=== PATIENT | female | born 1945 | race Caucasian/White ===

== ENCOUNTER 2016-12-21 22:28 | Inpatient (IN) | payer MEDICARE, OTHER ==
[2016-12-21 22:36] VITALS: BMI 32.9
[2016-12-21 23:03] LABS: VENOUS BLOOD GAS BASE EXCESS 8.4 mmol/L (0.0-2.0); VENOUS BLOOD PH 7.23 (7.32-7.43)
[2016-12-21 23:13] LABS: ARTERIAL BLOOD GAS HCO3 37.4 mmol/L (21-28)
[2016-12-21 23:15] LABS: BASO # 0.03 K/mm3 (0.0-2.0); BASO % 0.2 % (0.0-3.0); EOS # 0.3 (0.0-0.7); EOS % 2.4 % (1.5-5.0); GRAN # 9.82 (1.4-6.5); GRAN % 81.2 % (50.0-68.0); LYMPH # 1.2 (1.2-3.4); LYMPH % 10.1 % (22.0-35.0); MEAN CELL VOLUME 90.7 fl (80.0-105.0); MEAN CORPUSCULAR HEMOGLOBIN 27.7 pg (25.0-35.0); MEAN CORPUSCULAR HGB CONC 30.5 g/dl (31.0-37.0); MEAN PLATELET VOLUME 10.4 fl (7.0-11.0); MONO # 0.7 (0.1-0.6); MONO % 6.1 % (1.0-6.0); RED CELL DISTRIBUTION WIDTH 14.1 % (11.5-14.5); WHITE BLOOD COUNT 12.1 10^3/ul (4.5-11.0)
[2016-12-21] MEDS ORDERED: Albuterol-Ipratrop 3 mg / 0.5 (3 ml) UD IH STA (23:18)
[2016-12-21] MEDS ORDERED: Piperacillin/Tazobact 3.375 gm 100 ML IVPB STA (23:19)
[2016-12-21] MEDS ORDERED: Albuterol-Ipratrop 3 mg / 0.5 (3 ml) UD ONE (23:24)
[2016-12-21 23:28] LABS: ALB/GLOB RATIO 1.1 (1.1-1.8); ALKALINE PHOSPHATASE 97 U/L (38-133); ALT/SGPT 27 U/L (7-56); AST/SGOT 39 U/L (15-39); BILIRUBIN,TOTAL 0.4 mg/dL (0.2-1.3); BLOOD UREA NITROGEN 29 mg/dL (7-21); CARBON DIOXIDE 38 mmol/L (21-33); CHLORIDE 98 mmol/L (98-107); GFR AFRICAN-AMERICAN > 60; GLUCOSE,RANDOM 117 mg/dL (70-110); POTASSIUM 5.1 mmol/L (3.6-5.0); SODIUM 142 mmol/L (132-148); TOTAL PROTEIN 7.7 g/dL (5.8-8.3)
--- NOTE | 2016-12-21 23:29 | ED PDOC ---
Arrival/HPI - General Time Seen by Provider: 12/21/16 22:31 Historian: Patient - History of Present Illness Narrative History of Present Illness (Text): 12/21/16 22:33 A 71 year old female, whose past medical history includes COPD (on 2.5L oxygen at home), pulmonary fibrosis, bronchiectasis, hypertension and breast cancer, presents to the emergency department complaining of shortness of breath and fever for 1 day. Patient denies of any chest pain and vomiting. Limited HPI and ROS due to poor historian and language barrier. PMD: Dr. Del Rosario Time/Duration: 24 hours Symptom Onset: Sudden Symptom Course: Unchanged Past Medical History - Provider Review Nursing Documentation Reviewed: Yes - Infectious Disease Hx of Infectious Diseases: None - Tetanus Immunization Tetanus Immunization: Unknown - Cardiac Hx Cardiac Disorders: Yes (dvt 10 yrs ago) Hx Hypertension: Yes Hx Peripheral Edema: Yes (+2 pitting ble) - Pulmonary Hx Respiratory Disorders: (pulmonary htn, on home o2) Hx Asthma: Yes Hx Bronchitis: Yes Hx Chronic Obstructive Pulmonary Disease (COPD): Yes Hx Emphysema: Yes Hx Pneumonia: Yes - Neurological Hx Neurological Disorder: No - HEENT Hx HEENT Disorder: Yes Hx Cataracts: Yes (b/l sx) - Renal Hx Renal Disorder: No - Hematological/Oncological Hx Blood Disorders: Yes Hx Cancer: Yes (BREAST CA 2009, r mastectomy) Hx Chemotherapy: Yes (chemo and radiation) - Musculoskeletal/Rheumatological Hx Falls: No - Gastrointestinal Hx Gastroesophageal Reflux: Yes - Genitourinary/Gynecological Hx Genitourinary Disorders: No - Psychiatric Hx Substance Use: No - Past Surgical History Past Surgical History: Unable to Obtain - Surgical History Hx Appendectomy: Yes Hx Cardiac Catheterization: Yes Hx Cholecystectomy: Yes Hx Coronary Stent: Yes (3 STENTS) Hx Mastectomy: Yes (Right) Other/Comment: umbilical hernia repair - Anesthesia Hx Anesthesia: Yes Hx Anesthesia Reactions: No Hx Malignant Hyperthermia: No - Suicidal Assessment Feels Threatened In Home Enviroment: No Family/Social History - Physician Review Nursing Documentation Reviewed: Yes Family/Social History: No Known Family HX Smoking Status: Never Smoked Hx Alcohol Use: No Hx Substance Use: No Hx Substance Use Treatment: No Allergies/Home Meds Allergies/Adverse Reactions: Allergies No Known Allergies Allergy (Verified 12/21/16 22:36) Home Medications: Home Meds Medication Instructions Recorded Confirmed Albuterol Sulfate [Proair Hfa] 2 puff IH [facility] 06/22/16 12/21/16 Anastrozole [Arimidex] 1 mg PO DAILY 06/22/16 12/21/16 Atorvastatin Calcium 20 mg PO DIALW 06/22/16 12/21/16 Cetirizine HCl [Zyrtec] 10 mg PO DAILY PRN 06/22/16 12/21/16 Docusate Sodium [Stool Softener] 50 mg PO DAILY PRN 06/22/16 12/21/16 Lisinopril [Zestril] 10 mg PO DAILY 06/22/16 12/21/16 Metoprolol Tartrate [Lopressor] 50 mg PO BID 06/22/16 12/21/16 Montelukast Sodium [Singulair] 10 mg PO DAILY 06/22/16 12/21/16 Tiotropium [Spiriva] 18 mcg IH DAILY 06/22/16 12/21/16 hydroCHLOROthiazide [Hydrodiuril] 25 mg PO DAILY 06/22/16 12/21/16 Celecoxib [Celebrex] 200 mg PO DAILY 12/21/16 12/21/16 Cyanocobalamin [Vitamin B12 1000 1 tab PO DAILY 12/21/16 12/21/16 mcg Tab] Vitamin B Complex [B Complex] 1 tab PO DAILY 12/21/16 12/21/16 Review of Systems - Physician Review All systems were reviewed & negative as marked: Yes - Review of Systems Systems not reviewed;Unavailable: Language Barrier Constitutional: Fevers Respiratory: SOB Cardiovascular: absent: Chest Pain Gastrointestinal: absent: Vomiting Physical Exam Vital Signs Reviewed: Yes Vital Signs Temp Pulse Resp BP Pulse Ox 12/22/16 02:47 86 96 12/22/16 00:10 100.2 F H 101 H 22 135/65 96 12/21/16 23:31 102.5 F H 12/21/16 22:40 24 100 12/21/16 22:28 102.5 F H 100 H 20 143/72 99 Temperature: Afebrile Blood Pressure: Normal Pulse: Regular Respiratory Rate: Normal Appearance: Positive for: Well-Appearing Pain Distress: None Mental Status: Positive for: Alert and Oriented X 3 - Systems Exam Head: Present: Atraumatic, Normocephalic Pupils: Present: PERRL Extroacular Muscles: Present: EOMI Conjunctiva: Present: Normal Mouth: Present: Moist Mucous Membranes Neck: Present: Normal Range of Motion Respiratory/Chest: Present: Decreased Breath Sounds (bilaterally poor air) Cardiovascular: Present: Regular Rate and Rhythm, Normal S1, S2. No: Murmurs Abdomen: Present: Normal Bowel Sounds. No: Tenderness, Distention, Peritoneal Signs Back: Present: Normal Inspection Upper Extremity: Present: Normal Inspection. No: Cyanosis, Edema Lower Extremity: Present: Normal Inspection. No: Edema Neurological: Present: GCS=15, CN II-XII Intact, Speech Normal Skin: Present: Warm, Dry, Normal Color. No: Rashes Psychiatric: Present: Alert, Oriented x 3, Normal Insight, Normal Concentration Medical Decision Making ED Course and Treatment: 12/21/16 22:41 Impression: 71 year old female with shortness of breath and fever. Physical exam shows bilaterally decreased breath sounds. Plan: -- EKG -- Blood Gas -- Chest X-ray -- Labs -- Blood Culture -- Urinalysis -- Reassess and disposition Prior Visits: Notes and results from previous visits were reviewed. Patient was last seen in the emergency department on 06/22/2016 for non productive cough associated with left sided chest pain and shortness of breath. Patient was admitted. Progress Notes: 12/21/16 22:41 EKG: Ordered, reviewed, and independently interpreted the EKG. Rate : 100 BPM Rhythm : NSR Interpretation : Possible left atrial enlargement. Borderline ECG. Comparison : EKG from 06/22/2016 showed sinus tachycardia at 114 BPM with no new ST-segment/T-wave changes, normal intervals, normal axis. 12/22/16 00:14 Chest X-ray shows pulmonary fibrosis. case d/e dr veronica FISHER ACCEPTS TO ICU 12/25/16 16:21 - Critical Care Critical Care Minutes: 30 minutes (mangement of respiratory distress) - Lab Interpretations Microbiology Results: Microbiology Results 12/21/16 23:00 Blood-Venous Blood Culture - Preliminary NO GROWTH AFTER 3 DAYS 12/21/16 22:40 Blood-Venous Blood Culture - Preliminary NO GROWTH AFTER 3 DAYS 12/21/16 23:45 Urine,Clean Catch Urine Culture - Final Escherichia Coli Lab Results: 12/21/16 22:40 12/21/16 22:40 Lab Results 12/21/16 23:15: Urine Color Yellow, Urine Appearance Cloudy, Urine pH 6.0, Ur Specific [place] 1.025, Urine Protein 100 H, Urine Glucose (UA) Negative, Urine Ketones Negative, Urine Blood Small H, Urine Nitrate Positive H, Urine Bilirubin Negative, Urine Urobilinogen 0.2, Ur Leukocyte Esterase Small H, Urine RBC 2 - 5, Urine WBC 20 - 25, Ur Epithelial Cells 0 - 2, Urine Bacteria Many 12/21/16 23:10: pCO2 76 H*, pO2 203.0 H, HCO3 37.4 H, ABG pH 7.30 L, ABG Total CO2 39.7 H, ABG O2 Saturation 98.1 H, ABG Base Excess 8.0 H, ABG Potassium 4.6, Glucose 120 H, Lactate 1.1, FiO2 100.0, Sodium 140.0, Chloride 101.0, Arterial Blood Potassium 4.6 12/21/16 22:57: pO2 55, VBG pH 7.23 L, VBG pCO2 95.0 H*, VBG HCO3 39.8 H, VBG Total CO2 42.7 H, VBG O2 Sat (Calc) 89.7 H, VBG Base Excess 8.4 H, VBG Potassium 5.2, Glucose 117 H, Lactate 1.1, FiO2 21.0, Sodium 141.0, Chloride 100.0, Venous Blood Potassium 5.2 12/21/16 22:40: Sodium 142, Potassium 5.1 H, Chloride 98, Carbon Dioxide 38 H, Anion Gap 11, BUN 29 H, Creatinine 1.0, Est GFR ( Amer) > 60, Est GFR ( Non-Af Amer) 55, Random Glucose 117 H, Calcium 9.0, Total Bilirubin 0.4, AST 39 , ALT 27, Alkaline Phosphatase 97, Lactate Dehydrogenase 524, Total Creatine Kinase 22 L, Troponin I 0.03 D, NT-Pro-B Natriuret Pep 94.7, Total Protein 7.7 , Albumin 4.0, Globulin 3.7, Albumin/Globulin Ratio 1.1 12/21/16 22:40: WBC 12.1 H D, RBC 4.41, Hgb 12.2, Hct 40.0, MCV 90.7, MCH 27.7, MCHC 30.5 L, RDW 14.1, Plt Count 176, MPV 10.4, Gran % 81.2 H, Lymph % (Auto) 10.1 L, [place] % (Auto) 6.1 H, Eos % (Auto) 2.4, Baso % (Auto) 0.2, Gran # 9.82 H , Lymph # 1.2, Bradford # 0.7 H, Eos # 0.3, Baso # 0.03 I have reviewed the lab results: Yes - RAD Interpretation Radiology Orders: 12/21/16 22:42 CHEST PORTABLE [RAD] Stat - Medication Orders Current Medication Orders: Acetaminophen (Tylenol 325mg Tab) 650 mg PO Q6H PRN PRN Reason: Fever >100.4 F Last Admin: 12/23/16 00:03 Dose: 650 mg Re-Assess: MAR Pain/Vitals Document 12/23/16 01:03 MHA (Rec: 12/23/16 05:34 MHA [id number]) Pain Reassessment Is This A Pain ReAssessment? Yes Sleep Is patient sleeping during reassessment? Yes Albuterol/Ipratropium (Duoneb 3 Mg/0.5 Mg (3 Ml) Ud) 3 ml IH Q2H PRN PRN Reason: Shortness of Breath Albuterol/Ipratropium (Duoneb 3 Mg/0.5 Mg (3 Ml) Ud) 3 ml IH [id number] [facility] Last Admin: 12/25/16 11:21 Dose: 3 ml Anastrozole (Arimidex 1 Mg Tab) 1 mg PO DAILY [facility] Last Admin: 12/25/16 09:56 Dose: 1 mg Aspirin (Aspirin Chewable) 81 mg PO DAILY [facility] Last Admin: 12/25/16 09:29 Dose: Clopidogrel Bisulfate (Plavix) 75 mg PO DAILY [facility] Last Admin: 12/25/16 09:30 Dose: Doxycycline Hyclate (Doryx) 100 mg PO Q12 [facility] PRN Reason: Protocol Stop: 12/31/16 23:48 Last Admin: 12/25/16 09:52 Dose: 100 mg Famotidine (Pepcid) 40 mg PO HS [facility] Heparin Sodium (Porcine) (Heparin) 5,000 units SC Q12 [facility] PRN Reason: Protocol Last Admin: 12/25/16 10:06 Dose: Hydrochlorothiazide (Microzide) 12.5 mg PO DAILY [facility] Last Admin: 12/25/16 09:52 Dose: 12.5 mg Meropenem 1g/NS 100mL IVPB (Meropenem 1g/Ns 100ml Ivpb) 1 gm in 100 mls @ 100 mls/hr IVPB Q12 [facility] PRN Reason: Protocol Last Admin: 12/25/16 09:51 Dose: 100 mls/hr Sodium Chloride (Sodium Chloride 0.9%) 1,000 mls @ 50 mls/hr IV .Q20H [facility] Stop: 12/26/16 05:00 Last Admin: 12/25/16 09:31 Dose: 50 mls/hr Famotidine 20 mg/ Dextrose 102 mls @ 20.4 mls/hr IVPB Q5H [facility] PRN Reason: 4 MG/HR Last Admin: 12/25/16 12:07 Dose: 20.4 mls/hr Lisinopril (Zestril) 20 mg PO DAILY [facility] Last Admin: 12/25/16 09:53 Dose: 20 mg Methylprednisolone (Solu-Medrol) 20 mg IVP Q12 [facility] Last Admin: 12/25/16 09:53 Dose: 20 mg Metoprolol Tartrate (Lopressor) 50 mg PO BID [facility] Last Admin: 12/25/16 09:30 Dose: Morphine Sulfate (Morphine) 1 mg IVP Q3 PRN PRN Reason: Pain, severe (8-10) Last Admin: 12/23/16 09:54 Dose: 1 mg Re-Assess: [facility] Pain Assessment Document 12/23/16 10:54 CLA (Rec: 12/23/16 14:47 CLA [id number]) Pain Reassessment Is this a pain reassessment? Yes Sleep Is patient sleeping during reassessment? Yes Presence of Pain Presence of Pain No Ondansetron HCl (Zofran Inj) 4 mg IVP Q6H PRN PRN Reason: Nausea/Vomiting Discontinued Medications Acetaminophen (Tylenol 325mg Tab) 650 mg PO STAT STA Stop: 12/21/16 23:21 Last Admin: 12/21/16 23:31 Dose: 650 mg Re-Assess: [facility] Pain/Vitals Document 12/22/16 00:31 RD (Rec: 12/22/16 02:07 RD [id number]) Pain Reassessment Is This A Pain ReAssessment? No Albuterol/Ipratropium (Duoneb 3 Mg/0.5 Mg (3 Ml) Ud) 3 ml IH STAT STA Stop: 12/21/16 23:19 Last Admin: 12/21/16 23:29 Dose: 3 ml Albuterol/Ipratropium (Duoneb 3 Mg/0.5 Mg (3 Ml) Ud) Confirm Administered Dose 3 ml .ROUTE .STK-MED ONE Stop: 12/21/16 23:25 Last Admin: 12/21/16 23:35 Dose: Eptifibatide (Integrilin Bolus) Confirm Administered Dose 40 mg IVP .STK-MED ONE Stop: 12/25/16 08:11 Last Admin: 12/25/16 08:12 Dose: 13.6 mg Comments: 6.8mls given at 812am by lesly marie rn, confirmed with dr. murillo 6.8mls given at 822am with by lesly marie rn, confirmed by dr. murillo. Fentanyl (Fentanyl) Confirm Administered Dose 100 mcg .ROUTE .STK-MED ONE Stop: 12/25/16 07:52 Last Admin: 12/25/16 07:56 Dose: 50 mcg Comments: 50mcgs given iv by dr murillo at 756am Flumazenil (Romazicon) Confirm Administered Dose 0.5 mg IVP .STK-MED ONE Stop: 12/25/16 08:42 Last Admin: 12/25/16 09:30 Dose: 0.2 mg Comments: 842am .1mg given by lesly marie rn 843am .1mg given by lesly marie rn Furosemide (Lasix) 40 mg IVP ONCE ONE Stop: 12/25/16 12:50 Last Admin: 12/25/16 13:05 Dose: 40 mg Heparin Sodium (Porcine) (Heparin) Confirm Administered Dose 10,000 units .ROUTE .STK-MED ONE Stop: 12/25/16 06:52 Last Admin: 12/25/16 08:13 Dose: 3,000 units Comments: 3000u given by lesly marie rn iv at 813am, confirmed with dr. murillo Vancomycin HCl (Vancomycin 1gm) 1 gm in 250 mls @ 167 mls/hr IVPB DAILY [facility] PRN Reason: Protocol Piperacillin Sod/Tazobactam Sod (Zosyn 3.375 In Ns 100ml) 100 mls @ 200 mls/hr IVPB STAT STA PRN Reason: Protocol Stop: 12/21/16 23:48 Last Admin: 12/21/16 23:34 Dose: 200 mls/hr Vancomycin HCl (Vancomycin 1gm) 1 gm in 250 mls @ 167 mls/hr IVPB STAT STA PRN Reason: Protocol Stop: 12/22/16 01:07 Last Admin: 12/22/16 00:12 Dose: 167 mls/hr Sodium Chloride (Sodium Chloride 0.9%) 1,000 mls @ 80 mls/hr IV .[id number] [facility] Last Admin: 12/24/16 05:18 Dose: 80 mls/hr Cefepime HCl (Maxipime 2gm) 2 gm in 100 mls @ 100 mls/hr IVPB Q8 [facility] PRN Reason: Protocol Stop: 12/27/16 06:01 Last Admin: 12/22/16 21:24 Dose: 100 mls/hr Linezolid (Zyvox 600mg/300ml D5w) 600 mg in 300 mls @ 200 mls/hr IVPB Q12 [facility] PRN Reason: Protocol Stop: 12/31/16 23:46 Last Admin: 12/24/16 14:27 Dose: 200 mls/hr Sodium Chloride (Sodium Chloride 0.45%) 1,000 mls @ 100 mls/hr IV .Q10H [facility] Last Admin: 12/24/16 23:40 Dose: 100 mls/hr Nitroglycerin/Dextrose (Nitroglycerin 50 Mg/250 Ml D5w) Confirm Administered Dose 50 mg in 250 mls @ ud IV .STK-MED ONE Stop: 12/25/16 06:53 Last Admin: 12/25/16 09:29 Dose: Comments: not used Heparin Sodium (Porcine) (Heparin 1000 Units/500 Ml Ns) Confirm Administered Dose 1,500 mls @ ud IV .STK-MED ONE Stop: 12/25/16 06:53 Iohexol (Omnipaque 350mg/Ml 50 Ml) Confirm Administered Dose 50 ml .ROUTE .STK- MED ONE Stop: 12/25/16 06:53 Iohexol (Omnipaque 350 100 Ml) Confirm Administered Dose 350 mg .ROUTE .STK-MED ONE Stop: 12/25/16 06:53 Iohexol (Omnipaque 350 150 Ml) Confirm Administered Dose 150 ml .ROUTE .STK-MED ONE Stop: 12/25/16 06:53 Lidocaine HCl (Lidocaine 2% 20ml Vial) Confirm Administered Dose 20 ml .ROUTE .STK-MED ONE Stop: 12/25/16 06:52 Last Admin: 12/25/16 07:57 Dose: 8 ml Comments: 8mls give subq by dr. murillo to right groin Methylprednisolone (Solu-Medrol) 40 mg IV Q8 [facility] Last Admin: 12/23/16 05:33 Dose: 40 mg Midazolam HCl (Versed Inj) Confirm Administered Dose 2 mg .ROUTE .STK-MED ONE Stop: 12/25/16 07:52 Last Admin: 12/25/16 07:56 Dose: 2 mg Comments: 1mg given by dr. murillo at 756am 1mg given by lesly marie rn at 835am Nitroglycerin (Nitro-Bid 2% Oint) 0.5 ea TOP Q6 [facility] Last Admin: 12/25/16 05:58 Dose: 0.5 ea Pantoprazole Sodium (Protonix Inj) 40 mg IVP DAILY [facility] Last Admin: 12/22/16 09:21 Dose: 40 mg Pantoprazole Sodium (Protonix Ec Tab) 40 mg PO 0600 [facility] Last Admin: 12/25/16 05:58 Dose: 40 mg Verapamil HCl (Verapamil Inj) Confirm Administered Dose 5 mg IVP .STK-MED ONE Stop: 12/25/16 06:52 Last Admin: 12/25/16 09:30 Dose: - Scribe Statement The provider has reviewed the documentation as recorded by the Jonathan Khan Provider Scribe Attestation: All medical record entries made by the Jonathan were at my direction and personally dictated by me. I have reviewed the chart and agree that the record accurately reflects my personal performance of the history, physical exam, medical decision making, and the department course for this patient. I have also personally directed, reviewed, and agree with the discharge instructions and disposition. Disposition/Present on Arrival - Present on Arrival Any Indicators Present on Arrival: No History of DVT/PE: No History of Uncontrolled Diabetes: No Urinary Catheter: No History Surgical Site Infection Following: None - Disposition Have Diagnosis and Disposition been Completed?: Yes Diagnosis: Pulmonary fibrosis, COPD exacerbation Disposition: HOSPITALIZED Disposition Time: 01:15 Condition: SERIOUS
[2016-12-21 23:32] LABS: URINE BILIRUBIN NEGATIVE (NEGATIVE); URINE BLOOD SMALL (NEGATIVE); URINE GLUCOSE (UA) NEGATIVE (NEGATIVE); URINE KETONE NEGATIVE (NEGATIVE); URINE LEUKOCYTE ESTERASE SMALL Leu/uL (NEGATIVE); URINE PROTEIN 100 mg/dL (<30 mg/dL); URINE UROBILINOGEN 0.2 E.U./dL (<1 E.U./dL)
[2016-12-21 23:36] LABS: URINE COLOR YELLOW (YELLOW)
[2016-12-21 23:37] LABS: URINE APPEARANCE CLOUDY (CLEAR)
[2016-12-21 23:38] LABS: TROPONIN I 0.03 ng/mL
[2016-12-21] MEDS ORDERED: Vancomycin 1gm in NS 250ml 1 GM/250 ML BAG IVPB STA (23:38)
[2016-12-21 23:46] LABS: URINE BACTERIA MANY (NEG); URINE EPITHELIAL CELLS 0 - 2 /hpf (0-5); URINE WBC 20 - 25 /hpf (0-6)
[2016-12-22] MEDS: Sodium Chloride 0.9% 1,000 ML IV SCH ×2 (00:13→14:12)
[2016-12-22] MEDS ORDERED: Albuterol-Ipratrop 3 mg / 0.5 (3 ml) UD IH PRN (01:29)
[2016-12-22] MEDS ORDERED: methylPREDNISolone 40 MG in Sodium Chloride 0.9% 100 ML IVPB SCH (01:30)
--- NOTE | 2016-12-22 01:39 | CP.PCM.CON ---
History of Present Illness - History of Present Illness History of Present Illness: The patient is a 71 year old woman with a history of pulmonary fibrosis (on 2.5L home O2), bronchiectasis, breast cancer (s/p mastectomy and chemo) and HTN , who p/w acutely worsening SOB, fevers and dry cough. She denies chest pain, leg swelling, recent travel or recent exposure to sick contacts. She also denies any previous history of intubation. In the ED, the patient was found to be in hypercapneic respiratory distress which improved with Bipap therapy. Review of Systems - Review of Systems All systems: reviewed and no additional remarkable complaints except - Constitutional Constitutional: As Per HPI - EENT Eyes: As Per HPI Nose/Mouth/Throat: As Per HPI - Cardiovascular Cardiovascular: As Per HPI - Respiratory Respiratory: As Per HPI - Gastrointestinal Gastrointestinal: As Per HPI - Genitourinary Genitourinary: As Per HPI - Neurological Neurological: As Per HPI Past Patient History - Infectious Disease Hx of Infectious Diseases: None - Tetanus Immunizations Tetanus Immunization: Unknown - Past Social History Smoking Status: Never Smoked - CARDIAC Hx Cardiac Disorders: Yes (dvt 10 yrs ago) Hx Hypertension: Yes Hx Peripheral Edema: Yes (+2 pitting ble) - PULMONARY Hx Respiratory Disorders: (pulmonary htn, on home o2) Hx Asthma: Yes Hx Bronchitis: Yes Hx Chronic Obstructive Pulmonary Disease (COPD): Yes Hx Emphysema: Yes Hx Pneumonia: Yes - NEUROLOGICAL Hx Neurological Disorder: No - HEENT Hx HEENT Problems: Yes Hx Cataracts: Yes (b/l sx) - RENAL Hx Chronic Kidney Disease: No - HEMATOLOGICAL/ONCOLOGICAL Hx Blood Disorders: Yes Hx Cancer: Yes (BREAST CA 2009, r mastectomy) Hx Chemotherapy: Yes (chemo and radiation) - INTEGUMENTARY Hx Dermatological Problems: No - MUSCULOSKELETAL/RHEUMATOLOGICAL Hx Falls: No - GASTROINTESTINAL Hx Gastroesophageal Reflux: Yes - GENITOURINARY/GYNECOLOGICAL Hx Genitourinary Disorders: No - PSYCHIATRIC Hx Substance Use: No - SURGICAL HISTORY Hx Appendectomy: Yes Hx Cardiac Catheterization: Yes Hx Cholecystectomy: Yes Hx Coronary Stent: Yes (3 STENTS) Hx Mastectomy: Yes (Right) Other/Comment: umbilical hernia repair - ANESTHESIA Hx Anesthesia: Yes Hx Anesthesia Reactions: No Hx Malignant Hyperthermia: No Meds Allergies/Adverse Reactions: Allergies Allergy/AdvReac Type Severity Reaction Status Date / Time No Known Allergies Allergy Verified 12/21/16 22:36 - Medications Medications: Current Medications Acetaminophen (Tylenol 325mg Tab) 650 mg PO Q6H PRN PRN Reason: Fever >100.4 F Albuterol/Ipratropium (Duoneb 3 Mg/0.5 Mg (3 Ml) Ud) 3 ml IH Q2H PRN PRN Reason: Shortness of Breath Albuterol/Ipratropium (Duoneb 3 Mg/0.5 Mg (3 Ml) Ud) 3 ml IH Q4H [facility] Aspirin (Aspirin Chewable) 81 mg PO DAILY [facility] Heparin Sodium (Porcine) (Heparin) 5,000 units SC Q12 [facility] PRN Reason: Protocol Hydrochlorothiazide (Microzide) 12.5 mg PO DAILY [facility] Sodium Chloride (Sodium Chloride 0.9%) 1,000 mls @ 80 mls/hr IV .[id number] [facility] Last Admin: 12/22/16 00:13 Dose: 80 mls/hr Cefepime HCl (Maxipime 2gm) 2 gm in 100 mls @ 100 mls/hr IVPB Q8 [facility] PRN Reason: Protocol Stop: 12/27/16 06:01 Methylprednisolone 40 mg/ (Sodium Chloride) 100 mls @ 200 mls/hr IVPB Q8H [facility] Lisinopril (Zestril) 20 mg PO DAILY [facility] Ondansetron HCl (Zofran Inj) 4 mg IVP Q6H PRN PRN Reason: Nausea/Vomiting Pantoprazole Sodium (Protonix Inj) 40 mg IVP DAILY [facility] Physical Exam - Constitutional Appears: No Acute Distress - Head Exam Head Exam: ATRAUMATIC - ENT Exam ENT Exam: Mucous Membranes Moist - Neck Exam Neck exam: Positive for: Normal Inspection - Respiratory Exam Additional comments: Scattered wheezes; Decreased breath sounds otherwise; No accessory muscle use - Cardiovascular Exam Cardiovascular Exam: Tachycardia, REGULAR RHYTHM, +S1, +S2 - GI/Abdominal Exam GI & Abdominal Exam: Normal Bowel Sounds, Soft. absent: Tenderness - Rectal Exam Rectal Exam: Deferred - Extremities Exam Additional comments: Bilateral lower extremity, non-pitting edema - Neurological Exam Neurological exam: Alert, CN II-XII Intact, Normal Gait, Oriented x3, Reflexes Normal Results - Vital Signs Recent Vital Signs: Last Vital Signs Temp 100.2 F H 12/22/16 00:10 Pulse 101 H 12/22/16 00:10 Resp 22 12/22/16 00:10 BP 135/65 12/22/16 00:10 Pulse Ox 96 12/22/16 00:10 - Labs Result Diagrams: 12/22/16 05:45 12/22/16 05:45 - Imaging and Cardiology Chest x-ray Status: Image reviewed by me Assessment & Plan - Assessment and Plan (Free Text) Assessment: A/P: The patient is a 71 year old woman with a history of pulmonary fibrosis ( on 2.5L home O2), bronchiectasis, breast cancer (s/p mastectomy and chemo) and HTN, who is being admitted to the ICU with acute hypercapneic respiratory distress with likely PNA. 1. Acute Hypercapneic Respiratory Distress: -likely due to PNA with underlying pulmonary fibrosis -empiric IV antibiotics -breathing treatments ATC and PRN -IV Solumderol -repeat ABG in AM -2D-echo to evaluate for pulmonary HTN 2. Community-Acquired PNA: -will treat with empiric IV Cefepime for pseudomonal coverage given pt's h/o bronchietasis -check moeller-cultures -lactic acid was normal 3. HTN: -continue home meds of HCTZ and Lisinopril -heart healthy diet DVT PPx: SCD's and SC Heparin GI PPx: Protonix 1.
[2016-12-22] MEDS: Albuterol-Ipratrop 3 mg / 0.5 (3 ml) UD IH SCH ×5 (01:45→20:03)
[2016-12-22] MEDS: MethylPREDNISolone 40 mg Vial IV SCH ×4 (02:00→21:23)
[2016-12-22 02:29] LABS: ABG MECHANICAL RATE 12; ARTERIAL BLOOD GAS PH 7.29 (7.35-7.45)
[2016-12-22] MEDS: Cefepime IV 2 gm in NS 2 GM/100 ML BAG IVPB SCH ×3 (05:39→21:24)
[2016-12-22 06:26] LABS: ALB/GLOB RATIO 1.1 (1.1-1.8); BILIRUBIN,TOTAL 0.4 mg/dL (0.2-1.3); CALCIUM 8.4 mg/dL (8.4-10.5); MAGNESIUM 2.1 mg/dL (1.7-2.2); PHOSPHOROUS 4.1 mg/dL (2.5-4.5); POTASSIUM 4.8 mmol/L (3.6-5.0); TOTAL PROTEIN 6.4 g/dL (5.8-8.3)
[2016-12-22 07:03] LABS: BASO # 0.01 K/mm3 (0.0-2.0); BASO % 0.1 % (0.0-3.0); EOS % 0.1 % (1.5-5.0); GRAN # 13.85 (1.4-6.5); GRAN % 93.2 % (50.0-68.0); HEMATOCRIT 35.2 % (36.0-48.0); LYMPH # 0.7 (1.2-3.4); LYMPH % 4.8 % (22.0-35.0); MEAN CELL VOLUME 91.4 fl (80.0-105.0); MEAN CORPUSCULAR HGB CONC 29.5 g/dl (31.0-37.0); MEAN PLATELET VOLUME 10.1 fl (7.0-11.0); MONO # 0.3 (0.1-0.6); MONO % 1.8 % (1.0-6.0); PLATELET COUNT 162 10^3/uL (120.0-450.0); RED CELL DISTRIBUTION WIDTH 14.3 % (11.5-14.5); WHITE BLOOD COUNT 14.9 10^3/ul (4.5-11.0)
[2016-12-22 09:48] LABS: ANISOCYTOSIS SLIGHT; BAND 8 % (0-2); HYPOCHROMIA SLIGHT; NEUTROPHIL 82 % (50.0-70.0); PLATELET ESTIMATE NORMAL (NORMAL)
[2016-12-22] MEDS ORDERED: Vancomycin 1gm in NS 250ml 1 GM/250 ML BAG IVPB SCH (10:00)
--- NOTE | 2016-12-22 10:52 | RAD ---
HISTORY: sob COMPARISON: Comparison chest 06/23/2016. Comparison also made with CT scan chest dated 02/15/2015 FINDINGS: LUNGS: Pulmonary fibrosis again seen. Previously noted cylindrical and cystic bronchiectasis the latter of which is seen predominantly in the lower lung justice less well seen compared the prior CT scan of the chest. Note the possibility that of superimposed underlying infiltrate cannot be completely excluded Right breast implant. PLEURA: No significant pleural effusion identified, no pneumothorax apparent. CARDIOVASCULAR: Heart size appears borderline/ mildly enlarged OSSEOUS STRUCTURES: Minor multilevel degenerative spondylosis of the thoracic spine VISUALIZED UPPER ABDOMEN: Normal. OTHER FINDINGS: None. IMPRESSION: Pulmonary fibrosis with cylindrical and cystic bronchiectasis, the latter of which is anomaly as seen in the lower lung justice however all these changes are seen to better advantage on prior CT scan superimposed underlying infiltrate not completely excluded
--- NOTE | 2016-12-22 11:03 | CP.CCUPN ---
CCU Subjective - Physician Review Events Since Last Encounter (Free Text): 12/22/16 10:53 71 y/o F who presented to the hospital due to SOB, Chest tightness and difficulty speaking. Has a long standing 15 year hx of " fibrosis". No complete work up has ever been done as per her account. She claims that she was told that her fibrosis has not resulted in symptoms until the last 6 years when she was prescribed oxygen due to her poor performance status . She does mention that when she comes to the hospital in the past years she always received Oxygen, abx and steroids. CCU Objective - Vital Signs / Intake & Output Vital Signs (Last 4 hours): Vital Signs Temp Pulse Resp BP Pulse Ox 12/22/16 10:00 88 12/22/16 09:22 84 128/68 12/22/16 08:30 84 21 95 12/22/16 08:21 82 21 128/58 L 96 12/22/16 08:20 82 30 H 96 12/22/16 08:14 81 84 H 12/22/16 08:10 78 79 H 12/22/16 08:00 97.6 F 69 15 100 12/22/16 07:50 68 22 100 12/22/16 07:40 65 19 99 12/22/16 07:30 65 21 98 12/22/16 07:20 66 20 99 12/22/16 07:10 68 20 100 12/22/16 07:00 68 19 100 Intake and Output (Last 8hrs): Intake & Output 12/21/16 12/22/16 12/22/16 22:59 06:59 14:59 Intake Total 400 Output Total 0 Balance 400 Weight 164 lb 164 lb Intake: IV 400 Left Forearm 400 Oral 0 Output: Urine 0 Urine, Voided 0 Stool 0 Other: Voiding Method Bedside Commode # Bowel Movements 0 - Physical Exam Head: Positive for: Atraumatic, Normocephalic Pupils: Positive for: PERRL Extroacular Muscles: Positive for: EOMI Conjunctiva: Positive for: Normal Mouth: Positive for: Moist Mucous Membranes Neck: Positive for: Normal Range of Motion Respiratory/Chest: Positive for: Decreased Breath Sounds (bilaterally poor air) , Rales (velcro rales ), Other Cardiovascular: Positive for: Regular Rate and Rhythm, Normal S1, S2. Negative for: Murmurs Abdomen: Positive for: Normal Bowel Sounds. Negative for: Tenderness, Distention, Peritoneal Signs Back: Positive for: Normal Inspection Upper Extremity: Positive for: Normal Inspection. Negative for: Cyanosis, Edema Lower Extremity: Positive for: Normal Inspection. Negative for: Edema Neurological: Positive for: GCS=15, CN II-XII Intact, Speech Normal Skin: Positive for: Warm, Dry, Normal Color. Negative for: Rashes Psychiatric: Positive for: Alert, Oriented x 3, Normal Insight, Normal Concentration - Medications Active Medications: Active Medications Generic Name Dose Route Start Last Admin Trade Name Freq PRN Reason Stop Dose Admin Acetaminophen 650 mg 12/22/16 01:17 Tylenol 325mg Tab PO Q6H PRN Fever >100.4 F Albuterol/Ipratropium 3 ml 12/22/16 01:29 Duoneb 3 Mg/0.5 Mg (3 Ml) Ud IH Q2H PRN Shortness of Breath Albuterol/Ipratropium 3 ml 12/22/16 01:30 12/22/16 08:18 Duoneb 3 Mg/0.5 Mg (3 Ml) Ud IH 3 ml [id number] GUY Administration Aspirin 81 mg 12/22/16 10:00 12/22/16 09:25 Aspirin Chewable PO 81 mg DAILY GUY Administration Heparin Sodium (Porcine) 5,000 units 12/22/16 10:00 12/22/16 09:21 Heparin SC 5,000 units Q12 GUY Administration Protocol Hydrochlorothiazide 12.5 mg 12/22/16 10:00 12/22/16 10:07 Microzide PO 12.5 mg DAILY GUY Administration Sodium Chloride 1,000 mls @ 80 mls/hr 12/22/16 00:15 12/22/16 00:13 Sodium Chloride 0.9% IV 80 mls/hr .[id number] GUY Administration Cefepime HCl 2 gm in 100 mls @ 100 mls/hr 12/22/16 06:00 12/22/16 05:39 Maxipime 2gm IVPB 12/27/16 06:01 100 mls/hr Q8 GUY Administration Protocol Lisinopril 20 mg 12/22/16 10:00 12/22/16 09:22 Zestril PO 20 mg DAILY GUY Administration Methylprednisolone 40 mg 12/22/16 01:45 12/22/16 05:39 Solu-Medrol IV 40 mg Q8 GUY Administration Morphine Sulfate 1 mg 12/22/16 10:06 Morphine IVP Q3 PRN Pain, severe (8-10) Ondansetron HCl 4 mg 12/22/16 01:17 Zofran Inj IVP Q6H PRN Nausea/Vomiting Pantoprazole Sodium 40 mg 12/22/16 10:00 12/22/16 09:21 Protonix Inj IVP 40 mg DAILY GUY Administration - Patient Studies Lab Studies: Lab Studies 12/22/16 12/22/16 12/22/16 Range/Units 05:45 05:45 02:15 WBC 14.9 H D (4.5-11.0) 10^3/ul RBC 3.85 (3.5-6.1) 10^6/uL Hgb 10.4 L (12.0-16.0) g/dL Hct 35.2 L (36.0-48.0) % MCV 91.4 (80.0-105.0) fl MCH 27.0 (25.0-35.0) pg MCHC 29.5 L (31.0-37.0) g/dl RDW 14.3 (11.5-14.5) % Plt Count 162 (120.0-450.0) 10^3/uL MPV 10.1 (7.0-11.0) fl Gran % 93.2 H (50.0-68.0) % Lymph % (Auto) 4.8 L (22.0-35.0) % [place] % (Auto) 1.8 (1.0-6.0) % Eos % (Auto) 0.1 L (1.5-5.0) % Baso % (Auto) 0.1 (0.0-3.0) % Gran # 13.85 H (1.4-6.5) Lymph # 0.7 L (1.2-3.4) [place] # 0.3 (0.1-0.6) Eos # 0.0 (0.0-0.7) Baso # 0.01 (0.0-2.0) K/mm3 Neutrophils % (Manual) 82 H (50.0-70.0) % Band Neutrophils % 8 H (0-2) % Lymphocytes % (Manual) 6 L (22.0-35.0) % Monocytes % (Manual) 4 (1.0-6.0) % Platelet Evaluation Normal (NORMAL) Hypochromasia Slight Anisocytosis (manual) Slight pCO2 77 H* (35-45) mm/Hg pO2 90.0 (80-100) mm/Hg HCO3 37.0 H (21-28) mmol/L ABG pH 7.29 L (7.35-7.45) ABG Total CO2 39.4 H (22-28) mmol.L ABG O2 Saturation 97.2 (95-98) % ABG Base Excess 7.5 H (-2.0-3.0) mmol/L ABG Potassium 4.1 (3.6-5.2) mmol/L Sodium 143 141.0 (132-148) mmol/L Chloride 102 106.0 (98-107) mmol/L Glucose 114 H (65-105) mg/dl Lactate 1.1 (0.7-2.1) mmol/L Mechanical Rate 12 FiO2 50.0 % Potassium 4.8 (3.6-5.0) mmol/L Carbon Dioxide 35 H (21-33) mmol/L Anion Gap 11 (10-20) BUN 31 H (7-21) mg/dL Creatinine 1.2 (0.5-1.4) mg/dL Est GFR ( Amer) 54 Est GFR (Non-Af Amer) 44 Random Glucose 154 H (70-110) mg/dL Calcium 8.4 (8.4-10.5) mg/dL Phosphorus 4.1 (2.5-4.5) mg/dL Magnesium 2.1 (1.7-2.2) mg/dL Total Bilirubin 0.4 (0.2-1.3) mg/dL AST 33 (15-39) U/L ALT 27 (7-56) U/L Alkaline Phosphatase 74 (38-133) U/L NT-Pro-B Natriuret Pep 658 H (0-450) pg/mL Total Protein 6.4 (5.8-8.3) g/dL Albumin 3.3 (3.0-4.8) g/dL Globulin 3.1 gm/dL Albumin/Globulin Ratio 1.1 (1.1-1.8) Arterial Blood Potassium 4.1 (3.6-5.2) mmol/L Laboratory Results - last 24 hr 12/22/16 12/22/16 12/22/16 02:15 05:45 05:45 WBC 14.9 H D RBC 3.85 Hgb 10.4 L Hct 35.2 L MCV 91.4 MCH 27.0 MCHC 29.5 L RDW 14.3 Plt Count 162 MPV 10.1 Gran % 93.2 H Lymph % (Auto) 4.8 L [place] % (Auto) 1.8 Eos % (Auto) 0.1 L Baso % (Auto) 0.1 Gran # 13.85 H Lymph # 0.7 L [place] # 0.3 Eos # 0.0 Baso # 0.01 Neutrophils % (Manual) 82 H Band Neutrophils % 8 H Lymphocytes % (Manual) 6 L Monocytes % (Manual) 4 Platelet Evaluation Normal Hypochromasia Slight Anisocytosis (manual) Slight pCO2 77 H* pO2 90.0 HCO3 37.0 H ABG pH 7.29 L ABG Total CO2 39.4 H ABG O2 Saturation 97.2 ABG Base Excess 7.5 H ABG Potassium 4.1 Sodium 141.0 143 Chloride 106.0 102 Glucose 114 H Lactate 1.1 Mechanical Rate 12 FiO2 50.0 Potassium 4.8 Carbon Dioxide 35 H Anion Gap 11 BUN 31 H Creatinine 1.2 Est GFR ( Amer) 54 Est GFR (Non-Af Amer) 44 Random Glucose 154 H Calcium 8.4 Phosphorus 4.1 Magnesium 2.1 Total Bilirubin 0.4 AST 33 ALT 27 Alkaline Phosphatase 74 NT-Pro-B Natriuret Pep 658 H Total Protein 6.4 Albumin 3.3 Globulin 3.1 Albumin/Globulin Ratio 1.1 Arterial Blood Potassium 4.1 EKG/Cardiology Studies: Cardiology / EKG Studies 12/22/16 09:05 EKG [ELECTROCARDIOGRAM] Stat Comment: Reason For Exam: chest pain PRE OP:: N Does Patient Have a Pacemaker?: No Review of Systems - Respiratory Respiratory: Dyspnea Critical Care Progress Note - Nutrition Nutrition: Nutrition Category Date Time Status Heart Healthy Diet [DIET] Diets 12/22/16 Breakfast Ordered Assessment/Plan - Assessment and Plan (Free Text) Assessment: 71 y/o F w/ Pulmonary Fibrosis admitted for dyspnea and SOB Ct chest was done today and in comparison with previous scan shows increased upper lobe fibrosis and bronchectasis. In her history she never had a formal work up for her Fibrosis . UP vs NSIP ( connective tissue disease and/ or Sarcoidosis seems likely. ) , Primary upper lobe fibrosis . The patient never had a biopsy or formal work up or blood work in the past. ECHO also to be done, likely has Pulmonary HTN and requires oxygen . Currently being workup and treated for a flare of her Fibrosis . cx drawn, abx started and Solumedrol added in the event that her fibrosis is responsive to steroids dvt p cc time 65 min
--- NOTE | 2016-12-22 11:44 | CT ---
PROCEDURE: CT Chest without contrast HISTORY: COPD. COMPARISON: Comparison made with CT scan of the chest 02/15/2015 TECHNIQUE: Contiguous axial images were obtained through the chest without intravenous contrast enhancement. Sagittal and coronal reconstructions were performed. Radiation dose (DLP): 586.27 mGy-cm. This CT exam was performed using one or more of the following dose reduction techniques: Automated exposure control, adjustment of the mA and/or kV according to patient size, and/or use of iterative reconstruction technique. FINDINGS: LUNGS: The current study re- demonstrates chronic appearing areas of atelectasis and scarring and fibrosis throughout the upper and lower lobes. . Changes have progressed slightly and are somewhat more confluent in appearance. Note that the possibility of superimposed scattered infiltrate changes cannot be completely excluded ; clinical correlation with the physical exam and laboratory values. Areas of cylindrical and cystic bronchiectasis again noted which also appear to have progressed. . . Small calcified granuloma right lung apex again noted. MEDIASTINUM: Heart size is mildly enlarged. No significant pericardial effusion. Multiple prominent mediastinal lymph nodes several which exhibit calcification consistent with prior exposure to granulomatous disease process. Few small right and calcified hilar lymph nodes are present however note that evaluation for hilar adenopathy is somewhat limited due to the lack of circulating intravenous contrast material. Central airways are midline and patent. Small hiatal hernia. PLEURA: No pleural fluid. No pneumothorax. BONES: Minor multilevel degenerative spondylosis of the thoracic spine. No evidence of acute compression fractures no retropulsed fragments. No suspicious lytic or blastic lesions are identified. UPPER ABDOMEN: The upper abdominal structures appear grossly unremarkable. OTHER FINDINGS: None. Right breast implant unchanged. IMPRESSION: Mario Re- demonstrated are chronic areas of atelectasis/scarring and fibrosis. Note that the possibility of superimposed scattered infiltrate changes cannot be completely excluded ; clinical correlation with the physical exam and laboratory values. Areas of cylindrical and cystic bronchiectasis again noted which also appear to have progressed. Small calcified granuloma right lung apex again noted. Right breast implant.
--- NOTE | 2016-12-22 15:21 | CARD ---
APPROVED REPORT EXAM: Two-dimensional and M-mode echocardiogram with Doppler and color Doppler. INDICATION EF AND PUL. PRESSURES 2D DIMENSIONS Left Atrium (2D)3.6 (1.6-4.0cm)IVSd1.2 (0.7-1.1cm) LVDd3.6 (3.9-5.9cm)PWd0.9 (0.7-1.1cm) LVDs2.4 (2.5-4.0cm)FS (%) 33.0 % LVEF (%)62.4 (>50%) M-Mode DIMENSIONS Aortic Root2.60 (2.2-3.7cm)Aortic Cusp Exc.1.50 (1.5-2.0cm) Aortic Valve AoV Peak Svacctie709.0cm/Jud Peak GR.20mmHg Mitral Valve MV E Zpusvond606.0cm/sMV A Xgyrwsmx590.0cm/sE/A ratio0.9 TDI E/Lateral E'0.0E/Medial E'0.0 Tricuspid Valve RAP [id number] Peak [id number] LEFT VENTRICLE The left ventricle is normal size. There is borderline concentric left ventricular hypertrophy. The left ventricular function is normal. The left ventricular ejection fraction is within the normal range. There is normal LV segmental wall motion. Transmitral Doppler flow pattern is Grade I-abnormal relaxation pattern. RIGHT VENTRICLE The right ventricle is normal size. There is normal right ventricular wall thickness. The right ventricular systolic function is normal. ATRIA The left atrium size is normal. The right atrium size is normal. AORTIC VALVE The aortic valve is mildly sclerotic. MITRAL VALVE Mitral annular calcification is moderate. There is no mitral valve regurgitation noted. There is no mitral valve stenosis. TRICUSPID VALVE There is moderate pulmonary hypertension. PULMONIC VALVE There is mild pulmonic valvular regurgitation. GREAT VESSELS The aortic root displays moderate sclerocalcific changes of the aortic root. The IVC is normal in size and collapses >50% with inspiration. <Conclusion> The left ventricle is normal size. There is borderline concentric left ventricular hypertrophy. The left ventricular function is normal. The left ventricular ejection fraction is within the normal range. There is normal LV segmental wall motion. Transmitral Doppler flow pattern is Grade I-abnormal relaxation pattern. There is moderate pulmonary hypertension.
[2016-12-22] MEDS: Morphine 2 mg/ml ISec IVP PRN ×2 (17:07→22:03)
[2016-12-23] LABS: ARTERIAL BLOOD GAS HCO3 34.3 mmol/L (21-28); ARTERIAL BLOOD GAS PH 7.23 (7.35-7.45)
[2016-12-23] MEDS: Linezolid 600 mg in D5W 300 ml 600 MG/300 ML BAG IVPB SCH ×3 (00:01→22:56)
[2016-12-23] MEDS: Meropenem 1g/NS 100mL IVPB 1 GM/100 ML PIGGYBACK IVPB SCH ×3 (00:01→22:34)
[2016-12-23 00:02] LABS: CARBOXYHEMOGLOBIN 1.7 % (0.5-1.5); HHB 1.7 % (0-5); METHEMOGLOBIN 0.6 % (0.0-3.0)
[2016-12-23] MEDS: Albuterol-Ipratrop 3 mg / 0.5 (3 ml) UD IH SCH ×8 (00:21→23:28)
[2016-12-23] MEDS: Sodium Chloride 0.9% 1,000 ML IV SCH ×2 (01:30→17:17)
--- NOTE | 2016-12-23 01:30 | CARD ---
APPROVED REPORT EKG Measurement Heart [id number] <Conclusion> Normal sinus rhythm Possible Left atrial enlargement Borderline ECG
--- NOTE | 2016-12-23 01:33 | CARD ---
APPROVED REPORT EKG Measurement Heart [id number] <Conclusion> Normal sinus rhythm Possible Left atrial enlargement Borderline ECG
[2016-12-23] MEDS: Pantoprazole 40 mg EC Tab PO SCH (05:33)
[2016-12-23] MEDS: MethylPREDNISolone 40 mg Vial IV SCH (05:33)
[2016-12-23 06:01] LABS: GRAN # 16.41 (1.4-6.5); GRAN % 91.5 % (50.0-68.0); HEMATOCRIT 35.6 % (36.0-48.0); LYMPH # 0.7 (1.2-3.4); MEAN CELL VOLUME 93.4 fl (80.0-105.0); MEAN CORPUSCULAR HEMOGLOBIN 27.3 pg (25.0-35.0); MEAN CORPUSCULAR HGB CONC 29.2 g/dl (31.0-37.0); MONO # 0.8 (0.1-0.6); MONO % 4.5 % (1.0-6.0); RED CELL DISTRIBUTION WIDTH 14.3 % (11.5-14.5); WHITE BLOOD COUNT 17.9 10^3/ul (4.5-11.0)
[2016-12-23 06:14] LABS: ALB/GLOB RATIO 1.1 (1.1-1.8); ALKALINE PHOSPHATASE 71 U/L (38-133); ALT/SGPT 30 U/L (7-56); AST/SGOT 56 U/L (15-39); BILIRUBIN,TOTAL 0.2 mg/dL (0.2-1.3); BLOOD UREA NITROGEN 21 mg/dL (7-21); CALCIUM 8.9 mg/dL (8.4-10.5); CARBON DIOXIDE 35 mmol/L (21-33); CHLORIDE 102 mmol/L (98-107); GFR AFRICAN-AMERICAN > 60; GLUCOSE,RANDOM 123 mg/dL (70-110); MAGNESIUM 2.3 mg/dL (1.7-2.2); PHOSPHOROUS 4.5 mg/dL (2.5-4.5); POTASSIUM 4.6 mmol/L (3.6-5.0); SODIUM 145 mmol/L (132-148); TOTAL PROTEIN 6.9 g/dL (5.8-8.3)
[2016-12-23] MEDS: Morphine 2 mg/ml ISec IVP PRN (09:54)
[2016-12-23] MEDS: MethylPREDNISolone 40 mg Vial IVP SCH ×2 (09:55→22:33)
[2016-12-23] MEDS: Nitroglycerin 2% Ointment Foilpak UD TOP SCH ×3 (11:36→23:01)
--- NOTE | 2016-12-23 12:00 | HP ---
CHIEF COMPLAINT: Coughing, fever, and shortness of breath. HISTORY OF PRESENT ILLNESS: Ms. Mora is a 71 years old female with past medical history of COPD on home oxygen, pulmonary fibrosis, bronchiectasis, hypertension, history of breast cancer, status post chemotherapy, and surgery came to the emergency room department complaining of shortness of breath and fever from 1 day. The patient denies of any chest pain or vomiting. The patient is a poor historian, but when I did the interview, the patient's daughter was seen on the bedside also and patient is indulgent, feeling a little bit better. PAST MEDICAL HISTORY: History of DVT 10 years ago; hypertension; peripheral vascular disease; pulmonary fibrosis; pulmonary hypertension, on home oxygen; history of asthma; bronchitis; pneumonia; history of bilateral cataract surgery; history of breast CA, status post mastectomy, status post chemotherapy and radiation therapy; gastroesophageal reflux disease; GERD; dyspepsia; appendectomy; cholecystectomy; coronary stents. FAMILY HISTORY: Father and mother noncontributory. HABITS: Never smoked. No drugs or no ethanol. ALLERGIES: THE PATIENT IS NOT ALLERGIC WITH ANY MEDICATIONS. HOME MEDICATIONS: ProAir, Arimidex, calcium, Zyrtec, stool softener, Zestril, Lopressor, Singulair, Spiriva, Celebrex, and vitamins. REVIEW OF SYSTEMS: The patient was examined on the bedside looking comfortable, daughter still on bedside, all the length of discussion done, all questions answers. No nausea, vomiting, diarrhea, hematuria, hematochezia. No swelling of the legs, no headache, no dizziness. No fever. PHYSICAL EXAMINATION: VITAL SIGNS: Temperature 98.1, pulse 81, blood pressure 95/45, and respiratory rate 18. HEENT: Head is normocephalic, atraumatic. Eyes: PERRLA. Extraocular muscles intact. Conjunctivae clear. Nose patent. Mucous membrane moist. NECK: Supple. No carotid bruits, JVD, or thyromegaly. CHEST: Bilaterally symmetrical. HEART: S1 and S2 positive. LUNGS: Clear to auscultation. ABDOMEN: Soft. Bowel sounds present. No organomegaly. EXTREMITIES: No edema. No cyanosis. NEUROLOGIC: The patient is awake and alert. Moving all 4 extremities. No focal deficits. MEDICATIONS: White blood cells 14.9, hemoglobin 10.4, hematocrit 35.2, and platelets 166. Sodium 143, potassium 4.8, BUN 31, creatinine 1.2, and glucose 154. Troponins 0.40 and BNP 658. ASSESSMENT AND PLAN: Ms. Merna Mora is a 71 years old lady with leukocytosis, improving; anemia; hyperglycemia; positive troponin; rule out myocardial infarction; sepsis; history of breast cancer, status post mastectomy, chemotherapy and radiation therapy; pulmonary fibrosis; a little bit dyspnea and shortness of breath. CT of chest done shows increased upper lobe fibrosis and bronchiectasis. The patient has connective tissue and/or seems likely, but the patient's digital strategy director is Dr. Jules, and we will call a consult of Dr. Jules as the patient never had a biopsy. Echo done shows pulmonary hypertension, requires oxygen. Now it looks like it is living off the fibrosis, reviewed Dr. Wayne's doctor's notes. Pulmonary and Infectious Disease consult called. Repeat labs. We will follow up. Stacey Del Rosario MD MTDKenneth
--- NOTE | 2016-12-23 12:25 | CP.PCM.PN ---
<CHARI PETERSON - Last Filed: 12/23/16 17:31> Subjective - Date & Time of Evaluation Date of Evaluation: 12/23/16 Time of Evaluation: 07:30 - Subjective Subjective: Chari Peterson DO PGY1 - ICU Progress Note Patient seen and examined at bedside. Nurse reports no acute events overnight. Patient is awake and alert, oriented x3. She was initially complaining of CP, but after a few minutes speaking to her and examining her, she said her CP resolved. Later in the day, her troponin came back elevated at 1.29, up from 0.4 yesterday, and she was again complaining of CP, though was sitting comfortably, smiling, not diaphoretic. Stat EKG was ordered, which again showed NSR with RA enlargement, unchanged from yesterday. She recieved 0.5mg nitro paste, and he pain resolved. She denies N/V/D/C, abdominal pain, F/C, SOB, BLACKWELL, neck pain, jaw pain, arm pain. Objective - Vital Signs/Intake and Output Vital Signs (last 24 hours): Temp Pulse Resp BP Pulse Ox 97.5 F L 100 H 28 H 126/70 96 12/23/16 08:10 12/23/16 11:20 12/23/16 11:20 12/23/16 09:59 12/23/16 11:20 Intake and Output: 12/23/16 12/23/16 06:59 18:59 Intake Total 1760 Output Total 1150 Balance 610 - Medications Medications: Current Medications Acetaminophen (Tylenol 325mg Tab) 650 mg PO Q6H PRN PRN Reason: Fever >100.4 F Last Admin: 12/23/16 00:03 Dose: 650 mg Albuterol/Ipratropium (Duoneb 3 Mg/0.5 Mg (3 Ml) Ud) 3 ml IH Q2H PRN PRN Reason: Shortness of Breath Albuterol/Ipratropium (Duoneb 3 Mg/0.5 Mg (3 Ml) Ud) 3 ml IH [id number] [facility] Last Admin: 12/23/16 11:54 Dose: 3 ml Anastrozole (Arimidex 1 Mg Tab) 1 mg PO DAILY [facility] Last Admin: 12/23/16 11:35 Dose: 1 mg Aspirin (Aspirin Chewable) 81 mg PO DAILY [facility] Last Admin: 12/23/16 09:59 Dose: 81 mg Clopidogrel Bisulfate (Plavix) 75 mg PO DAILY [facility] Last Admin: 12/23/16 09:58 Dose: 75 mg Doxycycline Hyclate (Doryx) 100 mg PO Q12 NAVDEEP PRN Reason: Protocol Stop: 12/31/16 23:48 Last Admin: 12/23/16 09:58 Dose: 100 mg Heparin Sodium (Porcine) (Heparin) 5,000 units SC Q12 NAVDEEP PRN Reason: Protocol Last Admin: 12/23/16 09:59 Dose: 5,000 units Hydrochlorothiazide (Microzide) 12.5 mg PO DAILY [facility] Last Admin: 12/23/16 09:54 Dose: 12.5 mg Sodium Chloride (Sodium Chloride 0.9%) 1,000 mls @ 80 mls/hr IV .[id number] [facility] Last Admin: 12/23/16 01:30 Dose: 80 mls/hr Meropenem 1g/NS 100mL IVPB (Meropenem 1g/Ns 100ml Ivpb) 1 gm in 100 mls @ 100 mls/hr IVPB Q12 NAVDEEP PRN Reason: Protocol Last Admin: 12/23/16 09:59 Dose: 100 mls/hr Linezolid (Zyvox 600mg/300ml D5w) 600 mg in 300 mls @ 200 mls/hr IVPB Q12 NAVDEEP PRN Reason: Protocol Stop: 12/31/16 23:46 Last Admin: 12/23/16 09:59 Dose: 200 mls/hr Lisinopril (Zestril) 20 mg PO DAILY [facility] Last Admin: 12/23/16 09:59 Dose: 20 mg Methylprednisolone (Solu-Medrol) 20 mg IVP Q12 [facility] Last Admin: 12/23/16 09:55 Dose: 20 mg Metoprolol Tartrate (Lopressor) 50 mg PO BID [facility] Last Admin: 12/23/16 09:59 Dose: 50 mg Morphine Sulfate (Morphine) 1 mg IVP Q3 PRN PRN Reason: Pain, severe (8-10) Last Admin: 12/23/16 09:54 Dose: 1 mg Nitroglycerin (Nitro-Bid 2% Oint) 0.5 ea TOP Q6 [facility] Last Admin: 12/23/16 11:36 Dose: 0.5 ea Ondansetron HCl (Zofran Inj) 4 mg IVP Q6H PRN PRN Reason: Nausea/Vomiting Pantoprazole Sodium (Protonix Ec Tab) 40 mg PO 0600 NAVDEEP Last Admin: 12/23/16 05:33 Dose: 40 mg - Labs Labs: 12/23/16 05:15 12/23/16 05:15 - Constitutional Appears: Non-toxic, No Acute Distress, Younger Than Stated Age - Eye Exam Eye Exam: EOMI, PERRL - ENT Exam ENT Exam: Mucous Membranes Moist - Neck Exam Neck Exam: absent: Lymphadenopathy, Thyromegaly - Respiratory Exam Respiratory Exam: Rales (Velcro rales), NORMAL BREATHING PATTERN - Cardiovascular Exam Cardiovascular Exam: RRR, +S1, +S2 Additional comments: No point tenderness - GI/Abdominal Exam GI & Abdominal Exam: Soft. absent: Firm, Guarding, Rigid, Tenderness - Extremities Exam Extremities Exam: absent: Calf Tenderness, Pedal Edema - Neurological Exam Neurological Exam: Alert, Awake, CN II-XII Intact, Oriented x3 Neuro motor strength exam: Left Upper Extremity: 5, Right Upper Extremity: 5, Left Lower Extremity: 5, Right Lower Extremity: 5 - Psychiatric Exam Psychiatric exam: Normal Affect, Normal Mood - Skin Skin Exam: Dry, Intact, Normal Color Assessment and Plan - Assessment and Plan (Free Text) Assessment: 71 yo F with PMH of pulmonary fibrosis on 2.5L home O2, bronchiectasis, breast CA s/p mastectomy and chemo, HTN, admitted to the ICU for fibrosis flare up with hypercapnic respiratory distress, CAP, and incidentally noted bacteriuria. Plan: Neuro: - AAOx3, mentating normally - Continue to monitor Cardio: - Originally came in with CP and SOB. First troponin was elevated. Repeat troponin today was further elevated, and patient was complaining of CP, but EKG was unchanged, and patient was sitting, conversing comfortably and smiling. CP resolved with one application of nitro paste. - Echo completed yesterday, significant for LVEF 65%, with mild pulmonic regurgitation and moderate pulmonary HTN - CP likely 2/2 PNA rather than UA or NSTEMI, considering EKG findings and clinical history, but will continue to trend troponins - On ASA, plavix, PRN nitro paste - H/o HTN, on lisinopril, HCTZ, metoprolol - Cardio ([facility]) on consult, all recs appreciated Pulm: - History of pulmonary fibrosis for past 15 years. Per the patient, she never had a full workup, though was offered biopsy in the past, and declined. Follows up with Dr. Jules - Autoimmune workup ordered, pending results - Presented with hypercapnic respiratory distress. Currently being treated for flare up of fibrosis with presumed CAP - On duoneb navdeep and PRN, abx (see below), solumedrol 20mg Q12 - Pulm ([facility]) on consult, all recs appreciated - Saturating well on 3L NC - Maintain sat >88%, paO2 >90 GI: - Tolerating PO - Protonix Ppx Renal: - CRISTIANA improved, creatinine 0.8 today. - Maintaining urine output - Monitor and replete lytes as needed - Maintin euvolemia Endo: - On solumedrol 20mg Q12 - On anostrozole 1mg PO QD for h/o breast CA - Maintain euglycemia ID: - Fibrosis flare with CAP. Also noted to have asymptomatic bacteriuria - Afebrile, with increasing leukocytosis, though patient is on IV steroids - Was on cefepime. Now on Doxy, Merrem, and Zyvox (d2) per ID. - ID (Robert) consulted, all recs appreciated Hem/onc: - H/H stable, no active bleeding - H/o breast CA, on Anastrazole from home - Continue to monitor Ppx: Heparin for DVT, Protonix for GI Patient seen, discussed, and reviewed with attending <Rosana SORIANO,[place] - Last Filed: 01/02/17 09:32> Objective - Vital Signs/Intake and Output Vital Signs (last 24 hours): Temp Pulse Resp BP Pulse Ox 98.2 F 72 20 144/70 97 12/27/16 12:00 12/27/16 12:00 12/27/16 12:00 12/27/16 12:00 12/27/16 04:00 - Labs Labs: 12/27/16 05:30 12/27/16 05:30 PT 10.5 Seconds (9.9-11.8) 12/24/16 13:45 INR 0.97 (0.93-1.08) 12/24/16 13:45 APTT 27.3 Seconds (23.7-30.8) 12/24/16 13:45 Attending/Attestation - Attestation I have personally seen and examined this patient.: Yes I have fully participated in the care of the patient.: Yes I have reviewed all pertinent clinical information, including history, physical exam and plan: Yes Notes (Text): 01/02/17 09:30 71 y/o F w/ Pulm fibrosis unclear of the cause. With upper lobe fibrosis does bring concern for other causes such as Sarcoidosis . Pt is currently beign treated for a "Flare" with Steroids, ABX and Oxygen to keep o2 sat > 88% With the poor prognosis and performance status in the setting of advancing fibrosis , the patient is not in the state to have a lung biopsy to determine the cause or reversal. Multipel labs were sent of to check for connective tissue disease / sarcoid etc. case discussed with family and patient. cc time 45 min
--- NOTE | 2016-12-23 19:03 | CON ---
PULMONARY PROGRESS NOTE DATE: 12/23/2016 We were asked to evaluate and help treat this 71-year-old female who was admitted with shortness of breath and respiratory insufficiency. She is also well known to our service with pulmonary fibrosis, chronic respiratory pulmonary disease, and respiratory insufficiency. HISTORY OF PRESENT ILLNESS: The patient was at home feeling progressively more short of breath. She also complained of a midsternal chest pain that increased with cough and movement, none of her pain was at rest; so, it appeared to be noncardiac. She was on her usual medications, oxygen and nebulizer treatment, however, her condition continued to worsen and she decided to come to emergency room. ALLERGIES: NO KNOWN ALLERGIES. SOCIAL HISTORY: She is a nonsmoker, nondrinker, never used illicit drugs. FAMILY HISTORY: Negative for inherited diseases. REVIEW OF SYSTEMS: RESPIRATORY: See history of present illness. CARDIOVASCULAR: She is complaining of chest pain with movement and with cough. GI: No history of nausea, vomiting, or diarrhea. : No dysuria or hematuria. The rest of the systems were reviewed and found to be negative. PHYSICAL EXAMINATION: VITAL SIGNS: Intake and output are even. She weighs 164 pounds, her temperature is 97.6, pulse is 84, respirations 22, blood pressure is 128/56, pulse oximetry is 96% on nasal canula. HEAD, EARS, NOSE, AND THROAT: Within normal limits. NECK: Supple with no jugular vein distentions. PULMONARY: There are diffuse crackles bilaterally, not different from what we know from previous admissions. CARDIOVASCULAR: S1 and S2. No S3, regular. GASTROINTESTINAL: Soft, nontender. No organomegaly. : Within normal limits EXTREMITIES: Trace pedal edema. SKIN: Clear with no skin rashes. NEUROLOGIC: No focal deficits. LABORATORY DATA: Reviewed CT scan of chest without contrast, this reveals fibrosis that predominantly involves both upper lobes, there is also bronchiectasis bilateral that appears slightly worse compared to her previous CT scan. Laboratory data was reviewed. Her pro-BNP is 658, slightly elevated. WBC's are elevated to 14.9, platelet count appears normal. There is a shift to the left in differential with 93% granulocytes. Arterial blood gases revealed decreased pH 7.29, increased pCO2 to 77 and pO2 of 90. ASSESSMENT AND PLAN: 1. Exacerbation of pulmonary fibrosis. 2. Rule out pneumonia. 3. Respiratory insufficiency. 4. Carbon dioxide retention. 5. Atypical chest pain. PLAN: The patient was started on triple antibiotic with doxycycline, linezolid, and meropenem. Nebulizer treatments were administered every 4 hours. Oxygen saturation is being monitored continuously. She is relatively comfortable currently on nasal cannula. I will hold off on the repeat blood gas because clinically she is already improving. The patient's overall condition is extremely guarded due to progression of her pulmonary fibrosis and blood gases that reveal [id number] respiratory acidosis as well as slight hypoxia and CO2 retention. We will monitor closely. Fitz Pina MD MTDD
--- NOTE | 2016-12-23 20:59 | CP.PCM.PN ---
Subjective - Date & Time of Evaluation Date of Evaluation: 12/23/16 Time of Evaluation: 20:54 - Subjective Subjective: Nurse calls and asks to read EKG for this patient with NSTEMI, whose troponin has been rising and being transferred to telemetry for observation. Patient has no complaints. Medical record was reviewed. This 71 year old woman was admitted with chest pain, NSTEMI. Has PMH of COPD, HTN, pulmonary fibrosis, on home oxygen, broncihectasis, brest cancer, S/P chemotherapy, S/P surgery of breast. Objective - Vital Signs/Intake and Output Vital Signs (last 24 hours): Temp Pulse Resp BP Pulse Ox 98.2 F 88 20 134/77 95 12/23/16 17:08 12/23/16 17:00 12/23/16 16:50 12/23/16 17:16 12/23/16 17:00 - Medications Medications: Current Medications Acetaminophen (Tylenol 325mg Tab) 650 mg PO Q6H PRN PRN Reason: Fever >100.4 F Last Admin: 12/23/16 00:03 Dose: 650 mg Albuterol/Ipratropium (Duoneb 3 Mg/0.5 Mg (3 Ml) Ud) 3 ml IH Q2H PRN PRN Reason: Shortness of Breath Albuterol/Ipratropium (Duoneb 3 Mg/0.5 Mg (3 Ml) Ud) 3 ml IH [id number] [facility] Last Admin: 12/23/16 20:15 Dose: 3 ml Anastrozole (Arimidex 1 Mg Tab) 1 mg PO DAILY [facility] Last Admin: 12/23/16 11:35 Dose: 1 mg Aspirin (Aspirin Chewable) 81 mg PO DAILY [facility] Last Admin: 12/23/16 09:59 Dose: 81 mg Clopidogrel Bisulfate (Plavix) 75 mg PO DAILY [facility] Last Admin: 12/23/16 09:58 Dose: 75 mg Doxycycline Hyclate (Doryx) 100 mg PO Q12 GUY PRN Reason: Protocol Stop: 12/31/16 23:48 Last Admin: 12/23/16 09:58 Dose: 100 mg Heparin Sodium (Porcine) (Heparin) 5,000 units SC Q12 GUY PRN Reason: Protocol Last Admin: 12/23/16 09:59 Dose: 5,000 units Hydrochlorothiazide (Microzide) 12.5 mg PO DAILY [facility] Last Admin: 12/23/16 09:54 Dose: 12.5 mg Sodium Chloride (Sodium Chloride 0.9%) 1,000 mls @ 80 mls/hr IV .[id number] [facility] Last Admin: 12/23/16 17:17 Dose: 80 mls/hr Meropenem 1g/NS 100mL IVPB (Meropenem 1g/Ns 100ml Ivpb) 1 gm in 100 mls @ 100 mls/hr IVPB Q12 GUY PRN Reason: Protocol Last Admin: 12/23/16 09:59 Dose: 100 mls/hr Linezolid (Zyvox 600mg/300ml D5w) 600 mg in 300 mls @ 200 mls/hr IVPB Q12 [facility] PRN Reason: Protocol Stop: 12/31/16 23:46 Last Admin: 12/23/16 09:59 Dose: 200 mls/hr Lisinopril (Zestril) 20 mg PO DAILY [facility] Last Admin: 12/23/16 09:59 Dose: 20 mg Methylprednisolone (Solu-Medrol) 20 mg IVP Q12 [facility] Last Admin: 12/23/16 09:55 Dose: 20 mg Metoprolol Tartrate (Lopressor) 50 mg PO BID [facility] Last Admin: 12/23/16 17:16 Dose: 50 mg Morphine Sulfate (Morphine) 1 mg IVP Q3 PRN PRN Reason: Pain, severe (8-10) Last Admin: 12/23/16 09:54 Dose: 1 mg Nitroglycerin (Nitro-Bid 2% Oint) 0.5 ea TOP Q6 [facility] Last Admin: 12/23/16 17:16 Dose: 0.5 ea Ondansetron HCl (Zofran Inj) 4 mg IVP Q6H PRN PRN Reason: Nausea/Vomiting Pantoprazole Sodium (Protonix Ec Tab) 40 mg PO 0600 [facility] Last Admin: 12/23/16 05:33 Dose: 40 mg - Labs Labs: 12/23/16 05:15 12/23/16 05:15 Laboratory Last Values WBC 17.9 10^3/ul (4.5-11.0) H D 12/23/16 05:15 RBC 3.81 10^6/uL (3.5-6.1) 12/23/16 05:15 Hgb 10.4 g/dL (12.0-16.0) L 12/23/16 05:15 Hct 35.6 % (36.0-48.0) L 12/23/16 05:15 MCV 93.4 fl (80.0-105.0) 12/23/16 05:15 MCH 27.3 pg (25.0-35.0) 12/23/16 05:15 MCHC 29.2 g/dl (31.0-37.0) L 12/23/16 05:15 RDW 14.3 % (11.5-14.5) 12/23/16 05:15 Plt Count 174 10^3/uL (120.0-450.0) 12/23/16 05:15 MPV 10.0 fl (7.0-11.0) 12/23/16 05:15 Gran % 91.5 % (50.0-68.0) H 12/23/16 05:15 Lymph % (Auto) 4.0 % (22.0-35.0) L 12/23/16 05:15 [place] % (Auto) 4.5 % (1.0-6.0) 12/23/16 05:15 Eos % (Auto) 0.0 % (1.5-5.0) L 12/23/16 05:15 Baso % (Auto) 0.0 % (0.0-3.0) 12/23/16 05:15 Gran # 16.41 (1.4-6.5) H 12/23/16 05:15 Lymph # 0.7 (1.2-3.4) L 12/23/16 05:15 [place] # 0.8 (0.1-0.6) H 12/23/16 05:15 Eos # 0.0 (0.0-0.7) 12/23/16 05:15 Baso # 0.00 K/mm3 (0.0-2.0) 12/23/16 05:15 Neutrophils % (Manual) 82 % (50.0-70.0) H 12/22/16 05:45 Band Neutrophils % 8 % (0-2) H 12/22/16 05:45 Lymphocytes % (Manual) 6 % (22.0-35.0) L 12/22/16 05:45 Monocytes % (Manual) 4 % (1.0-6.0) 12/22/16 05:45 Platelet Evaluation Normal (NORMAL) 12/22/16 05:45 Hypochromasia Slight 12/22/16 05:45 Anisocytosis (manual) Slight 12/22/16 05:45 pCO2 82 mm/Hg (35-45) H* 12/22/16 06:00 pO2 126.0 mm/Hg (80-100) H 12/22/16 06:00 HCO3 34.3 mmol/L (21-28) H 12/22/16 06:00 ABG pH 7.23 (7.35-7.45) L 12/22/16 06:00 ABG Total CO2 36.3 mmol.L (22-28) H 12/22/16 06:00 ABG O2 Saturation 98.3 % (95-98) H 12/22/16 06:00 ABG Base Excess 4.9 mmol/L (-2.0-3.0) H 12/22/16 06:00 ABG Hemoglobin 12.2 g/dL (11.7-17.4) 12/22/16 06:00 ABG Carboxyhemoglobin 1.7 % (0.5-1.5) H 12/22/16 06:00 POC ABG HHb (Measured) 1.7 % (0-5) 12/22/16 06:00 ABG Methemoglobin 0.6 % (0.0-3.0) 12/22/16 06:00 ABG Potassium 4.1 mmol/L (3.6-5.2) 12/22/16 02:15 VBG pH 7.23 (7.32-7.43) L 12/21/16 22:57 VBG pCO2 95.0 (40-60) H* 12/21/16 22:57 VBG HCO3 39.8 mmol/l (21-28) H 12/21/16 22:57 VBG Total CO2 42.7 mmol.L (22-28) H 12/21/16 22:57 VBG O2 Sat (Calc) 89.7 % (40-65) H 12/21/16 22:57 VBG Base Excess 8.4 mmol/L (0.0-2.0) H 12/21/16 22:57 VBG Potassium 5.2 mmol/L (3.6-5.2) 12/21/16 22:57 Hgb O2 Saturation 96.0 % (95.0-98.0) 12/22/16 06:00 Sodium 141.0 mmol/L (132-148) 12/22/16 02:15 Chloride 106.0 mmol/L (98-107) 12/22/16 02:15 Glucose 114 mg/dl (65-105) H 12/22/16 02:15 Lactate 1.1 mmol/L (0.7-2.1) 12/22/16 02:15 Mechanical Rate 12 12/22/16 02:15 FiO2 50.0 % 12/22/16 06:00 Crit Value Read Back 12/22/16 06:00 Sodium 145 mmol/L (132-148) 12/23/16 05:15 Potassium 4.6 mmol/L (3.6-5.0) 12/23/16 05:15 Chloride 102 mmol/L (98-107) 12/23/16 05:15 Carbon Dioxide 35 mmol/L (21-33) H 12/23/16 05:15 Anion Gap 13 (10-20) 12/23/16 05:15 BUN 21 mg/dL (7-21) 12/23/16 05:15 Creatinine 0.8 mg/dL (0.5-1.4) 12/23/16 05:15 Est GFR ( Amer) > 60 12/23/16 05:15 Est GFR (Non-Af Amer) > 60 12/23/16 05:15 Random Glucose 123 mg/dL (70-110) H 12/23/16 05:15 Calcium 8.9 mg/dL (8.4-10.5) 12/23/16 05:15 Phosphorus 4.5 mg/dL (2.5-4.5) 12/23/16 05:15 Magnesium 2.3 mg/dL (1.7-2.2) H 12/23/16 05:15 Total Bilirubin 0.2 mg/dL (0.2-1.3) 12/23/16 05:15 AST 56 U/L (15-39) H 12/23/16 05:15 ALT 30 U/L (7-56) 12/23/16 05:15 Alkaline Phosphatase 71 U/L (38-133) 12/23/16 05:15 Lactate Dehydrogenase 443 U/L (333-699) 12/23/16 11:03 Total Creatine Kinase 22 U/L (35-230) L 12/21/16 22:40 Troponin I 1.42 ng/mL H* 12/23/16 17:55 NT-Pro-B Natriuret Pep 658 pg/mL (0-450) H 12/22/16 05:45 Total Protein 6.9 g/dL (5.8-8.3) 12/23/16 05:15 Albumin 3.6 g/dL (3.0-4.8) 12/23/16 05:15 Globulin 3.3 gm/dL 12/23/16 05:15 Albumin/Globulin Ratio 1.1 (1.1-1.8) 12/23/16 05:15 Procalcitonin 1.33 NG/ML (0.19-0.49) H 12/23/16 11:05 Arterial Blood Potassium 4.1 mmol/L (3.6-5.2) 12/22/16 02:15 Venous Blood Potassium 5.2 mmol/L (3.6-5.2) 12/21/16 22:57 Urine Color Yellow (YELLOW) 12/21/16 23:15 Urine Appearance Cloudy (CLEAR) 12/21/16 23:15 Urine pH 6.0 (4.7-8.0) 12/21/16 23:15 Ur Specific [place] 1.025 (1.005-1.035) 12/21/16 23:15 Urine Protein 100 mg/dL (<30 mg/dL) H 12/21/16 23:15 Urine Glucose (UA) Negative mg/dL (NEGATIVE) 12/21/16 23:15 Urine Ketones Negative mg/dL (NEGATIVE) 12/21/16 23:15 Urine Blood Small (NEGATIVE) H 12/21/16 23:15 Urine Nitrate Positive (NEGATIVE) H 12/21/16 23:15 Urine Bilirubin Negative (NEGATIVE) 12/21/16 23:15 Urine Urobilinogen 0.2 E.U./dL (<1 E.U./dL) 12/21/16 23:15 Ur Leukocyte Esterase Small Humberto/uL (NEGATIVE) H 12/21/16 23:15 Urine RBC 2 - 5 /hpf (0-2) 12/21/16 23:15 Urine WBC 20 - 25 /hpf (0-6) 12/21/16 23:15 Ur Epithelial Cells 0 - 2 /hpf (0-5) 12/21/16 23:15 Urine Bacteria Many (NEG) 12/21/16 23:15 Complement C3 125.0 mg/dL (88.0-165.0) 12/22/16 11:20 Complement C4 46.5 mg/dL (14.0-44.0) H 12/22/16 11:20 Ur L.pneumophila Ag Negative (NEGATIVE) 12/23/16 10:55 - Head Exam Head Exam: ATRAUMATIC, NORMAL INSPECTION, NORMOCEPHALIC - Eye Exam Eye Exam: Normal appearance - ENT Exam ENT Exam: Normal External Ear Exam - Neck Exam Neck Exam: Normal Inspection - Respiratory Exam Respiratory Exam: NORMAL BREATHING PATTERN - Cardiovascular Exam Cardiovascular Exam: absent: JVD - GI/Abdominal Exam GI & Abdominal Exam: absent: Distended - Rectal Exam Rectal Exam: Deferred - Exam Additional comments: Deferred. - Extremities Exam Extremities Exam: Normal Inspection - Back Exam Back Exam: NORMAL INSPECTION - Neurological Exam Neurological Exam: Alert, Awake, Oriented x3 - Psychiatric Exam Psychiatric exam: Normal Affect, Normal Mood - Skin Skin Exam: Normal Color Assessment and Plan - Assessment and Plan (Free Text) Assessment: NSTEMI. COPD. HTN. Bronchiectasis. Breast cancer. Pulmonary fibrosis. Plan: EKG was read: NSR. No acute ST T changes. Continue present management.
--- NOTE | 2016-12-23 21:03 | CARD ---
APPROVED REPORT EKG Measurement Heart [id number] CO 122P69 [id number] <Conclusion> Normal sinus rhythm Possible Left atrial enlargement Borderline ECG
--- NOTE | 2016-12-24 03:39 | PN ---
DATE: The patient is a 71 years old female. SUBJECTIVE: The patient is seen and examined on the bedside on the third floor. When I saw the patient, she was looking comfortable, but before I have to go she has episode of chest pain. House physician was called, seen by Dr. Lakhani, has episode of chest pain. EKG was done. Cardiac enzymes were done, cardiac enzymes showed troponin is trending up. Re-consult called with Dr. Recinos, and the patient transferred to telemetry; otherwise, no headache, no dizziness, no nausea, no vomiting or diarrhea. No swelling of the legs. PHYSICAL EXAMINATION: VITAL SIGNS: Temperature 98.2, pulse 88, respiratory rate is 20, blood pressure 134/77, pulse oximetry 95. HEENT: Head is normocephalic and atraumatic. Eyes, PERRLA. Extraocular muscles intact. Conjunctivae are clear. Nose patent. Mucous membranes are moist. NECK: Supple. No carotid bruit, JVD, or thyromegaly. CHEST: Bilaterally symmetrical. HEART: S1 and S2 positive. LUNGS: Clear to auscultation. ABDOMEN: Soft. Bowel sounds present. No organomegaly. EXTREMITIES: No edema. No cyanosis. NEUROLOGIC: The patient is awake and alert. Follows simple commands. MEDICATIONS: Arimidex, aspirin, doxycycline, albuterol, heparin, Lopressor, meropenem, hydrochlorothiazide, DuoNeb, morphine and Nitro-Bid. LABORATORY DATA: White blood cells 17.9, hemoglobin 10.4, hematocrit 35.6, platelets 176. Sodium 145, potassium 4.6, BUN 21, creatinine 0.8. Glucose 123, magnesium 2.3, AST 56. Troponin 3 sets done is 0.4, second is 1.29, third is 1.42. ASSESSMENT AND PLAN: Ms. Merna Mora is a 71 years old female with leukocytosis, anemia, hyperglycemia, hypermagnesemia, abnormal liver function test, had [id number] myocardial infarction, had chronic obstructive pulmonary disease, hypertension, pulmonary fibrosis on home oxygen, bronchiectasis, breast cancer status post chemotherapy, status post surgery of the breast. The patient was admitted on the unit transferred to medical floor, and I transferred her back to telemetry. The patient had another biopsy of the lungs, pulmonary hypertension. Getting Solu-Medrol. Length of time discussion with the patient. Gastrointestinal and deep venous thrombosis prophylaxis, repeat labs. We will follow up. Stacey Del Rosario MD
--- NOTE | 2016-12-24 04:18 | CON ---
LOCATION: The patient in ICU, 128, bed 5. REASON FOR CONSULTATION: Chest pain. HISTORY OF PRESENT ILLNESS: The patient is a 71-year-old female, came to the hospital with shortness of breath and fever of 1 day duration and after the patient was admitted to the ICU, the patient is now complaining also chest pain. She says a tightness type of chest pain in the mid chest. The patient says at home, when she exerts herself she gets chest pain and it is relieved by rest. The patient known case of coronary artery disease and had stent put in the past. The patient also known case of COPD, at home oxygen, pulmonary fibrosis, bronchiectasis, hypertension, blood cancer. The patient at home had fever and chills. PAST MEDICAL HISTORY: The patient's past medical history positive for coronary artery disease, history of stent insertion, COPD, pulmonary hypertension, pulmonary fibrosis, at home oxygen, bronchiectasis. PAST SURGICAL HISTORY: The patient's past surgical history is suggestive of breast surgery, mastectomy, coronary stent insertion in 2007, 2008, and 2011. PERSONAL HISTORY: Denies smoking. Denies drinking. EXAMINATION: Not significant. HOME MEDICATIONS: The patient's home medication included Prilosec 40 daily, Lopressor 50 b.i.d., Lisinopril 10 mg daily, aspirin 81 mg daily, Arimidex 1 mg daily, albuterol inhaler 2 puffs a.m. and at bedtime, Celebrex 200 daily, Zyrtec 10 mg daily p.r.n., HydroDIURIL 25 mg daily, Spiriva 18 mcg inh daily, and B12 of 1000 mcg tablet daily. REVIEW OF SYSTEMS: All the systems reviewed, positive mentioned in the history, otherwise negative. PREVIOUS CARDIAC WORKUP: Most recent cardiac cath was done in 08/01/2015. It showed right coronary artery dominant system, left essentially free of significant disease, trifurcation, LAD circumflex and ramus. LAD shows some calcification without any flow-limiting stenosis, circumflex diffuse calcification and no flow-locking stenosis. Ramus intermedius size vessel 55% stenosis. The right coronary artery large caliber vessel diffuse calcification 50% stenosis in the mid portion non-flow limiting. LV gram showed ejection fraction 60% to 65%. EDP was 20 to 30. The patient had echocardiogram on 12/22/2016, which showed left ventricular size normal, borderline concentric left hypertrophy, left LV function is normal with LV ejection fraction of 62%. The patient had grade 1 abnormal relaxation pattern suggestive of diastolic dysfunction, moderate pulmonary hypertension with RVSP 58 mmHg. PHYSICAL EXAMINATION: VITAL SIGNS: Blood pressure is 126/70, respirations 20, pulse 96, temperature 97.5. HEENT: Head is normocephalic. Eyes; pupils normal. Conjunctiva slightly pale. NECK: JVP low. Carotids equal. Thorax, AP diameter normal. LUNGS: Scattered rales, chronic type. CARDIOVASCULAR: S1, S2. ABDOMEN: Soft, nontender. No organomegaly. EXTREMITIES: No clubbing, no cyanosis. LABORATORY DATA: WBC is 17.9, hemoglobin 10.4, hematocrit 35.6, platelets 174. Sodium 145, potassium 4.6, BUN 21, creatinine 0.8, troponin 0.40 which is slightly elevated and pro-BNP 658 which is not significant. Total protein and albumin normal. DIAGNOSTIC STUDIES: Chest x-ray showed pulmonary fibrosis and bronchiectasis. Superimposed lung infiltrate cannot be excluded. Chest CT showed atelectasis causing fibrosis. A small calcified granuloma right lung field is again noted. Right breast has implant. DIAGNOSIS: Fever with Chills. Chest Pain-Coronary Artery Disease H/O Stents R/O Non-Stemi. COPD, Pulmonary Fibrosis, Bronchiectasis, Pulm Hypertension. At Home on O2. PLAN: Since the patient is complaining chest pain, we will put her on nitro paste 1/2 inch q. 6 hourly. The patient is on aspirin 81 mg daily. Heparin 5000 units subcu every 12 hour, metoprolol 50 b.i.d., hydrochlorothiazide 12.5 mg daily, nitro paste 1/2 inch q. 6 hourly on chest, Plavix 75 mg p.o. daily, Protonix 40 daily, sodium chloride 80 mL an hour, Solu-Medrol 20 mg IV every 12 hour, and Lisinopril 20 mg daily. We will follow repeat troponin. We will follow with you. Joaquin Recinos MD [facility]
[2016-12-24] MEDS: Albuterol-Ipratrop 3 mg / 0.5 (3 ml) UD IH SCH ×5 (05:12→19:55)
[2016-12-24] MEDS: Sodium Chloride 0.9% 1,000 ML IV SCH ×2 (05:18→05:21)
[2016-12-24] MEDS: Pantoprazole 40 mg EC Tab PO SCH (05:21)
[2016-12-24] MEDS: Nitroglycerin 2% Ointment Foilpak UD TOP SCH ×3 (05:21→17:53)
[2016-12-24 06:03] LABS: GRAN # 16.51 (1.4-6.5); GRAN % 92.4 % (50.0-68.0); HEMATOCRIT 33.8 % (36.0-48.0); LYMPH # 0.8 (1.2-3.4); LYMPH % 4.6 % (22.0-35.0); MEAN CELL VOLUME 91.6 fl (80.0-105.0); MEAN CORPUSCULAR HEMOGLOBIN 27.1 pg (25.0-35.0); MEAN CORPUSCULAR HGB CONC 29.6 g/dl (31.0-37.0); MEAN PLATELET VOLUME 10.6 fl (7.0-11.0); MONO # 0.5 (0.1-0.6); PLATELET COUNT 168 10^3/uL (120.0-450.0); RED CELL DISTRIBUTION WIDTH 14.3 % (11.5-14.5); WHITE BLOOD COUNT 17.9 10^3/ul (4.5-11.0)
[2016-12-24 06:52] LABS: BAND 9 % (0-2); NEUTROPHIL 85 % (50.0-70.0); PLATELET ESTIMATE NORMAL (NORMAL)
[2016-12-24 06:57] LABS: ALKALINE PHOSPHATASE 77 U/L (38-133); ALT/SGPT 33 U/L (7-56); AST/SGOT 42 U/L (15-39); BILIRUBIN,TOTAL 0.4 mg/dL (0.2-1.3); BLOOD UREA NITROGEN 27 mg/dL (7-21); CARBON DIOXIDE 36 mmol/L (21-33); CHLORIDE 100 mmol/L (95-110); GFR AFRICAN-AMERICAN > 60; GLUCOSE,RANDOM 127 mg/dL (70-110); POTASSIUM 4.9 mmol/L (3.6-5.0); SODIUM 140 mmol/L (132-148); TOTAL PROTEIN 6.4 g/dL (5.8-8.3)
--- NOTE | 2016-12-24 08:52 | PN ---
DATE: 12/24/2016 SUBJECTIVE: The patient appears comfortable this morning. She is not short of breath at rest. PHYSICAL EXAMINATION: VITAL SIGNS: Temperature is 97.3, pulse is 73, respirations 18, blood pressure 122/69. Oxygen saturation on BiPAP is 97%. HEENT: Normocephalic, atraumatic. NECK: No JVD. CARDIOVASCULAR: Systolic ejection murmur at the lower left sternal border. No S3 gallop. LUNGS: Chronic crackles at both lower lobes. Minimal rhonchi. No wheezing. EXTREMITIES: No clubbing, cyanosis or edema. Calves are nontender to palpation. GASTROINTESTINAL: Abdomen is soft, nontender, and nondistended. Bowel sounds are positive. SKIN: No acute rash. NEUROLOGIC: Limited at the present time. IMPRESSION: 1. Recurrent bronchitis. 2. Advanced pulmonary fibrosis, on home oxygen. 3. Chronic obstructive pulmonary disease. 4. Bronchiectasis. 5. Rule out underlying pneumonia. 6. Sepsis syndrome. 7. Non ST elevation myocardial infarction. PLAN: The appears comfortable this morning. She is not short of breath at rest. She does state to feeling better overall. On physical exam, only mild bronchospasm is noted. I will continue with the current nebulizer treatments and low-dose intravenous steroids for now. In addition, the oxygen saturation is now 97% on BiPAP. She does go on nasal cannula during the day, with very adequate oxygen saturations. I would continue with the antibiotic coverage for now. Input by infectious disease is noted. The temperatures have now resolved. I would continue with the cardiology evaluation. Input by Dr. Recinos is noted. Peak troponin late yesterday was 1.42. Repeat a.m. labs(including ABG) are pending. Clinical status of the patient is certainly improved-compared to the initial presentation. However, the patient's future status/prognosis remains very guarded at best. I will discuss the above with the attending physician. Missael Malave MD [facility]
[2016-12-24] MEDS: MethylPREDNISolone 40 mg Vial IVP SCH ×2 (09:59→21:39)
[2016-12-24] MEDS: Meropenem 1g/NS 100mL IVPB 1 GM/100 ML PIGGYBACK IVPB SCH ×2 (10:05→21:41)
[2016-12-24 10:28] LABS: IRON 73 ug/dL (45-180)
[2016-12-24 11:23] LABS: ARTERIAL BLOOD GAS HCO3 39.4 mmol/L (21-28); ARTERIAL BLOOD GAS O2 CAPACITY 13.6 mL/dl (16-24); ARTERIAL BLOOD GAS O2 CONTENT 13.2 ML/dl (15-23); ARTERIAL BLOOD GAS PH 7.29 (7.35-7.45); ARTERIAL BLOOD HGB O2 SAT 95.9 % (95.0-98.0); CARBOXYHEMOGLOBIN 0.9 % (0.5-1.5); HHB 2.9 % (0-5); METHEMOGLOBIN 0.3 % (0.0-3.0)
--- NOTE | 2016-12-24 11:43 | CP.PCM.CON ---
History of Present Illness - History of Present Illness History of Present Illness: Palliative consult requested by Dr Charly Del Rosario copied Reason: Advance care planning 71 year old female with history of COPD and pulmonary fibrosis who presented to ED with shortness of breath, 1 day duration. She subsequently complained of mid sternal chest pain. EKG; NSR. Chest x ray showed pulmonary fibrosis with cylindrical and cystic bronchiectasis, possible superimposed underlying infiltrate not excluded. Echo with normal EF,normal LV function, moderate pulmonary hypertension. Troponins elevated. PMHx: COPD, pulmonary fibrosis, O2 dependent, DVT, immanuel. cataracts, breast cancer s/p R mastectomy, CAD s/p 3 stents,bronchiectasis. Social History: Non smoker, no alcohol or drug use. lives with spouse and daughter. Family History:Non contributory Advance Care Planning: The patient does not have an Advance Directive. She is a full code Review of Systems: As per HPI, all other systems reviewed and otherwise negative Past Patient History - Infectious Disease Hx of Infectious Diseases: None - Tetanus Immunizations Tetanus Immunization: Unknown - Past Social History Smoking Status: Never Smoked - CARDIAC Hx Cardiac Disorders: Yes (dvt 10 yrs ago) Hx Hypertension: Yes Hx Peripheral Edema: Yes (+2 pitting ble) - PULMONARY Hx Respiratory Disorders: (pulmonary htn, on home o2) Hx Asthma: Yes Hx Bronchitis: Yes Hx Chronic Obstructive Pulmonary Disease (COPD): Yes Hx Emphysema: Yes Hx Pneumonia: Yes - NEUROLOGICAL Hx Neurological Disorder: No - HEENT Hx HEENT Problems: Yes Hx Cataracts: Yes (b/l sx) - RENAL Hx Chronic Kidney Disease: No - ENDOCRINE/METABOLIC Hx Endocrine Disorders: No - HEMATOLOGICAL/ONCOLOGICAL Hx Blood Disorders: Yes Hx Cancer: Yes (BREAST CA 2009, r mastectomy) Hx Chemotherapy: Yes (chemo and radiation) - INTEGUMENTARY Hx Dermatological Problems: No - MUSCULOSKELETAL/RHEUMATOLOGICAL Hx Falls: No - GASTROINTESTINAL Hx Gastroesophageal Reflux: Yes - GENITOURINARY/GYNECOLOGICAL Hx Genitourinary Disorders: No - PSYCHIATRIC Hx Substance Use: No - SURGICAL HISTORY Hx Appendectomy: Yes Hx Cardiac Catheterization: Yes Hx Cholecystectomy: Yes Hx Coronary Stent: Yes (3 STENTS) Hx Mastectomy: Yes (Right) Other/Comment: umbilical hernia repair - ANESTHESIA Hx Anesthesia: Yes Hx Anesthesia Reactions: No Hx Malignant Hyperthermia: No Meds Allergies/Adverse Reactions: Allergies Allergy/AdvReac Type Severity Reaction Status Date / Time No Known Allergies Allergy Verified 12/21/16 22:36 - Medications Medications: Current Medications Acetaminophen (Tylenol 325mg Tab) 650 mg PO Q6H PRN PRN Reason: Fever >100.4 F Last Admin: 12/23/16 00:03 Dose: 650 mg Albuterol/Ipratropium (Duoneb 3 Mg/0.5 Mg (3 Ml) Ud) 3 ml IH Q2H PRN PRN Reason: Shortness of Breath Albuterol/Ipratropium (Duoneb 3 Mg/0.5 Mg (3 Ml) Ud) 3 ml IH [id number] [facility] Last Admin: 12/24/16 11:09 Dose: 3 ml Anastrozole (Arimidex 1 Mg Tab) 1 mg PO DAILY [facility] Last Admin: 12/23/16 11:35 Dose: 1 mg Aspirin (Aspirin Chewable) 81 mg PO DAILY [facility] Last Admin: 12/24/16 10:02 Dose: 81 mg Clopidogrel Bisulfate (Plavix) 75 mg PO DAILY [facility] Last Admin: 12/24/16 10:02 Dose: 75 mg Doxycycline Hyclate (Doryx) 100 mg PO Q12 [facility] PRN Reason: Protocol Stop: 12/31/16 23:48 Last Admin: 12/24/16 10:01 Dose: 100 mg Heparin Sodium (Porcine) (Heparin) 5,000 units SC Q12 [facility] PRN Reason: Protocol Last Admin: 12/24/16 09:59 Dose: 5,000 units Hydrochlorothiazide (Microzide) 12.5 mg PO DAILY [facility] Last Admin: 12/24/16 10:01 Dose: 12.5 mg Sodium Chloride (Sodium Chloride 0.9%) 1,000 mls @ 80 mls/hr IV [id number] [facility] Last Admin: 12/24/16 05:21 Dose: Not Given Meropenem 1g/NS 100mL IVPB (Meropenem 1g/Ns 100ml Ivpb) 1 gm in 100 mls @ 100 mls/hr IVPB Q12 [facility] PRN Reason: Protocol Last Admin: 12/24/16 10:05 Dose: 100 mls/hr Linezolid (Zyvox 600mg/300ml D5w) 600 mg in 300 mls @ 200 mls/hr IVPB Q12 [facility] PRN Reason: Protocol Stop: 12/31/16 23:46 Last Admin: 12/23/16 22:56 Dose: 200 mls/hr Lisinopril (Zestril) 20 mg PO DAILY [facility] Last Admin: 12/24/16 10:02 Dose: 20 mg Methylprednisolone (Solu-Medrol) 20 mg IVP Q12 [facility] Last Admin: 12/24/16 09:59 Dose: 20 mg Metoprolol Tartrate (Lopressor) 50 mg PO BID [facility] Last Admin: 12/24/16 10:02 Dose: 50 mg Morphine Sulfate (Morphine) 1 mg IVP Q3 PRN PRN Reason: Pain, severe (8-10) Last Admin: 12/23/16 09:54 Dose: 1 mg Nitroglycerin (Nitro-Bid 2% Oint) 0.5 ea TOP Q6 [facility] Last Admin: 12/24/16 05:21 Dose: 0.5 ea Ondansetron HCl (Zofran Inj) 4 mg IVP Q6H PRN PRN Reason: Nausea/Vomiting Pantoprazole Sodium (Protonix Ec Tab) 40 mg PO 0600 [facility] Last Admin: 12/24/16 05:21 Dose: 40 mg Physical Exam - Constitutional Appears: Younger Than Stated Age, Chronically Ill - Head Exam Head Exam: NORMOCEPHALIC - Eye Exam Eye Exam: Normal appearance, PERRL - ENT Exam ENT Exam: Mucous Membranes Moist, Normal Oropharynx - Neck Exam Neck exam: Positive for: Normal Inspection - Respiratory Exam Respiratory Exam: Decreased Breath Sounds - Cardiovascular Exam Cardiovascular Exam: REGULAR RHYTHM, +S1, +S2 - GI/Abdominal Exam GI & Abdominal Exam: Normal Bowel Sounds, Soft - Extremities Exam Additional comments: 2 + bilateral lower extremity edema - Neurological Exam Neurological exam: Alert, Oriented x3 - Skin Skin Exam: Dry, Pallor - Additional Findings Additional findings: Palliative performance scale rating 50 % Results - Vital Signs Recent Vital Signs: Last Vital Signs Temp 97.3 F L 12/24/16 06:00 Pulse 73 12/24/16 10:02 Resp 20 12/24/16 06:00 BP 114/45 L 12/24/16 10:02 Pulse Ox 100 12/24/16 06:00 - Labs Result Diagrams: 12/24/16 05:15 12/24/16 05:15 Labs: Laboratory Results - last 24 hr 12/22/16 12/23/16 12/23/16 11:00 10:55 11:05 WBC RBC Hgb Hct MCV MCH MCHC RDW Plt Count MPV Gran % Lymph % (Auto) Bond % (Auto) Eos % (Auto) Baso % (Auto) Gran # Lymph # Bond # Eos # Baso # Neutrophils % (Manual) Band Neutrophils % Lymphocytes % (Manual) Monocytes % (Manual) Platelet Evaluation Sodium Potassium Chloride Carbon Dioxide Anion Gap BUN Creatinine Est GFR ( Amer) Est GFR (Non-Af Amer) Random Glucose Calcium Phosphorus Magnesium Iron TIBC % Saturation Total Bilirubin AST ALT Alkaline Phosphatase Troponin I Total Protein Albumin Globulin Albumin/Globulin Ratio Procalcitonin 1.33 H Hepatitis A IgM Ab Negative Hep Bs Antigen Negative Hep B Core IgM Ab Negative Hepatitis C Antibody Negative HIV 1&2 Ag/Ab, 4th Gen Ur L.pneumophila Ag Negative 12/23/16 12/23/16 12/24/16 11:05 17:55 05:15 WBC 17.9 H RBC 3.69 Hgb 10.0 L Hct 33.8 L MCV 91.6 MCH 27.1 MCHC 29.6 L RDW 14.3 Plt Count 168 MPV 10.6 Gran % 92.4 H Lymph % (Auto) 4.6 L Bond % (Auto) 3.0 Eos % (Auto) 0.0 L Baso % (Auto) 0.0 Gran # 16.51 H Lymph # 0.8 L Bond # 0.5 Eos # 0.0 Baso # 0.00 Neutrophils % (Manual) 85 H Band Neutrophils % 9 H Lymphocytes % (Manual) 4 L Monocytes % (Manual) 2 Platelet Evaluation Normal Sodium Potassium Chloride Carbon Dioxide Anion Gap BUN Creatinine Est GFR ( Amer) Est GFR (Non-Af Amer) Random Glucose Calcium Phosphorus Magnesium Iron TIBC % Saturation Total Bilirubin AST ALT Alkaline Phosphatase Troponin I 1.42 H* Total Protein Albumin Globulin Albumin/Globulin Ratio Procalcitonin Hepatitis A IgM Ab Hep Bs Antigen Hep B Core IgM Ab Hepatitis C Antibody HIV 1&2 Ag/Ab, 4th Gen Nonreactive Ur L.pneumophila Ag 12/24/16 12/24/16 05:15 10:12 WBC RBC Hgb Hct MCV MCH MCHC RDW Plt Count MPV Gran % Lymph % (Auto) Bond % (Auto) Eos % (Auto) Baso % (Auto) Gran # Lymph # Bond # Eos # Baso # Neutrophils % (Manual) Band Neutrophils % Lymphocytes % (Manual) Monocytes % (Manual) Platelet Evaluation Sodium 140 Potassium 4.9 Chloride 100 Carbon Dioxide 36 H Anion Gap 9 L BUN 27 H Creatinine 0.8 Est GFR ( Amer) > 60 Est GFR (Non-Af Amer) > 60 Random Glucose 127 H Calcium 9.0 Phosphorus 3.0 Magnesium 2.0 Iron 73 TIBC 282 % Saturation 26 Total Bilirubin 0.4 AST 42 H ALT 33 Alkaline Phosphatase 77 Troponin I Total Protein 6.4 Albumin 3.1 Globulin 3.3 Albumin/Globulin Ratio 1.0 L Procalcitonin Hepatitis A IgM Ab Hep Bs Antigen Hep B Core IgM Ab Hepatitis C Antibody HIV 1&2 Ag/Ab, 4th Gen Ur L.pneumophila Ag Assessment & Plan - Assessment and Plan (Free Text) Assessment: 71 year old female with history of COPD, pulmonary fibrosis who was admitted with shortness of breath, chest pain, [place], bronchitis The patient is alert. Primary language is Jaiden. She denies pain. BIPAP in use. I was asked to speak with her regarding advance care planning. The patient is somewhat guarded regarding goals of care conversation. States she prefers her daughter be preset during our discussion. I offered to come back when her daughter is present for additional advance care palling conversation Plan: Palliative support,advance care planning.
--- NOTE | 2016-12-24 12:25 | CON ---
DATE: 12/23/2016 CHIEF COMPLAINT: Temperature of 102.5. HISTORY OF PRESENT ILLNESS: This is a 71-year-old female with coronary artery disease, chronic obstructive lung disease, pulmonary fibrosis, breast cancer in 2008, hypertension, DVT, high cholesterol, who was admitted because of fever, shortness of breath, and cough, and Infectious Disease consultation is for antibiotic choice. REVIEW OF SYSTEMS: Reveals the patient has been coughing, nonproductive. No pleuritic chest pain now. No diarrhea or constipation, no bright red blood per rectum, no melena. PAST MEDICAL HISTORY: Significant for coronary artery disease; chronic obstructive lung disease, on home O2 and dependent on oxygen; chronic respiratory failure; pulmonary fibrosis; breast cancer on the right side in 2008; hypertension; DVT; high cholesterol; and right mastectomy and right breast implant. PAST SURGICAL HISTORY: Significant for right mastectomy and right breast implant. ALLERGIES: THE PATIENT HAS NO KNOWN ALLERGIES. MEDICATIONS: Revealed the patient to be on Prilosec, Singulair, Lopressor, and Zestril. PHYSICAL EXAMINATION: VITAL SIGNS: On exam, the patient is in bed. The patient's family is present including her son-in-law. The patient's temperature is 97, T-max is 102.5; respiratory rate of 21; heart rate of 96; and blood pressure is 120/70. HEENT: Unremarkable. NECK: Supple. LUNGS: Decreased breath sounds. HEART: Normal S1 and S2. ABDOMEN: Soft, nontender. LABORATORY DATA: Reveals a white count of 17,900, hemoglobin of 10, and platelets of 174, 91% granulocytosis. BUN of 31, creatinine of 1.2. Troponin 0.4. BNP is 658. Urinalysis reveals 20 to 25 wbc's, many bacteria, complements are noted. Microbiology reveals a gram-negative hailee in the urine. Her blood cultures show no growth. MRSA screen is not detected. The patient had a CAT scan of the chest, which is noted, possibility of infiltrate cannot be excluded as per Dr. Dick Thomson. ASSESSMENT AND PLAN: A 71-year-old female with coronary artery disease, chronic obstructive lung disease, chronic respiratory failure, home O2 therapy dependent, pulmonary fibrosis, who had been on steroids for the last few weeks before admission actually, but had not been on any steroids prior to that. She had started at 20 mg and then tapered down last week one to two weeks prior to admission and history of right breast cancer, hypertension, deep venous thrombosis, high cholesterol, now presenting with sepsis with a community-acquired pneumonia in an immunocompromised patient in the face of pulmonary fibrosis and a gram-negative hailee in the urine. We will treat the patient with Zyvox, meropenem, and doxycycline, pending urine for Legionella antigen, procalcitonin, final blood cultures for identification of the gram-negative hailee in the urine and a sputum culture and HIV test and GABBIE, DNA, lupus, rheumatoid factor, DITCH RIDER antibody, scleroderma, Sjogren's test, all pending. We will treat with Zyvox, meropenem, and doxycycline pending initial workup results and we will follow closely with you. Tej Jones MD [facility] # [id number]
[2016-12-24 12:39] LABS: Interpretation Negative (Negative); RNP <1.0 AI (<1.0); RNP Interpretation Negative (Negative)
[2016-12-24] MEDS: Linezolid 600 mg in D5W 300 ml 600 MG/300 ML BAG IVPB SCH (14:27)
[2016-12-24 14:48] LABS: INR 0.97 (0.93-1.08); PARTIAL THROMBOPLASTIN TIME 27.3 Seconds (23.7-30.8)
[2016-12-24 17:35] LABS: FOLATE > 20.0 ng/mL
--- NOTE | 2016-12-24 19:47 | PN ---
DATE: 12/24/2016 SUBJECTIVE: The patient seen earlier today in Room 260. She is doing well. No fevers and no chills and overall much improved. PHYSICAL EXAMINATION VITAL SIGNS: Temperature is 97, blood pressure is 125/70, respiratory rate of 20. HEENT: Unremarkable. NECK: Supple. LUNGS: Decreased breath sounds. HEART: Normal S1 and S2. ABDOMEN: Soft. LABORATORY DATA: Reveals a white count of 17,900, hemoglobin of 10, platelets of 168, and coagulation is noted. Chemistries reveals a BUN of 27 and creatinine of 0.8. Procalcitonin is 1.33. Urinalysis is noted and serology is noted. Microbiology reveals, blood cultures no growth, nasal MRSA is not detected and urine culture is E. coli that is sensitive. Dr. Malave's note is reviewed and appreciated and Carrie Sadler's note is reviewed. Review of medications reveals the patient to be on doxycycline p.o. and Zyvox IV and meropenem. The patient's procalcitonin of 1.[address] Del Rosario's note is reviewed. Dr. Shannon's note is reviewed. ASSESSMENT AND PLAN: This is a 71-year-old female with coronary artery disease, chronic obstructive lung disease, chronic respiratory failure and home O2 therapy, O2 dependent with pulmonary fibrosis who had been on steroids as outpatient and who has a history of right breast cancer, hypertension, deep venous thrombosis, high cholesterol presenting with sepsis with community acquired pneumonia, an immunocompromised patient now with Escherichia coli in the urine. We will discontinue Zyvox. Continue meropenem and doxycycline and day #3. The Escherichia coli in the urine is sensitive to Cipro. The EKG reveals a QTC of 284. We may be able to switch to p.o. Levaquin and discontinue doxycycline and meropenem in the next 24 hours to treat both the Escherichia coli in the urine and possible infiltrate in the lung and repeat a procalcitonin. The patient is on Solu-Medrol. Tej Jones MD
--- NOTE | 2016-12-24 20:28 | PN ---
DATE: 12/24/2016 LOCATION: The patient in room 260, bed 2. REASON FOR CONSULTATION: Chest pain, coronary artery disease, troponin elevation. SUBJECTIVE: The patient yesterday has chest pain, but today is chest pain free. She denies any palpitation. Her breathing is also stable. The patient lying flat in bed at present moment. PHYSICAL EXAMINATION: VITAL SIGNS: Blood pressure 125/72, respirations 20, pulse 77, temperature 97.1. HEENT: Head is normocephalic. Eyes: Pupils are normal. Conjunctivae slightly pale. NECK: JVP low. Carotids are equal. Thorax, AP diameter normal. LUNGS: No significant rales. CARDIOVASCULAR: S1 and S2. ABDOMEN: Soft, nontender. No organomegaly. Bowel sounds normal. EXTREMITIES: No clubbing. No cyanosis. LABORATORY DATA: WBC 17.9, hemoglobin 10.0, hematocrit 33.8, platelets 168. Sodium 140, potassium 4.9, BUN 27, creatinine 0.8. Troponin; I troponin normal. DIAGNOSES: Fever with chills on admission; chest pain; coronary artery disease; troponin elevated suggestive of non ST elevation myocardial infarction; chronic obstructive pulmonary disease; pulmonary fibrosis; bronchiectasis; pulmonary hypertension, at home on O2. PLAN: The patient on aspirin 81 mg daily. I am going to start half normal saline because BUN is elevated 100 mL an hour; heparin 5000 units subQ q. 12 hours; metoprolol 50 mg b.i.d., meropenem 1 g IV q. 12 hours; hydrochlorothiazide 12.5 daily; Plavix 75 daily; Protonix 40 daily; Solu-Medrol 20 mg IV q. 12 hours; lisinopril 20 mg daily. We will check today's troponin and also PT/PTT. We will repeat SMA-7. We will discuss with the patient the possibility of cardiac catheterization because of non-STEMI. The patient previously had catheter, 07/2015, which showed stents were patent at that time. We will follow with you. Joaquin Recinos MD
--- NOTE | 2016-12-24 21:49 | CARD ---
APPROVED REPORT EKG Measurement Heart [id number] <Conclusion> Normal sinus rhythm Possible Left atrial enlargement Borderline ECG
--- NOTE | 2016-12-24 21:55 | PN ---
The patient is a 71 years old female. SUBJECTIVE: The patient seen and examined at the bedside, looking comfortable, getting nebulizer treatment and according to the patient, she is feeling very fatigue and tired, but no chest pain today, had episode of chest pain yesterday. Troponin was positive. No palpitation. Breathing is also stable. Lying flat in the bed. PHYSICAL EXAMINATION VITAL SIGNS: Blood pressure 120/70, respirations 20, pulse 77, temperature 97.1. HEENT: Head: Normocephalic and atraumatic. Eyes: PERRLA. Extraocular muscles intact. Conjunctivae clear. Nose patent. Mucous membranes are moist. NECK: Supple. No carotid bruit or thyromegaly. CHEST: Bilaterally symmetrical. HEART: S1 and S2 positive. LUNGS: Clear to auscultation. ABDOMEN: Soft. Bowel sounds positive. No organomegaly. EXTREMITIES: No edema. No cyanosis. NEUROLOGICAL: The patient is awake and alert. Follows simple commands. MEDICATIONS: Arimidex, aspirin, doxycycline, DuoNeb, heparin, Lopressor, meropenem, morphine, nitro, Plavix, Protonix, MS, Zestril and Zofran. LABORATORY DATA: White blood cells 17.9, hemoglobin 10.0, hematocrit 33.8 and platelets 168. Sodium 140, potassium 4.9, BUN 27, creatinine 0.9, glucose 127 and AST 42. Troponin 1.42, 0.65. ASSESSMENT AND PLAN: The patient is a 71-year-old lady with leucocytosis, anemia, hyperglycemia, increased BUN, Dr. Recinos started IV fluid, but has multiple medical problems, came with fever; history of coronary artery disease, status post cardiac stents; chronic obstructive lung disease; chronic respiratory failure with home oxygen and oxygen dependent; pulmonary fibrosis; right breast cancer, status post chemotherapy, radiation therapy; deep vein thrombosis, came with sepsis, community acquired pneumonia and immunocompromised patient with Escherichia coli in the urine. Dr. Jones discontinued the Zyvox; continuing meropenem and doxycycline, day #3. Escherichia coli in the urine is also sensitive to Cipro. EKG reveals QT of 284, so Dr. Jones switched to Levaquin and discontinued the doxycycline and meropenem. In next 24 hours to treat both Escherichia coli in the urine and possibly infiltrates in the lung and repeat prolactin. The patient is getting tapering dose of Solu-Medrol. Seen by the aircraft electronics technical officer, Dr. Recinos. The patient has non-STEMI, maybe the patient needs cardiac catheterization, last was done on 07/2015, which showed stents widely patent at that time. Discussion done with the patient, all questions answered. Gastrointestinal and deep venous thrombosis prophylaxis. Repeat labs. We will follow up. Stacey Del Rosario MD
[2016-12-24] MEDS: Sodium Chloride 0.45% 1,000 ML IV SCH ×2 (23:40→23:45)
[2016-12-25] MEDS: Nitroglycerin 2% Ointment Foilpak UD TOP SCH ×2 (00:30→05:58)
[2016-12-25] MEDS: Albuterol-Ipratrop 3 mg / 0.5 (3 ml) UD IH SCH ×6 (00:31→20:10)
[2016-12-25] MEDS: Pantoprazole 40 mg EC Tab PO SCH (05:58)
[2016-12-25 06:30] LABS: ALKALINE PHOSPHATASE 61 U/L (38-133); ALT/SGPT 28 U/L (7-56); AST/SGOT 31 U/L (15-39); BILIRUBIN,TOTAL 0.4 mg/dL (0.2-1.3); BLOOD UREA NITROGEN 22 mg/dL (7-21); CALCIUM 7.9 mg/dL (8.4-10.5); CARBON DIOXIDE 37 mmol/L (21-33); CHLORIDE 94 mmol/L (95-110); GFR AFRICAN-AMERICAN > 60; GLUCOSE,RANDOM 93 mg/dL (70-110); MAGNESIUM 1.7 mg/dL (1.7-2.2); PHOSPHOROUS 3.2 mg/dL (2.5-4.5); POTASSIUM 4.3 mmol/L (3.6-5.0); SODIUM 134 mmol/L (132-148); TOTAL PROTEIN 5.7 g/dL (5.8-8.3)
[2016-12-25 06:31] LABS: EOS % 0.1 % (1.5-5.0); GRAN # 9.03 (1.4-6.5); GRAN % 86.2 % (50.0-68.0); HEMATOCRIT 30.3 % (36.0-48.0); LYMPH % 9.2 % (22.0-35.0); MEAN CELL VOLUME 92.1 fl (80.0-105.0); MEAN CORPUSCULAR HEMOGLOBIN 27.1 pg (25.0-35.0); MEAN CORPUSCULAR HGB CONC 29.4 g/dl (31.0-37.0); MEAN PLATELET VOLUME 11.4 fl (7.0-11.0); MONO # 0.5 (0.1-0.6); MONO % 4.5 % (1.0-6.0); RED CELL DISTRIBUTION WIDTH 14.6 % (11.5-14.5); WHITE BLOOD COUNT 10.5 10^3/ul (4.5-11.0)
[2016-12-25] MEDS ORDERED: Lidocaine 2% Inj (20ml) ONE (06:51)
[2016-12-25] MEDS ORDERED: Iohexol 350mgl/ml 50 ML ONE (06:52)
[2016-12-25] MEDS ORDERED: Nitroglycerin 50mg in D5W 0 MG/0 ML BOTTLE IV ONE (06:52)
[2016-12-25] MEDS ORDERED: Iohexol 350 MG/100 ML VIAL ONE (06:52)
--- NOTE | 2016-12-25 07:26 | PN ---
DATE: 12/25/2016 PULMONARY NOTE SUBJECTIVE: The patient appears comfortable this morning. She is not short of breath at rest. PHYSICAL EXAMINATION: VITAL SIGNS: Temperature is 97.8, pulse is 89, respirations 18/20, blood pressure 129/51. Oxygen saturation on nasal cannula is 100%. HEENT: Normocephalic, atraumatic. NECK: No JVD. CARDIOVASCULAR: Systolic ejection murmur at the lower left sternal border. No S3 gallop. LUNGS: Chronic crackles at both lower lobes. Minimal rhonchi. No wheezing. EXTREMITIES: No clubbing, cyanosis or edema. Calves are nontender to palpation. GASTROINTESTINAL: Abdomen is soft, nontender, and nondistended. Bowel sounds are positive. SKIN: No acute rash. NEUROLOGIC: Limited at the present time. CURRENT LABORATORY DATA: Arterial blood gas was done yesterday on nasal cannula (discussed with nurse). Results are: A pH 7.29, pCO2 of 82, pO2 of 80. IMPRESSION: 1. Respiratory failure. 2. Recurrent bronchitis. 3. Advanced pulmonary fibrosis, on home oxygen. 4. Chronic obstructive pulmonary disease. 5. Rule out underlying pneumonia. 6. Sepsis syndrome. 7. Non-ST elevation myocardial infarction. PLAN: The patient appears comfortable this morning. She is not short of breath at rest. She does state to feeling better overall. I did discuss the case with the night nurse at length. The night nurse stated that the patient wore her BiPAP most of the night. I did review the last arterial blood gas - above. The arterial blood gas remains with a severe respiratory acidosis. The pH has slightly improved. I did change the BiPAP settings yesterday. I hope that change will be reflective on today's arterial blood gas. Depending on the arterial blood gas results, we will then decide on the non-invasive ventilation usage. On physical exam, there is only mild bronchospasm present. I will continue with the current nebulizer treatments and low-dose intravenous steroids for now. The patient remains on antibiotic therapy - as per Infectious Disease. Input by Dr. Jones is noted. There are no temperatures noted. Leukocytosis is now resolved. Clinical status of the patient is certainly improved - compared to the initial presentation. However, again, her overall/future status/prognosis remains very guarded at best. I will discuss the above with the attending physician. Missael Malave MD [facility] # [id number] HAKEEM
[2016-12-25] MEDS ORDERED: Midazolam 2 MG/2 ML VIAL ONE (07:51)
[2016-12-25] MEDS ORDERED: Eptifibatide 20 mg/10mL Inj IVP ONE (08:10)
[2016-12-25] MEDS ORDERED: Flumazenil 0.1 mg/ml Inj (5ml) IVP ONE (08:41)
[2016-12-25] MEDS ORDERED: Sodium Chloride 0.9% 1,000 ML IV SCH (09:15)
[2016-12-25] MEDS: Meropenem 1g/NS 100mL IVPB 1 GM/100 ML PIGGYBACK IVPB SCH ×2 (09:51→22:11)
[2016-12-25] MEDS: MethylPREDNISolone 40 mg Vial IVP SCH ×2 (09:53→22:09)
--- NOTE | 2016-12-25 11:40 | CARD ---
APPROVED REPORT EKG Measurement Heart [id number] <Conclusion> Normal sinus rhythm Normal ECG
[2016-12-25] MEDS: FAMOTIDINE IVPB SCH ×3 (12:07→22:24)
[2016-12-25] MEDS: WATER IVPB SCH ×3 (12:07→22:24)
[2016-12-25] MEDS: DEXTROSE 5% IVPB SCH ×3 (12:07→22:24)
--- NOTE | 2016-12-25 12:40 | CARD ---
APPROVED REPORT Procedure(s) performed: Left Heart Catheterization PTCA with Stenting of R PDA with KATIE PTCA with Stenting of Mid RCA with KATIE HISTORY 62.4%. (EF Method: Echocardiogram), previous CHF, chronic lung disease, previous diagnostic cath, previous PCI (The PCI date was 12/06/2007 and 08/02/2011), hypertension , dyslipidemia , Advanced COPD, pulmonary Fibrosis on Home O2 admitted with chest pain ACS, NSTEMI. INDICATION The indication(s) include : non-STEMI . CASE TECHNIQUE The patient was brought urgently to the Cardiac Catheterization Laboratory in a fasting state and was prepped and draped in a sterile manner. The right femoral groin was infiltrated with 2% Lidocaine subcutaneous anesthesia. A 6 Fr x 11 cm Bridget sheath was inserted into the right femoral artery without difficulty. Coronary angiography was performed using coronary diagnostic catheters. The left coronary system was accessed and visualized with a Diagnostic ,5 Fr JL 4 catheter. The right coronary system was accessed and visualized with a Diagnostic ,5 Fr JR 4 catheter. The left ventricle was accessed and visualized with a 5 Fr Pigtail 145 (Angled) catheter. Left ventricular/Aortic Valve gradient assessed on pullback. Left ventriculogram was performed in VILLARREAL projection. Closure device was deployed with a 6 Fr Angio-Seal without any complications. The patient tolerated the procedure well and there were no complications associated with the procedure. Vessel Analysis The patient's coronary anatomy is right dominant. The left main coronary artery is a medium size vessel with diffuse calcification noted throughout this vessel and without significant stenosis. There is a 20% stenosis in the distal segment. The left main bifurcates to the left anterior descending and circumflex. The left anterior descending artery is a medium size vessel with diffuse calcification noted throughout this vessel and without significant stenosis. oatent stent in mid segment The first diagonal branch is a medium size vessel with diffuse calcification noted throughout this vessel and without significant stenosis. There is a 50% stenosis in the ostial segment. The second diagonal branch is a small size vessel with diffuse calcification noted throughout this vessel and without significant stenosis. The circumflex artery is a medium size vessel with diffuse calcification noted throughout this vessel and without significant stenosis. The first obtuse marginal branch is a small size vessel with diffuse calcification noted throughout this vessel and without significant stenosis. The ramus intermedius artery is a medium size vessel with diffuse calcification noted throughout this vessel and without significant stenosis. There is a 30-40% stenosis in the proximal segment. The right coronary artery is a large size vessel with diffuse calcification noted throughout this vessel and with significant stenosis. There is a 70-80% stenosis . The right posterior descending artery is a large size vessel with diffuse calcification noted throughout this vessel and with significant stenosis. There is a 80% stenosis in the proximal segment. Left Ventricle The left ventricle is normal in size with normal contractility. There was no cardiomyopathy. The left ventricular ejection fraction is estimated to be 65%. The left ventricular end diastolic pressure is 20-25 mmHg. with respiratory variation There was no gradient across the aortic valve upon pullback. PCI Technique Lesion Anticoagulation was achieved with Heparin. Percutaneous coronary intervention was performed on the right posterior descending artery. The lesion stenosis prior to intervention was 80% with PRAVEENA 2 flow. A 6 Fr JR 3.5 Guide Catheter was used to engage the ostium. BALLOON DILATION A Balloon catheter 2.0 x 10 mm Sprinter RX was inserted and inflated up to 8.00atm for 12seconds. STENT DEPLOYMENT A drug-eluting stent 2.25 x 12 mm Resolute KATIE was inserted and inflated up to 12.00atm for 20seconds. Final angiography reveals 0 % stenosis with PRAVEENA 3 flow. PCI Technique Lesion 2 Percutaneous Coronary Intervention was performed on the mid right coronary artery. The lesion stenosis prior to intervention was 70-80% with PRAVEENA 2 flow. A 6 Fr JR 3.5 Guide Catheter was used to engage the ostium. STENT DEPLOYMENT A drug-eluting stent 3.0 x 18 mm Resolute KATIE was inserted and inflated up to 12.00atm for 20seconds. Final angiography reveals 0 % stenosis with PRAVEENA 3 flow. Conclusion RCA mid 70-805 with haziness and RPDA has 80% stenosis. Patent stent in LAD. Circumflex has no sigificant disease. Preserved Lv Fx. Ef-65%, EDP-20-25 mmof Hg with respiratory variation. Successful PTCA with KATIE of Mid RCA and RPDA done. Recommendations Cardiac Rehabilitation ReferralDaily ASA with Plavix for at least one year Aggressive Medical TherapyCardiac Risk Reduction Program Weight Loss Reduction Program CC; Drs. Del Rosario/ Ananda
--- NOTE | 2016-12-25 17:40 | PN ---
DATE: 12/25/2016 SUBJECTIVE: The patient is in bed in no acute distress. PHYSICAL EXAMINATION VITAL SIGNS: Temperature is 98, blood pressure is 120/70, respiratory rate of 16. HEENT: Unremarkable. NECK: Supple. LUNGS: Decreased breath sounds. HEART: Normal S1 and S2. ABDOMEN: Soft and nontender. LABORATORY DATA: Reveals a white count of 10,000, hemoglobin of 8, platelets of 178, BUN of 22, creatinine of 0.7 and procalcitonin 0.5. Urinalysis is noted. Urine culture is from the 25th growing E. coli. The blood cultures are no growth. Dr. Malave's note is reviewed and Dr. Del Rosario's note from yesterday is reviewed. ASSESSMENT AND PLAN: This is a 71-year-old female with coronary artery disease, chronic obstructive lung disease, chronic respiratory failure in home O2 therapy and O2 dependent with pulmonary fibrosis, she had been on steroids for short time prior to admission, history of right breast cancer, hypertension, deep venous thrombosis, high cholesterol, presenting with sepsis with community-acquired pneumonia, immunocompromised. The patient is now with Escherichia coli in the urine, on meropenem and doxycycline day #4 with procalcitonin of 0.50. It was 1.33 is improved, and the patient for cardiac catheterization today, currently on meropenem, doxycycline, Solu-Medrol, awaiting for cardiac cath report and today is day #4 of antibiotics, would complete 4 to 7 days with EKG revealing QTc of 284, may be able to switch to p.o. Levaquin and Escherichia coli in the urine is sensitive to Cipro, should follow the chest imaging through resolution. The patient did have a CAT scan of the chest done on 12/22/2016,which showed possibility of infiltrate. Tej Jones MD
--- NOTE | 2016-12-25 18:06 | PN ---
DATE: 12/25/2016 REASON FOR CONSULTATION: Acute coronary syndrome. SUBJECTIVE: The patient having chest pain yesterday. The patient underwent cardiac catheterization and subsequently the patient underwent 2 stent placed in RCA and RPDA that feels okay. OBJECTIVE: GENERAL: Lying comfortably on the bed, post cath. VITAL SIGNS: Temperature afebrile, heart rate 80, blood pressure 120/80. HEENT: PERRLA. Intact. NECK: Supple. No carotid bruits. No thyromegaly. CHEST: Clear to auscultation. HEART: S1 and S2 regular. ABDOMEN: Soft. EXTREMITIES: Clubbing and cyanosis negative. Right groin appears okay. Distal 1+ pulse and very good Doppler signal and dorsalis pedis, trace to 1+ pedal edema. LABORATORY DATA: Blood workup as follows; WBC 10.5, hemoglobin 8.9, hematocrit 30.3, platelet count 178. Chemistry shows sodium 134, potassium 4.3, chloride 94, carbon dioxide 37, anion gap of 17, BUN 22, creatinine 0.7. Total protein 5.7, albumin 2.8. IMPRESSION: Anemia, dropping H and H since admission. Admitting hemoglobin 12.2 and 10.4, today it is 8.9 before cardiac catheterization. Elevated BUN, prerenal azotemia, protein-calorie malnutrition mild which was not present at admission. She is status post cardiac catheterization. She is status post percutaneous transluminal coronary angioplasty of right carotid artery, 80% stenosis is stented and right posterior descending artery has 80% stenosis, dual stent was placed in right coronary artery and right posterior descending artery, patent stent in left anterior descending noted, preserved left ventricular function. RECOMMENDATIONS: Continue aspirin, continue Plavix, discontinue nitro paste, change normal saline 0.9 to 50 mL an hour for 24 hours to prevent contrast-induced nephropathy. Monitor H and H and stool for guaiac and . I have put some Pepcid for gastric prophylactic because the patient uses steroid as well. We will follow with you. We will give 1 dose of IV Pepcid and then Pepcid 20 mg from tomorrow. Monitor H and H and discontinue IV fluid tomorrow at 5.00 p.m. Further recommendations per hospital course. Thank you, Dr. Del Rosario, for the opportunity taking care of the patient. Joaquin Frankel MD [facility] # [id number]
--- NOTE | 2016-12-26 02:01 | PN ---
DATE: 12/25/2016 The patient is a 71-year-old female. SUBJECTIVE: The patient seen and examined at the bedside, looking comfortable, status post cardiac catheterization and got [address] Frankel. Spoke with Dr. Frankel, discussion done. Discussion done with the patient also. PHYSICAL EXAMINATION VITAL SIGNS: Temperature 97.8, pulse 89, respiratory rate 18, blood pressure 130/50. HEENT: Normocephalic, atraumatic. Eyes: PERRLA. Extraocular muscles intact. Conjunctivae are clear. Nose patent. Mucous membranes are moist. NECK: Supple. No carotid bruit, JVD, or thyromegaly. CHEST: Bilaterally symmetrical. HEART: S1, S2 positive. LUNGS: Clear to auscultation. ABDOMEN: Soft. Bowel sounds positive. No organomegaly. EXTREMITIES: No edema. No cyanosis. NEUROLOGIC: The patient is awake and alert. Moving all 4 extremities. No focal deficits. MEDICATIONS: aspirin, doxycycline, albuterol, DuoNeb, famotidine, heparin, metoprolol, meropenem. LABORATORY DATA: White blood cell 10.5, hemoglobin 8.9, hematocrit 30.3, platelets 178. Sodium 134, potassium 4.3, BUN 22, creatinine 0.7, glucose 7.9, troponin 0.65. ASSESSMENT AND PLAN: The patient is a 71-year-old lady with leukocytosis, improving; anemia; hypoglycemia; coronary artery disease, status post cardiac stenting second time; history of pulmonary fibrosis; recurrent bronchitis, on home oxygen; chronic obstructive pulmonary disease; rule out underlying pneumonia; sepsis syndrome; [id number] myocardial infarction. The patient wore BiPAP most of the night. Appreciate Dr. Missael Malave's input. Discussion done with Dr. Frankel. Gastrointestinal and deep venous thrombosis prophylaxis. Continue with present treatment. We will follow up. Stacey Del Rosario MD MTDD
[2016-12-26 02:20] LABS: PARIETAL CELL AB 86.5 U
[2016-12-26] MEDS: FAMOTIDINE IVPB SCH ×2 (03:36→11:56)
[2016-12-26] MEDS: WATER IVPB SCH ×2 (03:36→11:56)
[2016-12-26] MEDS: DEXTROSE 5% IVPB SCH ×2 (03:36→11:56)
[2016-12-26 03:54] LABS: SM ANTIBODY <1.0 NEG AI (<1.0 NEGATIVE)
[2016-12-26] MEDS: Albuterol-Ipratrop 3 mg / 0.5 (3 ml) UD IH SCH ×6 (04:25→19:33)
[2016-12-26 06:12] LABS: ARTERIAL BLOOD GAS O2 CAPACITY 14.4 mL/dl (16-24); ARTERIAL BLOOD GAS O2 CONTENT 12.9 ML/dl (15-23); ARTERIAL BLOOD GAS PH 7.39 (7.35-7.45); ARTERIAL BLOOD HGB O2 SAT 88.5 % (95.0-98.0); HHB 10.2 % (0-5); METHEMOGLOBIN 0.3 % (0.0-3.0)
[2016-12-26 06:13] LABS: ARTERIAL BLOOD GAS HCO3 56.9 mmol/L (21-28)
[2016-12-26] MEDS: MethylPREDNISolone 40 mg Vial IVP SCH ×3 (06:46→21:32)
[2016-12-26 08:12] LABS: BASO # 0.01 K/mm3 (0.0-2.0); BASO % 0.1 % (0.0-3.0); EOS % 0.3 % (1.5-5.0); GRAN # 8.65 (1.4-6.5); GRAN % 72.1 % (50.0-68.0); HEMATOCRIT 35.7 % (36.0-48.0); LYMPH # 2.3 (1.2-3.4); LYMPH % 18.9 % (22.0-35.0); MEAN CELL VOLUME 91.3 fl (80.0-105.0); MEAN CORPUSCULAR HEMOGLOBIN 27.1 pg (25.0-35.0); MEAN CORPUSCULAR HGB CONC 29.7 g/dl (31.0-37.0); MEAN PLATELET VOLUME 9.9 fl (7.0-11.0); MONO % 8.6 % (1.0-6.0)
[2016-12-26 08:22] LABS: ALB/GLOB RATIO 1.1 (1.1-1.8); ALKALINE PHOSPHATASE 85 U/L (38-133); ALT/SGPT 51 U/L (7-56); AST/SGOT 42 U/L (15-39); BILIRUBIN,TOTAL 0.7 mg/dL (0.2-1.3); BLOOD UREA NITROGEN 24 mg/dL (7-21); CHLORIDE 86 mmol/L (98-107); GFR AFRICAN-AMERICAN > 60; GLUCOSE,RANDOM 88 mg/dL (70-110); PHOSPHOROUS 3.5 mg/dL (2.5-4.5); POTASSIUM 3.9 mmol/L (3.6-5.0); SODIUM 140 mmol/L (132-148); TOTAL PROTEIN 6.8 g/dL (5.8-8.3)
[2016-12-26 08:32] LABS: CARBON DIOXIDE 48 mmol/L (21-33)
--- NOTE | 2016-12-26 09:26 | CARD ---
APPROVED REPORT EKG Measurement Heart [id number] OH [id number] <Conclusion> Normal sinus rhythm Normal ECG
[2016-12-26] MEDS: Meropenem 1g/NS 100mL IVPB 1 GM/100 ML PIGGYBACK IVPB SCH ×2 (09:40→21:32)
[2016-12-26 11:29] LABS: RETICULIN AB IGA NEGATIVE (NEGATIVE)
--- NOTE | 2016-12-26 15:55 | CP.PCM.PN ---
Subjective - Date & Time of Evaluation Date of Evaluation: 12/26/16 Time of Evaluation: 09:55 - Subjective Subjective: Comfortable, not in distress, afebrile, still on BiPAP. Objective - Vital Signs/Intake and Output Vital Signs (last 24 hours): Temp Pulse Resp BP Pulse Ox 98.1 F 77 18 121/48 L 95 12/26/16 06:35 12/26/16 06:35 12/26/16 06:35 12/26/16 06:35 12/26/16 06:35 Intake and Output: 12/26/16 12/26/16 06:59 18:59 Intake Total 840 30 Output Total 750 Balance 840 -720 - Medications Medications: Current Medications Acetaminophen (Tylenol 325mg Tab) 650 mg PO Q6H PRN PRN Reason: Fever >100.4 F Last Admin: 12/23/16 00:03 Dose: 650 mg Albuterol/Ipratropium (Duoneb 3 Mg/0.5 Mg (3 Ml) Ud) 3 ml IH Q2H PRN PRN Reason: Shortness of Breath Albuterol/Ipratropium (Duoneb 3 Mg/0.5 Mg (3 Ml) Ud) 3 ml IH [id number] REPLACED BY [facility] Last Admin: 12/26/16 07:48 Dose: 3 ml Anastrozole (Arimidex 1 Mg Tab) 1 mg PO DAILY REPLACED BY [facility] Last Admin: 12/25/16 09:56 Dose: 1 mg Aspirin (Aspirin Chewable) 81 mg PO DAILY REPLACED BY [facility] Last Admin: 12/25/16 09:29 Dose: Not Given Clopidogrel Bisulfate (Plavix) 75 mg PO DAILY REPLACED BY [facility] Last Admin: 12/25/16 09:30 Dose: Not Given Doxycycline Hyclate (Doryx) 100 mg PO Q12 GUY PRN Reason: Protocol Stop: 12/31/16 23:48 Last Admin: 12/25/16 22:10 Dose: 100 mg Famotidine (Pepcid) 40 mg PO HS REPLACED BY [facility] Last Admin: 12/25/16 22:10 Dose: 40 mg Heparin Sodium (Porcine) (Heparin) 5,000 units SC Q12 GUY PRN Reason: Protocol Last Admin: 12/25/16 22:10 Dose: 5,000 units Hydralazine HCl (Apresoline) 10 mg PO QID PRN PRN Reason: for sbp>170 Hydrochlorothiazide (Microzide) 12.5 mg PO DAILY REPLACED BY [facility] Last Admin: 12/25/16 09:52 Dose: 12.5 mg Meropenem 1g/NS 100mL IVPB (Meropenem 1g/Ns 100ml Ivpb) 1 gm in 100 mls @ 100 mls/hr IVPB Q12 GUY PRN Reason: Protocol Last Admin: 12/25/16 22:11 Dose: 100 mls/hr Famotidine 20 mg/ Dextrose 102 mls @ 20.4 mls/hr IVPB Q5H REPLACED BY [facility] PRN Reason: 4 MG/HR Stop: 12/26/16 09:16 Last Admin: 12/26/16 03:36 Dose: 20.4 mls/hr Lisinopril (Zestril) 5 mg PO DAILY REPLACED BY [facility] Methylprednisolone (Solu-Medrol) 40 mg IVP Q8H REPLACED BY [facility] Last Admin: 12/26/16 06:46 Dose: 40 mg Metoprolol Tartrate (Lopressor) 50 mg PO BID REPLACED BY [facility] Last Admin: 12/25/16 17:20 Dose: 50 mg Morphine Sulfate (Morphine) 1 mg IVP Q3 PRN PRN Reason: Pain, severe (8-10) Last Admin: 12/23/16 09:54 Dose: 1 mg Ondansetron HCl (Zofran Inj) 4 mg IVP Q6H PRN PRN Reason: Nausea/Vomiting - Labs Labs: 12/26/16 08:00 12/26/16 08:00 PT 10.5 Seconds (9.9-11.8) 12/24/16 13:45 INR 0.97 (0.93-1.08) 12/24/16 13:45 APTT 27.3 Seconds (23.7-30.8) 12/24/16 13:45 - Constitutional Appears: Non-toxic, No Acute Distress - Head Exam Head Exam: NORMAL INSPECTION - Respiratory Exam Respiratory Exam: Decreased Breath Sounds - Cardiovascular Exam Cardiovascular Exam: +S1, +S2 - GI/Abdominal Exam GI & Abdominal Exam: Soft. absent: Tenderness Assessment and Plan - Assessment and Plan (Free Text) Plan: Assessment Sepsis due to community-acquired pneumonia, along with UTI with E. coli Acute exacerbation of COPD, need to rule out healthcare-associated pneumonia ( right sided) in patient with pulmonary vascular congestion and history of bronchiectasis oxygen-dependent COPD pulmonary fibrosis HTN history of breast cancer coronary artery disease dyslipidemia history of DVT Plan continue Merrem and Doxycycline (Day 5); can be switched to PO levaquin when ready for discharge
--- NOTE | 2016-12-26 19:57 | PN ---
SUBJECTIVE: The patient is currently on nasal cannula. She is mildly short of breath, but in no acute distress. PHYSICAL EXAMINATION: VITAL SIGNS: Temperature is 98.0, pulse on monitor 74, respirations 20/22, blood pressure 163/75. Last oxygen saturation was on BiPAP-95%. HEENT: Normocephalic and atraumatic. NECK: No JVD. CARDIOVASCULAR: Systolic ejection murmur at the lower left sternal border. No S3 gallop. LUNGS: Chronic crackles at both lower lobes. Mild bilateral rhonchi. No wheezing. EXTREMITIES: No clubbing, cyanosis, or edema. Calves are nontender to palpation. GASTROINTESTINAL: Abdomen is soft, nontender, and nondistended. Bowel sounds are positive. SKIN: No acute rash. NEUROLOGIC: Limited at the present time. IMPRESSION: 1. Respiratory failure. 2. Recurrent bronchitis. 3. Advanced pulmonary fibrosis, on home oxygen. 4. Chronic obstructive pulmonary disease. 5. Rule out underlying pneumonia. 6. Sepsis syndrome. 7. Non-ST elevation myocardial infarction. Status post multiple stents. PLAN: The patient is currently on nasal cannula. She is mildly short of breath, but in no acute distress. I did discuss the case with night nurse at length. The night nurse stated that the patient had a good night, and she wore her BiPAP most of the night. On physical exam, there is only mild bronchospasm noted. However, we have had a lot of trouble transitioning the patient from BiPAP to nasal cannula. Thus,I will try increasing the intravenous steroids this morning. Input by Dr. Baca (Cardiology) is noted. The patient did go to the cardiac catheterization lab, and received 2 stents yesterday. I would continue with the antibiotic coverage as per Infectious Disease. There are no temperatures noted. The leukocytoses has resolved. The patient remains critically ill with a prognosis which is very guarded at best. I will discuss the above with the attending physician. Missael Malave MD [facility]ENTERKenneth
--- NOTE | 2016-12-26 20:02 | PN ---
DATE: 12/26/2016 REASON FOR THE CONSULTATION: Followup acute coronary syndrome, status post 2 stents in RCA and RPDA. SUBJECTIVE: The patient denies any chest pain, shortness of breath, complained of weakness. OBJECTIVE: GENERAL: Lying flat in the bed, wearing the CPAP not in apparent distress, though it was told by the nurse the patient was getting desaturation while removing the mask. VITAL SIGNS: Temperature afebrile, heart rate 77, blood pressure 121/48. HEENT: PERRLA. Extraocular muscles intact. NECK: Supple. No carotid bruit. No thyromegaly. CHEST: Clear to auscultation. HEART: S1 and S2, regular. ABDOMEN: Soft. EXTREMITIES: Clubbing and cyanosis negative. LABORATORY DATA: Blood workup as follows: WBC 12, hemoglobin 10.6, hematocrit 35.7, platelet count 173. Chemistry shows sodium 134, potassium 4.3, chloride 94, carbon dioxide 37, anion gap of 7, BUN 22, creatinine 0.7, total protein 5.7, albumin 2.8, albumin-globulin ratio 1, calcium 7.9, phosphorus 3.2, magnesium 1.7, and random sugar 93. SMA-7 today is pending. Hemoglobin today is 10.6, improved. IMPRESSION: An 71-year-old female with past medical history significant for advanced chronic obstructive pulmonary disease, pulmonary fibrosis, admitted with decompensated chronic obstructive pulmonary disease as well as acute coronary syndrome. The patient underwent yesterday cardiac catheterization and that shows patent stent in left anterior descending, patent stent in right carotid artery, but mid right carotid artery has 70-80% stenosis with haziness and right posterior descending artery has 80% stenosis. The patient underwent 2 stents, one in right posterior descending artery and one in right carotid artery, preserved left ventricular function. History of bad chronic obstructive pulmonary disease,on home oxygen, history of advanced pulmonary fibrosis, as mentioned non-ST elevation myocardial infarction, sepsis syndrome. RECOMMENDATIONS: Continue broad-spectrum antibiotic. Continue aspirin, Plavix. Continue p.r.n. diuretics, discontinue IV fluid, out of bed to chair as tolerated. Continue metoprolol 50 mg twice a day. Physical therapy. Continue hydrochlorothiazide 12.5 mg daily. We will follow with you. Increase nutritional support, protein-calorie malnutrition which was not present on admission. We will increase some Glucerna and increase nutritional support; otherwise, the patient will discontinue protein-calorie started third-spacing. We will follow with you. We will follow the [facility] when it is available. Dressing was changed on the right femoral area. No hematoma noted. No bruit noted. Thank you Dr. Del Rosario for providing us opportunity in taking care of the patient, Merna Mora . Joaquin Frankel MD
[2016-12-26 21:56] LABS: MYOCARDIAL AB IF NEGATIVE (NEGATIVE)
[2016-12-26 23:03] VITALS: RESP 20
[2016-12-27] MEDS: Albuterol-Ipratrop 3 mg / 0.5 (3 ml) UD IH SCH ×5 (00:04→16:26)
--- NOTE | 2016-12-27 02:22 | PN ---
DATE: SUBJECTIVE: The patient is 71 years old female. The patient was seen and examined on the bedside. According to the patient, she has episodes of hypoglycemia and was feeling nervous and tremulous, son was sitting on the bedside. Also, the patient has dinner, after that she started feeling better. No nausea, vomiting or diarrhea. No hematuria or hematochezia. No more chest pain. No headache or dizziness. PHYSICAL EXAMINATION: VITAL SIGNS: Temperature 98, pulse 85, blood pressure 145/89, respiratory rate 18. HEENT: Head is normocephalic and atraumatic. Eyes; PERRLA. Extraocular muscles intact. Conjunctivae clear. Nose patent. Mucous membranes are moist. NECK: Supple. No carotid bruit or thyromegaly. CHEST: Bilaterally symmetrical. HEART: S1 and S2 positive. LUNGS: Clear to auscultation. ABDOMEN: Soft. Bowel sounds positive. No organomegaly. EXTREMITIES: No edema. No cyanosis. NEUROLOGIC: The patient is awake and alert. Moving all four extremities. No focal deficits. MEDICATIONS: Hydralazine, aspirin, doxycycline, DuoNeb, heparin, metoprolol, meropenem, Pepcid, Plavix, Solu-Medrol, Tylenol, Zestril and Zofran. LABORATORY DATA: White blood cells 12.0, hemoglobin 10.6, hematocrit 35.7, platelets 173. Sodium 140, potassium 3.9, BUN 34, creatinine 0.7, AST 42. ASSESSMENT AND PLAN: Ms. Merna Mora is 71 years old lady with leukocytosis, anemia, increased BUN, abnormal liver function test with proteinuria, hematuria, urinary tract infection, antinuclear antibodies screening positive, antinuclear antibodies titer high, antiparietal cell antibodies positive, complement C4 high, came with septic shock, sepsis, community required pneumonia along with urinary tract infection with Escherichia coli, acute exacerbation chronic obstructive pulmonary disease, right-sided pneumonia, history of pulmonary vascular congestion and history of bronchiectasis, oxygen dependent chronic obstructive pulmonary disease, pulmonary fibrosis, hypotension, history of breast cancer, coronary artery disease, dyslipidemia, history of deep venous thrombosis. Infectious disease is on the case, according to them continue Merrem and doxycycline day 5 can switch to p.o. Levaquin. Review Dr. Lepe's notes. Review Dr. Frankel's notes also. The patient has history of acute coronary syndrome underwent cardiac catheterization that shows patient has two blood vessel obstruction, two stents were put, right posterior descending artery and one in the right carotid artery. The patient has a non-ST elevation myocardial infarction. We will continue present treatment. Discontinue IV fluid, tapering dose of steroids. The patient is getting oxygen via nasal cannula. Use bilevel positive airway pressure at night. Gastrointestinal and deep venous thrombosis prophylaxis. We will followup. Stacey Del Rosario MD
[2016-12-27] MEDS: MethylPREDNISolone 40 mg Vial IVP SCH ×4 (02:51→15:40)
[2016-12-27 03:49] LABS: DNA AB (DS) CRITH NEGATIVE (NEGATIVE)
[2016-12-27 06:15] VITALS: O2SAT 97
[2016-12-27 06:20] LABS: BASO # 0.01 K/mm3 (0.0-2.0); BASO % 0.1 % (0.0-3.0); GRAN # 8.27 (1.4-6.5); GRAN % 80.4 % (50.0-68.0); HEMATOCRIT 38.2 % (36.0-48.0); LYMPH # 1.5 (1.2-3.4); LYMPH % 14.3 % (22.0-35.0); MEAN CELL VOLUME 89.7 fl (80.0-105.0); MEAN CORPUSCULAR HEMOGLOBIN 27.5 pg (25.0-35.0); MEAN CORPUSCULAR HGB CONC 30.6 g/dl (31.0-37.0); MEAN PLATELET VOLUME 10.3 fl (7.0-11.0); MONO # 0.5 (0.1-0.6); MONO % 5.2 % (1.0-6.0); RED CELL DISTRIBUTION WIDTH 13.7 % (11.5-14.5); WHITE BLOOD COUNT 10.3 10^3/ul (4.5-11.0)
[2016-12-27 06:44] LABS: ALKALINE PHOSPHATASE 91 U/L (38-133); ALT/SGPT 40 U/L (7-56); AST/SGOT 39 U/L (15-39); BILIRUBIN,TOTAL 0.9 mg/dL (0.2-1.3); BLOOD UREA NITROGEN 27 mg/dL (7-21); CALCIUM 9.4 mg/dL (8.4-10.5); CHLORIDE 89 mmol/L (95-110); GFR AFRICAN-AMERICAN > 60; GLUCOSE,RANDOM 117 mg/dL (70-110); PHOSPHOROUS 4.1 mg/dL (2.5-4.5); POTASSIUM 4.3 mmol/L (3.6-5.0); SODIUM 139 mmol/L (132-148); TOTAL PROTEIN 7.3 g/dL (5.8-8.3)
[2016-12-27 07:17] LABS: CARBON DIOXIDE 43 mmol/L (21-33)
--- NOTE | 2016-12-27 07:42 | PN ---
DATE: 12/27/2016 SUBJECTIVE: The patient appears comfortable this morning. She is currently on BiPAP. PHYSICAL EXAMINATION: VITAL SIGNS: Temperature is 98.1, pulse is 62, respirations 18/20, blood pressure 135/100. HEENT: Normocephalic, atraumatic. NECK: No JVD. CARDIOVASCULAR: Systolic ejection murmur at the lower left sternal border. No S3 gallop. LUNGS: Chronic crackles at both lower lobes. Less rhonchi. No wheezing. EXTREMITIES: No clubbing, cyanosis or edema. Calves are nontender to palpation. GASTROINTESTINAL: Abdomen is soft, nontender, and nondistended. Bowel sounds are positive. SKIN: No acute rash. NEUROLOGIC: Limited at the present time. CURRENT LABORATORY DATA: Arterial blood gas was done on nasal cannula yesterday. Results are: pH 7.39, pCO2 of 94, pO2 of 48. IMPRESSION: 1. Respiratory failure. 2. Recurrent bronchitis. 3. Advanced pulmonary fibrosis, on home oxygen. 4. Chronic obstructive pulmonary disease. 5. Rule out underlying pneumonia. 6. Sepsis syndrome. 7. Non-ST elevation myocardial infarction. Status post multiple stents. PLAN: The patient is currently on BiPAP. She appears comfortable and is not short of breath. I did discuss the case with the night nurse at length. Additional BiPAP changes were made this morning. Plan will be to change to nasal cannula this morning and repeat an arterial blood gas in approximately 1-hour. Additional non-invasive ventilation usage will be based on those results. The patient remains on moderate dose intravenous steroids-started yesterday. I will continue with the current dose of intravenous steroids for now. I would continue with the treatment for acute myocardial infarction as per cardiology. Input by Dr. Frankel is noted. The patient remains on antibiotic therapy-as per infectious disease. There are no temperatures noted. The leukocytosis has resolved. The patient remains clinically ill with overall very guarded/poor prognosis. I will discuss the above with the attending physician. Missael Malave MD [facility]
[2016-12-27 09:41] LABS: ARTERIAL BLOOD GAS O2 CAPACITY 17.2 mL/dl (16-24); ARTERIAL BLOOD GAS PH 7.41 (7.35-7.45); CARBOXYHEMOGLOBIN 1.7 % (0.5-1.5); HHB 6.9 % (0-5); METHEMOGLOBIN 0.5 % (0.0-3.0)
[2016-12-27] MEDS: Meropenem 1g/NS 100mL IVPB 1 GM/100 ML PIGGYBACK IVPB SCH (10:32)
[2016-12-27 10:38] LABS: ARTERIAL BLOOD GAS HCO3 44.4 mmol/L (21-28)
[2016-12-27 12:17] VITALS: BP 144/70; PULSE 72; TEMP 98.2
--- NOTE | 2016-12-27 12:33 | CP.PCM.PN ---
Subjective - Date & Time of Evaluation Date of Evaluation: 12/27/16 Time of Evaluation: 09:35 - Subjective Subjective: Breathing better, comfortable on a chair, no fevers overnight, less cough. Objective - Vital Signs/Intake and Output Vital Signs (last 24 hours): Temp Pulse Resp BP Pulse Ox 98.1 F 62 20 135/100 H 97 12/27/16 04:00 12/27/16 06:00 12/27/16 04:00 12/27/16 04:00 12/27/16 04:00 Intake and Output: 12/27/16 12/27/16 06:59 18:59 Intake Total 560 Output Total 850 Balance -290 - Medications Medications: Current Medications Acetaminophen (Tylenol 325mg Tab) 650 mg PO Q6H PRN PRN Reason: Fever >100.4 F Last Admin: 12/23/16 00:03 Dose: 650 mg Albuterol/Ipratropium (Duoneb 3 Mg/0.5 Mg (3 Ml) Ud) 3 ml IH Q2H PRN PRN Reason: Shortness of Breath Albuterol/Ipratropium (Duoneb 3 Mg/0.5 Mg (3 Ml) Ud) 3 ml IH [id number] [facility] Last Admin: 12/27/16 04:46 Dose: Not Given Anastrozole (Arimidex 1 Mg Tab) 1 mg PO DAILY [facility] Last Admin: 12/26/16 10:06 Dose: 1 mg Aspirin (Aspirin Chewable) 81 mg PO DAILY [facility] Last Admin: 12/26/16 09:40 Dose: 81 mg Clopidogrel Bisulfate (Plavix) 75 mg PO DAILY [facility] Last Admin: 12/26/16 09:40 Dose: 75 mg Doxycycline Hyclate (Doryx) 100 mg PO Q12 [facility] PRN Reason: Protocol Stop: 12/31/16 23:48 Last Admin: 12/26/16 21:32 Dose: 100 mg Famotidine (Pepcid) 40 mg PO HS [facility] Last Admin: 12/26/16 21:32 Dose: 40 mg Heparin Sodium (Porcine) (Heparin) 5,000 units SC Q12 [facility] PRN Reason: Protocol Last Admin: 12/26/16 21:32 Dose: 5,000 units Hydralazine HCl (Apresoline) 10 mg PO QID PRN PRN Reason: for sbp>170 Hydrochlorothiazide (Microzide) 12.5 mg PO DAILY [facility] Last Admin: 12/26/16 09:39 Dose: 12.5 mg Meropenem 1g/NS 100mL IVPB (Meropenem 1g/Ns 100ml Ivpb) 1 gm in 100 mls @ 100 mls/hr IVPB Q12 [facility] PRN Reason: Protocol Last Admin: 12/26/16 21:32 Dose: 100 mls/hr Lisinopril (Zestril) 5 mg PO DAILY [facility] Last Admin: 12/26/16 09:40 Dose: 5 mg Methylprednisolone (Solu-Medrol) 40 mg IVP Q8H [facility] Last Admin: 12/27/16 05:36 Dose: 40 mg Metoprolol Tartrate (Lopressor) 50 mg PO BID [facility] Last Admin: 12/26/16 17:48 Dose: 50 mg Ondansetron HCl (Zofran Inj) 4 mg IVP Q6H PRN PRN Reason: Nausea/Vomiting - Labs Labs: 12/27/16 05:30 12/27/16 05:30 PT 10.5 Seconds (9.9-11.8) 12/24/16 13:45 INR 0.97 (0.93-1.08) 12/24/16 13:45 APTT 27.3 Seconds (23.7-30.8) 12/24/16 13:45 - Constitutional Appears: Non-toxic, No Acute Distress - Head Exam Head Exam: NORMAL INSPECTION - Neck Exam Neck Exam: absent: Meningismus - Respiratory Exam Respiratory Exam: Decreased Breath Sounds - Cardiovascular Exam Cardiovascular Exam: +S1, +S2 - GI/Abdominal Exam GI & Abdominal Exam: Soft. absent: Tenderness Assessment and Plan - Assessment and Plan (Free Text) Plan: Assessment Sepsis due to community-acquired pneumonia, along with UTI with E. coli, clinically improving Acute exacerbation of COPD, need to rule out healthcare-associated pneumonia ( right sided) in patient with pulmonary vascular congestion and history of bronchiectasis oxygen-dependent COPD pulmonary fibrosis HTN history of breast cancer coronary artery disease dyslipidemia history of DVT Plan continue Merrem and Doxycycline (Day 6); can be switched to PO levaquin when ready for discharge
--- NOTE | 2016-12-27 18:14 | PN ---
DATE: 12/27/2016 REASON FOR THE CONSULTATION: Followup acute coronary syndrome, status post PTCA 2 drug-eluting stent in RCA and RPDA. SUBJECTIVE: The patient denies any chest pain, shortness of breath, or any palpitation. Feels better. OBJECTIVE: GENERAL: Lying flat in the bed, not in apparent distress on the CPAP. VITAL SIGNS: Temperature afebrile, heart rate 82, blood pressure 144/78. HEENT: PERRLA. Extraocular muscles intact. NECK: Supple. No carotid bruit. No thyromegaly. CHEST: Clear to auscultation. HEART: S1 and S2, regular. ABDOMEN: Soft. EXTREMITIES: Clubbing and cyanosis negative. LABORATORY DATA: Blood workup as follows: WBC 10.3, hemoglobin 11.0, hematocrit 38.2, platelet count 211. Chemistry shows sodium 139, potassium 4.3, chloride 89, carbon dioxide 43, anion gap of 11, BUN 27, creatinine 0.7. IMPRESSION: A 71-year-old female with past medical history significant for chronic obstructive pulmonary disease, pulmonary fibrosis, home oxygen advanced chronic obstructive pulmonary disease, admitted with acute coronary syndrome, status post PTCA of RCA with 2 drug-eluting stent in RCA and RPDA was done. Now, the patient is stable. No shortness of breath complaints. RECOMMENDATIONS: Continue aspirin, Plavix . Continue oxygen as per pulmonary. We put p.r.n. hydralazine. Continue metoprolol 50 mg daily. Continue tapering dose steroid. Continue lisinopril. Further recommendation as per Pulmonary. Possible discharge status is stable. Joaquin Frankel MD
--- NOTE | 2016-12-30 20:22 | CP.PCM.DIS ---
Provider - Provider Date of Admission: 12/22/16 01:16 Attending physician: Stacey Del Rosario MD Primary care physician: Stacey Del Rosario MD Consults: dictating dc of 12/27/16 Time Spent in preparation of Discharge (in minutes): 50 Diagnosis - Discharge Diagnosis (1) COPD exacerbation Status: Acute (2) Chest pain Status: Acute (3) Hypercarbia Status: Acute (4) Pulmonary fibrosis Status: Acute (5) Respiratory distress Status: Acute (6) Respiratory failure Status: Acute (7) Sepsis Status: Acute Hospital Course - Lab Results Lab Results: Micro Results 12/22/16 04:30 Nose MRSA Culture (Admit) - Final MRSA NOT DETECTED Most Recent Lab Values WBC 10.3 10^3/ul (4.5-11.0) 12/27/16 05:30 RBC 4.26 10^6/uL (3.5-6.1) 12/27/16 05:30 Hgb 11.7 g/dL (12.0-16.0) L 12/27/16 05:30 Hct 38.2 % (36.0-48.0) 12/27/16 05:30 MCV 89.7 fl (80.0-105.0) 12/27/16 05:30 MCH 27.5 pg (25.0-35.0) 12/27/16 05:30 MCHC 30.6 g/dl (31.0-37.0) L 12/27/16 05:30 RDW 13.7 % (11.5-14.5) 12/27/16 05:30 Plt Count 211 10^3/uL (120.0-450.0) 12/27/16 05:30 MPV 10.3 fl (7.0-11.0) 12/27/16 05:30 Gran % 80.4 % (50.0-68.0) H 12/27/16 05:30 Lymph % (Auto) 14.3 % (22.0-35.0) L 12/27/16 05:30 Clarke % (Auto) 5.2 % (1.0-6.0) 12/27/16 05:30 Eos % (Auto) 0.0 % (1.5-5.0) L 12/27/16 05:30 Baso % (Auto) 0.1 % (0.0-3.0) 12/27/16 05:30 Gran # 8.27 (1.4-6.5) H 12/27/16 05:30 Lymph # 1.5 (1.2-3.4) 12/27/16 05:30 Clarke # 0.5 (0.1-0.6) 12/27/16 05:30 Eos # 0.0 (0.0-0.7) 12/27/16 05:30 Baso # 0.01 K/mm3 (0.0-2.0) 12/27/16 05:30 Neutrophils % (Manual) 85 % (50.0-70.0) H 12/24/16 05:15 Band Neutrophils % 9 % (0-2) H 12/24/16 05:15 Lymphocytes % (Manual) 4 % (22.0-35.0) L 12/24/16 05:15 Monocytes % (Manual) 2 % (1.0-6.0) 12/24/16 05:15 Platelet Evaluation Normal (NORMAL) 12/24/16 05:15 Hypochromasia Slight 12/22/16 05:45 Anisocytosis (manual) Slight 12/22/16 05:45 PT 10.5 Seconds (9.9-11.8) 12/24/16 13:45 INR 0.97 (0.93-1.08) 12/24/16 13:45 APTT 27.3 Seconds (23.7-30.8) 12/24/16 13:45 pCO2 70 mm/Hg (35-45) H 12/27/16 09:30 pO2 58.0 mm/Hg (80-100) L 12/27/16 09:30 HCO3 44.4 mmol/L (21-28) H* 12/27/16 09:30 ABG pH 7.41 (7.35-7.45) 12/27/16 09:30 ABG Total CO2 46.5 mmol.L (22-28) H 12/27/16 09:30 ABG O2 Saturation 93.0 % (95-98) L 12/27/16 09:30 ABG O2 Content 16.0 ML/dl (15-23) 12/27/16 09:30 ABG Base Excess 16.4 mmol/L (-2.0-3.0) H 12/27/16 09:30 ABG Hemoglobin 12.5 g/dL (11.7-17.4) 12/27/16 09:30 ABG Carboxyhemoglobin 1.7 % (0.5-1.5) H 12/27/16 09:30 POC ABG HHb (Measured) 6.9 % (0-5) H 12/27/16 09:30 ABG Methemoglobin 0.5 % (0.0-3.0) 12/27/16 09:30 ABG O2 Capacity 17.2 mL/dl (16-24) 12/27/16 09:30 ABG Potassium 4.1 mmol/L (3.6-5.2) 12/22/16 02:15 VBG pH 7.23 (7.32-7.43) L 12/21/16 22:57 VBG pCO2 95.0 (40-60) H* 12/21/16 22:57 VBG HCO3 39.8 mmol/l (21-28) H 12/21/16 22:57 VBG Total CO2 42.7 mmol.L (22-28) H 12/21/16 22:57 VBG O2 Sat (Calc) 89.7 % (40-65) H 12/21/16 22:57 VBG Base Excess 8.4 mmol/L (0.0-2.0) H 12/21/16 22:57 VBG Potassium 5.2 mmol/L (3.6-5.2) 12/21/16 22:57 Hgb O2 Saturation 91.0 % (95.0-98.0) L 12/27/16 09:30 Sodium 141.0 mmol/L (132-148) 12/22/16 02:15 Chloride 106.0 mmol/L (98-107) 12/22/16 02:15 Glucose 114 mg/dl (65-105) H 12/22/16 02:15 Lactate 1.1 mmol/L (0.7-2.1) 12/22/16 02:15 Mechanical Rate 12 12/22/16 02:15 FiO2 32.0 % 12/27/16 09:30 Crit Value Read Back 12/22/16 06:00 Sodium 139 mmol/L (132-148) 12/27/16 05:30 Potassium 4.3 mmol/L (3.6-5.0) 12/27/16 05:30 Chloride 89 mmol/L (95-110) L 12/27/16 05:30 Carbon Dioxide 43 mmol/L (21-33) H 12/27/16 05:30 Anion Gap 11 (10-20) 12/27/16 05:30 BUN 27 mg/dL (7-21) H 12/27/16 05:30 Creatinine 0.7 mg/dL (0.5-1.4) 12/27/16 05:30 Est GFR ( Amer) > 60 12/27/16 05:30 Est GFR (Non-Af Amer) > 60 12/27/16 05:30 Random Glucose 117 mg/dL (70-110) H 12/27/16 05:30 Calcium 9.4 mg/dL (8.4-10.5) 12/27/16 05:30 Phosphorus 4.1 mg/dL (2.5-4.5) 12/27/16 05:30 Magnesium 2.0 mg/dL (1.7-2.2) 12/27/16 05:30 Iron 73 ug/dL (45-180) 12/24/16 10:12 TIBC 282 ug/dL (265-497) 12/24/16 10:12 % Saturation 26 % (20-55) 12/24/16 10:12 Transferrin 214.95 mg/dL (206-381) 12/24/16 10:12 Ferritin 90.3 ng/mL 12/24/16 10:12 Total Bilirubin 0.9 mg/dL (0.2-1.3) 12/27/16 05:30 AST 39 U/L (15-39) 12/27/16 05:30 ALT 40 U/L (7-56) 12/27/16 05:30 Alkaline Phosphatase 91 U/L (38-133) 12/27/16 05:30 Lactate Dehydrogenase 443 U/L (333-699) 12/23/16 11:03 Total Creatine Kinase 22 U/L (35-230) L 12/21/16 22:40 Troponin I 0.65 ng/mL H* D 12/24/16 13:45 NT-Pro-B Natriuret Pep 658 pg/mL (0-450) H 12/22/16 05:45 Total Protein 7.3 g/dL (5.8-8.3) 12/27/16 05:30 Albumin 3.7 g/dL (3.0-4.8) 12/27/16 05:30 Globulin 3.6 gm/dL 12/27/16 05:30 Albumin/Globulin Ratio 1.0 (1.1-1.8) L 12/27/16 05:30 Vitamin B12 320 pg/mL (239-931) 12/24/16 10:12 Folate > 20.0 ng/mL 12/24/16 10:12 Procalcitonin 0.50 NG/ML (0.19-0.49) H 12/24/16 13:45 Arterial Blood Potassium 4.1 mmol/L (3.6-5.2) 12/22/16 02:15 Venous Blood Potassium 5.2 mmol/L (3.6-5.2) 12/21/16 22:57 Urine Color Yellow (YELLOW) 12/21/16 23:15 Urine Appearance Cloudy (CLEAR) 12/21/16 23:15 Urine pH 6.0 (4.7-8.0) 12/21/16 23:15 Ur Specific [place] 1.025 (1.005-1.035) 12/21/16 23:15 Urine Protein 100 mg/dL (<30 mg/dL) H 12/21/16 23:15 Urine Glucose (UA) Negative mg/dL (NEGATIVE) 12/21/16 23:15 Urine Ketones Negative mg/dL (NEGATIVE) 12/21/16 23:15 Urine Blood Small (NEGATIVE) H 12/21/16 23:15 Urine Nitrate Positive (NEGATIVE) H 12/21/16 23:15 Urine Bilirubin Negative (NEGATIVE) 12/21/16 23:15 Urine Urobilinogen 0.2 E.U./dL (<1 E.U./dL) 12/21/16 23:15 Ur Leukocyte Esterase Small [place]/uL (NEGATIVE) H 12/21/16 23:15 Urine RBC 2 - 5 /hpf (0-2) 12/21/16 23:15 Urine WBC 20 - 25 /hpf (0-6) 12/21/16 23:15 Ur Epithelial Cells 0 - 2 /hpf (0-5) 12/21/16 23:15 Urine Bacteria Many (NEG) 12/21/16 23:15 Rheumatoid Factor 11 IU/mL (<14) 12/22/16 11:20 Rheumatoid Factor IgG <5 U (<=6) 12/22/16 11:20 Rheumatoid Factor IgA <5 U (<=6) 12/22/16 11:20 Rheumatoid Factor IgM <5 U (<=6) 12/22/16 11:20 GABBIE Screen Positive (NEGATIVE) H 12/22/16 11:20 GABBIE Titer 1:640 titer H 12/22/16 11:20 GABBIE Titer 2 TEST NOT PERFORMED 12/22/16 11:20 GABBIE Pattern Few nuclear dots 12/22/16 11:20 GABBIE Pattern 2 TEST NOT PERFORMED 12/22/16 11:20 SS-A Antibody <1.0 neg AI (<1.0 NEGATIVE) 12/22/16 11:20 SS-B Ab Interp Negative (Negative) 12/22/16 11:20 SS-B Antibody <1.0 neg AI (<1.0 NEGATIVE) 12/22/16 11:20 SS-B Ab Interp Negative (Negative) 12/22/16 11:20 Sm (Foster) Antibody <1.0 neg AI (<1.0 NEGATIVE) 12/22/16 11:20 BLAST HOLE DRILLER Antibody <1.0 AI (<1.0) 12/22/16 11:20 BLAST HOLE DRILLER Antibody Interp Negative (Negative) 12/22/16 11:20 SM/BLAST HOLE DRILLER Antibody <1.0 neg AI (<1.0 NEGATIVE) 12/22/16 11:20 Scl-70 Antibody <1.0 neg AI (<1.0 NEGATIVE) 12/22/16 11:20 Scl-70 Interpretation Negative (Negative) 12/22/16 11:20 Double Strand DNA Ab <1 IU/mL 12/22/16 11:20 Anti-ds DNA Titer (Crith) TNP 12/22/16 11:20 Anti-ds DNA (Crithidia) Negative (NEGATIVE) 12/22/16 11:20 Ribosomal P Prot Ab <1.0 neg AI (<1.0 NEGATIVE) 12/22/16 11:20 Anti-Mitochondrial Titr TNP 12/22/16 11:20 Anti-Mitochondrial Ab Negative (NEGATIVE) 12/22/16 11:20 Actin IgG Antibody <20 U 12/22/16 11:20 Striated Muscle Ab TNP 12/22/16 11:20 Myocardial Ab Titer TNP 12/22/16 11:20 Anti-Myocardial Ab Negative (NEGATIVE) 12/22/16 11:20 Reticulin Ab Titer TNP 12/22/16 11:20 Reticulin IgA Antibody Negative (NEGATIVE) 12/22/16 11:20 Thyroperoxidase Ab 1 IU/mL (<9) 12/22/16 11:20 Anti-Parietal Cell Ab 86.5 U H 12/22/16 11:20 Complement C3 137 mg/dL 12/22/16 11:20 Complement C4 43 mg/dL (ADULTS: 16-47) 12/22/16 11:20 Hepatitis A IgM Ab Negative (NEGATIVE) 12/22/16 11:00 Hep Bs Antigen Negative (NEGATIVE) 12/22/16 11:00 Hep B Core IgM Ab Negative (NEGATIVE) 12/22/16 11:00 Hepatitis C Antibody Negative (NEGATIVE) 12/22/16 11:00 HIV 1&2 Ag/Ab, 4th Gen Nonreactive (Nonreactive) 12/23/16 11:05 Ur L.pneumophila Ag Negative (NEGATIVE) 12/23/16 10:55 - Hospital Course Hospital Course: A 71 year old female, whose past medical history includes COPD (on 2.5L oxygen at home), pulmonary fibrosis, bronchiectasis, hypertension and breast cancer, presents to the emergency department complaining of shortness of breath and fever for 1 day. Patient denies of any chest pain and vomiting. Limited HPI and ROS due to poor historian and language barrier. Assessment Sepsis due to community-acquired pneumonia, along with UTI with E. coli Acute exacerbation of COPD, need to rule out healthcare-associated pneumonia ( right sided) in patient with pulmonary vascular congestion and history of bronchiectasis oxygen-dependent COPD pulmonary fibrosis HTN history of breast cancer coronary artery disease dyslipidemia history of DVT Plan continue Merrem and Doxycycline (Day 5); switched to PO levaquin upon dc to discharge , tom[facility] Discharge Exam - Head Exam Head Exam: NORMAL INSPECTION Discharge Plan - Follow Up Plan Condition: SERIOUS Disposition: TRANSF TO SNF Instructions: COPD (Chronic Obstructive Pulmonary Disease) (DC), Hypoxia (GEN) , Pneumonia (DC) Referrals: Stacey Del Rosario MD [Primary Care Provider] -
== END 2016-12-27 16:43 | DRG 246 ==
LOC: ED 22:28 → ERH 12-22 01:16 → CCU 12-22 02:58 → 3RNO 12-23 17:33 → 2RNO 12-23 20:42 → 2RSO 12-25 09:24
PROVIDERS: ADMIT Internal Medicine; ATTEND Internal Medicine
PROC: 5A09557 Assistance with Respiratory Ventilation, Greater than 96 Consecutive Hours, Continuous Positive Airway Pressure (ICD-10-PCS; 2016-12-22)
PROC: 027035Z Dilation of Coronary Artery, One Artery with Two Drug-eluting Intraluminal Devices, Percutaneous Approach (ICD-10-PCS; principal; 2016-12-25)
PROC: 4A023N7 Measurement of Cardiac Sampling and Pressure, Left Heart, Percutaneous Approach (ICD-10-PCS; 2016-12-25)
PROC: B2151ZZ Fluoroscopy of Left Heart using Low Osmolar Contrast (ICD-10-PCS; 2016-12-25)
PROC: B2111ZZ Fluoroscopy of Multiple Coronary Arteries using Low Osmolar Contrast (ICD-10-PCS; 2016-12-25)
PROC: 3E033PZ Introduction of Platelet Inhibitor into Peripheral Vein, Percutaneous Approach (ICD-10-PCS; 2016-12-25)
DX: I21.4 Non-ST elevation (NSTEMI) myocardial infarction (principal); A41.9 Sepsis, unspecified organism; J18.9 Pneumonia, unspecified organism; I25.110 Atherosclerotic heart disease of native coronary artery with unstable angina pectoris; J96.10 Chronic respiratory failure, unspecified whether with hypoxia or hypercapnia; J44.0 Chronic obstructive pulmonary disease with (acute) lower respiratory infection; N39.0 Urinary tract infection, site not specified; E44.1 Mild protein-calorie malnutrition; J44.1 Chronic obstructive pulmonary disease with (acute) exacerbation; E87.2 Acidosis; I11.0 Hypertensive heart disease with heart failure; I27.2 Other secondary pulmonary hypertension; I50.9 Heart failure, unspecified; J84.10 Pulmonary fibrosis, unspecified; K21.9 Gastro-esophageal reflux disease without esophagitis; I73.9 Peripheral vascular disease, unspecified; I37.1 Nonrheumatic pulmonary valve insufficiency; B96.20 Unspecified Escherichia coli [E. coli] as the cause of diseases classified elsewhere; D64.9 Anemia, unspecified; E78.5 Hyperlipidemia, unspecified; E16.2 Hypoglycemia, unspecified; Z85.3 Personal history of malignant neoplasm of breast; Z90.11 Acquired absence of right breast and nipple; Z86.718 Personal history of other venous thrombosis and embolism; Z95.5 Presence of coronary angioplasty implant and graft; Z98.82 Breast implant status; Z99.81 Dependence on supplemental oxygen

== ENCOUNTER 2016-12-27 16:41 | Inpatient (IN) | payer OTHER ==
[2016-12-27] MEDS ORDERED: Albuterol 0.083% Inhal Sol (2.5 mg/3 mL) UD INH PRN (17:12)
[2016-12-27 19:53] VITALS: BMI 31.4
[2016-12-27] MEDS ORDERED: Pneumococcal 23-Valent Vaccine IM ONE (19:54)
[2016-12-27] MEDS: Albuterol 0.083% Inhal Sol (2.5 mg/3 mL) UD INH SCH ×2 (20:38→23:55)
[2016-12-27] MEDS: MethylPREDNISolone 40 mg Vial IVP SCH (21:43)
[2016-12-27] MEDS ORDERED: Meropenem 1g/NS 100mL IVPB 1 GM/100 ML PIGGYBACK IVPB SCH (22:00)
--- NOTE | 2016-12-27 22:12 | CP.PCM.PN ---
Subjective - Date & Time of Evaluation Date of Evaluation: 12/27/16 Time of Evaluation: 22:12 - Subjective Subjective: Patient was seen at bedside. She had complained of itching in both hands. States that she ate fish earlier. States that she is allergic to some fishes. Has no other complaints. Denies sob,wheezing,rashes. ROS: Negative except as mentioned above. Medical record was reviewed. This 71 year old woman was admitted to acute care side with cough,fever and shortness of breath,elevated troponin, R/O NH. Has PMH of HTN, PVD, DVT, pulmonary fibrosis ,pulmonary hypertension,asthma, bronchitis,cataract. Objective - Vital Signs/Intake and Output Vital Signs (last 24 hours): Temp Pulse Resp BP Pulse Ox 98.3 F 70 20 161/70 H 96 12/27/16 19:46 12/27/16 22:09 12/27/16 22:09 12/27/16 22:09 12/27/16 22:09 - Medications Medications: Current Medications Acetaminophen (Tylenol 325mg Tab) 650 mg PO Q6H PRN PRN Reason: Pain, moderate (4-7) Albuterol Sulfate (Albuterol 0.083% Inhal Karie (2.5 Mg/3 Ml) Ud) 3 mg INH Q2H PRN; Protocol PRN Reason: Shortness of Breath Albuterol Sulfate (Albuterol 0.083% Inhal Karie (2.5 Mg/3 Ml) Ud) 3 mg INH [id number] PRN Reason: Protocol Last Admin: 12/27/16 20:38 Dose: 3 mg Clopidogrel Bisulfate (Plavix) 75 mg PO DAILY [facility] PRN Reason: Protocol Diphenhydramine HCl (Benadryl) 50 mg PO STAT STA Stop: 12/27/16 22:12 Doxycycline Hyclate (Doryx) 100 mg PO Q12 [facility] PRN Reason: Protocol Last Admin: 12/27/16 21:42 Dose: 100 mg Famotidine (Pepcid) 40 mg PO HS [facility] PRN Reason: Protocol Last Admin: 12/27/16 21:43 Dose: 40 mg Heparin Sodium (Porcine) (Heparin) 5,000 units SC Q12 [facility] PRN Reason: Protocol Last Admin: 12/27/16 21:42 Dose: 5,000 units Hydralazine HCl (Apresoline) 10 mg PO QID PRN PRN Reason: for sbp >170 Hydrochlorothiazide (Microzide) 12.5 mg PO DAILY [facility] PRN Reason: Protocol Meropenem 1g/NS 100mL IVPB (Meropenem 1g/Ns 100ml Ivpb) 1 gm in 100 mls @ 100 mls/hr IVPB Q12 [facility] PRN Reason: Protocol Stop: 12/30/16 22:01 Last Admin: 12/27/16 21:42 Dose: 100 mls/hr Lisinopril (Zestril) 5 mg PO DAILY [facility] PRN Reason: Protocol Methylprednisolone (Solu-Medrol) 40 mg IVP Q8 [facility] PRN Reason: Protocol Last Admin: 12/27/16 21:43 Dose: 40 mg Ondansetron HCl (Zofran Inj) 4 mg IVP Q6H PRN; Protocol PRN Reason: Nausea/Vomiting - Constitutional Appears: Well, No Acute Distress - Head Exam Head Exam: ATRAUMATIC, NORMAL INSPECTION, NORMOCEPHALIC - Eye Exam Eye Exam: Normal appearance - ENT Exam ENT Exam: Normal External Ear Exam - Neck Exam Neck Exam: Normal Inspection - Respiratory Exam Respiratory Exam: NORMAL BREATHING PATTERN - Cardiovascular Exam Cardiovascular Exam: absent: JVD - GI/Abdominal Exam GI & Abdominal Exam: absent: Distended - Rectal Exam Rectal Exam: Deferred - Exam Additional comments: Deferred. - Extremities Exam Extremities Exam: Normal Inspection - Back Exam Back Exam: NORMAL INSPECTION - Neurological Exam Neurological Exam: Alert, Oriented x3 - Psychiatric Exam Psychiatric exam: Normal Affect, Normal Mood - Skin Additional comments: Both hands skin are dry. No deifinite rashes notedon both hands or anywhere else. Assessment and Plan - Assessment and Plan (Free Text) Assessment: Allergy to fish. HTN. PVD. DVT. Pulmonary HTN. Pulmonary fibrosis. Asthma. Plan: Benadryl 50 mg PO stat. Continue present management.
[2016-12-28] MEDS: MethylPREDNISolone 40 mg Vial IVP SCH ×3 (05:29→22:19)
[2016-12-28] MEDS ORDERED: Meropenem 1g/NS 100mL IVPB 1 GM/100 ML PIGGYBACK IVPB SCH (06:00)
[2016-12-28 06:45] LABS: HEMATOCRIT 37.9 % (36.0-48.0); MEAN CELL VOLUME 88.6 fl (80.0-105.0); MEAN CORPUSCULAR HEMOGLOBIN 27.6 pg (25.0-35.0); MEAN CORPUSCULAR HGB CONC 31.1 g/dl (31.0-37.0); MEAN PLATELET VOLUME 10.1 fl (7.0-11.0); RED CELL DISTRIBUTION WIDTH 13.9 % (11.5-14.5); WHITE BLOOD COUNT 14.3 10^3/ul (4.5-11.0)
[2016-12-28 07:03] LABS: ALKALINE PHOSPHATASE 89 U/L (38-126); ALT/SGPT 34 U/L (7-56); AST/SGOT 30 U/L (14-36); BILIRUBIN,TOTAL 0.7 mg/dL (0.2-1.3); BLOOD UREA NITROGEN 34 mg/dL (7-21); CALCIUM 9.5 mg/dL (8.4-10.5); CHLORIDE 91 mmol/L (95-110); GFR AFRICAN-AMERICAN > 60; GLUCOSE,RANDOM 113 mg/dL (70-110); POTASSIUM 4.5 mmol/L (3.6-5.0); SODIUM 140 mmol/L (132-148); TOTAL PROTEIN 7.3 g/dL (5.8-8.3)
[2016-12-28 07:12] LABS: CARBON DIOXIDE 39 mmol/L (21-33)
[2016-12-28] MEDS: Albuterol 0.083% Inhal Sol (2.5 mg/3 mL) UD INH SCH ×5 (07:23→23:22)
--- NOTE | 2016-12-28 07:42 | PN ---
DATE: 12/28/2016 SUBJECTIVE: The patient appears comfortable this morning. She is not short of breath at rest. PHYSICAL EXAMINATION: VITAL SIGNS: Temperature is 98.4, pulse is 68, respirations 18, blood pressure 152/86. Oxygen saturation on BiPAP is 98%. Oxygen saturation on nasal cannula is 96%. HEENT: Normocephalic, atraumatic. NECK: No JVD. CARDIOVASCULAR: Systolic ejection murmur at the lower left sternal border. No S3 gallop. LUNGS: Chronic crackles at both lower lobes. Less rhonchi. No wheezing. EXTREMITIES: No clubbing, cyanosis or edema. Calves are nontender to palpation. GASTROINTESTINAL: Abdomen is soft, nontender, and nondistended. Bowel sounds are positive. SKIN: No acute rash. NEUROLOGIC: Limited at the present time. PERTINENT LABORATORY DATA: Arterial blood gas was repeated yesterday and reviewed. The arterial blood gas was done on 3 liters nasal cannula. Results are: pH 7.41, pCO2 of 70, pO2 of 58. IMPRESSION: 1. Respiratory failure. 2. Recurrent bronchitis. 3. Advanced pulmonary fibrosis, on home oxygen. 4. Chronic obstructive pulmonary disease. 5. Rule out underlying pneumonia. 6. Sepsis syndrome. 7. Non-ST elevation myocardial infarction. Status post multiple stents. PLAN: The patient is currently on nasal cannula. She appears comfortable this morning. She is not short of breath at rest. She states she is feeling much, much better overall. On physical exam, there is certainly less bronchospasm appreciated. I did note the arterial blood gas done yesterday-as above. The arterial blood gas is significantly improved with a decrease in the pCO2(from 95) and normalization of the pH. The patient certainly has responded to the higher dose steroids-started a few days ago. I will try decreasing the dosage slightly this morning. The patient also remains on antibiotic therapy-as per infectious disease. There are no temperatures noted. The leukocytosis has resolved. Clinical status of the patient is certainly improved-compared to a few days ago. However, again, the overall status/prognosis for this patient remains very guarded. All are aware. The patient is now on the transitional unit, where she will participate with physical therapy. I will discuss the above with the attending physician. Missael Malave MD [facility] # [id number] [facility]
[2016-12-28] MEDS: levoFLOXacin 500 MG TAB PO SCH (09:37)
[2016-12-28] MEDS ORDERED: Tiotropium 18 mcg Cap For Inhalation IH SCH (10:00)
[2016-12-28] MEDS ORDERED: Aspirin 325 mg EC Tablets PO STA (11:34)
--- NOTE | 2016-12-28 14:26 | CON ---
DATE: 12/28/2016 The patient is seen in room 327. CHIEF COMPLAINT: Weakness from severe days. HISTORY OF PRESENT ILLNESS: This is a 71-year-old female, who was admitted to acute care with fever and past medical history of coronary artery disease, chronic obstructive lung disease, pulmonary fibrosis, breast cancer in 2008, hypertension, DVT, high cholesterol, who has had a history of right mastectomy and a right breast implant. There was no known allergies. The patient was treated in acute care with sepsis, with community-acquired pneumonia, and E. coli in the urine. She was given meropenem and doxycycline, and had a cardiac catheterization. The patient now transferred to transitional care for further completion of care. The patient states she is doing well. No nausea. No chest pain. No fevers or chills. No abdominal pain. PAST MEDICAL HISTORY: Significant for coronary artery disease and chronic obstructive lung disease, O2 dependent at home with history of pulmonary fibrosis, history of breast cancer, hypertension, DVT, and high cholesterol. PAST SURGICAL HISTORY: Significant for right mastectomy and right breast implantation. ALLERGIES: THE PATIENT HAS NO KNOWN ALLERGIES. PHYSICAL EXAMINATION GENERAL: The patient is on bed, in no acute distress, in transitional care, was seen earlier today in room 327, bed 1. VITAL SIGNS: Temperature of 98, blood pressure is 160/70, respiratory rate 20, heart rate of 70. HEENT: Unremarkable. NECK: Supple. LUNGS: Decreased breath sounds. HEART: Normal S1, S2. ABDOMEN: Soft, nontender. LABORATORY DATA: Reveals white count is up to 14,300. Coagulation is noted. The chemistries reveals a BUN of 34, creatinine of 0.8. Troponin was elevated at 0.65 with a procalcitonin was elevated at 1.33, down to 0.5. Urinalysis is noted and GABBIE is reported to be positive. Complement levels are noted. Serology; hepatitis profile is negative, HIV is negative, and urine for Legionella antigen is negative. Microbiology reveals the blood cultures to be negative and there was E. coli in the urine, which was sensitive to Cipro and MRSA screen is negative. ASSESSMENT AND PLAN: A 71-year-old female with coronary artery disease, home O2 dependent chronic obstructive pulmonary disease, pulmonary fibrosis, breast cancer, hypertension, deep vein thrombosis, high cholesterol admitted with sepsis due to community-acquired pneumonia and Escherichia coli in the urine improving in the setting of pulmonary fibrosis, on meropenem and doxycycline day #7. We will switch to p.o. Levaquin 500 mg p.o. x3 days. Review of the EKG reveals a QTc of 404. Tej Jones MD
--- NOTE | 2016-12-28 21:30 | CON ---
DATE: 12/28/2016 CONSULT SERVICE CARDIOLOGY PHYSICIAN: Dr. Joaquin Frankel. REASON FOR CONSULTATION: Coronary artery disease, status post recently PTCA for non-STEMI. Transferred to TCU for continuity of medical care. BRIEF CLINICAL HISTORY: This is a 71-year-old female with past medical history significant for coronary artery disease, status post multiple stents in the past who recently admitted with non-STEMI, also having admitted with acute exacerbation of COPD and severe chest pain. Patient underwent cardiac catheterization and 2 stents were deployed in RCA and RPDA. Now, the patient was transferred to transitional care unit for continuity of care. Denies any chest pain, shortness of breath or any palpitation. PAST MEDICAL HISTORY: Significant for advanced COPD, pulmonary fibrosis, pulmonary hypertension, COPD, on home oxygen, bronchiectasis, anemia. PAST SURGICAL HISTORY: Significant for breast surgery mastectomy, coronary artery disease, history of stent in 2007, 2008, 2011 and most recently on 12/25/2016 two stents in RPDA and RCA. SOCIAL HISTORY: Denies smoking. Denies any history of alcohol abuse. CURRENT MEDICATIONS: Patient is taking albuterol, hydralazine, heparin, Levaquin, Pepcid, clopidogrel and lisinopril. REVIEW OF SYSTEMS: As per HPI. PHYSICAL EXAMINATION: As follows: VITAL SIGNS: Temperature afebrile, heart rate is 81, blood pressure 115/53. HEENT: PERRLA. Extraocular muscles are intact. NECK: Supple. No carotid bruit. No thyromegaly. CHEST: Clear to auscultation. HEART: S1 and S2, regular. ABDOMEN: Soft. EXTREMITIES: Clubbing and cyanosis negative. LABORATORY DATA: Blood workup as follows: WBC 14.8, hemoglobin 11.8, hematocrit 37.9, platelet count 220. Chemistry showed sodium 140, potassium 4.5, chloride 91, carbon dioxide 39, anion gap of 15, BUN 30, creatinine 0.8. IMPRESSION: This is a 71-year-old female with past medical history significant for advanced chronic obstructive pulmonary disease, pulmonary fibrosis, on home oxygen, admitted with acute exacerbation of chronic obstructive pulmonary disease, non-ST elevation myocardial infarction. Patient underwent cardiac catheterization and stent in right coronary artery and right posterior descending artery on 12/25/2016. Now, patient in transitional care unit for continuity of care. RECOMMENDATIONS: Resume back Plavix. Probably during the transition, aspirin is dropped in the . I will add on aspirin. Continue deep venous thrombosis prophylaxis. Continue hydralazine p.r.n. Continue Plavix. Continue lisinopril. Increase the nutrition support. We will follow with you. Since the patient probably dropped and did not get, so we will give 325 mg today one dose stat and 81 mg of aspirin from tomorrow as . Thank you Dr. Del Rosario for providing me the opportunity in taking care of the patient, Merna Littleroscoetheo. Joaquin Frankel MD
[2016-12-29] MEDS: Albuterol 0.083% Inhal Sol (2.5 mg/3 mL) UD INH SCH ×6 (04:54→23:38)
[2016-12-29] MEDS: MethylPREDNISolone 40 mg Vial IVP SCH ×3 (06:32→22:22)
[2016-12-29] MEDS: levoFLOXacin 500 MG TAB PO SCH (10:29)
--- NOTE | 2016-12-29 14:28 | PN ---
DATE: 12/29/2016 SUBJECTIVE: The patient is seen earlier this morning. No fevers and no chills. No nausea. PHYSICAL EXAMINATION: VITAL SIGNS: Temperature 98, blood pressure 119/70, and respirations 16. HEENT: Unremarkable. NECK: Supple. LUNGS: Decreased breath sounds. HEART: Normal S1 and S2. ABDOMEN: Soft and nontender. LABORATORY DATA: Reveals the patient's count of 14,000 yesterday. BUN of 34, creatinine 0.8. Microbiology is reviewed. E. coli in the urine is noted from 12/21/2016 and the patient is on p.o. Levaquin. ASSESSMENT AND PLAN: A 71-year-old female with coronary artery disease, home oxygen dependent, chronic obstructive pulmonary disease, pulmonary fibrosis, breast cancer, hypertension, deep vein thrombosis, and high cholesterol admitted with sepsis due to community-acquired pneumonia and Escherichia coli in the urine improving in setting of pulmonary fibrosis on meropenem, at 3 of 7 days now on p.o. Levaquin. We will follow up with the repeat WBCs. Tej Jones MD
[2016-12-30] MEDS: Albuterol 0.083% Inhal Sol (2.5 mg/3 mL) UD INH SCH ×2 (03:06→07:41)
[2016-12-30] MEDS: MethylPREDNISolone 40 mg Vial IVP SCH ×3 (06:19→22:15)
[2016-12-30] MEDS ORDERED: Levalbuterol 0.63 MG/3 ML Inhal Soln UD IH PRN ×2 (09:01→09:06)
[2016-12-30] MEDS: levoFLOXacin 500 MG TAB PO SCH (10:17)
[2016-12-30] MEDS: Levalbuterol 0.63 MG/3 ML Inhal Soln UD IH SCH ×2 (13:22→19:51)
--- NOTE | 2016-12-30 14:26 | PN ---
DATE: 12/30/2016 SUBJECTIVE: The patient is seen in bed, no acute distress. PHYSICAL EXAMINATION: VITAL SIGNS: On exam, temperature is 98, blood pressure is 106/60, respiratory rate of 16. HEENT: Unremarkable. NECK: Supple. LUNGS: Have decreased breath sounds. HEART: Normal S1 and S2. ABDOMEN: Soft, nontender. LABORATORY DATA: Revealed a white count of 14,000, hemoglobin of 11. Chemistry reveals a BUN of 34, creatinine of 0.8. REVIEW OF ORDERS: Reveals the patient to be on p.o. Levaquin. The patient is also on Solu-Medrol, which may explain the leukocytosis. ASSESSMENT AND PLAN: This is a 71-year-old female with coronary artery disease, home oxygen-independent, chronic obstructive lung disease, pulmonary fibrosis, breast cancer, hypertension, deep venous thrombosis, and high cholesterol, admitted with sepsis and community-acquired pneumonia, Escherichia coli in urine, and today is day #4 of 7 days of Levaquin, and the patient was initially treated with meropenem. She is doing well. Tej Jones MD
[2016-12-31] MEDS: Levalbuterol 0.63 MG/3 ML Inhal Soln UD IH SCH ×3 (02:27→13:15)
[2016-12-31] MEDS: MethylPREDNISolone 40 mg Vial IVP SCH (06:36)
[2016-12-31 07:16] VITALS: O2SAT 100
[2016-12-31] MEDS: levoFLOXacin 500 MG TAB PO SCH (10:08)
[2016-12-31 10:12] VITALS: BP 112/61; PULSE 85; RESP 14; TEMP 98.6
--- NOTE | 2016-12-31 14:54 | PN ---
DATE: 12/31/2016 SUBJECTIVE: The patient is seen earlier today. No acute distress. Nontoxic. PHYSICAL EXAMINATION: VITAL SIGNS: Temperature is 98, blood pressure is 120/70, and respiratory rate of 16. HEENT: Unremarkable. NECK: Supple. LUNGS: Decreased breath sounds. HEART: Normal S1 and S2. ABDOMEN: Soft and nontender. LABORATORY DATA: Reveals the patient's white count of 14,000. Review of orders reveal that the patient to be off of antibiotics. The patient is on Solu-Medrol. ASSESSMENT AND PLAN: This is a 71-year-old female with coronary artery disease, home oxygen dependent, chronic obstructive pulmonary disease, pulmonary fibrosis, breast cancer, hypertension, deep vein thrombosis, and high cholesterol, who was admitted with sepsis, with community-acquired pneumonia and Escherichia coli in the urine on day number 5 of antibiotic of Levaquin. The patient had been on intravenously antibiotics and completed the antibiotic therapy and was on Levaquin itself. Now, the patient is off of antibiotics. The patient is at risk for developing of nosocomial infections. Tej Jones MD
--- NOTE | 2017-01-01 02:23 | PN ---
DATE: 12/28/2016 SUBJECTIVE: Ms. Mora is 71-year-old female admitted with COPD exacerbation. She has a history of pulmonary fibrosis, lung cancer, diagnosed in 2008, hypertension, DVT, history of right mastectomy, right breast implant. She is complaining of shortness of breath and itching. She asked for melatonin in the night for insomnia. She has limited participation in physical therapy due to shortness of breath. She is getting nebulizer p.r.n. PAST MEDICAL HISTORY: Coronary artery disease, chronic obstructive disease, oxygen dependent, pulmonary fibrosis, history of breast cancer, DVT, and high cholesterol. PAST SURGICAL HISTORY: Mastectomy, right-sided. ALLERGIES: NO KNOWN DRUG ALLERGIES. REVIEW OF SYSTEMS: As per HPI. Rest of the 12-point review of systems reviewed and negative. PHYSICAL EXAMINATION GENERAL: Mild respiratory distress. VITAL SIGNS: Respiratory rate 20 per minute, blood pressure 130/80, heart rate is 70 per minute. HEENT: Unremarkable. LUNGS: Bilateral rhonchi present. Crepitation at bases. CARDIOVASCULAR: S1 and S2 normal. No murmur. No gallop. ABDOMEN: Soft and nontender. No hepatosplenomegaly. SKIN: No petechiae. No rash. SPINE: Nontender. MANAGER BALANCE: Alert and oriented x3. No sensory or motor deficit. LABORATORY DATA: Creatinine 0.8. HIV nonreactive. White count 14,000. ASSESSMENT AND PLAN: 1. Pulmonary fibrosis. 2. History of deep venous thrombosis. 3. History of breast cancer. 4. Hypertension. 5. Elevated cholesterol. 6. Respiratory distress. 7. Urinary tract infection. PLAN: She was getting IV meropenem and doxycycline. She was switched to p.o. Levaquin today. Continue bronchodilators. Pulmonary fibrosis, on O2 by nasal cannula. Breast cancer intervention. CAT scan was done as an outpatient last year. No evidence of recurrence. Encouraged bedside PT. Ambien p.r.n. for insomnia. Fior Roman MD
--- NOTE | 2017-01-01 08:33 | PN ---
DATE: 12/31/2016 REASON FOR CONSULTATION: Followup coronary artery disease, status post recently PTCA for non-STEMI, and continuity of care in transitional care unit. SUBJECTIVE: The patient denies any chest pain, shortness of breath, any palpitation, and sitting at the bedside. PHYSICAL EXAMINATION: GENERAL: Sitting at the bedside, having the breakfast, and not in apparent distress. VITAL SIGNS: Temperature afebrile, heart rate is 73, and blood pressure 123/62. HEENT: PERRLA intact. NECK: Supple. No carotid bruit. No thyromegaly. CHEST: Clear to auscultation. HEART: S1 and S2 regular. ABDOMEN: Soft. EXTREMITIES: Clubbing and cyanosis negative. LABORATORY DATA: WBC 14.3, hemoglobin 11.8, hematocrit 37.9, and platelet count 220. Chemistry showed sodium 140, potassium 4.5, chloride 91, carbon dioxide 39, anion gap of 15, BUN 34, and creatinine 0.8. IMPRESSION: This is a 71-year-old female with past medical history significant for severe pulmonary fibrosis, lung disease on home oxygen, history of multiple stents in the past 2007, 2008, 2011, mostly the patient admitted with acute coronary syndrome and dyspnea on exertion, non-ST segment elevation myocardial infarction, underwent cardiac catheterization on 12/25/2016 and 2 drug-eluting stents was placed in right posterior descending artery and right coronary artery. Now, the patient is in transitional care unit for the continuity of care. Denies any chest pain, shortness of breath, or any palpitation. RECOMMENDATIONS: Continue aspirin. Continue Plavix. Continue deep venous thrombosis prophylaxis. Continue hydralazine, and supplement electrolytes as needed. Continue lisinopril. We will follow with you. Repeat the lab in the morning. Thank you Dr. Del Rosario for providing me the opportunity in taking care of the patient, Merna Mora. Joaquin Frankel MD
--- NOTE | 2017-01-05 05:57 | DS ---
CHIEF COMPLAINT: Coughing, fever, shortness of breath. HISTORY OF PRESENT ILLNESS: Ms. Merna Mora is a 71 years old female with past medical history of COPD on home oxygen, pulmonary fibrosis, bronchiectasis, hypertension, history of breast cancer, status post chemotherapy. Came in [facility] emergency room with fever, coughing, shortness of breath. We admitted the patient to the ICU got better, transferred to the telemetry on medical floor, got better then transferred to TCU for the treatment and evaluation and discharged from TCU on 12/31/2016. PAST MEDICAL HISTORY: As above DVT, hypertension, peripheral vascular disease, pulmonary fibrosis, pulmonary hypertension, asthma, bronchiectasis and pneumonia, history of breast cancer, GERD, dyspepsia. FAMILY HISTORY: Father and mother noncontributory. HABITS: No drug. No ethanol. ALLERGIES: PATIENT IS NOT ALLERGIC WITH ANY MEDICATION. HOME MEDICATIONS: Reviewed by me. REVIEW OF SYSTEMS: The patient was seen and examined on the bedside looking comfortable. No nausea, vomiting, diarrhea. No hematuria or hematochezia. No swelling of the legs. No chest pain. No palpitation. No headache. No dizziness. PHYSICAL EXAMINATION: VITAL SIGNS: Temperature 98.6, pulse 80, blood pressure 120/80 and respiratory rate 18. HEENT: Head is normocephalic, atraumatic. Eyes PERRLA. Extraocular muscles intact. Conjunctivae clear. Nose patent. Mucous membrane moist. NECK: Supple. No carotid bruits. No JVD or thyromegaly. CHEST: Bilaterally symmetrical. HEART: S1 and S2 positive. LUNGS: Clear to auscultation. ABDOMEN: Soft. Bowel sounds present. No organomegaly. EXTREMITIES: No edema. No cyanosis. NEUROLOGIC: The patient is awake and alert. Moving all 4 extremities. No focal deficits. LABORATORY DATA: White blood cells 14.3, hemoglobin 11.8, hematocrit 37.9, and platelets 220. Sodium 140, potassium 4.5, BUN 34, creatinine 0.8, chloride 91, carbon dioxide 39 and potassium 4.5. MEDICATIONS: Reviewed by me. ASSESSMENT AND PLAN: Ms. Merna Mora is 71 years old lady with multiple medical problems, has pulmonary fibrosis, coronary artery disease with multiple cardiac stent, most recently cardiac stent was put for this admission. Has known ST segment myocardial infarction on 12/25/2016 two drug eluted stents were placed. Continue aspirin, Plavix, deep venous thrombosis prophylaxis, seen by Dr. Frankel, flour mixer Dr. Malave and ID Dr. Jones. Has chronic obstructive pulmonary disease, pulmonary fibrosis, breast cancer, hypertension, deep venous thrombosis, pneumonia and Escherichia coli in the urine, on the day #5 of Levaquin. Complete the Levaquin course as outpatient. Discharged home. We will follow up. Stacey Del Rosario MD
== END 2016-12-31 13:40 | disposition home or self-care (01) | DRG 871 ==
LOC: TRCU 16:41
PROVIDERS: ADMIT Internal Medicine; ATTEND Internal Medicine
PROC: 5A09357 Assistance with Respiratory Ventilation, Less than 24 Consecutive Hours, Continuous Positive Airway Pressure (ICD-10-PCS; 2016-12-27)
PROC: F07Z9FZ Gait Training/Functional Ambulation Treatment using Assistive, Adaptive, Supportive or Protective Equipment (ICD-10-PCS; principal; 2016-12-31)
PROC: F07Z5ZZ Bed Mobility Treatment (ICD-10-PCS; 2016-12-31)
PROC: F07Z8FZ Transfer Training Treatment using Assistive, Adaptive, Supportive or Protective Equipment (ICD-10-PCS; 2016-12-31)
PROC: F08Z4ZZ Home Management Treatment (ICD-10-PCS; 2016-12-31)
DX: A41.9 Sepsis, unspecified organism (principal); J18.9 Pneumonia, unspecified organism; I21.4 Non-ST elevation (NSTEMI) myocardial infarction; J44.0 Chronic obstructive pulmonary disease with (acute) lower respiratory infection; N39.0 Urinary tract infection, site not specified; J44.1 Chronic obstructive pulmonary disease with (acute) exacerbation; I10 Essential (primary) hypertension; I73.9 Peripheral vascular disease, unspecified; I25.10 Atherosclerotic heart disease of native coronary artery without angina pectoris; I27.2 Other secondary pulmonary hypertension; J84.10 Pulmonary fibrosis, unspecified; E78.00 Pure hypercholesterolemia, unspecified; B96.20 Unspecified Escherichia coli [E. coli] as the cause of diseases classified elsewhere; Z85.3 Personal history of malignant neoplasm of breast; Z99.81 Dependence on supplemental oxygen; Z86.718 Personal history of other venous thrombosis and embolism; Z90.11 Acquired absence of right breast and nipple; Z98.82 Breast implant status; Z95.5 Presence of coronary angioplasty implant and graft

== ENCOUNTER 2017-07-09 13:27 | Inpatient (IN) | payer MEDICARE, OTHER ==
[2017-07-09] MEDS ORDERED: Levalbuterol 1.25 MG/3 ML Inhal Soln UD IH STA ×3 (13:35→14:19)
--- NOTE | 2017-07-09 13:54 | ED PDOC ---
Arrival/HPI - General Chief Complaint: Shortness Of Breath Time Seen by Provider: 07/09/17 13:33 Historian: Patient - History of Present Illness Narrative History of Present Illness (Text): 07/09/17 13:49 71yo female with PMhx of hypertension, COPD, CHF pulmonary fibrosis, brochiectasis bib ALS with complaint of worsening SOB, cough x 10days. Patient states symptoms are similar to her COPD exacerbation. notes that she has been using her inhaler at home without relieve. She is on 3L of NC at home. She denies fever, chills, chest pain, diaphoresis, calf pain, any other complaint. She was given Lasix and ASA 324 at the field. Past Medical History - Provider Review Nursing Documentation Reviewed: Yes - Infectious Disease Hx of Infectious Diseases: None - Tetanus Immunization Tetanus Immunization: Unknown - Cardiac Hx Cardiac Disorders: Yes (dvt 10 yrs ago) Hx Congestive Heart Failure: Yes Hx Hypertension: Yes - Pulmonary Hx Asthma: Yes Hx Chronic Obstructive Pulmonary Disease (COPD): Yes - Neurological Hx Neurological Disorder: No - HEENT Hx HEENT Disorder: Yes Hx Cataracts: Yes (b/l sx) - Renal Hx Renal Disorder: No - Endocrine/Metabolic Hx Endocrine Disorders: No - Hematological/Oncological Hx Blood Disorders: Yes Hx Cancer: Yes (BREAST CA 2009, r mastectomy) Hx Chemotherapy: Yes (chemo and radiation) - Integumentary Hx Dermatological Disorder: No - Musculoskeletal/Rheumatological Hx Musculoskeletal Disorders: No - Gastrointestinal Hx Gastroesophageal Reflux: Yes - Genitourinary/Gynecological Hx Genitourinary Disorders: No - Psychiatric Hx Psychophysiologic Disorder: No Hx Substance Use: No - Past Surgical History Past Surgical History: Unable to Obtain - Surgical History Hx Appendectomy: Yes Hx Cardiac Catheterization: Yes Hx Cholecystectomy: Yes Hx Coronary Stent: Yes (3 STENTS) Hx Mastectomy: Yes (Right) Other/Comment: umbilical hernia repair - Anesthesia Hx Anesthesia: Yes Hx Anesthesia Reactions: No Hx Malignant Hyperthermia: No - Suicidal Assessment Feels Threatened In Home Enviroment: No Family/Social History - Physician Review Nursing Documentation Reviewed: Yes Family/Social History: Unknown Family HX Smoking Status: Never Smoked Hx Alcohol Use: No Hx Substance Use: No Hx Substance Use Treatment: No Allergies/Home Meds Allergies/Adverse Reactions: Allergies No Known Allergies Allergy (Verified 07/09/17 13:38) Home Medications: Home Meds Medication Instructions Recorded Confirmed Albuterol Sulfate [Proair Hfa] 2 puff IH AMHS 06/22/16 12/27/16 Anastrozole [Arimidex] 1 mg PO DAILY 06/22/16 12/27/16 Atorvastatin Calcium 20 mg PO DIALW 06/22/16 12/27/16 Cetirizine HCl [Zyrtec] 10 mg PO DAILY PRN 06/22/16 12/27/16 Docusate Sodium [Stool Softener] 50 mg PO DAILY PRN 06/22/16 12/27/16 Celecoxib [Celebrex] 200 mg PO DAILY 12/21/16 12/27/16 Cyanocobalamin [Vitamin B12 1000 1 tab PO DAILY 12/21/16 12/27/16 mcg Tab] Review of Systems - Physician Review All systems were reviewed & negative as marked: Yes - Review of Systems Constitutional: Normal Eyes: Normal ENT: Normal Respiratory: SOB, Cough, Wheezing. absent: Sputum Cardiovascular: Normal Gastrointestinal: Normal Genitourinary Female: Normal Musculoskeletal: Normal Skin: Normal Neurological: Normal Endocrine: Normal Hemo/Lymphatic: Normal Psychiatric: Normal Physical Exam Vital Signs Reviewed: Yes Vital Signs Temp Pulse Resp BP Pulse Ox 07/09/17 18:18 81 113/58 L 07/09/17 17:25 80 18 120/80 97 07/09/17 15:21 97 H 18 177/90 H 94 L 07/09/17 15:19 177/90 H 07/09/17 13:46 99.5 F 83 18 156/77 H 99 Temperature: Afebrile Blood Pressure: Normal Pulse: Regular Respiratory Rate: Normal Appearance: Positive for: Well-Appearing, Non-Toxic, Comfortable, Other (In mild respiratory distress) Pain Distress: None Mental Status: Positive for: Alert and Oriented X 3 - Systems Exam Head: Present: Atraumatic, Normocephalic Pupils: Present: PERRL Extroacular Muscles: Present: EOMI Conjunctiva: Present: Normal Mouth: Present: Moist Mucous Membranes Neck: Present: Normal Range of Motion Respiratory/Chest: Present: Clear to Auscultation, Good Air Exchange, Wheezes ( Diffuse expiratory wheeze), Rales (Right base). No: Respiratory Distress, Accessory Muscle Use, Decreased Breath Sounds, Retracting, Rhonchi, Tachypneic Cardiovascular: Present: Regular Rate and Rhythm, Normal S1, S2. No: Murmurs Abdomen: Present: Normal Bowel Sounds. No: Tenderness, Distention, Peritoneal Signs Back: Present: Normal Inspection Upper Extremity: Present: Normal Inspection. No: Cyanosis, Edema Lower Extremity: Present: Normal Inspection, Edema (3+ bipedal edema) Neurological: Present: GCS=15, CN II-XII Intact, Speech Normal Skin: Present: Warm, Dry, Normal Color. No: Rashes Psychiatric: Present: Alert, Oriented x 3, Normal Insight, Normal Concentration Medical Decision Making ED Course and Treatment: 07/09/17 13:56 EKG sinus rhythm with occasional PVC @94bpm. No ST changes PT in ED for respiratory distress. She was seen immediately she came to the ED. Placed on 3lNC. On re evaluation s/p medication, pt continue to wheeze. PT was hypercarbic on VBG and ABG with normal lactate. CXR IMPRESSION: Chronic bilateral lower lobe infiltrates consistent with pulmonary fibrosis. Findings are unchanged Blood culture was ordered. PT was started on Zithromax and Rocephin She was placed on BIPAP Case was DW Dr. Del Rosario and pt was admitted - Lab Interpretations Lab Results: 07/09/17 13:40 07/09/17 13:40 Lab Results 07/09/17 13:40: Sodium 145, Chloride 96 L, Potassium 4.8, Carbon Dioxide 40 H, Anion Gap 14, BUN 17, Creatinine 0.8, Est GFR ( Amer) > 60, Est GFR (Non- Af Amer) > 60, Random Glucose 99, Calcium 9.6, Total Bilirubin 0.6, AST 24, ALT 20, Alkaline Phosphatase 107, Lactate Dehydrogenase 527, Total Creatine Kinase 21 L, Troponin I < 0.01 D, NT-Pro-B Natriuret Pep 1010 H, Total Protein 8.0, Albumin 3.8, Globulin 4.2, Albumin/Globulin Ratio 0.9 L 07/09/17 13:40: pO2 44, VBG pH 7.24 L, VBG pCO2 102.0 H*, VBG HCO3 43.7 H, VBG Total CO2 46.8 H, VBG O2 Sat (Calc) 82.0 H, VBG Base Excess 11.8 H, VBG Potassium 4.8, Sodium 140.0, Chloride 102.0, Glucose 99, Lactate 1.0, FiO2 21.0 , Venous Blood Potassium 4.8 07/09/17 13:40: Urine Color Straw, Urine Appearance Clear, Urine pH 6.5, Ur Specific [place] 1.010, Urine Protein Negative, Urine Glucose (UA) Negative, Urine Ketones Negative, Urine Blood Negative, Urine Nitrate Negative, Urine Bilirubin Negative, Urine Urobilinogen 0.2, Ur Leukocyte Esterase Negative 07/09/17 13:40: PT 11.3, INR 0.99, APTT 34.6 07/09/17 13:40: WBC 9.6 D, RBC 3.94, Hgb 10.9 L, Hct 37.6, MCV 95.4 D, MCH 27.7, MCHC 29.0 L, RDW 13.7, Plt Count 182, MPV 10.3, Gran % 63.6, Lymph % (Auto ) 23.5, [place] % (Auto) 8.3 H, Eos % (Auto) 4.4, Baso % (Auto) 0.2, Gran # 6.10, Lymph # (Auto) 2.3, [place] # (Auto) 0.8 H, Eos # (Auto) 0.4, Baso # (Auto) 0.02 - RAD Interpretation Radiology Orders: 07/09/17 13:34 CHEST PORTABLE [RAD] Stat - Medication Orders Current Medication Orders: Acetaminophen (Tylenol 325mg Tab) 650 mg PO Q4H PRN PRN Reason: pain fever Albuterol Sulfate (Albuterol 0.083% Inhal Karie (2.5 Mg/3 Ml) Ud) 2.5 mg IH Q8 PRN PRN Reason: Shortness of Breath Albuterol/Ipratropium (Duoneb 3 Mg/0.5 Mg (3 Ml) Ud) 3 ml IH [id number] [facility] Anastrozole (Arimidex 1 Mg Tab) 1 mg PO DAILY [facility] Last Admin: 07/09/17 16:56 Dose: 1 mg Aspirin (Aspirin Chewable) 81 mg PO DAILY [facility] Last Admin: 07/09/17 16:14 Dose: Atorvastatin Calcium (Lipitor) 20 mg PO DIN [facility] Last Admin: 07/09/17 16:56 Dose: 20 mg Clopidogrel Bisulfate (Plavix) 75 mg PO DAILY [facility] Last Admin: 07/09/17 16:13 Dose: 75 mg Cyanocobalamin (Vitamin B12 1000 Mcg Tab) 1,000 mcg PO DAILY [facility] Docusate Sodium (Colace Liquid) 50 mg PO DAILY PRN PRN Reason: Constipation Furosemide (Lasix) 40 mg IVP Q12 [facility] Hydrochlorothiazide (Microzide) 12.5 mg PO DAILY GUY Azithromycin (Zithromax 500mg In Ns) 500 mg in 250 mls @ 250 mls/hr IVPB DAILY [facility] Ceftriaxone Sodium (Rocephin 1 Gram Ivpb) 1 gm in 100 mls @ 100 mls/hr IVPB DAILY GUY PRN Reason: Protocol Lisinopril (Zestril) 10 mg PO DAILY GUY Loratadine (Claritin) 10 mg PO DAILY PRN PRN Reason: Allergy symptoms Methylprednisolone (Solu-Medrol) 40 mg IVP Q12 [facility] Metoprolol Tartrate (Lopressor) 50 mg PO BID [facility] Last Admin: 07/09/17 18:18 Dose: 50 mg MAR Pulse and Blood Pressure [place] 07/09/17 18:18 [facility] [place]: [place]/09/17 18:[address]) Pulse Pulse Rate (60-90 beats/min) 81 Blood Pressure Blood Pressure (100/60-150/90 mm Hg) 113/58 Montelukast Sodium (Singulair) 10 mg PO DAILY [facility] Non-Formulary Medication (Vitamin B Complex [B Complex]) 1 tab PO DAILY [facility] Pantoprazole Sodium (Protonix Ec Tab) 40 mg PO DAILY [facility] Tiotropium [place] (Spiriva) 18 mcg IH DAILY [facility] Discontinued Medications Furosemide (Lasix) 40 mg IVP ONCE ONE Stop: 07/09/17 14:41 Last Admin: 07/09/17 15:19 Dose: 40 mg MAR Blood Pressure Document 07/09/17 15:19 [facility] [place] [place]Rec: 07/09/17 15:[address]) Blood Pressure Blood Pressure (100/60-150/90 mm Hg) 177/90 IVP Administration Document 07/09/17 15:19 [facility] [place]Rec: 07/09/17 15:[address]) Charges for Administration # of IVP Administrations 1 Ceftriaxone Sodium 250 mg/ (Sodium Chloride) 50 mls @ 30 mls/hr IVPB STAT STA PRN Reason: Protocol Stop: 07/09/17 17:29 Azithromycin (Zithromax 500mg In Ns) 500 mg in 250 mls @ 167 mls/hr IVPB STAT STA PRN Reason: Protocol Stop: 07/09/17 17:21 Last Admin: 07/09/17 16:12 Dose: 167 mls/hr eMAR Start Stop Document 07/09/17 16:12 LM (Rec: 07/09/17 16:13 LM [id number]) Intravenous Solution Start Date 07/09/17 Start Time 16:12 End Date 07/09/17 End time 17:52 Total Infusion Time 100 Levalbuterol HCl (Xopenex) 1.25 mg IH STAT STA Stop: 07/09/17 13:36 Last Admin: 07/09/17 13:42 Dose: 1.25 mg Levalbuterol HCl (Xopenex) 1.25 mg IH STAT STA Stop: 07/09/17 13:41 Last Admin: 07/09/17 14:08 Dose: 1.25 mg Levalbuterol HCl (Xopenex) 1.25 mg IH STAT STA Stop: 07/09/17 14:20 Last Admin: 07/09/17 15:19 Dose: 1.25 mg Methylprednisolone (Solu-Medrol) 125 mg IVP STAT STA Stop: 07/09/17 13:37 Last Admin: 07/09/17 13:44 Dose: 125 mg IVP Administration Document 07/09/17 13:44 [facility] [place] [place]Rec: 07/09/17 13:44 [facility] [place] [id number] Charges for Administration # of IVP Administrations 1 Disposition/Present on Arrival - Present on Arrival Any Indicators Present on Arrival: No History of DVT/PE: No History of Uncontrolled Diabetes: No Urinary Catheter: No History of Decub. Ulcer: No History Surgical Site Infection Following: None - Disposition Have Diagnosis and Disposition been Completed?: Yes Diagnosis: Hypercarbia, COPD exacerbation, Pulmonary fibrosis, Respiratory distress Disposition: HOSPITALIZED Disposition Time: 16:00 Patient Plan: Admission Patient Problems: Current Active Problems Problem Status Onset COPD exacerbation Acute Hypercarbia Acute Pulmonary fibrosis Acute Respiratory distress Acute Condition: FAIR
[2017-07-09 14:15] LABS: BASO # 0.02 K/mm3 (0.0-2.0); BASO % 0.2 % (0.0-3.0); EOS # 0.4 (0.0-0.7); EOS % 4.4 % (1.5-5.0); GRAN # 6.1 (1.4-6.5); GRAN % 63.6 % (50.0-68.0); HEMOGLOBIN 10.9 g/dL (12.0-16.0); LYMPH # 2.3 (1.2-3.4); LYMPH % 23.5 % (22.0-35.0); MEAN CELL VOLUME 95.4 fl (80.0-105.0); MEAN CORPUSCULAR HEMOGLOBIN 27.7 pg (25.0-35.0); MEAN PLATELET VOLUME 10.3 fl (7.0-11.0); MONO # 0.8 (0.1-0.6); MONO % 8.3 % (1.0-6.0); RBC 3.94 10^6/uL (3.5-6.1); RED CELL DISTRIBUTION WIDTH 13.7 % (11.5-14.5); VENOUS BLOOD GAS BASE EXCESS 11.8 mmol/L (0.0-2.0); VENOUS BLOOD GAS PO2 44 mm/Hg (30-55); VENOUS BLOOD PH 7.24 (7.32-7.43); WHITE BLOOD COUNT 9.6 10^3/ul (4.5-11.0)
[2017-07-09 14:24] LABS: PH,URINE 6.5 (4.7-8.0); URINE BILIRUBIN NEGATIVE (NEGATIVE); URINE BLOOD NEGATIVE (NEGATIVE); URINE GLUCOSE (UA) NEGATIVE (NEGATIVE); URINE LEUKOCYTE ESTERASE NEGATIVE Leu/uL (NEGATIVE); URINE PROTEIN NEGATIVE mg/dL (<30 mg/dL); URINE UROBILINOGEN 0.2 E.U./dL (<1 E.U./dL)
[2017-07-09 14:26] LABS: INR 0.99 (0.93-1.08); PARTIAL THROMBOPLASTIN TIME 34.6 Seconds (25.1-36.5); PROTHROMBIN TIME 11.3 SECONDS (9.4-12.5)
[2017-07-09 14:27] LABS: URINE APPEARANCE CLEAR (CLEAR); URINE COLOR STRAW (YELLOW)
[2017-07-09 14:36] LABS: B-TYPE NATRIURETIC PEPTIDE 1010 pg/mL (0-450); TROPONIN I < 0.01 ng/mL
[2017-07-09 14:38] LABS: ALB/GLOB RATIO 0.9 (1.1-1.8); ALBUMIN 3.8 g/dL (3.0-4.8); ALT/SGPT 20 U/L (7-56); AST/SGOT 24 U/L (14-36); BLOOD UREA NITROGEN 17 mg/dL (7-21); CALCIUM 9.6 mg/dL (8.4-10.5); GFR AFRICAN-AMERICAN > 60; GFR NON-AFRICAN AMERICAN > 60
--- NOTE | 2017-07-09 15:49 | RAD ---
HISTORY: SOB/Cough COMPARISON: 12/21/2016 FINDINGS: LUNGS: Chronic bilateral lower lobe infiltrates consistent with pulmonary fibrosis. Findings are unchanged PLEURA: No significant pleural effusion identified, no pneumothorax apparent. CARDIOVASCULAR: Normal. OSSEOUS STRUCTURES: No significant abnormalities. VISUALIZED UPPER ABDOMEN: Normal. OTHER FINDINGS: None. IMPRESSION: Chronic bilateral lower lobe infiltrates consistent with pulmonary fibrosis. Findings are unchanged
[2017-07-09] MEDS ORDERED: Azithromycin 500MG/NS 250ml 500 MG/250 ML BAG IVPB STA (15:52)
[2017-07-09] MEDS ORDERED: Albuterol 0.083% Inhal Sol (2.5 mg/3 mL) UD IH PRN (16:00)
[2017-07-09 16:58] LABS: ARTERIAL BLOOD GAS HEMOGLOBIN 11.2 g/dL (11.7-17.4); ARTERIAL BLOOD GAS O2 CAPACITY 15.7 mL/dl (16-24); ARTERIAL BLOOD GAS O2 CONTENT 14.9 ML/dl (15-23); ARTERIAL BLOOD GAS O2 SAT 95.1 % (95-98); ARTERIAL BLOOD GAS PCO2 93 mm/Hg (35-45); ARTERIAL BLOOD GAS PH 7.28 (7.35-7.45); ARTERIAL BLOOD GAS TCO2 46.6 mmol.L (22-28)
[2017-07-09 17:02] LABS: ARTERIAL BLOOD GAS HCO3 43.7 mmol/L (21-28)
[2017-07-09] MEDS: Albuterol-Ipratrop 3 mg / 0.5 (3 ml) UD IH SCH (20:00)
[2017-07-09] MEDS: MethylPREDNISolone 40 mg Vial IVP SCH (21:10)
[2017-07-09 21:43] LABS: HDL CHOLESTEROL 36 mg/dL (29-60)
[2017-07-09 21:48] LABS: IRON 41 ug/dL (45-180)
[2017-07-09 21:54] LABS: LDL CHOLESTEROL 75 mg/dL (0-129)
[2017-07-09 21:58] LABS: % IRON SATURATION 13 % (20-55); TOTAL IRON BINDING CAPACITY 312 ug/dL (265-497)
[2017-07-10 01:12] VITALS: BMI 27.4
[2017-07-10] MEDS ORDERED: Pneumococcal 23-Valent Vaccine IM ONE (01:12)
[2017-07-10] MEDS ORDERED: Influenza Vaccine 60 mcg/0.5 mL SYR (4YR UP) IM ONE (01:12)
[2017-07-10] MEDS: Albuterol-Ipratrop 3 mg / 0.5 (3 ml) UD IH SCH ×4 (05:14→22:15)
--- NOTE | 2017-07-10 05:28 | HP ---
CHIEF COMPLAINT: Shortness of breath. HISTORY OF PRESENT ILLNESS: Ms. Merna Mora is a 71-year-old female with past medical history of hypertension, COPD, congestive heart failure, pulmonary fibrosis and bronchiectasis came in complaining of shortness of breath, coughing for 10 days. The patient states the symptoms are similar to her COPD exacerbation, noted that she has been using her inhaler at home without relief. She is on 3 liter of nasal cannula at home. She denies fever, chills, nausea, vomiting, diarrhea, hematuria or hematochezia. The patient is a noncompliant. She went to her lopper's office long time ago and never went to her primary care physician recently. PAST MEDICAL HISTORY: Hypertension, COPD, congestive heart failure, pulmonary fibrosis, bronchiectasis, worsening of shortness of breath, DVT 10 years ago, history of breast cancer, cataract surgery, right mastectomy, chemo and radiation, gastroesophageal reflux disease, history of appendectomy, cardiac catheterization, cholecystectomy, coronary stents, umbilical hernia repair. FAMILY HISTORY: Father and mother, noncontributory. HABITS: Never smoked, no drug, no ethanol. ALLERGIES: THE PATIENT IS NOT ALLERGIC TO ANY MEDICATIONS. HOME MEDICATIONS: ProAir, Arimidex, atorvastatin, Zyrtec, Celebrex, B12. REVIEW OF SYSTEMS: The patient was seen and examined at the bedside in the emergency room having BiPAP, having shortness of breath. No nausea, vomiting, or diarrhea. No fever, no chills. No headache. No dizziness. PHYSICAL EXAMINATION VITAL SIGNS: Temperature 99.5, pulse 83, respiratory rate 18, blood pressure 152/77. HEENT: Head normocephalic, atraumatic. Eyes, PERRLA. Extraocular muscles intact. Conjunctivae clear. Nose patent. Mucous membrane moist. NECK: Supple. No carotid bruits, JVD, or thyromegaly. CHEST: Bilaterally symmetrical. HEART: S1, S2 positive. LUNGS: Wheezing bilaterally. LABORATORY DATA: White blood cells 9.6, hemoglobin 10.9, hematocrit 37.6, platelets 182. Sodium 145, potassium 4.8, BUN 17, creatinine 0.8, glucose 99. ASSESSMENT AND PLAN: Ms. Merna Mora is a 71-year-old lady with anemia, hypochloremia, has hypercarbia, chronic obstructive pulmonary disease exacerbation, pulmonary fibrosis, respiratory distress, history of breast cancer, right mastectomy, came with shortness of breath, admitted to the telemetry. Pulmonary and Cardiology consult called. BiPAP given. Solu-Medrol given. Gastrointestinal, deep vein thrombosis prophylaxis. Repeat labs. We will follow up. Discussion done with the ER physician. Stacey Del Rosario MD MTDD
[2017-07-10 06:16] LABS: HEMOGLOBIN 10.9 g/dL (12.0-16.0); MEAN CELL VOLUME 93.9 fl (80.0-105.0); MEAN CORPUSCULAR HEMOGLOBIN 27.6 pg (25.0-35.0); MEAN CORPUSCULAR HGB CONC 29.4 g/dl (31.0-37.0); MEAN PLATELET VOLUME 10.3 fl (7.0-11.0); RBC 3.95 10^6/uL (3.5-6.1); RED CELL DISTRIBUTION WIDTH 13.4 % (11.5-14.5); WHITE BLOOD COUNT 8.3 10^3/ul (4.5-11.0)
[2017-07-10 07:19] LABS: BLOOD UREA NITROGEN 22 mg/dL (7-21); CALCIUM 9.3 mg/dL (8.4-10.5); GFR AFRICAN-AMERICAN > 60; GFR NON-AFRICAN AMERICAN 55
--- NOTE | 2017-07-10 07:21 | CARD ---
APPROVED REPORT EKG Measurement Heart [id number] <Conclusion> Normal sinus rhythm Possible Left atrial enlargement PRWP RVCD LAD
--- NOTE | 2017-07-10 07:45 | CON ---
DATE: 07/10/2017 PULMONARY CONSULTATION REASON FOR CONSULTATION: Chronic obstructive pulmonary disease. REFERRING PHYSICIAN: Dr. Del Rosario. HISTORY OF PRESENT ILLNESS: The patient is a chronically ill 71-year-old female, with past medical history significant for advanced pulmonary fibrosis, on home oxygen; advanced chronic obstructive pulmonary disease; coronary artery disease; status post multiple cardiac stents;, congestive heart failure, who presents to [facility] with increasing shortness of breath at rest, dyspnea on exertion, and cough for the past 10 days. There is no history of chest pain, coughing up of blood, or chest pain - made worse with deep respirations. There is no history of significant sputum production. There is no history of temperatures, chills or infectious exposure. There is no history of night sweats, weight loss or appetite change prior to the above events. No history of calf pains. No history of syncope or diaphoresis. No history of recent travel or trauma. REVIEW OF SYSTEMS: No history of nausea, vomiting or diarrhea. No acute urinary symptoms. No new neurologic or musculoskeletal complaints. Rest of the review of systems is negative. ALLERGIES: NO KNOWN ALLERGIES. SOCIAL HISTORY: Positive for tobacco and negative for alcohol. FAMILY HISTORY: No inheritable diseases. HOME MEDICATIONS: Include HydroDIURIL, Spiriva, Prilosec, Singulair, Lopressor, Zestril, Plavix, Zyrtec, Celebrex, aspirin, Arimidex, albuterol. PHYSICAL EXAMINATION: GENERAL: The patient appears comfortable at rest. She is not short of breath. She is not using accessory muscles for breathing. VITAL SIGNS: Temperature is 97.9, pulse 63, respirations 18, blood pressure 129/69. Oxygen saturation on BiPAP is 97%. HEENT: Normocephalic, atraumatic. No JVD. CARDIOVASCULAR: Systolic ejection murmur at the lower left sternal border. No S3 gallop. LUNGS: Chronic crackles at both lower lobes. Mild bilateral rhonchi. No wheezing. EXTREMITIES: Mild edema. No cyanosis, no clubbing. Calves are nontender to palpation. GASTROINTESTINAL: Abdomen is soft, nontender and nondistended. Bowel sounds are positive. SKIN: No acute rash. NEUROLOGIC: Limited at the present time. PERTINENT LABORATORY DATA: Chest x-ray was done yesterday and reviewed. There are chronic extensive changes - especially at the lower lobes. Findings are unchanged from the previous chest x-ray. Arterial blood gas was also done - on nasal cannula. Results are: PH 7.28, pCO2 93, pO2 of 76. CBC: White count 8.3, hemoglobin 10.9, hematocrit 37.1, platelets of 191,000 K. Complete metabolic profile: Chloride 96, carbon dioxide 40. B-type natriuretic peptide 1010. Rest of the metabolic profile is within normal limits. IMPRESSION: 1. Respiratory failure. 2. Recurrent bronchitis. 3. Advanced pulmonary fibrosis, on home oxygen. 4. Advanced chronic obstructive pulmonary disease. 5. Coronary artery disease. 6. Mild anemia. PLAN: The patient presents to [facility] with a 10-day history of worsening pulmonary symptoms. I did review the chest x-ray. As above, there are extensive chronic changes - most notably in the lower lobes. The most present film is not significantly changed from the previous film. I have also reviewed the arterial blood gas. Acute on chronic respiratory failure is noted. The patient is feeling much better this morning, and is comfortable at rest. I will recheck the arterial blood gas on nasal cannula this morning. These results will determine our BiPAP usage. On physical exam, the patient is in [id number] bronchospasm. I will continue the current nebulizer treatments and current intravenous steroids for now. Cardiology evaluation with Dr. Frankel has been ordered. Repeat a.m. labs have also been ordered. Again, the clinical status of the patient appears improved this morning - compared to the initial presentation. Additional pulmonary intervention will be based on the above results, as well as the clinical status of the patient. I will discuss the above with Dr. Del Rosario this morning. Thank you very much for this pulmonary consultation. Missael Malave MD [facility]
[2017-07-10 08:25] LABS: ARTERIAL BLOOD GAS HEMOGLOBIN 12.1 g/dL (11.7-17.4); ARTERIAL BLOOD GAS O2 CAPACITY 16.8 mL/dl (16-24); ARTERIAL BLOOD GAS O2 CONTENT 14.9 ML/dl (15-23); ARTERIAL BLOOD GAS O2 SAT 88.7 % (95-98); ARTERIAL BLOOD GAS PH 7.39 (7.35-7.45); ARTERIAL BLOOD GAS TCO2 46.4 mmol.L (22-28)
[2017-07-10 08:29] LABS: ARTERIAL BLOOD GAS HCO3 44.2 mmol/L (21-28)
[2017-07-10 08:30] LABS: ARTERIAL BLOOD GAS PCO2 73 mm/Hg (35-45)
[2017-07-10 08:54] LABS: TROPONIN I < 0.01 ng/mL
[2017-07-10] MEDS: VITAMIN B COMPLEX PO SCH (09:34)
[2017-07-10] MEDS ORDERED: Azithromycin 500 MG in Sodium Chloride 0.9% 250 ML IVPB SCH (10:00)
[2017-07-10] MEDS: Tiotropium 18 mcg Cap For Inhalation IH SCH (10:10)
[2017-07-10] MEDS: MethylPREDNISolone 40 mg Vial IVP SCH ×2 (10:11→22:48)
[2017-07-10] MEDS: Pantoprazole 40 mg EC Tab PO SCH (10:11)
[2017-07-10] MEDS: cefTRIAXone 1 gm 1 GM/100 ML BAG IVPB SCH (10:16)
[2017-07-10] MEDS: Azithromycin 500MG/NS 250ml 500 MG/250 ML BAG IVPB SCH (11:25)
[2017-07-10 13:32] LABS: FOLATE > 20.0 ng/mL
--- NOTE | 2017-07-10 20:27 | CON ---
DATE: 07/10/2017 CONSULT SERVICE: Cardiology. REASON FOR CONSULTATION: Coronary artery distress, multiple stent, admitted with acute exacerbation of COPD, rule out CHF. BRIEF CLINICAL HISTORY: This is a 71-year-old female with past medical history significant for advanced COPD, pulmonary hypertension on home oxygen, history of coronary artery disease, history of multiple stents, history of congestive heart failure, came to the [place] with progressively worsening shortness of breath on exertion, cough for 10 days. Denies any chest pain. Denies any palpitation. Denies any chest pain on exertion but feels very short of breath and they may feel heaviness in the chest. No history of diaphoresis or syncope. PAST MEDICAL HISTORY: Significant for advanced COPD, history of non-STEMI in the past, history of pulmonary fibrosis, history of pulmonary hypertension, COPD on home oxygen, bronchiectasis, anemia on CPAP at home. PAST SURGICAL HISTORY: Significant for breast surgery, mastectomy, coronary artery disease, history of stent in 2007, 2008, 2011 and most recently on 12/25/2016, two stents in RPDA and RCA. SOCIAL HISTORY: Denies smoking. Denies any history of alcohol abuse. PREVIOUS CARDIAC WORKUP: As follows. Patient had a cardiac catheterization on 12/25/2016 when the patient presented with a non-STEMI. At that time, the cardiac catheterization revealed right sided dominant artery, distal left main 20% stenosis, LAD patent stent noted in circumflex, diffuse calcification noted but no flow-obstructive stenosis noted. Reminiscent to medium-sized vessel 30% to 40% stenosis noted. Right coronary artery, diffuse disease 70% to 80% stenosis noted at the mid-segment. Right PDA has 80% stenosis noted. Ejection fraction 65%. EDP was in the range of 20% to 25%. Stenting was done at that time in mid RCA with DS and RPDA(right posterior descending artery) with DS, dated 12/25/2016. EDP was in the range of 22 to 25. Ejection fraction 65%. Last echocardiography on 12/22/2016 shows ejection fraction normal. Moderate pulmonary hypertension, RV systolic pressure reported 58 mmHg, ejection fraction of 62.4%. REVIEW OF SYSTEMS: As per HPI. ALLERGIES: NO KNOWN DRUG ALLERGIES. CURRENT MEDICATIONS: Patient is taking hydrochlorothiazide, vitamin B, Spiriva, omeprazole, Singulair, metoprolol 50 b.i.d., lisinopril, Colace, clopidogrel, Celebrex, atorvastatin, aspirin, and Ranexa at home. PHYSICAL EXAMINATION: As follows: VITAL SIGNS: Height of the patient is 5 feet 5 inches, weight of the patient 150 pounds, body mass index 25 kg/m2. Rest of the vitals, temperature afebrile, heart rate 72, and blood pressure 120/66. HEENT: PERRLA. Extraocular muscles intact. NECK: Supple. No carotid bruits. No thyromegaly. CHEST: Scattered rhonchi noted. No crackles noted. ABDOMEN: Soft. EXTREMITIES: Clubbing and cyanosis negative. HEART: S1, S2 regular. LABORATORY DATA: EKG shows normal sinus. No acute ST-T changes noted. Blood workup as follows; WBC 8.3, hemoglobin 10.9, hematocrit 37.1, platelet count 191. Chemistry shows sodium 144, potassium 4, chloride 91, carbon dioxide 40, anion gap of 17 , BUN 22 and creatinine 1.0. Troponin 0.01. IMPRESSION: Acute exacerbation of chronic obstructive pulmonary disease, diabetes, hypertension, hyperlipidemia, coronary artery disease status post multiple stents, history of most recently stent in 11/2016 of mid-right coronary artery, right posterior descending artery, prior to that 2005, 2007, and 2008, history of home-dependent oxygen, history of advanced chronic obstructive pulmonary disease on CPAP. RECOMMENDATION: Aggressive treatment for COPD. No evidence of acute NC. We will add one more CPK, troponin, and if troponin remains negative, we will discontinue telemetry. We will follow with you. Thank you, Dr. Del Rosario, for providing us the opportunity in taking care of the patient, Merna Mora. We will also get the lipid profile, TSH and hemoglobin A1c. In between continue beta-arun, continue aspirin, continue Plavix, continue a gentle diuretics. We will follow with you. Though patient's admitting BNP was 1010, but patient is not in clinical failure. We will follow with you and if the troponin remains negative, we will discontinue telemetry. Joaquin Frankel MD
--- NOTE | 2017-07-11 01:17 | PN ---
DATE: Patient is a 71-year-old female with multiple medical problems. SUBJECTIVE: Patient is sen and examined at the bedside, having oxygen with nasal cannula. No nausea, vomiting, diarrhea. No urinary symptoms. No hematuria, no hematochezia, no dysuria. No headache, no dizziness. No fever, no chills. No neurologic or musculoskeletal complaints. REVIEW OF SYSTEMS: Twelve-point review of system negative except as above. Cough is better. Shortness of breath is better. PHYSICAL EXAMINATION: VITAL SIGNS: Temperature 97.9, pulse 63, respirations 18, blood pressure 129/59, oxygen saturation on BiPAP is 97%. HEENT: Head: Normocephalic, atraumatic. Eyes: PERRLA. Extraocular muscles intact. Conjunctivae clear. Nose: Patent. Mucous membrane moist. NECK: Supple. No carotid bruit. No JVD or thyromegaly. LUNGS: Have chronic crackles at both lung lobes. Mild bilateral rhonchi. No wheezing. EXTREMITIES: Mild edema. No cyanosis. No clubbing. Calves are nontender to palpation. ABDOMEN: Soft, bowel sounds present. No organomegaly. NEUROLOGIC: Awake and alert, moving all four extremities. No focal deficit, oriented x3. MEDICATIONS: Albuterol, Arimidex, aspirin, Claritin, Colace, albuterol, Lasix, Lipitor, Lopressor, Plavix, Protonix, Singulair, Solu-Medrol, Spiriva, Tylenol, DuoNeb, Zestril, Zithromax. LABORATORY DATA: White blood cell 8.3, hemoglobin 10.9, hematocrit 37.1, platelets 191. Sodium 144, potassium 4.0, BUN 22, creatinine 1.0, glucose 130. Iron 41. ASSESSMENT AND PLAN: Ms. Merna Mora is a 71-year-old lady with anemia, hypochloremia, carbon dioxide retention, hyperglycemia, iron deficiency. Influenza type A and B is negative; seen by mail processing associate, Dr. Missael Malave . Came with respiratory failure, recurrent bronchitis, advanced pulmonary fibrosis, on home oxygen with nasal canula, advanced chronic obstructive pulmonary disease, coronary artery disease, mild anemia, history of coronary artery stent, history of breast cancer. Chest x-ray is reviewed by me. Patient has [id number] bronchiospasm. We will continue nebulizer treatment, IV steroids, antibiotics. Extruder is on the case. Field Service Engineer is on the case. Discussion done with Dr. Missael Malave. Patient improved a lot, but still is on high dose of steroids. Not able to do her activities of daily living. Gastrointestinal and deep venous thrombosis prophylaxis. Repeat labs. We will follow up. Stacey Del Rosario MD MTDD
[2017-07-11] MEDS: Albuterol-Ipratrop 3 mg / 0.5 (3 ml) UD IH SCH ×4 (04:41→19:35)
[2017-07-11 05:50] LABS: GRAN # 13.02 (1.4-6.5); GRAN % 91.6 % (50.0-68.0); HEMOGLOBIN 10.7 g/dL (12.0-16.0); LYMPH % 6.8 % (22.0-35.0); MEAN CELL VOLUME 93.1 fl (80.0-105.0); MEAN CORPUSCULAR HEMOGLOBIN 27.3 pg (25.0-35.0); MEAN CORPUSCULAR HGB CONC 29.3 g/dl (31.0-37.0); MEAN PLATELET VOLUME 10.3 fl (7.0-11.0); MONO # 0.2 (0.1-0.6); MONO % 1.6 % (1.0-6.0); PLATELET COUNT 228 10^3/uL (120.0-450.0); RBC 3.92 10^6/uL (3.5-6.1); RED CELL DISTRIBUTION WIDTH 13.8 % (11.5-14.5); WHITE BLOOD COUNT 14.2 10^3/ul (4.5-11.0)
[2017-07-11 06:36] LABS: BAND 5 % (0-2); LYMPHOCYTE 12 % (22.0-35.0); MONOCYTE 3 % (1.0-6.0); NEUTROPHIL 80 % (50.0-70.0)
[2017-07-11 06:37] LABS: PLATELET ESTIMATE NORMAL (NORMAL)
[2017-07-11 07:18] LABS: ALB/GLOB RATIO 0.9 (1.1-1.8); ALBUMIN 3.7 g/dL (3.0-4.8); ALT/SGPT 23 U/L (7-56); AST/SGOT 30 U/L (14-36); BLOOD UREA NITROGEN 37 mg/dL (7-21); CALCIUM 9.7 mg/dL (8.4-10.5); GFR AFRICAN-AMERICAN > 60; GFR NON-AFRICAN AMERICAN 55
--- NOTE | 2017-07-11 09:09 | PN ---
DATE: 07/11/2017 PULMONARY NOTE SUBJECTIVE: Patient appears much more comfortable this morning. She is not short of breath at rest. PHYSICAL EXAMINATION: VITAL SIGNS: Temperature is 97.8, pulse 62, respirations 18/20, blood pressure 135/67. Oxygen saturation on nasal cannula is 98%. HEENT: Normocephalic, atraumatic. No JVD. CARDIOVASCULAR: Systolic ejection murmur at the lower left sternal border. No S3 gallop. LUNGS: Chronic crackles at both lower lobes. Much less rhonchi. No wheezing. EXTREMITIES: Mild edema. No cyanosis, no clubbing. Calves are nontender to palpation. GASTROINTESTINAL: Abdomen is soft, nontender and nondistended. Bowel sounds are positive. SKIN: No acute rash. NEUROLOGIC: Exam limited at the present time. PERTINENT LABORATORY DATA: Arterial blood gas was done yesterday on 3 liters nasal cannula. Results are: PH 7.39, pCO2 73, pO2 of 50. The patient is now on 4 liters nasal cannula. IMPRESSION: 1. Respiratory failure. 2. Recurrent bronchitis. 3. Advanced pulmonary fibrosis. 4. Advanced chronic obstructive pulmonary disease. 5. Coronary artery disease. 6. Mild anemia. PLAN: The patient appears much more comfortable this morning. She is not short of breath at rest. She does state to feeling much better overall. I did discuss the case with the night nurse at length. The night nurse stated that the patient had a very good night. I did review the last arterial blood gas done. There is normalization of the pH, along with a significant alveolar-arterial gradient. As above, the arterial blood gas was done on 3 liters. The patient is now on 4 liters nasal cannula. I will repeat the arterial blood gas on nasal cannula this morning. On physical exam, there is definitely less bronchospasm noted. I will continue the current nebulizer treatments and decrease the intravenous steroids this morning. The patient remains on antibiotic therapy. There are no temperatures noted. There is a leukocytosis today - most likely due to the steroids. Input by Cardiology (Dr. Frankel) is also noted. Clinical status of the patient is definitely improved - compared to the initial presentation. However, again, her overall status/prognosis is very guarded at best/poor. I did discuss the case with Dr. Del Rosario yesterday. I will discuss the case with her again this morning. Missael Malave MD [facility] # [id number] [place]
--- NOTE | 2017-07-11 09:26 | CP.PCM.PN ---
Subjective - Date & Time of Evaluation Date of Evaluation: 07/11/17 Time of Evaluation: 07:50 - Subjective Subjective: Seen and examined by me and Dr. Frankel Reason for consult and follow up: cardiac evaluation, history of coronary artery disease, multiple stents, admitted for shortness of breath due to exacerbation of COPD, rule out congestive heart failure Subjective: Denies shortness of breath, lying in bed comfortable,denies chest pain, no distress, CPAP on. Objective - Vital Signs/Intake and Output Vital Signs (last 24 hours): Temp Pulse Resp BP Pulse Ox 97.8 F 62 20 135/67 98 07/11/17 05:57 07/11/17 05:57 07/11/17 05:57 07/11/17 05:57 07/11/17 05:57 Intake and Output: 07/11/17 07/11/17 06:59 18:59 Intake Total 240 Output Total 600 Balance -360 - Medications Medications: Current Medications Acetaminophen (Tylenol 325mg Tab) 650 mg PO Q4H PRN PRN Reason: Fever >100.4 F Acetaminophen (Tylenol 325mg Tab) 650 mg PO Q4H PRN PRN Reason: Pain, Mild (1-3) Albuterol Sulfate (Albuterol 0.083% Inhal Karie (2.5 Mg/3 Ml) Ud) 2.5 mg IH Q8 PRN PRN Reason: Shortness of Breath Albuterol/Ipratropium (Duoneb 3 Mg/0.5 Mg (3 Ml) Ud) 3 ml IH [id number] [facility] Last Admin: 07/11/17 07:48 Dose: 3 ml Anastrozole (Arimidex 1 Mg Tab) 1 mg PO DAILY [facility] Last Admin: 07/10/17 10:07 Dose: 1 mg Aspirin (Aspirin Chewable) 81 mg PO DAILY [facility] Last Admin: 07/10/17 10:07 Dose: 81 mg Atorvastatin Calcium (Lipitor) 20 mg PO DIN [facility] Last Admin: 07/10/17 16:37 Dose: 20 mg Clopidogrel Bisulfate (Plavix) 75 mg PO DAILY [facility] Last Admin: 07/10/17 10:10 Dose: 75 mg Cyanocobalamin (Vitamin B12 1000 Mcg Tab) 1,000 mcg PO DAILY [facility] Last Admin: 07/10/17 10:11 Dose: 1,000 mcg Docusate Sodium (Colace Liquid) 50 mg PO DAILY PRN PRN Reason: Constipation Furosemide (Lasix) 40 mg IVP Q12 [facility] Last Admin: 07/10/17 22:48 Dose: 40 mg Azithromycin (Zithromax 500mg In Ns) 500 mg in 250 mls @ 250 mls/hr IVPB DAILY [facility] Last Admin: 07/10/17 11:25 Dose: 250 mls/hr Ceftriaxone Sodium (Rocephin 1 Gram Ivpb) 1 gm in 100 mls @ 100 mls/hr IVPB DAILY [facility] PRN Reason: Protocol Last Admin: 07/10/17 10:16 Dose: 100 mls/hr Lisinopril (Zestril) 10 mg PO DAILY [facility] Last Admin: 07/10/17 10:10 Dose: 10 mg Loratadine (Claritin) 10 mg PO DAILY PRN PRN Reason: Allergy symptoms Methylprednisolone (Solu-Medrol) 30 mg IVP Q12 [facility] Metoprolol Tartrate (Lopressor) 50 mg PO BID [facility] Last Admin: 07/10/17 19:03 Dose: Not Given Montelukast Sodium (Singulair) 10 mg PO DAILY [facility] Last Admin: 07/10/17 10:11 Dose: 10 mg Non-Formulary Medication (Vitamin B Complex [B Complex]) 1 tab PO DAILY [facility] Last Admin: 07/10/17 09:34 Dose: Not Given Pantoprazole Sodium (Protonix Ec Tab) 40 mg PO DAILY [facility] Last Admin: 07/10/17 10:11 Dose: 40 mg Tiotropium Reynolds (Spiriva) 18 mcg IH DAILY [facility] Last Admin: 07/10/17 10:10 Dose: 18 mcg - Labs Labs: 07/11/17 05:20 07/11/17 05:20 PT 11.3 SECONDS (9.4-12.5) 07/09/17 13:40 INR 0.99 (0.93-1.08) 07/09/17 13:40 APTT 34.6 Seconds (25.1-36.5) 07/09/17 13:40 - Constitutional Appears: Well, No Acute Distress - Head Exam Head Exam: NORMAL INSPECTION, NORMOCEPHALIC - Eye Exam Eye Exam: Normal appearance Pupil Exam: NORMAL ACCOMODATION - ENT Exam ENT Exam: Mucous Membranes Moist - Respiratory Exam Respiratory Exam: Decreased Breath Sounds, Rhonchi, NORMAL BREATHING PATTERN - Cardiovascular Exam Cardiovascular Exam: REGULAR RHYTHM, +S1, +S2 - GI/Abdominal Exam GI & Abdominal Exam: Soft, Normal Bowel Sounds - Skin Skin Exam: Dry, Intact, Normal Color, Warm Assessment and Plan - Assessment and Plan (Free Text) Assessment: Impression: Acute exacerbation of chronic obstructive pulmonary disease for this admission. history of coronary artery disease, multiple stents, recent stent was 12/25/16 with stents on RPDA and RCA after a non STEMI. admitted for shortness of breath due to exacerbation of COPD, rule out congestive heart failure, history of pulmonary fibrosis, history of congestive heart failure,on home oxygen and CPAP. History of mastectomy Plan: Doing and feeling better, denies shortness of breath Aggresive treatment of acute COPD being managed by Pulmonary Cardiac status stable Continue ASA 81 mg daily, Lipitor 20 mg daily,Plavix 75 mg daily, Lasix 40 mg every 12 hours,Lisiprol 10 mg daily and Lopressor 50 mg BID Troponin negative Will follow up Plan and treatment discussed with Dr. Frankel
[2017-07-11] MEDS: Tiotropium 18 mcg Cap For Inhalation IH SCH (11:04)
[2017-07-11] MEDS: Pantoprazole 40 mg EC Tab PO SCH (11:05)
[2017-07-11] MEDS: MethylPREDNISolone 40 mg Vial IVP SCH ×2 (11:06→21:58)
[2017-07-11] MEDS: cefTRIAXone 1 gm 1 GM/100 ML BAG IVPB SCH (11:07)
[2017-07-11] MEDS: VITAMIN B COMPLEX PO SCH (12:36)
[2017-07-11] MEDS: Azithromycin 500MG/NS 250ml 500 MG/250 ML BAG IVPB SCH (13:06)
--- NOTE | 2017-07-12 00:44 | PN ---
DATE: SUBJECTIVE: The patient is a 71-year-old female. The patient is seen and examined at the bedside, looking comfortable. No nausea, vomiting, or diarrhea. No hematuria or hematochezia. No swelling of the legs. No chest pain or palpitation. No headache or dizziness. Still coughing, having shortness of breath, and getting really dyspneic just going to the bathroom. Having oxygen with nasal cannula. PHYSICAL EXAMINATION: VITAL SIGNS: Temperature 99.2, pulse 82, blood pressure 135/77, and respiratory rate 20. HEENT: Head: Normocephalic, atraumatic. Eyes: PERRLA. Extraocular movements are intact. Conjunctivae clear. Nose patent. Mucous membranes are moist. NECK: Supple. No carotid bruit, JVD, or thyromegaly. CHEST: Bilaterally symmetrical. HEART: S1 and S2 positive. LUNGS: Clear to auscultation. ABDOMEN: Soft. Bowel sounds are present. No organomegaly. EXTREMITIES: No edema. No cyanosis. NEUROLOGIC: The patient is awake and alert. Moving all four extremities with no focal deficits. MEDICATIONS: Albuterol, Arimidex, aspirin, Travatan, Colace, albuterol, Lasix, Lipitor, Lopressor, Plavix, Protonix, Singulair, Solu-Medrol, Spiriva, and Tylenol. LABORATORY DATA: White blood cells 14.2, hemoglobin 10.7, hematocrit 36.5, and platelets 228. Sodium 145, potassium 4.4, BUN 37, creatinine 1.0, glucose 141, phosphorus 4.7, and magnesium 2.5. ASSESSMENT AND PLAN: Ms. Merna Mora is a 71-year-old lady with leukocytosis, anemia, hyperchloremia, hypercarbia, hyperglycemia, hyperphosphatemia, hypermagnesemia, influenza - type A and B negative, seen by the chef concierge, Dr. Missael Malave. Came with respiratory failure, recurrent bronchitis, advanced pulmonary fibrosis, advanced chronic obstructive pulmonary disease, coronary artery disease, status post cardiac stenting. The patient is improving. Getting a tapering dose of steroids. Has a history of breast cancer - status post chemotherapy and radiation therapy. There is a normalization of the pH along with significant alveolar arterial gradient. The arterial blood gas was done on 3 liters. The patient is now on 4-liter nasal cannula. Per Dr. Canas, he will repeat ABG in the morning. Meanwhile, we will try to do physical therapy, CT evaluation and transfer. Repeat labs. We will follow up. Stacey Del Rosario MD MTDD
[2017-07-12] MEDS: Albuterol-Ipratrop 3 mg / 0.5 (3 ml) UD IH SCH ×4 (01:20→19:25)
[2017-07-12 06:54] LABS: HEMOGLOBIN 10.6 g/dL (12.0-16.0); MEAN CELL VOLUME 94.4 fl (80.0-105.0); MEAN CORPUSCULAR HEMOGLOBIN 28.3 pg (25.0-35.0); MEAN PLATELET VOLUME 10.5 fl (7.0-11.0); RBC 3.74 10^6/uL (3.5-6.1); RED CELL DISTRIBUTION WIDTH 13.7 % (11.5-14.5); WHITE BLOOD COUNT 11.1 10^3/ul (4.5-11.0)
--- NOTE | 2017-07-12 10:11 | CARD ---
APPROVED REPORT EKG Measurement Heart [id number] <Conclusion> Normal sinus rhythm Possible Left atrial enlargement ST elevation, consider early repolarization, pericarditis, or injury LAD RVCD PRWP No change
[2017-07-12] MEDS: Cefpodoxime (Vantin) 200 mg Tab PO SCH ×2 (11:14→22:00)
[2017-07-12] MEDS: Tiotropium 18 mcg Cap For Inhalation IH SCH (11:14)
[2017-07-12] MEDS: Pantoprazole 40 mg EC Tab PO SCH (11:14)
--- NOTE | 2017-07-12 11:14 | PN ---
DATE: 07/12/2017 PULMONARY NOTE SUBJECTIVE: The patient appears comfortable this morning. She is not short of breath at rest. PHYSICAL EXAMINATION: VITAL SIGNS: Temperature is 98.7, pulse 76, respirations 18/20, blood pressure 129/70. Oxygen saturation on BiPAP is 97%. HEENT: Normocephalic, atraumatic. No JVD. CARDIOVASCULAR: Systolic ejection murmur at the lower left sternal border. No S3 gallop. LUNGS: Chronic crackles at both lower lobes. Less rhonchi. No wheezing. EXTREMITIES: Mild edema. No cyanosis. No clubbing. Calves are nontender to palpation. GI: Abdomen is soft, nontender and nondistended. Bowel sounds are positive. SKIN: No acute rash. NEUROLOGIC: Limited at the present time. IMPRESSION: 1. Respiratory failure. 2. Recurrent bronchitis. 3. Advanced pulmonary fibrosis. 4. Advanced chronic obstructive pulmonary disease. 5. Coronary artery disease. 6. Mild anemia. PLAN: The patient appears comfortable this morning. She is not short of breath at rest. She does state to feeling much better overall. On physical exam, there is certainly less bronchospasm noted. I will continue with the current nebulizer treatments and current intravenous steroids (decreased yesterday) for now. The patient also remains on antibiotic therapy. There are no temperatures noted. The leukocytosis has almost completely resolved. The clinical status of the patient is certainly improved - compared to the initial presentation. However, unfortunately, the patient's overall status/prognosis remains very guarded at best/poor. Input by Cardiology is also noted. We will try to get the patient out of bed more often. I will discuss the above with the attending physician. Missael Malave MD MTDKenn[facility]
[2017-07-12] MEDS: MethylPREDNISolone 40 mg Vial IVP SCH ×2 (11:15→22:00)
[2017-07-12] MEDS: VITAMIN B COMPLEX PO SCH (11:16)
[2017-07-12] MEDS: Azithromycin 500MG/NS 250ml 500 MG/250 ML BAG IVPB SCH (11:16)
--- NOTE | 2017-07-12 22:43 | PN ---
DATE: 07/12/2017 LOCATION: The patient in room 263, bed 1. REASON FOR CONSULTATION AND FOLLOWUP: Coronary artery disease, multiple stents, admitted with acute exacerbation of COPD. SUBJECTIVE: The patient is still complaining of shortness of breath on minimal exertion. Denies chest pain or palpitation. The patient has history of coronary artery disease, multiple stents, COPD, pulmonary hypertension, at home oxygen and history of congestive heart failure. PHYSICAL EXAMINATION: VITAL SIGNS: Blood pressure 139/71, respirations 19, pulse 95, temperature 98.2. HEENT: Head is normocephalic. Eyes: Pupils are normal. Conjunctivae slightly pale. NECK: JVP low. Carotids are equal. Thorax, AP diameter normal. LUNGS: A few wheezing sounds. CARDIOVASCULAR: S1 and S2. ABDOMEN: Soft. No tenderness. No organomegaly. EXTREMITIES: No clubbing. No cyanosis. LABORATORY DATA: WBC 11.1, hemoglobin 10.6, hematocrit 35.3, platelets 239. Sodium 142, potassium 4.1, BUN 44, creatinine 1.1. Random sugar 124. Calcium 9.0. Troponin less than 0.01. Total protein and albumin are normal. DIAGNOSES: Shortness of breath; acute exacerbation of chronic obstructive pulmonary disease; coronary artery disease; history of multiple stents in 2007, 2008, and 2011 and most recently 12/25/2016, two stents put in right posterior descending artery and right coronary artery, detail of cardiac catheterization are described in our consult on 07/10/2017; last echo on 12/22/2016 showed ejection fraction normal, moderate pulmonary hypertension, right ventricular systolic pressure reported as 58 mmHg and left ventricular ejection fraction was 62.4%; hypertension; diabetes; home oxygen dependent, on continuous positive airway pressure. PLAN: Continue aspirin 81 mg p.o. daily, DuoNeb hand nebulizer therapy, furosemide 40 mg IV q. 12 hour, metoprolol 50 b.i.d., Plavix 75 daily, Protonix 40 daily, Singulair 10 mg daily, methylprednisolone 30 mg IV q. 12 hours, Spiriva 18 mcg inhaler daily, Vantin 200 mg p.o. q. 12 hour, lisinopril 10 mg daily, azithromycin 500 mg IV daily, metoprolol 50 b.i.d. We will follow. Joaquin Recinos MD [facility] # [id number]
[2017-07-13] MEDS: Albuterol-Ipratrop 3 mg / 0.5 (3 ml) UD IH SCH ×4 (01:14→20:25)
[2017-07-13] MEDS: Cefpodoxime (Vantin) 200 mg Tab PO SCH ×2 (09:52→22:01)
[2017-07-13] MEDS: Tiotropium 18 mcg Cap For Inhalation IH SCH (09:53)
[2017-07-13] MEDS: Pantoprazole 40 mg EC Tab PO SCH (09:53)
[2017-07-13] MEDS: MethylPREDNISolone 40 mg Vial IVP SCH ×2 (09:53→22:00)
[2017-07-13] MEDS: Azithromycin 500MG/NS 250ml 500 MG/250 ML BAG IVPB SCH (10:00)
[2017-07-13] MEDS: VITAMIN B COMPLEX PO SCH (10:01)
--- NOTE | 2017-07-13 13:14 | PN ---
DATE: PULMONARY PROGRESS NOTE SUBJECTIVE: The patient is feeling much better. She is using oxygen at rest. She is comfortable. She is dyspneic only when exerting herself on ambulation. She states that she is markedly improved. She states that her "machine" is not working at home and she needs attention to this prior to discharge. PHYSICAL EXAMINATION GENERAL: She is comfortable, in no acute respiratory distress. VITAL SIGNS: Stable. She is afebrile. Heart rate is 76, respiratory rate is 16 to 18, blood pressure 130/70, oxygen saturation is 97%. HEENT: Normocephalic, atraumatic. NECK: No JVD. No lymphadenopathy. CARDIOVASCULAR: Regular rhythm, S1 and S2. Soft systolic ejection murmur is noted. LUNGS: Decreased breath sounds throughout, global rhonchi. No wheezing. Rales are noted at both bases. ABDOMEN: Soft. Bowel sounds are normoactive without mass, guarding, rebound, or organomegaly. EXTREMITIES: Reveal no clubbing, cyanosis or edema. There is no Melecio sign. SKIN: Warm and dry. No rash or excoriations. LYMPHADENOPATHY: Not present. NEUROLOGIC: No focal findings. The patient is awake, alert and oriented and is able to carry out full conversation without dyspnea. CLINICAL IMPRESSION 1. Status post respiratory failure. 2. Recurrent bronchitis. 3. Pulmonary fibrosis. 4. Chronic obstructive pulmonary disease. PLAN: Continue vigorous supportive care. The patient will require to continue bronchodilator. She will need to have Social Service involved regarding her home equipment before she is discharged. She believes that this may be a reason that she is coming back to the hospital so often. I am not aware of exactly what settings are being used. We will have Social Service evaluate this and defer to Dr. Malave on Saturday when he returns. Follow closely as necessary. Nav Jules MD
[2017-07-13] MEDS ORDERED: DiphenhydrAMINE 12.5 mg/5 ml LIQ UD (5 ml) PO ONE (22:46)
[2017-07-14] MEDS: Albuterol-Ipratrop 3 mg / 0.5 (3 ml) UD IH SCH ×4 (01:50→21:04)
[2017-07-14] MEDS: Azithromycin 500MG/NS 250ml 500 MG/250 ML BAG IVPB SCH (09:16)
[2017-07-14] MEDS: MethylPREDNISolone 40 mg Vial IVP SCH ×2 (09:17→21:55)
[2017-07-14] MEDS: Pantoprazole 40 mg EC Tab PO SCH (09:17)
[2017-07-14] MEDS: Tiotropium 18 mcg Cap For Inhalation IH SCH (09:17)
[2017-07-14] MEDS: Cefpodoxime (Vantin) 200 mg Tab PO SCH ×2 (09:17→21:57)
[2017-07-14] MEDS: VITAMIN B COMPLEX PO SCH (09:18)
[2017-07-15] MEDS: Albuterol-Ipratrop 3 mg / 0.5 (3 ml) UD IH SCH ×4 (01:44→21:05)
--- NOTE | 2017-07-15 07:19 | CP.PCM.PN ---
Subjective - Date & Time of Evaluation Date of Evaluation: 07/15/17 Time of Evaluation: 06:20 - Subjective Subjective: Seen and examined by me and Dr. Recinos Reason for consult and follow up:Acute exacerbation of chronic obstructive pulmonary disease for this admission. history of coronary artery disease, multiple stents, recent stent was 12/25/16 with stents on RPDA and RCA after a non STEMI. admitted for shortness of breath due to exacerbation of COPD, rule out congestive heart failure, history of pulmonary fibrosis, history of congestive heart failure,on home oxygen and CPAP. Subjective: denies chest pain or shortness of breath, lying in bed with CPAP on breathing with no distress. Objective - Vital Signs/Intake and Output Vital Signs (last 24 hours): Temp Pulse Resp BP Pulse Ox 98.2 F 71 18 119/49 L 96 07/14/17 14:30 07/15/17 01:46 07/14/17 14:30 07/14/17 21:55 07/14/17 14:30 Intake and Output: 07/15/17 07/15/17 06:59 18:59 Intake Total 1900 Balance 1900 - Medications Medications: Current Medications Acetaminophen (Tylenol 325mg Tab) 650 mg PO Q4H PRN PRN Reason: Fever >100.4 F Acetaminophen (Tylenol 325mg Tab) 650 mg PO Q4H PRN PRN Reason: Pain, Mild (1-3) Albuterol Sulfate (Albuterol 0.083% Inhal Karie (2.5 Mg/3 Ml) Ud) 2.5 mg IH Q8 PRN PRN Reason: Shortness of Breath Last Admin: 07/12/17 23:28 Dose: 2.5 mg Albuterol/Ipratropium (Duoneb 3 Mg/0.5 Mg (3 Ml) Ud) 3 ml IH [id number] [facility] Last Admin: 07/15/17 01:44 Dose: 3 ml Anastrozole (Arimidex 1 Mg Tab) 1 mg PO DAILY [facility] Last Admin: 07/14/17 09:16 Dose: 1 mg Aspirin (Aspirin Chewable) 81 mg PO DAILY [facility] Last Admin: 07/14/17 09:17 Dose: 81 mg Atorvastatin Calcium (Lipitor) 20 mg PO DIN [facility] Last Admin: 07/14/17 17:30 Dose: 20 mg Cefpodoxime Proxetil (Vantin) 200 mg PO Q12 [facility] Last Admin: 07/14/17 21:57 Dose: 200 mg Clopidogrel Bisulfate (Plavix) 75 mg PO DAILY [facility] Last Admin: 07/14/17 09:17 Dose: 75 mg Cyanocobalamin (Vitamin B12 1000 Mcg Tab) 1,000 mcg PO DAILY [facility] Last Admin: 07/14/17 09:17 Dose: 1,000 mcg Docusate Sodium (Colace Liquid) 50 mg PO DAILY PRN PRN Reason: Constipation Azithromycin (Zithromax 500mg In Ns) 500 mg in 250 mls @ 250 mls/hr IVPB DAILY [facility] Last Admin: 07/14/17 09:16 Dose: 250 mls/hr Lisinopril (Zestril) 10 mg PO DAILY [facility] Last Admin: 07/14/17 09:24 Dose: 10 mg Loratadine (Claritin) 10 mg PO DAILY PRN PRN Reason: Allergy symptoms Methylprednisolone (Solu-Medrol) 20 mg IVP Q12 [facility] Metoprolol Tartrate (Lopressor) 50 mg PO BID [facility] Last Admin: 07/14/17 17:30 Dose: 50 mg Montelukast Sodium (Singulair) 10 mg PO DAILY [facility] Last Admin: 07/14/17 09:17 Dose: 10 mg Non-Formulary Medication (Vitamin B Complex [B Complex]) 1 tab PO DAILY [facility] Last Admin: 07/14/17 09:18 Dose: Not Given Pantoprazole Sodium (Protonix Ec Tab) 40 mg PO DAILY [facility] Last Admin: 07/14/17 09:17 Dose: 40 mg Tiotropium Olga (Spiriva) 18 mcg IH DAILY [facility] Last Admin: 07/14/17 09:17 Dose: 18 mcg - Labs Labs: 07/12/17 06:30 07/12/17 06:30 PT 11.3 SECONDS (9.4-12.5) 07/09/17 13:40 INR 0.99 (0.93-1.08) 07/09/17 13:40 APTT 34.6 Seconds (25.1-36.5) 07/09/17 13:40 - Constitutional Appears: Well, No Acute Distress - Head Exam Head Exam: NORMAL INSPECTION, NORMOCEPHALIC - Eye Exam Eye Exam: Normal appearance Pupil Exam: NORMAL ACCOMODATION - Respiratory Exam Respiratory Exam: Decreased Breath Sounds, Clear to Ausculation Bilateral, NORMAL BREATHING PATTERN - Cardiovascular Exam Cardiovascular Exam: REGULAR RHYTHM, +S1, +S2 - GI/Abdominal Exam GI & Abdominal Exam: Soft, Normal Bowel Sounds - Extremities Exam Extremities Exam: Full ROM, Normal Capillary Refill - Neurological Exam Neurological Exam: Alert, Awake, Oriented x3 - Psychiatric Exam Psychiatric exam: Normal Affect, Normal Mood - Skin Skin Exam: Intact, Normal Color, Warm Assessment and Plan - Assessment and Plan (Free Text) Assessment: Impression: Acute exacerbation of chronic obstructive pulmonary disease for this admission. history of coronary artery disease, multiple stents, recent stent was 12/25/16 with stents on RPDA and RCA after a non STEMI. admitted for shortness of breath due to exacerbation of COPD, rule out congestive heart failure, history of pulmonary fibrosis, history of congestive heart failure,on home oxygen and CPAP. History of mastectomy Plan: Improved respiratory status Cardiac status stable, controlled blood pressure and heart rate.afebrile Continue ASA 81 mg daily, Lipitor 20 mg daily,Plavix 75 mg daily, Lasix 40 mg every 12 hours,Lisiprol 10 mg daily and Lopressor 50 mg BID Continue present treatment Will follow up Plan and treatment discussed with Dr. Recinos
--- NOTE | 2017-07-15 07:49 | PN ---
DATE: 07/14/2017 SUBJECTIVE: The patient is a 71-year-old female. The patient was seen and examined on 07/14/2017. Feeling little bit better, but last night event noted. She was dyspneic when she was just going to the bathroom. Ambulation is making her dyspneic. The patient states that she is markedly improved. Cough is better. Shortness of breath is better. No fever, no chills. No nausea, vomiting or diarrhea. No headache or dizziness. PHYSICAL EXAMINATION: VITAL SIGNS: Temperature 98.6, pulse 76, blood pressure 113/70, oxygenation 97%. HEENT: Head: Normocephalic, atraumatic. Eyes: PERRLA. Extraocular movements are intact. Conjunctivae clear. Nose patent. NECK: Supple. HEART: S1 and S2 positive. LUNGS: Decreased breath sounds throughout, global rhonchi. Wheezing is better. ABDOMEN: Soft. Bowel sounds are present. No organomegaly. EXTREMITIES: No edema. No cyanosis. NEUROLOGIC: The patient is awake and alert. Moving all four extremities. No focal deficits. MEDICATIONS: Reviewed by me. LABORATORY DATA: Reviewed by me. No recent labs. ASSESSMENT AND PLAN: Ms. Merna Mora is a 71-year-old lady with status post respiratory failure, bronchitis, pulmonary fibrosis, chronic obstructive lung disease, history of coronary artery disease, status post cardiac stenting, history of breast cancer, got chemotherapy. Continue supportive care. Starting bronchodilators. Tapering dose of steroids. Needs social work services to fix her home BiPAP machine. Saturday, we will talk to the social workers. Meanwhile, continue present treatment. Repeat labs. We will follow up. Stacey Del Rosario MD
--- NOTE | 2017-07-15 10:00 | PN ---
DATE: 07/13/2017 Patient is a 71-year-old female. SUBJECTIVE: Patient is seen and examined at the bedside, looking comfortable. No nausea, vomiting or diarrhea. No hematuria or hematochezia. No swelling of the legs. No chest pain or palpitation. No headache or dizziness. No fever, no chills. Cough is better. Shortness of breath is better. PHYSICAL EXAMINATION: VITAL SIGNS: Temperature 98.6 , blood pressure 130/70, oxygen saturation 97%, respiratory rate 18, pulse 76. HEENT: Head is normocephalic and atraumatic. Eyes, PERRLA. Extraocular muscles intact. Conjunctivae clear. Nose patent. Mucous membranes moist. NECK: Supple. No carotid bruits. No JVD or thyromegaly. LUNGS: Decreased breath sounds throughout the lu[place] ngs rhonchi, no wheezing noted HEART: S1, S2 positive. ABDOMEN: Soft. Bowel sounds present. No organomegaly. EXTREMITIES: No edema. No cyanosis. NEUROLOGIC: Patient is awake, alert. Moving all 4 extremities. No focal deficit. LABORATORY DATA: We do not have recent lab today, but I reviewed old labs bs 142, 145. MEDICATIONS: Albuterol, Arimidex, aspirin, Claritin, Colace, DuoNeb, Lasix, Lipitor, Lopressor, Plavix, Protonix, Singulair, Solu-Medrol, Spiriva, Tylenol, Vantin, vitamin B12. ASSESSMENT AND PLAN: a 71-year-old lady with hyperchloremia, diabetes mellitus, hyperphosphatemia, hypermagnesemia, leukocytosis, anemia, came with respiratory failure, recurrent bronchitis, pulmonary fibrosis, chronic obstructive pulmonary disease, history of coronary artery disease, congestive heart failure. Continue with supportive care. Does need bronchodilators. Social workers are on that case. Getting dyspneic as she was going to bathroom, deconditioned. Getting physical therapy. Stripping doses of Solu-Medrol. She met Dr. Recinos today. According to him patient has history of multiple stents in 2007, 2008 and 2011, most recent was 12/25/2016. Two stents put in the right posterior descending artery and right coronary artery. Detailed cardiac catheterization are described. Last echo done on 12/22/2016 showed ejection fraction . pulmonary fibrosis, pulmonary hypertension, right ventricle systolic pressure reported as 58 mmHg. Left ventricle ejection fraction was 62.4. Hypertension, home oxygen dependency. Continue positive airway pressure. Repeat labs. We will follow up. Stacey Del Rosario MD [facility]
--- NOTE | 2017-07-15 10:11 | PN ---
DATE: 07/12/2017 SUBJECTIVE: Patient is a 71-year-old female. Patient is examined at the bedside. She looks comfortable, but according to her, when she goes to the bathroom, she is getting shortness of breath and oxygenation is dropping. No nausea, vomiting, diarrhea. No hematuria or hematochezia. No swelling of the legs. No chest pain. No palpitation. No headache. No dizziness. PHYSICAL EXAMINATION: VITAL SIGNS: Temperature 98.7, pulse 72, respiratory rate is 18, blood pressure 129/70. HEENT: Head: Normocephalic, atraumatic. Eyes: PERRLA. Extraocular muscles intact. Conjunctivae clear. Nose, patent. Mucous membrane moist. NECK: Supple. No carotid bruit. No JVD or thyromegaly. CHEST: Bilaterally symmetrical. HEART: S1 and S2 positive. LUNGS: Chronic crackles at both lung bases. Less rhonchi. No wheezing today. ABDOMEN: Soft. Bowel sounds present. No organomegaly. EXTREMITIES: Trace edema. No cyanosis. No clubbing. Calves are nontender to palpation. NEUROLOGIC: Patient is awake, alert. Moving all 4 extremities. No focal deficit. MEDICATIONS: Albuterol, Arimidex, aspirin, Claritin, Colace, Lasix, Lipitor, Lopressor, Plavix, Protonix, Singulair, Solu-Medrol, Spiriva, Tylenol, Vantin, Restoril, azithromycin. LABORATORY DATA: White blood cell is 11.1, hemoglobin 10.6, hematocrit 35.3, platelets 239. Sodium 142, potassium 4.1, BUN 44, creatinine 1.1, glucose 124. ASSESSMENT AND PLAN: a 71-year-old lady with leukocytosis, anemia, hyperchloremia, hyperglycemia, hyperphosphatemia, hypermagnesemia, iron deficiency, came with respiratory failure, recurrent bronchitis, advanced pulmonary fibrosis, advanced chronic obstructive pulmonary disease, coronary artery disease. Patient is improving, but very slowly, getting the shortness of breath and dyspnea and oxygenation dropping when even she is going to the bathroom, but feeling much better overall. Getting nebulizer treatment. Out of bed physical therapy. Gastrointestinal and deep venous thrombosis prophylaxis. Repeat lab. We will follow up. Stacey Del Rosario MD [facility] # [id number] [facility]
[2017-07-15] MEDS: VITAMIN B COMPLEX PO SCH (10:22)
[2017-07-15] MEDS: Cefpodoxime (Vantin) 200 mg Tab PO SCH ×2 (10:22→21:28)
[2017-07-15] MEDS: Azithromycin 500MG/NS 250ml 500 MG/250 ML BAG IVPB SCH (10:23)
[2017-07-15] MEDS: Pantoprazole 40 mg EC Tab PO SCH (10:24)
[2017-07-15] MEDS: MethylPREDNISolone 40 mg Vial IVP SCH ×2 (10:24→21:31)
[2017-07-15] MEDS: Tiotropium 18 mcg Cap For Inhalation IH SCH (10:26)
--- NOTE | 2017-07-15 10:55 | PN ---
DATE: 07/15/2017 PULMONARY NOTE SUBJECTIVE: The patient appears very comfortable this morning. She is not short of breath at rest. PHYSICAL EXAMINATION: VITAL SIGNS: (Last noted in the computer): Temperature is 98.2, pulse is 71, respirations 18, blood pressure 119/49. Oxygen saturation on nasal cannula is 96%. HEENT: Normocephalic, atraumatic. No JVD. CARDIOVASCULAR: Systolic ejection murmur at the lower left sternal border. No S3 gallop. LUNGS: Chronic crackles at both lower lobes. No rhonchi or wheezing this morning. EXTREMITIES: Mild edema. No cyanosis. No clubbing. Calves are nontender to palpation. GI: Abdomen is soft, nontender and nondistended. Bowel sounds are positive. SKIN: No acute rash. NEUROLOGIC: Limited at the present time. IMPRESSION: 1. Respiratory failure. 2. Recurrent bronchitis. 3. Advanced pulmonary fibrosis. 4. Advanced chronic obstructive pulmonary disease. 5. Coronary artery disease. 6. Mild anemia. PLAN: The patient appears very comfortable this morning. She is not short of breath at rest. She does state to feeling much, much better overall. On physical exam, there is certainly less bronchospasm noted. In addition, there is less alveolar-arterial gradient. I will continue with the current nebulizer treatments and low-dose intravenous steroids (decreased earlier today) for now. Hopefully, we can change to oral therapy in the next 24-48 hours. The patient remains on antibiotic therapy. There are no temperatures noted. Clinical status of the patient is significantly improved - compared to the initial presentation. However, again, the overall status/prognosis for this patient remains very guarded at best/poor. I will discuss the above with the attending physician. Missael Malave MD [facility]
--- NOTE | 2017-07-15 15:52 | CP.PCM.DIS ---
<Mony Sharp - Last Filed: 07/15/17 15:46> Provider - Provider Date of Admission: 07/09/17 15:15 Attending physician: Stacey Del Rosario MD Consults: Pulmo - Dr. Jules Hemo/Onc - Dr. Malave Cardio - Dr. Recinos Time Spent in preparation of Discharge (in minutes): 55 Diagnosis - Discharge Diagnosis (1) Anemia, pernicious Status: Acute (2) Leukocytosis Status: Acute (3) Sleep apnea Status: Acute (4) COPD exacerbation Status: Acute (5) Hypercarbia Status: Acute (6) Pulmonary fibrosis Status: Acute (7) Respiratory distress Status: Acute (8) Respiratory failure Status: Acute Hospital Course - Lab Results Lab Results: Most Recent Lab Values WBC 11.1 10^3/ul (4.5-11.0) H D 07/12/17 06:30 RBC 3.74 10^6/uL (3.5-6.1) 07/12/17 06:30 Hgb 10.6 g/dL (12.0-16.0) L 07/12/17 06:30 Hct 35.3 % (36.0-48.0) L 07/12/17 06:30 MCV 94.4 fl (80.0-105.0) 07/12/17 06:30 MCH 28.3 pg (25.0-35.0) 07/12/17 06:30 MCHC 30.0 g/dl (31.0-37.0) L 07/12/17 06:30 RDW 13.7 % (11.5-14.5) 07/12/17 06:30 Plt Count 239 10^3/uL (120.0-450.0) 07/12/17 06:30 MPV 10.5 fl (7.0-11.0) 07/12/17 06:30 Gran % 91.6 % (50.0-68.0) H 07/11/17 05:20 Lymph % (Auto) 6.8 % (22.0-35.0) L 07/11/17 05:20 [place] % (Auto) 1.6 % (1.0-6.0) 07/11/17 05:20 Eos % (Auto) 0.0 % (1.5-5.0) L 07/11/17 05:20 Baso % (Auto) 0.0 % (0.0-3.0) 07/11/17 05:20 Gran # 13.02 (1.4-6.5) H 07/11/17 05:20 Lymph # (Auto) 1.0 (1.2-3.4) L 07/11/17 05:20 [place] # (Auto) 0.2 (0.1-0.6) 07/11/17 05:20 Eos # (Auto) 0.0 (0.0-0.7) 07/11/17 05:20 Baso # (Auto) 0.00 K/mm3 (0.0-2.0) 07/11/17 05:20 Neutrophils % (Manual) 80 % (50.0-70.0) H 07/11/17 05:20 Band Neutrophils % 5 % (0-2) H 07/11/17 05:20 Lymphocytes % (Manual) 12 % (22.0-35.0) L 07/11/17 05:20 Monocytes % (Manual) 3 % (1.0-6.0) 07/11/17 05:20 Platelet Evaluation Normal (NORMAL) 07/11/17 05:20 PT 11.3 SECONDS (9.4-12.5) 07/09/17 13:40 INR 0.99 (0.93-1.08) 07/09/17 13:40 APTT 34.6 Seconds (25.1-36.5) 07/09/17 13:40 pCO2 73 mm/Hg (35-45) H* 07/10/17 06:37 pO2 50.0 mm/Hg (80-100) L 07/10/17 06:37 HCO3 44.2 mmol/L (21-28) H* 07/10/17 06:37 ABG pH 7.39 (7.35-7.45) 07/10/17 06:37 ABG Total CO2 46.4 mmol.L (22-28) H 07/10/17 06:37 ABG O2 Saturation 88.7 % (95-98) L 07/10/17 06:37 ABG O2 Content 14.9 ML/dl (15-23) L 07/10/17 06:37 ABG Base Excess 15.9 mmol/L (-2.0-3.0) H 07/10/17 06:37 ABG Hemoglobin 12.1 g/dL (11.7-17.4) 07/10/17 06:37 ABG Carboxyhemoglobin 0.7 % (0.5-1.5) 07/10/17 06:37 POC ABG HHb (Measured) 11.2 % (0-5) H 07/10/17 06:37 ABG Methemoglobin 0.4 % (0.0-3.0) 07/10/17 06:37 ABG O2 Capacity 16.8 mL/dl (16-24) 07/10/17 06:37 VBG pH 7.24 (7.32-7.43) L 07/09/17 13:40 VBG pCO2 102.0 (40-60) H* 07/09/17 13:40 VBG HCO3 43.7 mmol/l (21-28) H 07/09/17 13:40 VBG Total CO2 46.8 mmol.L (22-28) H 07/09/17 13:40 VBG O2 Sat (Calc) 82.0 % (40-65) H 07/09/17 13:40 VBG Base Excess 11.8 mmol/L (0.0-2.0) H 07/09/17 13:40 VBG Potassium 4.8 mmol/L (3.6-5.2) 07/09/17 13:40 Hgb O2 Saturation 87.7 % (95.0-98.0) L 07/10/17 06:37 Sodium 140.0 mmol/L (132-148) 07/09/17 13:40 Chloride 102.0 mmol/L (98-107) 07/09/17 13:40 Glucose 99 mg/dl (65-105) 07/09/17 13:40 Lactate 1.0 mmol/L (0.7-2.1) 07/09/17 13:40 FiO2 32.0 % 07/10/17 06:37 Sodium 142 mmol/L (132-148) 07/12/17 06:30 Potassium 4.1 mmol/L (3.6-5.0) 07/12/17 06:30 Chloride 89 mmol/L (98-107) L 07/12/17 06:30 Carbon Dioxide 45 mmol/L (21-33) H 07/12/17 06:30 Anion Gap 12 (10-20) 07/12/17 06:30 BUN 44 mg/dL (7-21) H 07/12/17 06:30 Creatinine 1.1 mg/dl (0.7-1.2) 07/12/17 06:30 Est GFR ( Amer) 59 07/12/17 06:30 Est GFR (Non-Af Amer) 49 07/12/17 06:30 POC Glucose (mg/dL) 120 mg/dL (65-110) H 07/15/17 11:44 Random Glucose 124 mg/dL (70-110) H 07/12/17 06:30 Hemoglobin A1c 5.9 % (4.2-6.5) 07/13/17 06:30 Calcium 9.0 mg/dL (8.4-10.5) 07/12/17 06:30 Phosphorus 4.7 mg/dL (2.5-4.5) H 07/11/17 05:20 Magnesium 2.5 mg/dL (1.7-2.2) H 07/11/17 05:20 Iron 41 ug/dL (45-180) L 07/09/17 13:40 TIBC 312 ug/dL (265-497) 07/09/17 13:40 % Saturation 13 % (20-55) L 07/09/17 13:40 Total Bilirubin 0.2 mg/dL (0.2-1.3) 07/11/17 05:20 AST 30 U/L (14-36) 07/11/17 05:20 ALT 23 U/L (7-56) 07/11/17 05:20 Alkaline Phosphatase 96 U/L (38-126) 07/11/17 05:20 Lactate Dehydrogenase 590 U/L (333-699) 07/10/17 06:00 Total Creatine Kinase 26 U/L (35-230) L 07/10/17 06:00 Troponin I < 0.01 ng/mL 07/10/17 06:00 NT-Pro-B Natriuret Pep 1010 pg/mL (0-450) H 07/09/17 13:40 Total Protein 7.9 g/dL (5.8-8.3) 07/11/17 05:20 Albumin 3.7 g/dL (3.0-4.8) 07/11/17 05:20 Globulin 4.1 gm/dL 07/11/17 05:20 Albumin/Globulin Ratio 0.9 (1.1-1.8) L 07/11/17 05:20 Triglycerides 111 mg/dL (35-160) 07/09/17 13:40 Cholesterol 135 mg/dL (130-200) 07/09/17 13:40 LDL Cholesterol Direct 75 mg/dL (0-129) 07/09/17 13:40 HDL Cholesterol 36 mg/dL (29-60) 07/09/17 13:40 Vitamin B12 511 pg/mL (239-931) 07/09/17 13:40 Folate > 20.0 ng/mL 07/09/17 13:40 TSH 3rd Generation 0.50 mIU/mL (0.46-4.68) 07/10/17 06:00 Venous Blood Potassium 4.8 mmol/L (3.6-5.2) 07/09/17 13:40 Urine Color Straw (YELLOW) 07/09/17 13:40 Urine Appearance Clear (CLEAR) 07/09/17 13:40 Urine pH 6.5 (4.7-8.0) 07/09/17 13:40 Ur Specific [place] 1.010 (1.005-1.035) 07/09/17 13:40 Urine Protein Negative mg/dL (<30 mg/dL) 07/09/17 13:40 Urine Glucose (UA) Negative mg/dL (NEGATIVE) 07/09/17 13:40 Urine Ketones Negative mg/dL (NEGATIVE) 07/09/17 13:40 Urine Blood Negative (NEGATIVE) 07/09/17 13:40 Urine Nitrate Negative (NEGATIVE) 07/09/17 13:40 Urine Bilirubin Negative (NEGATIVE) 07/09/17 13:40 Urine Urobilinogen 0.2 E.U./dL (<1 E.U./dL) 07/09/17 13:40 Ur Leukocyte Esterase Negative Humberto/uL (NEGATIVE) 07/09/17 13:40 Influenza Typ A,B (EIA) Negative for flu a/b (NEGATIVE) 07/09/17 16:25 - Hospital Course Hospital Course: 71 yr female w/ history of COPD, HTN, CHF, pulmonary fibrosis, bronchiectasis, ALS, DVT, Breast CA (treated in 2008, s/p chemo & radiation), R mastectomy, CAD w. stents x3, cholystectomy, & umbilical repair. Pt was admitted to [facility] on 07/09 for hypercarbia, COPD exacerbation, pulmonary fibrosis, & respiratory distress. Pt was treated for respiratory failure & recurrent bronchitis. Pt has been treated with IV solumedryl and IV azithromycin. Cleared by cardio Dr. Recinos. Pt has been cleared for discharge by vector control assistant Dr. Jules with orders for executive secretary social welfare to evaluate the status and function of her bipap. For any further home device instructions, recommend to follow up concerns with Dr. Malave. Per Dr. Malave clinical status of pt has improved. Reviewed: ECG = 07/12 NO CHANGE, NSR, possible L atrial enlargement, ST elevation consider early repolarization, pericarditis, injury, PRWP, RVCD, LAD ECG = 07/09 NSR, possible L atrial enlargement, PRWP, RVCD, LAD CXR = chronic bilateral lower lobe infiltrates consistent with pulmonary fibrosis - Date & Time of H&P Date of H&P: 07/15/17 Time of H&P: 11:30 Discharge Exam - Head Exam Head Exam: NORMAL INSPECTION, NORMOCEPHALIC - Eye Exam Eye Exam: EOMI, Normal appearance, PERRL Pupil Exam: NORMAL ACCOMODATION, PERRL - ENT Exam ENT Exam: Mucous Membranes Moist - Neck Exam Neck exam: Full Rom - Respiratory Exam Respiratory Exam: NORMAL BREATHING PATTERN, UNREMARKABLE - Cardiovascular Exam Cardiovascular Exam: +S1, +S2 - GI/Abdominal Exam GI & Abdominal Exam: Normal Bowel Sounds, Unremarkable - Extremities Exam Extremities exam: normal inspection - Back Exam Back exam: NORMAL INSPECTION - Neurological Exam Neurological exam: Alert, Normal Gait, Oriented x3 - Psychiatric Exam Psychiatric exam: Normal Affect, Normal Mood - Skin Skin Exam: Intact, Normal Color, Warm Discharge Plan - Discharge Medications Prescriptions: Albuterol 0.083% [Albuterol 0.083% Inhal Karie (2.5 mg/3 ml) UD] 3 ml IH Q8 PRN # 30 neb PRN Reason: Shortness Of Breath Albuterol Sulfate [Proair Hfa] 2 puff IH AMHS #2 inh Anastrozole [Arimidex] 1 mg PO DAILY #30 tablet Aspirin [Aspirin Chewable] 81 mg PO DAILY #0 chew Atorvastatin Calcium 20 mg PO DIALW #30 tablet Celecoxib [Celebrex] 200 mg PO DAILY #30 capsule Clopidogrel [Plavix] 75 mg PO DAILY #30 tab Cyanocobalamin [Vitamin B12 1000 mcg Tab] 1 tab PO DAILY #30 tab hydroCHLOROthiazide [Hydrodiuril] 12.5 mg PO DAILY #30 tab Lisinopril [Zestril] 10 mg PO DAILY #60 tablet Metoprolol Tartrate [Lopressor] 50 mg PO BID #60 tablet Montelukast Sodium [Singulair] 10 mg PO DAILY #30 tablet Prednisone [Deltasone] 30 mg PO DAILY #3 tablet predniSONE [Prednisone] 10 mg PO DAILY #3 tab predniSONE [predniSONE Tab] 20 mg PO DAILY 3 Days #3 tab predniSONE [predniSONE Tab] 5 mg PO DAILY #3 tab Tiotropium [Spiriva] 18 mcg IH DAILY #30 cap Vitamin B Complex [B Complex] 1 tab PO DAILY #30 tablet - Follow Up Plan Condition: GUARDED Disposition: HOME/ ROUTINE Instructions: Heart Failure, Adult (DC), Shortness of Breath (Dyspnea) (DC), Oxygen Therapy, Adult (DC), Exacerbation of COPD, Inhalers, Medicines for Chronic Obstructive Pulmonary Disease (COPD), How to Use a CPAP or BPAP Machine Referrals: Stacey Del Rosario MD [Family Provider] - <Stacey Del Rosario - Last Filed: 07/15/17 22:55> Provider - Provider Date of Admission: 07/09/17 15:15 Attending physician: Stacey Del Rosario MD Hospital Course - Lab Results Lab Results: Most Recent Lab Values WBC 11.1 10^3/ul (4.5-11.0) H D 07/12/17 06:30 RBC 3.74 10^6/uL (3.5-6.1) 07/12/17 06:30 Hgb 10.6 g/dL (12.0-16.0) L 07/12/17 06:30 Hct 35.3 % (36.0-48.0) L 07/12/17 06:30 MCV 94.4 fl (80.0-105.0) 07/12/17 06:30 MCH 28.3 pg (25.0-35.0) 07/12/17 06:30 MCHC 30.0 g/dl (31.0-37.0) L 07/12/17 06:30 RDW 13.7 % (11.5-14.5) 07/12/17 06:30 Plt Count 239 10^3/uL (120.0-450.0) 07/12/17 06:30 MPV 10.5 fl (7.0-11.0) 07/12/17 06:30 Gran % 91.6 % (50.0-68.0) H 07/11/17 05:20 Lymph % (Auto) 6.8 % (22.0-35.0) L 07/11/17 05:20 [place] % (Auto) 1.6 % (1.0-6.0) 07/11/17 05:20 Eos % (Auto) 0.0 % (1.5-5.0) L 07/11/17 05:20 Baso % (Auto) 0.0 % (0.0-3.0) 07/11/17 05:20 Gran # 13.02 (1.4-6.5) H 07/11/17 05:20 Lymph # (Auto) 1.0 (1.2-3.4) L 07/11/17 05:20 [place] # (Auto) 0.2 (0.1-0.6) 07/11/17 05:20 Eos # (Auto) 0.0 (0.0-0.7) 07/11/17 05:20 Baso # (Auto) 0.00 K/mm3 (0.0-2.0) 07/11/17 05:20 Neutrophils % (Manual) 80 % (50.0-70.0) H 07/11/17 05:20 Band Neutrophils % 5 % (0-2) H 07/11/17 05:20 Lymphocytes % (Manual) 12 % (22.0-35.0) L 07/11/17 05:20 Monocytes % (Manual) 3 % (1.0-6.0) 07/11/17 05:20 Platelet Evaluation Normal (NORMAL) 07/11/17 05:20 PT 11.3 SECONDS (9.4-12.5) 07/09/17 13:40 INR 0.99 (0.93-1.08) 07/09/17 13:40 APTT 34.6 Seconds (25.1-36.5) 07/09/17 13:40 pCO2 73 mm/Hg (35-45) H* 07/10/17 06:37 pO2 50.0 mm/Hg (80-100) L 07/10/17 06:37 HCO3 44.2 mmol/L (21-28) H* 07/10/17 06:37 ABG pH 7.39 (7.35-7.45) 07/10/17 06:37 ABG Total CO2 46.4 mmol.L (22-28) H 07/10/17 06:37 ABG O2 Saturation 88.7 % (95-98) L 07/10/17 06:37 ABG O2 Content 14.9 ML/dl (15-23) L 07/10/17 06:37 ABG Base Excess 15.9 mmol/L (-2.0-3.0) H 07/10/17 06:37 ABG Hemoglobin 12.1 g/dL (11.7-17.4) 07/10/17 06:37 ABG Carboxyhemoglobin 0.7 % (0.5-1.5) 07/10/17 06:37 POC ABG HHb (Measured) 11.2 % (0-5) H 07/10/17 06:37 ABG Methemoglobin 0.4 % (0.0-3.0) 07/10/17 06:37 ABG O2 Capacity 16.8 mL/dl (16-24) 07/10/17 06:37 VBG pH 7.24 (7.32-7.43) L 07/09/17 13:40 VBG pCO2 102.0 (40-60) H* 07/09/17 13:40 VBG HCO3 43.7 mmol/l (21-28) H 07/09/17 13:40 VBG Total CO2 46.8 mmol.L (22-28) H 07/09/17 13:40 VBG O2 Sat (Calc) 82.0 % (40-65) H 07/09/17 13:40 VBG Base Excess 11.8 mmol/L (0.0-2.0) H 07/09/17 13:40 VBG Potassium 4.8 mmol/L (3.6-5.2) 07/09/17 13:40 Hgb O2 Saturation 87.7 % (95.0-98.0) L 07/10/17 06:37 Sodium 140.0 mmol/L (132-148) 07/09/17 13:40 Chloride 102.0 mmol/L (98-107) 07/09/17 13:40 Glucose 99 mg/dl (65-105) 07/09/17 13:40 Lactate 1.0 mmol/L (0.7-2.1) 07/09/17 13:40 FiO2 32.0 % 07/10/17 06:37 Sodium 142 mmol/L (132-148) 07/12/17 06:30 Potassium 4.1 mmol/L (3.6-5.0) 07/12/17 06:30 Chloride 89 mmol/L (98-107) L 07/12/17 06:30 Carbon Dioxide 45 mmol/L (21-33) H 07/12/17 06:30 Anion Gap 12 (10-20) 07/12/17 06:30 BUN 44 mg/dL (7-21) H 07/12/17 06:30 Creatinine 1.1 mg/dl (0.7-1.2) 07/12/17 06:30 Est GFR ( Amer) 59 07/12/17 06:30 Est GFR (Non-Af Amer) 49 07/12/17 06:30 POC Glucose (mg/dL) 121 mg/dL (65-110) H 07/15/17 21:39 Random Glucose 124 mg/dL (70-110) H 07/12/17 06:30 Hemoglobin A1c 5.9 % (4.2-6.5) 07/13/17 06:30 Calcium 9.0 mg/dL (8.4-10.5) 07/12/17 06:30 Phosphorus 4.7 mg/dL (2.5-4.5) H 07/11/17 05:20 Magnesium 2.5 mg/dL (1.7-2.2) H 07/11/17 05:20 Iron 41 ug/dL (45-180) L 07/09/17 13:40 TIBC 312 ug/dL (265-497) 07/09/17 13:40 % Saturation 13 % (20-55) L 07/09/17 13:40 Total Bilirubin 0.2 mg/dL (0.2-1.3) 07/11/17 05:20 AST 30 U/L (14-36) 07/11/17 05:20 ALT 23 U/L (7-56) 07/11/17 05:20 Alkaline Phosphatase 96 U/L (38-126) 07/11/17 05:20 Lactate Dehydrogenase 590 U/L (333-699) 07/10/17 06:00 Total Creatine Kinase 26 U/L (35-230) L 07/10/17 06:00 Troponin I < 0.01 ng/mL 07/10/17 06:00 NT-Pro-B Natriuret Pep 1010 pg/mL (0-450) H 07/09/17 13:40 Total Protein 7.9 g/dL (5.8-8.3) 07/11/17 05:20 Albumin 3.7 g/dL (3.0-4.8) 07/11/17 05:20 Globulin 4.1 gm/dL 07/11/17 05:20 Albumin/Globulin Ratio 0.9 (1.1-1.8) L 07/11/17 05:20 Triglycerides 111 mg/dL (35-160) 07/09/17 13:40 Cholesterol 135 mg/dL (130-200) 07/09/17 13:40 LDL Cholesterol Direct 75 mg/dL (0-129) 07/09/17 13:40 HDL Cholesterol 36 mg/dL (29-60) 07/09/17 13:40 Vitamin B12 511 pg/mL (239-931) 07/09/17 13:40 Folate > 20.0 ng/mL 07/09/17 13:40 TSH 3rd Generation 0.50 mIU/mL (0.46-4.68) 07/10/17 06:00 Venous Blood Potassium 4.8 mmol/L (3.6-5.2) 07/09/17 13:40 Urine Color Straw (YELLOW) 07/09/17 13:40 Urine Appearance Clear (CLEAR) 07/09/17 13:40 Urine pH 6.5 (4.7-8.0) 07/09/17 13:40 Ur Specific [place] 1.010 (1.005-1.035) 07/09/17 13:40 Urine Protein Negative mg/dL (<30 mg/dL) 07/09/17 13:40 Urine Glucose (UA) Negative mg/dL (NEGATIVE) 07/09/17 13:40 Urine Ketones Negative mg/dL (NEGATIVE) 07/09/17 13:40 Urine Blood Negative (NEGATIVE) 07/09/17 13:40 Urine Nitrate Negative (NEGATIVE) 07/09/17 13:40 Urine Bilirubin Negative (NEGATIVE) 07/09/17 13:40 Urine Urobilinogen 0.2 E.U./dL (<1 E.U./dL) 07/09/17 13:40 Ur Leukocyte Esterase Negative Humberto/uL (NEGATIVE) 07/09/17 13:40 Influenza Typ A,B (EIA) Negative for flu a/b (NEGATIVE) 07/09/17 16:25 - Hospital Course Hospital Course: pt is seen and examined at bed side , agreed all above d/d with SERVICE OFFICER . chart meds and labs noted . will f/u but due to different problems pt was not able to go bome , will dc am
[2017-07-15 16:30] VITALS: O2SAT 97
[2017-07-16 06:59] LABS: HEMOGLOBIN 10.4 g/dL (12.0-16.0); MEAN CELL VOLUME 92.9 fl (80.0-105.0); MEAN CORPUSCULAR HEMOGLOBIN 27.5 pg (25.0-35.0); MEAN CORPUSCULAR HGB CONC 29.6 g/dl (31.0-37.0); RBC 3.78 10^6/uL (3.5-6.1); RED CELL DISTRIBUTION WIDTH 13.5 % (11.5-14.5); WHITE BLOOD COUNT 11.7 10^3/ul (4.5-11.0)
[2017-07-16] MEDS: Albuterol-Ipratrop 3 mg / 0.5 (3 ml) UD IH SCH ×2 (07:16→13:45)
--- NOTE | 2017-07-16 07:23 | CP.PCM.PN ---
Subjective - Date & Time of Evaluation Date of Evaluation: 07/16/17 Time of Evaluation: 06:05 - Subjective Subjective: Seen and examined by me and Dr. Frankel Reason for consult and follow up:Acute exacerbation of chronic obstructive pulmonary disease for this admission. history of coronary artery disease, multiple stents, recent stent was 12/25/16 with stents on RPDA and RCA after a non STEMI. admitted for shortness of breath due to exacerbation of COPD, rule out congestive heart failure, history of pulmonary fibrosis, history of congestive heart failure,on home oxygen and CPAP. Subjective: lying in bed with CPAP on, breathing with no distress, denies chest pain or shortness of breath Objective - Vital Signs/Intake and Output Vital Signs (last 24 hours): Temp Pulse Resp BP Pulse Ox 98.3 F 76 18 123/68 97 07/15/17 14:00 07/15/17 23:00 07/15/17 14:00 07/15/17 17:18 07/15/17 14:00 Intake and Output: 07/16/17 07/16/17 06:59 18:59 Intake Total 240 Balance 240 - Medications Medications: Current Medications Acetaminophen (Tylenol 325mg Tab) 650 mg PO Q4H PRN PRN Reason: Fever >100.4 F Acetaminophen (Tylenol 325mg Tab) 650 mg PO Q4H PRN PRN Reason: Pain, Mild (1-3) Albuterol Sulfate (Albuterol 0.083% Inhal Karie (2.5 Mg/3 Ml) Ud) 2.5 mg IH Q8 PRN PRN Reason: Shortness of Breath Last Admin: 07/12/17 23:28 Dose: 2.5 mg Albuterol/Ipratropium (Duoneb 3 Mg/0.5 Mg (3 Ml) Ud) 3 ml IH [id number] [facility] Last Admin: 07/16/17 07:16 Dose: 3 ml Anastrozole (Arimidex 1 Mg Tab) 1 mg PO DAILY [facility] Last Admin: 07/15/17 11:30 Dose: 1 mg Aspirin (Aspirin Chewable) 81 mg PO DAILY [facility] Last Admin: 07/15/17 10:26 Dose: 81 mg Atorvastatin Calcium (Lipitor) 20 mg PO DIN [facility] Last Admin: 07/15/17 17:18 Dose: 20 mg Cefpodoxime Proxetil (Vantin) 200 mg PO Q12 [facility] Last Admin: 07/15/17 21:28 Dose: 200 mg Clopidogrel Bisulfate (Plavix) 75 mg PO DAILY [facility] Last Admin: 07/15/17 10:24 Dose: 75 mg Cyanocobalamin (Vitamin B12 1000 Mcg Tab) 1,000 mcg PO DAILY [facility] Last Admin: 07/15/17 10:22 Dose: 1,000 mcg Docusate Sodium (Colace Liquid) 50 mg PO DAILY PRN PRN Reason: Constipation Azithromycin (Zithromax 500mg In Ns) 500 mg in 250 mls @ 250 mls/hr IVPB DAILY [facility] Last Admin: 07/15/17 10:23 Dose: 250 mls/hr Lisinopril (Zestril) 10 mg PO DAILY [facility] Last Admin: 07/15/17 10:22 Dose: Not Given Loratadine (Claritin) 10 mg PO DAILY PRN PRN Reason: Allergy symptoms Methylprednisolone (Solu-Medrol) 20 mg IVP Q12 [facility] Last Admin: 07/15/17 21:31 Dose: Not Given Metoprolol Tartrate (Lopressor) 50 mg PO BID [facility] Last Admin: 07/15/17 17:18 Dose: 50 mg Montelukast Sodium (Singulair) 10 mg PO DAILY [facility] Last Admin: 07/15/17 10:24 Dose: 10 mg Non-Formulary Medication (Vitamin B Complex [B Complex]) 1 tab PO DAILY [facility] Last Admin: 07/15/17 10:22 Dose: Not Given Pantoprazole Sodium (Protonix Ec Tab) 40 mg PO DAILY [facility] Last Admin: 07/15/17 10:24 Dose: 40 mg Tiotropium [place] (Spiriva) 18 mcg IH DAILY [facility] Last Admin: 07/15/17 10:26 Dose: 18 mcg - Labs Labs: 07/16/17 06:15 07/12/17 06:30 PT 11.3 SECONDS (9.4-12.5) 07/09/17 13:40 INR 0.99 (0.93-1.08) 07/09/17 13:40 APTT 34.6 Seconds (25.1-36.5) 07/09/17 13:40 - Constitutional Appears: Well, No Acute Distress - Head Exam Head Exam: NORMAL INSPECTION - ENT Exam ENT Exam: Mucous Membranes Moist - Respiratory Exam Respiratory Exam: Clear to Ausculation Bilateral, NORMAL BREATHING PATTERN Additional comments: on CPAP machine - Cardiovascular Exam Cardiovascular Exam: +S1, +S2 Additional comments: no JVD - GI/Abdominal Exam GI & Abdominal Exam: Soft, Normal Bowel Sounds - Extremities Exam Extremities Exam: Normal Capillary Refill - Neurological Exam Neurological Exam: Alert, Awake, Oriented x3 - Psychiatric Exam Psychiatric exam: Normal Affect, Normal Mood - Skin Skin Exam: Dry, Intact, Normal Color, Warm Assessment and Plan - Assessment and Plan (Free Text) Assessment: IMPRESSION: Acute exacerbation of chronic obstructive pulmonary disease for this admission. history of coronary artery disease, multiple stents, recent stent was 12/25/16 with stents on RPDA and RCA after a non STEMI. admitted for shortness of breath due to exacerbation of COPD, rule out congestive heart failure, history of pulmonary fibrosis, history of congestive heart failure,on home oxygen and CPAP. Plan: Status improved over all, doing well Cardiac status stable, controlled BP and heart rate Continue current medications Possible discharge today May follow up out patient in 1-2 weeks Plan and treatment discussed with Dr. Frankel
[2017-07-16 07:52] LABS: BLOOD UREA NITROGEN 42 mg/dL (7-21); CALCIUM 9.4 mg/dL (8.4-10.5); GFR AFRICAN-AMERICAN > 60; GFR NON-AFRICAN AMERICAN > 60
--- NOTE | 2017-07-16 08:22 | PN ---
DATE: 07/16/2017 PULMONARY NOTE SUBJECTIVE: The patient appears very comfortable this morning. She is not short of breath at rest. OBJECTIVE VITAL SIGNS (last noted in the computer): Temperature is 98.3, pulse 76, respirations 18, blood pressure 123/68. Oxygen saturation on nasal cannula is 97%. HEENT: Normocephalic, atraumatic. NECK: No JVD. CARDIOVASCULAR: Systolic ejection murmur at the lower left sternal border. No S3 gallop. LUNGS: Chronic crackles at both lower lobes. No rhonchi. No wheezing. EXTREMITIES: Mild edema. No cyanosis, no clubbing. Calves are nontender to palpation. GASTROINTESTINAL: Abdomen is soft, nontender and nondistended. Bowel sounds are positive. SKIN: No acute rash. NEUROLOGIC: Exam limited at the present time. IMPRESSION 1. Respiratory failure. 2. Recurrent bronchitis. 3. Advanced pulmonary fibrosis. 4. Advanced chronic obstructive pulmonary disease. 5. Coronary artery disease. 6. Mild anemia. PLAN: The patient appears very comfortable this morning. She is not short of breath at rest. She does state to feeling much, much better overall. She is asking to go home. On physical exam, her bronchospasm continues to resolve. In addition, the alveolar arterial gradient also continues to resolve. I will continue with the current nebulizer treatments and change to oral steroids this morning. The patient also remains on antibiotic therapy. There are no temperatures noted. Cardiology evaluation is also noted. Clinical status of the patient is significantly improved - compared to the initial presentation. However, again, her future status/prognosis does remain very guarded at best/poor. She is for probable discharge. I will discuss the above with the attending physician. Missael Malave MD MTDD
[2017-07-16] MEDS: Tiotropium 18 mcg Cap For Inhalation IH SCH (09:32)
[2017-07-16] MEDS: Cefpodoxime (Vantin) 200 mg Tab PO SCH (09:32)
[2017-07-16] MEDS: Pantoprazole 40 mg EC Tab PO SCH (09:32)
[2017-07-16] MEDS: Azithromycin 500MG/NS 250ml 500 MG/250 ML BAG IVPB SCH (09:33)
[2017-07-16] MEDS: VITAMIN B COMPLEX PO SCH (09:33)
[2017-07-16 09:35] VITALS: BP 136/68; PULSE 74
[2017-07-16 09:36] VITALS: RESP 20; TEMP 97.8
[2017-07-16] MEDS ORDERED: Influenza Vaccine 60 mcg/0.5 mL SYR (4YR UP) IM ONE (09:37)
[2017-07-16] MEDS ORDERED: Pneumococcal 23-Valent Vaccine IM ONE (09:41)
--- NOTE | 2017-07-16 14:49 | PN ---
DATE: 07/16/2017 REASON FOR DICTATION: Addendum for initial progress note dictated by our nurse practitioner, Nathalie Lacey. REASON FOR ADDENDUM: Signing off the case. The patient is fairly stable. Continue current treatment. No evidence of PR, no evidence of non-STEMI, stable angina. We will continue Ranexa which is non-formulary, here prescription given 500 mg of Ranexa b.i.d. 1 refill prescription given to the patient and we will sign off and glad to follow p.r.n. Discussed with our nurse practitioner, Nathalie Lacey. Thank you, Dr. Del Rosario, for providing me the opportunity in taking care of the patient, Merna Mora. We will glad to follow p.r.n. We will sign off for now. Joaquin Frankel MD
== END 2017-07-16 15:10 | disposition home or self-care (01) | DRG 190 ==
LOC: ED 13:27 → ERH 15:15 → 2RNO 18:45 → 5RNO 07-12 14:26
PROVIDERS: ADMIT Internal Medicine; ATTEND Internal Medicine
PROC: 5A09557 Assistance with Respiratory Ventilation, Greater than 96 Consecutive Hours, Continuous Positive Airway Pressure (ICD-10-PCS; principal; 2017-07-10)
PROC: 3E0F7GC Introduction of Other Therapeutic Substance into Respiratory Tract, Via Natural or Artificial Opening (ICD-10-PCS; 2017-07-10)
PROC: 3E0234Z Introduction of Serum, Toxoid and Vaccine into Muscle, Percutaneous Approach (ICD-10-PCS; 2017-07-16)
DX: J44.1 Chronic obstructive pulmonary disease with (acute) exacerbation (principal); J96.22 Acute and chronic respiratory failure with hypercapnia; E11.65 Type 2 diabetes mellitus with hyperglycemia; I27.20 Pulmonary hypertension, unspecified; E83.39 Other disorders of phosphorus metabolism; E83.41 Hypermagnesemia; I25.10 Atherosclerotic heart disease of native coronary artery without angina pectoris; I11.0 Hypertensive heart disease with heart failure; I50.9 Heart failure, unspecified; J84.10 Pulmonary fibrosis, unspecified; K21.9 Gastro-esophageal reflux disease without esophagitis; G47.30 Sleep apnea, unspecified; D51.0 Vitamin B12 deficiency anemia due to intrinsic factor deficiency; D50.9 Iron deficiency anemia, unspecified; E78.5 Hyperlipidemia, unspecified; I25.2 Old myocardial infarction; Z91.19 Patient's noncompliance with other medical treatment and regimen; Z99.81 Dependence on supplemental oxygen; Z23 Encounter for immunization; Z95.5 Presence of coronary angioplasty implant and graft; Z90.49 Acquired absence of other specified parts of digestive tract; Z90.11 Acquired absence of right breast and nipple; Z86.718 Personal history of other venous thrombosis and embolism; Z85.3 Personal history of malignant neoplasm of breast; Z92.21 Personal history of antineoplastic chemotherapy; Z92.3 Personal history of irradiation

== ENCOUNTER 2017-11-02 13:01 | Emergency (ER) | payer MEDICARE ==
[2017-11-02 13:11] VITALS: BMI 26.5
[2017-11-02] MEDS ORDERED: Albuterol-Ipratrop 3 mg / 0.5 (3 ml) UD IH STA (13:11)
--- NOTE | 2017-11-02 13:40 | ED PDOC ---
Arrival/HPI - General Time Seen by Provider: 11/02/17 13:04 Historian: Patient - History of Present Illness Narrative History of Present Illness (Text): 11/02/17 13:35 71 year old female, with past medical history of hypertension, COPD, CHF pulmonary fibrosis, brochiectasis bib ALS with complaint of worsening shortness of breath and cough since two weeks. Patient states she is on 4L home Oxygen which stopped working after losing power 2 hours ago. Patient states her symptoms worsened soon after prompting her to present to the Emergency department for evaluation. Patient informs chronic cough, chronic shortness of breath and chronic chest pain but denies any fever, chills, nausea, vomiting, diarrhea, abdominal pain or any other complaints. Patient denies smoking or drinking alcohol. Time/Duration: > week (2 week) Symptom Onset: Gradual Symptom Course: Worsening Activities at Onset: Light Context: Home Past Medical History - Provider Review Nursing Documentation Reviewed: Yes - Infectious Disease Hx of Infectious Diseases: None - Tetanus Immunization Tetanus Immunization: Unknown - Reproductive Menopause: Yes - Cardiac Hx Congestive Heart Failure: Yes Hx Hypertension: Yes - Pulmonary Hx Chronic Obstructive Pulmonary Disease (COPD): Yes - Neurological Hx Neurological Disorder: No - HEENT Hx HEENT Disorder: Yes Hx Cataracts: Yes (b/l sx) - Renal Hx Renal Disorder: No - Endocrine/Metabolic Hx Endocrine Disorders: No - Hematological/Oncological Hx Blood Disorders: Yes Hx Cancer: Yes (BREAST CA 2009, r mastectomy) Hx Chemotherapy: Yes (chemo and radiation) - Integumentary Hx Dermatological Disorder: No - Musculoskeletal/Rheumatological Hx Musculoskeletal Disorders: Yes Hx Falls: Yes - Gastrointestinal Hx Gastrointestinal Disorders: Yes Hx Gastroesophageal Reflux: Yes - Genitourinary/Gynecological Hx Genitourinary Disorders: No - Psychiatric Hx Psychophysiologic Disorder: No Hx Substance Use: No - Past Surgical History Past Surgical History: Unable to Obtain - Surgical History Hx Appendectomy: Yes Hx Cardiac Catheterization: Yes Hx Cholecystectomy: Yes Hx Coronary Stent: Yes (3 STENTS) Hx Mastectomy: Yes (Right) Other/Comment: umbilical hernia repair - Anesthesia Hx Anesthesia: Yes Hx Anesthesia Reactions: No Hx Malignant Hyperthermia: No - Suicidal Assessment Feels Threatened In Home Enviroment: No Family/Social History - Physician Review Nursing Documentation Reviewed: Yes Family/Social History: No Known Family HX Smoking Status: Never Smoked Hx Alcohol Use: No Hx Substance Use: No Hx Substance Use Treatment: No Allergies/Home Meds Allergies/Adverse Reactions: Allergies No Known Allergies Allergy (Verified 07/09/17 22:01) Home Medications: Home Meds Medication Instructions Recorded Confirmed Cetirizine HCl [Zyrtec] 10 mg PO DAILY PRN 06/22/16 11/02/17 Docusate Sodium [Stool Softener] 50 mg PO DAILY PRN 06/22/16 11/02/17 Cyclobenzaprine [Cyclobenzaprine 10 mg PO DAILY 11/02/17 11/02/17 HCl] Isosorbide Mononitrate [Isosorbide 30 mg PO DAILY 11/02/17 11/02/17 Mononitrate ER] Ranitidine HCl [Zantac] 150 mg PO BID 11/02/17 11/02/17 Ranolazine [Ranexa] 500 mg PO BID 11/02/17 11/02/17 Review of Systems - Physician Review All systems were reviewed & negative as marked: Yes - Review of Systems Constitutional: absent: Fevers Respiratory: SOB, Cough Cardiovascular: Chest Pain (Chronic) Gastrointestinal: absent: Abdominal Pain, Diarrhea, Nausea, Vomiting Physical Exam Vital Signs Reviewed: Yes Vital Signs Temp Pulse Resp BP Pulse Ox 11/02/17 15:14 98 F 140/72 11/02/17 15:08 71 18 144/78 94 L 11/02/17 13:10 98.0 F 76 18 182/103 H 92 L Temperature: Afebrile Blood Pressure: Hypertensive Pulse: Regular Respiratory Rate: Normal Appearance: Positive for: Well-Appearing, Non-Toxic, Comfortable Pain Distress: None Mental Status: Positive for: Alert and Oriented X 3 - Systems Exam Head: Present: Atraumatic, Normocephalic Pupils: Present: PERRL Extroacular Muscles: Present: EOMI Conjunctiva: Present: Normal Respiratory/Chest: Present: Good Air Exchange, Respiratory Distress (mild), Accessory Muscle Use, Wheezes, Rales, Rhonchi Cardiovascular: Present: Regular Rate and Rhythm, Normal S1, S2. No: Murmurs Abdomen: No: Tenderness, Distention, Peritoneal Signs Back: Present: Normal Inspection Upper Extremity: Present: Normal Inspection. No: Cyanosis, Edema Lower Extremity: Present: Normal Inspection. No: Edema Neurological: Present: GCS=15, CN II-XII Intact, Speech Normal Skin: Present: Warm, Dry, Normal Color. No: Rashes Psychiatric: Present: Alert, Oriented x 3, Normal Insight, Normal Concentration Medical Decision Making ED Course and Treatment: 11/02/17 13:11 Impression: 71 year old female presents to the Emergency department for worsening cough and shortness of breath. Differential Diagnosis included but are not limited to: COPD exacerbation. Plan: --EKG --Labs --Chest x-ray --Duoneb --SOLU-Medrol -- Reassess and disposition Prior Visits: Notes and results from previous visits were reviewed. Progress Notes: 11/02/17 13:53 EKG shows normal sinus rhythm rate approximately [address] or T-wave changes Chest X-ray Dictator : Tyrese Mena MD Report Date : 11/02/2017 14:26:23 IMPRESSION: Stable severe interstitial lung disease/pulmonary fibrosis. No new/ acute findings 11/02/17 15:05 Patient reports that her breathing is back to baseline since she has been on the oxygen again. 11/02/17 15:41 Patient spoke with her son and their power is back on. She wants to go home. She is requesting a prescription for prednisone. She will be discharged home with her son. - Lab Interpretations Lab Results: 11/02/17 13:30 11/02/17 14:50 Lab Results 11/02/17 14:50: Sodium 145, Potassium 4.8, Chloride 99, Carbon Dioxide 36 H, Anion Gap 16, BUN 23 H, Creatinine 0.9, Est GFR ( Amer) > 60, Est GFR ( Non-Af Amer) > 60, Random Glucose 117 H, Calcium 9.3, Magnesium 2.4 H, Total Bilirubin 0.4, AST 22, ALT 21, Alkaline Phosphatase 93, Lactate Dehydrogenase 498, Total Creatine Kinase Pending, Troponin I < 0.01, NT-Pro-B Natriuret Pep 229, Total Protein 8.1, Albumin 4.2, Globulin 4.0, Albumin/Globulin Ratio 1.1 11/02/17 13:30: WBC 11.6 H, RBC 4.08, Hgb 11.3 L, Hct 35.9 L, MCV 88.0 D, MCH 27.7, MCHC 31.5, RDW 14.1, Plt Count 222, MPV 10.0, Gran % 64.0, Lymph % (Auto) 25.0, [place] % (Auto) 7.9 H, Eos % (Auto) 2.9, Baso % (Auto) 0.2, Gran # 7.45 H, Lymph # (Auto) 2.9, [place] # (Auto) 0.9 H, Eos # (Auto) 0.3, Baso # (Auto) 0.02 - RAD Interpretation Radiology Orders: 11/02/17 13:11 CHEST PORTABLE [RAD] Stat Chest 1 view shows bilateral increased markings. No cardiomegaly. No effusion. Collection Teller: ED Physician - Medication Orders Current Medication Orders: Discontinued Medications Albuterol/Ipratropium (Duoneb 3 Mg/0.5 Mg (3 Ml) Ud) 3 ml IH STAT STA Stop: 11/02/17 13:12 Last Admin: 11/02/17 13:43 Dose: 3 ml Methylprednisolone (Solu-Medrol) 125 mg IVP STAT STA Stop: 11/02/17 13:12 Last Admin: 11/02/17 13:42 Dose: 125 mg IVP Administration Document 11/02/17 13:42 GMI (Rec: 11/02/17 13:42 GMI [facility] [id number]) Charges for Administration # of IVP Administrations 1 - Scribe Statement The provider has reviewed the documentation as recorded by the Scribe Lesvia Vallecillo, training under Royce Rivera. All medical record entries made by the Scribe were at my direction and personally dictated by me. I have reviewed the chart and agree that the record accurately reflects my personal performance of the history, physical exam, medical decision making, and the department course for this patient. I have also personally directed, reviewed, and agree with the discharge instructions and disposition. Disposition/Present on Arrival - Present on Arrival Any Indicators Present on Arrival: No History of DVT/PE: No History of Uncontrolled Diabetes: No Urinary Catheter: No History of Decub. Ulcer: No History Surgical Site Infection Following: None - Disposition Have Diagnosis and Disposition been Completed?: Yes Diagnosis: Pulmonary fibrosis, COPD exacerbation, Hypoxia Disposition: HOME/ ROUTINE Disposition Time: 15:42 Patient Plan: Discharge Condition: FAIR Discharge Instructions (ExitCare): Chronic Obstructive Pulmonary Disease (COPD) , Including Emphysema, Interstitial Lung Disease Prescriptions: Prednisone [Deltasone] 20 mg PO DAILY #5 tablet
[2017-11-02 13:52] LABS: BASO # 0.02 K/mm3 (0.0-2.0); BASO % 0.2 % (0.0-3.0); EOS # 0.3 (0.0-0.7); EOS % 2.9 % (1.5-5.0); GRAN # 7.45 (1.4-6.5); HEMOGLOBIN 11.3 g/dL (12.0-16.0); LYMPH # 2.9 (1.2-3.4); MEAN CORPUSCULAR HEMOGLOBIN 27.7 pg (25.0-35.0); MEAN CORPUSCULAR HGB CONC 31.5 g/dl (31.0-37.0); MONO # 0.9 (0.1-0.6); MONO % 7.9 % (1.0-6.0); RBC 4.08 10^6/uL (3.5-6.1); RED CELL DISTRIBUTION WIDTH 14.1 % (11.5-14.5); WHITE BLOOD COUNT 11.6 10^3/ul (4.5-11.0)
--- NOTE | 2017-11-02 14:27 | RAD ---
HISTORY: Shortness of breath. COMPARISON: 12/21/2016 and 07/09/2017. Serial portable chest x-rays FINDINGS: LUNGS: Chronic interstitial lung disease, severe -stable. PLEURA: No significant pleural effusion identified, no pneumothorax apparent. CARDIOVASCULAR: No radiographic findings to suggest acute or significant cardiovascular disease. OSSEOUS STRUCTURES: No significant abnormalities. VISUALIZED UPPER ABDOMEN: Normal. OTHER FINDINGS: None. IMPRESSION: Stable severe interstitial lung disease/pulmonary fibrosis. No new/ acute findings
[2017-11-02 15:15] VITALS: TEMP 98
[2017-11-02 15:15] LABS: ALB/GLOB RATIO 1.1 (1.1-1.8); ALBUMIN 4.2 g/dL (3.0-4.8); ALT/SGPT 21 U/L (7-56); AST/SGOT 22 U/L (14-36); BLOOD UREA NITROGEN 23 mg/dL (7-21); CALCIUM 9.3 mg/dL (8.4-10.5); GFR AFRICAN-AMERICAN > 60; GFR NON-AFRICAN AMERICAN > 60
[2017-11-02 15:27] LABS: B-TYPE NATRIURETIC PEPTIDE 229 pg/mL (0-450); TROPONIN I < 0.01 ng/mL
[2017-11-02 17:33] VITALS: BP 132/82; PULSE 85; RESP 19; O2SAT 96
--- NOTE | 2017-11-03 09:00 | CARD ---
APPROVED REPORT EKG Measurement Heart [id number] <Conclusion> Normal sinus rhythm LAD RVCD PRWP ST elevations seen on ECG 07/11/17 no longer present Artifact present
== END 2017-11-02 17:34 | disposition home or self-care (01) ==
LOC: ED 13:01
DX: J84.10 Pulmonary fibrosis, unspecified (principal); J44.1 Chronic obstructive pulmonary disease with (acute) exacerbation; R09.02 Hypoxemia; I50.9 Heart failure, unspecified; I10 Essential (primary) hypertension; Z99.81 Dependence on supplemental oxygen; Z85.3 Personal history of malignant neoplasm of breast
CPT/HCPCS: 71045; 80053; 82550; 83615; 83735; 83880; 84484; 85025; 93005; 96374; 99282; J2930

== ENCOUNTER 2017-11-15 22:08 | Inpatient (IN) | payer MEDICARE, OTHER ==
--- NOTE | 2017-11-15 22:44 | ED PDOC ---
Arrival/HPI - General Chief Complaint: Medical Clearance Time Seen by Provider: 11/15/17 22:14 Historian: Patient - History of Present Illness Narrative History of Present Illness (Text): 11/15/17 22:35 71 year old female, whose past medical history includes COPD on oxygen, NSTEMI, Cardiac stents,pulmonary fibrosis, and pulmonary hypertension, who presents to the emergency department complaining of general malaise x couple days. Patient notes associated upper abdominal pain.Occasional chest pain.Patient denies any fevers, chills, shortness of breath, nausea, vomiting, diarrhea, back pain, neck pain, urinary symptoms, headache, dizziness, or any other complaint. Time/Duration: < week Symptom Onset: Gradual Symptom Course: Unchanged Activities at Onset: Light Context: Home Past Medical History - Provider Review Nursing Documentation Reviewed: Yes - Infectious Disease Hx of Infectious Diseases: None - Tetanus Immunization Tetanus Immunization: Unknown - Cardiac Hx Congestive Heart Failure: Yes Hx Hypertension: Yes - Pulmonary Hx Chronic Obstructive Pulmonary Disease (COPD): Yes - Neurological Hx Neurological Disorder: No - HEENT Hx HEENT Disorder: Yes Hx Cataracts: Yes (b/l sx) - Renal Hx Renal Disorder: No - Endocrine/Metabolic Hx Endocrine Disorders: No - Hematological/Oncological Hx Blood Disorders: Yes Hx Cancer: Yes (BREAST CA 2009, r mastectomy) Hx Chemotherapy: Yes (chemo and radiation) - Integumentary Hx Dermatological Disorder: No - Musculoskeletal/Rheumatological Hx Musculoskeletal Disorders: Yes Hx Falls: Yes - Gastrointestinal Hx Gastrointestinal Disorders: Yes Hx Gastroesophageal Reflux: Yes - Genitourinary/Gynecological Hx Genitourinary Disorders: No - Psychiatric Hx Psychophysiologic Disorder: No Hx Substance Use: No - Past Surgical History Past Surgical History: Unable to Obtain - Surgical History Hx Appendectomy: Yes Hx Cardiac Catheterization: Yes Hx Cholecystectomy: Yes Hx Coronary Stent: Yes (3 STENTS) Hx Mastectomy: Yes (Right) Other/Comment: umbilical hernia repair - Anesthesia Hx Anesthesia: Yes Hx Anesthesia Reactions: No Hx Malignant Hyperthermia: No - Suicidal Assessment Feels Threatened In Home Enviroment: No Family/Social History - Physician Review Nursing Documentation Reviewed: Yes Family/Social History: Unknown Family HX Smoking Status: Never Smoked Hx Alcohol Use: No Hx Substance Use: No Hx Substance Use Treatment: No Allergies/Home Meds Allergies/Adverse Reactions: Allergies No Known Allergies Allergy (Verified 11/15/17 22:27) Home Medications: Home Meds Medication Instructions Recorded Confirmed Cetirizine HCl [Zyrtec] 10 mg PO DAILY PRN 06/22/16 11/15/17 Docusate Sodium [Stool Softener] 50 mg PO DAILY PRN 06/22/16 11/02/17 Cyclobenzaprine [Cyclobenzaprine 10 mg PO DAILY 11/02/17 11/15/17 HCl] Isosorbide Mononitrate [Isosorbide 30 mg PO DAILY 11/02/17 11/15/17 Mononitrate ER] Ranitidine HCl [Zantac] 150 mg PO BID 11/02/17 11/15/17 Ranolazine [Ranexa] 500 mg PO BID 11/02/17 11/15/17 Review of Systems - Physician Review All systems were reviewed & negative as marked: Yes - Review of Systems Constitutional: Normal Eyes: Normal ENT: Normal Respiratory: Normal. absent: SOB, Cough Cardiovascular: Normal. absent: Chest Pain Gastrointestinal: Abdominal Pain (upper abdominal pain). absent: Diarrhea, Nausea, Vomiting Genitourinary Female: Normal. absent: Dysuria Musculoskeletal: Normal. absent: Back Pain, Neck Pain Skin: Normal. absent: Rash Neurological: Normal. absent: Headache Endocrine: Normal Hemo/Lymphatic: Normal Psychiatric: Normal Physical Exam Vital Signs Reviewed: Yes Vital Signs Temp Pulse Resp BP Pulse Ox 11/16/17 01:13 68 18 101/75 95 11/15/17 22:27 98.3 F 11/15/17 22:19 98.2 F 65 20 112/47 L 93 L 11/15/17 22:18 89 19 112/47 L 97 Temperature: Afebrile Blood Pressure: Hypotensive Pulse: Regular Respiratory Rate: Normal Appearance: Positive for: Well-Appearing, Non-Toxic, Comfortable Pain Distress: None Mental Status: Positive for: Alert and Oriented X 3 - Systems Exam Head: Present: Atraumatic, Normocephalic Pupils: Present: PERRL Extroacular Muscles: Present: EOMI Conjunctiva: Present: Normal Mouth: Present: Moist Mucous Membranes Neck: Present: Normal Range of Motion Respiratory/Chest: Present: Rhonchi (scattered rhonchi bilaterally). No: Respiratory Distress, Accessory Muscle Use Cardiovascular: Present: Regular Rate and Rhythm, Normal S1, S2. No: Murmurs Abdomen: Present: Tenderness (LUQ and flank area tenderness), Normal Bowel Sounds. No: Distention, Peritoneal Signs Back: Present: Normal Inspection Upper Extremity: Present: Normal Inspection. No: Cyanosis, Edema Lower Extremity: Present: Normal Inspection. No: Edema Neurological: Present: GCS=15, CN II-XII Intact, Speech Normal Skin: Present: Warm, Dry, Normal Color. No: Rashes Psychiatric: Present: Alert, Oriented x 3, Normal Insight, Normal Concentration Medical Decision Making ED Course and Treatment: 11/15/17 22:46 Impression: 71 year old female presents to the emergency department complaining of general malaise x couple days. Plan: -- CT abd/pelvis -- EKG -- Labs -- CXR -- Reassess and disposition Progress Notes: 11/15/17 23:04 EKG reviewed, shows NSR at 65 bpm. Early repolarization. Non-specific ST/T wave changes. Unchanged from EKG on 07/11/2017. 11/16/17 01:42 CT abd/pelvis reviewed, shows: Lung bases: Prominence of the interstitial markings. Bronchiectasis left lower lobe. Heart: Coronary artery calcifications. Mild cardiomegaly. Mediastinum: Large hiatal hernia. ABDOMEN: Liver: Unremarkable. No mass. Gallbladder and bile ducts: Unremarkable. No calcified stones. No ductal dilation. Pancreas: Unremarkable. No mass. No ductal dilation. Spleen: Unremarkable. No splenomegaly. Adrenals: Unremarkable. No mass. Kidneys and ureters: Unremarkable. No solid mass. No hydronephrosis. Stomach and bowel: Unremarkable. No obstruction. PELVIS: Appendix: No findings to suggest acute appendicitis. Bladder: Unremarkable. No mass. Reproductive: Unremarkable as visualized. ABDOMEN and PELVIS: Intraperitoneal space: Unremarkable. No free air. No significant fluid collection. Bones/joints: No acute fracture. No dislocation. Soft tissues: Right breast implant. Anterior abdominal wall hernia repair with surgical mesh in place. Vasculature: Atherosclerotic vascular disease. No abdominal aortic aneurysm. Lymph nodes: Unremarkable. No enlarged lymph nodes. IMPRESSION: 1. No acute abnormality in the abdomen, or pelvis. 2. Remainder of findings as above. 11/16/17 02:[address] Del Rosario, who accepts pt to her service. Requests Dr. Frankel and Dr. Arroyo on consult. - Lab Interpretations Lab Results: 11/15/17 21:45 11/15/17 21:45 Lab Results 11/15/17 21:45: NT-Pro-B Natriuret Pep 336 11/15/17 21:45: PT 10.9, INR 0.96, APTT 29.6 11/15/17 21:45: WBC 10.4, RBC 3.96, Hgb 11.0 L, Hct 36.4, MCV 91.9 D, MCH 27.8 , MCHC 30.2 L, RDW 13.8, Plt Count 197, MPV 10.4 11/15/17 21:45: Sodium 144, Potassium 4.6, Chloride 100, Carbon Dioxide 38 H, Anion Gap 11, BUN 29 H, Creatinine 1.0, Est GFR ( Amer) > 60, Est GFR ( Non-Af Amer) 55, Random Glucose 121 H, Calcium 8.7, Total Bilirubin 0.5, AST 27 , ALT 21, Alkaline Phosphatase 81, Lactate Dehydrogenase 586, Total Creatine Kinase < 20 L, Troponin I < 0.01, Total Protein 6.7, Albumin 3.4, Globulin 3.4, Albumin/Globulin Ratio 1.0 L, Lipase 68 - RAD Interpretation Radiology Orders: 11/15/17 22:28 CHEST PORTABLE [RAD] Stat 11/15/17 22:38 ABD & PELVIS IV CONTRAST ONLY [CT] Stat - Medication Orders Current Medication Orders: Sodium Chloride (Sodium Chloride 0.9%) 1,000 mls @ 100 mls/hr IV .Q10H GUY Last Admin: 11/15/17 22:54 Dose: 100 mls/hr eMAR Start Stop Document 11/15/17 22:54 IT (Rec: 11/15/17 22:54 IT [id number]) Intravenous Solution Start Date 11/15/17 Start Time 22:54 - Scribe Statement The provider has reviewed the documentation as recorded by the Scriblesly Valdez All medical record entries made by the Quirinoiblesly were at my direction and personally dictated by me. I have reviewed the chart and agree that the record accurately reflects my personal performance of the history, physical exam, medical decision making, and the department course for this patient. I have also personally directed, reviewed, and agree with the discharge instructions and disposition. Disposition/Present on Arrival - Present on Arrival Any Indicators Present on Arrival: No History of DVT/PE: No History of Uncontrolled Diabetes: No Urinary Catheter: No History of Decub. Ulcer: No History Surgical Site Infection Following: None - Disposition Have Diagnosis and Disposition been Completed?: Yes Diagnosis: Chest pain, Abdominal pain Disposition: HOSPITALIZED Disposition Time: 02:18 Patient Problems: Current Active Problems Problem Status Onset Abdominal pain Acute Chest pain Acute Condition: STABLE Discharge Instructions (ExitCare): Chest Pain (ED) Referrals: Stacey Del Rosario MD [Primary Care Provider] - Follow up with primary Forms: [employer] (Greenlandic)
[2017-11-15] MEDS: Sodium Chloride 0.9% 1,000 ML IV SCH (22:54)
[2017-11-15 22:57] LABS: MEAN CELL VOLUME 91.9 fl (80.0-105.0); MEAN CORPUSCULAR HEMOGLOBIN 27.8 pg (25.0-35.0); MEAN CORPUSCULAR HGB CONC 30.2 g/dl (31.0-37.0); MEAN PLATELET VOLUME 10.4 fl (7.0-11.0); RBC 3.96 10^6/uL (3.5-6.1); RED CELL DISTRIBUTION WIDTH 13.8 % (11.5-14.5); WHITE BLOOD COUNT 10.4 10^3/ul (4.5-11.0)
[2017-11-15 23:07] LABS: INR 0.96 (0.93-1.08); PARTIAL THROMBOPLASTIN TIME 29.6 Seconds (25.1-36.5); PROTHROMBIN TIME 10.9 SECONDS (9.4-12.5)
[2017-11-15 23:09] LABS: ALBUMIN 3.4 g/dL (3.0-4.8); ALT/SGPT 21 U/L (7-56); AST/SGOT 27 U/L (14-36); BLOOD UREA NITROGEN 29 mg/dL (7-21); CALCIUM 8.7 mg/dL (8.4-10.5); GFR AFRICAN-AMERICAN > 60; GFR NON-AFRICAN AMERICAN 55; LIPASE 68 U/L (23-300)
[2017-11-15 23:19] LABS: TROPONIN I < 0.01 ng/mL
[2017-11-16] MEDS ORDERED: Iohexol 350 MG/100 ML VIAL ONE (00:26)
--- NOTE | 2017-11-16 05:10 | CP.PCM.CON ---
History of Present Illness - History of Present Illness History of Present Illness: General Surgery consult for Dr. Arroyo Consulted for: Abdominal pain Patient is a 71F with PMH of CAD s/p coronary stents, COPD, pulmonary fibrosis, GERD, HTN, and right breast cancer, who presented to ED for left abdominal pain and then complained of chest pain and jaw pain in the ER. Patient states that she has had the pain the past 2 days, it comes and goes, and occurs when she changes positions. Denies any nausea, vomiting, diarrhea, constipation, hematochezia, melena, fevers, chills, dysuria, or any other symptoms. Last bowel movement was 11/15 and was normal consistency and color. Family at bedside states that patient's 35 y/o son just suddenly 2 days ago around the onset of the pain and they believe that the emotional trauma may be contributing to her symptoms. PMH: CAD s/p coronary stents, COPD, pulmonary fibrosis, GERD, HTN, and right breast cancer PSH: R mastectomy, coronary stent, appendectomy, umbilical hernia repair ALL: NKDA Social: denies all substances, lives at home with family Review of Systems - Review of Systems All systems: reviewed and no additional remarkable complaints except (as per HPI ) Past Patient History - Infectious Disease Hx of Infectious Diseases: None - Tetanus Immunizations Tetanus Immunization: Unknown - Past Medical History & Family History Past Medical History?: Yes Past Family History: Reviewed and not pertinent - Past Social History Smoking Status: Never Smoked Alcohol: None Drugs: Denies - CARDIAC Hx Congestive Heart Failure: Yes Hx Hypertension: Yes - PULMONARY Hx Chronic Obstructive Pulmonary Disease (COPD): Yes - NEUROLOGICAL Hx Neurological Disorder: No - HEENT Hx HEENT Problems: Yes Hx Cataracts: Yes (b/l sx) - RENAL Hx Chronic Kidney Disease: No - ENDOCRINE/METABOLIC Hx Endocrine Disorders: No - HEMATOLOGICAL/ONCOLOGICAL Hx Blood Disorders: Yes Hx Cancer: Yes (BREAST CA 2009, r mastectomy) Hx Chemotherapy: Yes (chemo and radiation) - INTEGUMENTARY Hx Dermatological Problems: No - MUSCULOSKELETAL/RHEUMATOLOGICAL Hx Musculoskeletal Disorders: Yes Hx Falls: Yes - GASTROINTESTINAL Hx Gastrointestinal Disorders: Yes Hx Gastroesophageal Reflux: Yes - GENITOURINARY/GYNECOLOGICAL Hx Genitourinary Disorders: No - PSYCHIATRIC Hx Psychophysiologic Disorder: No Hx Substance Use: No - SURGICAL HISTORY Hx Appendectomy: Yes Hx Cardiac Catheterization: Yes Hx Cholecystectomy: Yes Hx Coronary Stent: Yes (3 STENTS) Hx Mastectomy: Yes (Right) Other/Comment: umbilical hernia repair - ANESTHESIA Hx Anesthesia: Yes Hx Anesthesia Reactions: No Hx Malignant Hyperthermia: No Meds Allergies/Adverse Reactions: Allergies Allergy/AdvReac Type Severity Reaction Status Date / Time No Known Allergies Allergy Verified 11/15/17 22:27 - Medications Medications: Current Medications Sodium Chloride (Sodium Chloride 0.9%) 1,000 mls @ 100 mls/hr IV .Q10H GUY Last Admin: 11/15/17 22:54 Dose: 100 mls/hr Physical Exam - Constitutional Appears: Well, Non-toxic, No Acute Distress - Head Exam Head Exam: ATRAUMATIC, NORMOCEPHALIC - Eye Exam Eye Exam: Normal appearance. absent: Conjunctival injection, Scleral icterus - ENT Exam ENT Exam: Mucous Membranes Moist, Normal Oropharynx - Respiratory Exam Respiratory Exam: NORMAL BREATHING PATTERN. absent: Accessory Muscle Use, Respiratory Distress - Cardiovascular Exam Cardiovascular Exam: RRR Additional comments: Patient has left chest/flank pain over the left ribs reproducible to palpation. - GI/Abdominal Exam GI & Abdominal Exam: Soft. absent: Distended, Tenderness - Extremities Exam Extremities exam: Positive for: pedal pulses present. Negative for: calf tenderness, pedal edema - Back Exam Back exam: absent: CVA tenderness (L), CVA tenderness (R) - Neurological Exam Neurological exam: Altered (lethargic), CN II-XII Intact, Oriented x3 Additional comments: No gross motor sensory deficit - Psychiatric Exam Psychiatric exam: Normal Affect, Normal Mood - Skin Skin Exam: Dry, Intact, Normal Color, Warm Results - Vital Signs Recent Vital Signs: Last Vital Signs Temp 98.2 F 11/16/17 03:43 Pulse 72 11/16/17 03:43 Resp 18 11/16/17 03:43 BP 95/60 L 11/16/17 03:43 Pulse Ox 97 11/16/17 03:43 - Labs Result Diagrams: 11/15/17 21:45 11/15/17 21:45 - Imaging and Cardiology CT scan - abdomen Status: Image reviewed by me, Report reviewed by me Assessment & Plan - Assessment and Plan (Free Text) Assessment: 71F with left lower rib pain, likely musculoskeletal in nature, less likely UTI vs cardiac Plan: No surgical intervention indicated--patient not having true abdominal pain but rather reproducible rib pain Trend labs F/U UA and urine cultures PRN pain medication--lidoderm patch over area Troponin wnl at this time, management of chest pain per primary team's discretion Heart healthy diet Will discuss with Dr. Arroyo, further recs per him Kely Roach, PGY2
[2017-11-16 05:41] VITALS: BMI 28.7
[2017-11-16 06:51] LABS: ARTERIAL BLOOD GAS HCO3 37.5 mmol/L (21-28); ARTERIAL BLOOD GAS HEMOGLOBIN 11.1 g/dL (11.7-17.4); ARTERIAL BLOOD GAS O2 CAPACITY 15.5 mL/dl (16-24); ARTERIAL BLOOD GAS O2 SAT 90.5 % (95-98); ARTERIAL BLOOD GAS PCO2 96 mm/Hg (35-45); ARTERIAL BLOOD GAS TCO2 40.4 mmol.L (22-28)
[2017-11-16] MEDS: Sodium Chloride 0.9% 1,000 ML IV SCH (06:59)
[2017-11-16 08:01] LABS: HEMOGLOBIN 11.4 g/dL (12.0-16.0); MEAN CELL VOLUME 93.9 fl (80.0-105.0); MEAN CORPUSCULAR HEMOGLOBIN 27.7 pg (25.0-35.0); MEAN CORPUSCULAR HGB CONC 29.5 g/dl (31.0-37.0); MEAN PLATELET VOLUME 10.4 fl (7.0-11.0); RBC 4.12 10^6/uL (3.5-6.1); RED CELL DISTRIBUTION WIDTH 13.8 % (11.5-14.5); WHITE BLOOD COUNT 13.2 10^3/ul (4.5-11.0)
--- NOTE | 2017-11-16 08:27 | CP.PCM.CON ---
History of Present Illness - History of Present Illness History of Present Illness: Lying in bed, very lethargic, open eyes to verbal command. shallow breathing, daughters at bedside Reason for consultation: Cardiac evaluation for chest pain. History of coronary artery disease with cardiac stents, COPD, pulmonary fibrosis,GERD, hypertension Brief history of present illness: A 71 year old female who came in to the ER due to complaints of abdominal pain, chest pain and jaw pain in the ER. Spoken to the daughter and claimed that patient has abdominal pain on the left side below the ribs. Pain has been going on for the past 2 days but comes and goes.Pain radiated to chest and jaw. Chest pain free now but still with abdominal pain left side below ribs upon palpation. History of coronary artery disease with cardiac stents, COPD, pulmonary fibrosis,GERD, hypertension, right breast cancer, umbilical hernia repair, Family at bedside claimed that son (35 year old) recently due to fall/head trauma and probably contributing to symptoms. Seen and examined by me and Dr. Frankel Review of Systems - Review of Systems All systems: reviewed and no additional remarkable complaints except Review of Systems: All systems reviewed and no additional remarkable complaints except as per HPI Past Patient History - Infectious Disease Hx of Infectious Diseases: None - Tetanus Immunizations Tetanus Immunization: Unknown - Past Medical History & Family History Past Medical History?: Yes Past Family History: Reviewed and not pertinent - Past Social History Smoking Status: Never Smoked Alcohol: None Drugs: Denies - CARDIAC Hx Congestive Heart Failure: Yes Hx Hypertension: Yes - PULMONARY Hx Chronic Obstructive Pulmonary Disease (COPD): Yes - NEUROLOGICAL Hx Neurological Disorder: No - HEENT Hx HEENT Problems: Yes Hx Cataracts: Yes (b/l sx) - RENAL Hx Chronic Kidney Disease: No - ENDOCRINE/METABOLIC Hx Endocrine Disorders: No - HEMATOLOGICAL/ONCOLOGICAL Hx Blood Disorders: Yes Hx Cancer: Yes (BREAST CA 2009, r mastectomy) Hx Chemotherapy: Yes (chemo and radiation) - INTEGUMENTARY Hx Dermatological Problems: No - MUSCULOSKELETAL/RHEUMATOLOGICAL Hx Musculoskeletal Disorders: Yes Hx Falls: Yes - GASTROINTESTINAL Hx Gastrointestinal Disorders: Yes Hx Gastroesophageal Reflux: Yes - GENITOURINARY/GYNECOLOGICAL Hx Genitourinary Disorders: No - PSYCHIATRIC Hx Psychophysiologic Disorder: No Hx Substance Use: No - SURGICAL HISTORY Hx Appendectomy: Yes Hx Cardiac Catheterization: Yes Hx Cholecystectomy: Yes Hx Coronary Stent: Yes (3 STENTS) Hx Mastectomy: Yes (Right) Other/Comment: umbilical hernia repair - ANESTHESIA Hx Anesthesia: Yes Hx Anesthesia Reactions: No Hx Malignant Hyperthermia: No Meds Allergies/Adverse Reactions: Allergies Allergy/AdvReac Type Severity Reaction Status Date / Time No Known Allergies Allergy Verified 11/15/17 22:27 - Medications Medications: Current Medications Sodium Chloride (Sodium Chloride 0.9%) 1,000 mls @ 100 mls/hr IV .Q10H GUY Last Admin: 11/16/17 06:59 Dose: 100 mls/hr Lidocaine (Lidoderm) 1 ea TD DAILY GUY Physical Exam - Constitutional Additional comments: moderate respiratory distress - ENT Exam ENT Exam: Mucous Membranes Dry - Respiratory Exam Respiratory Exam: Accessory Muscle Use, Decreased Breath Sounds, Respiratory Distress Additional comments: nasal cannula - Cardiovascular Exam Cardiovascular Exam: REGULAR RHYTHM, +S1, +S2 Additional comments: NSR - GI/Abdominal Exam GI & Abdominal Exam: Normal Bowel Sounds, Soft Additional comments: left side of abdomen in pain below rib cage denies nausea,denies vomiting - Extremities Exam Additional comments: 2-3+ edema - Neurological Exam Additional comments: lethargic - Skin Skin Exam: Dry, Warm Results - Vital Signs Recent Vital Signs: Last Vital Signs Temp 97.6 F 11/16/17 06:00 Pulse 77 11/16/17 06:54 Resp 17 11/16/17 06:00 BP 105/50 L 11/16/17 06:00 Pulse Ox 97 11/16/17 03:43 - Labs Result Diagrams: 11/16/17 07:30 11/16/17 07:30 Labs: Laboratory Results - last 24 hr 11/16/17 11/16/17 06:40 07:30 WBC 13.2 H D RBC 4.12 Hgb 11.4 L Hct 38.7 MCV 93.9 MCH 27.7 MCHC 29.5 L RDW 13.8 Plt Count 177 MPV 10.4 pCO2 96 H* pO2 62.0 L HCO3 37.5 H ABG pH 7.20 L ABG Total CO2 40.4 H ABG O2 Saturation 90.5 L ABG O2 Content 14.0 L ABG Base Excess 6.7 H ABG Hemoglobin 11.1 L ABG Carboxyhemoglobin 0.7 POC ABG HHb (Measured) 9.4 H ABG Methemoglobin 0.1 ABG O2 Capacity 15.5 L Hgb O2 Saturation 89.8 L FiO2 40.0 Assessment & Plan - Assessment and Plan (Free Text) Assessment: A 71 year old female who came in to the ER due to complaints of abdominal pain , chest pain and jaw pain in the ER. Spoken to the daughter and claimed that patient has abdominal pain on the left side below the ribs. Pain has been going on for the past 2 days but comes and goes.Pain radiated to chest and jaw. Chest pain free now but still with abdominal pain left side below ribs upon palpation. History of coronary artery disease with cardiac stents, COPD, pulmonary fibrosis,GERD, hypertension, right breast cancer,right mastectomy 2008 with radiation and chemotherapy, umbilical hernia repair, Family at bedside claimed that son (35 year old) recently due to fall/head trauma and probably contributing to symptoms. CO2 narcosis. Placed on BIPAP/CPAP after ABG. ABG result on nasal cannula, PH-7.20, PCO2-96,PO2- 62, HCO3- 37.5 After 2 hours of BIPAP lethargic but open eyes and able to talk and responds to questions. Repeat ABG remained the same on BIPAP/CPAP. for transfer to ICU/CCU. Review of previous cardiac work up: History of stents 12/06/2007 and 08/02/2011 Recent cardiac cath 12/25/16 due to NSTEMI- PTCA with KATIE of RPDA and Mid RCA ECHO 12/22/16- LVEF 62%, moderate pulmonary hypertension, Plan: CO2 retention/narcosis Very lethargic on nasal cannula Ordered ABG on nasal cannula Post ABG to put on BIPAP/CPAP ABG results on NC -PH-7.20, PCO2-96,PO2- 62, HCO3- 37.5 Dr. Rodriguez (ICU family mediator) evaluated patient, for repeat ABG on BIPAP/CPAP Solumedrol and Lasix given Repeat ABG after 2 hours on BIPAP/CPAP-PH- 7.24, PCO2-96, PO2-57. Pulmonary consult with Dr. Rosales. Chest X-ray Will order echo to evaluate LV function Xopenex nebulizer treatment Reevaluated by Dr. Rodriguez Transfer to ICU /CCU Will follow up Plan and treatment discussed with Dr. Frankel Thank you Dr. Del Rosario for the opportunity to take care of Ms. Merna Mora. - Date & Time Date: 11/16/17 Time: 07:00
[2017-11-16 08:35] LABS: ALBUMIN 3.1 g/dL (3.0-4.8); ALT/SGPT 19 U/L (7-56); AST/SGOT 17 U/L (14-36); BLOOD UREA NITROGEN 24 mg/dL (7-21); CALCIUM 8.5 mg/dL (8.4-10.5); GFR AFRICAN-AMERICAN > 60; GFR NON-AFRICAN AMERICAN > 60
--- NOTE | 2017-11-16 08:39 | RAD ---
Date of service: 11/16/2017 HISTORY: abdominal pain COMPARISON: 11/03/2027. FINDINGS: LUNGS: There is patchy airspace disease in the right mid lung and lower lobe. There is persistent diffuse interstitial thickening in both lungs. PLEURA: No significant pleural effusion identified, no pneumothorax apparent. CARDIOVASCULAR: Normal. OSSEOUS STRUCTURES: No significant abnormalities. VISUALIZED UPPER ABDOMEN: Normal. OTHER FINDINGS: None. IMPRESSION: Patchy airspace disease in the right mid lung and lower lobe could represent atelectasis or pneumonia. Persistent diffuse interstitial thickening most compatible with interstitial fibrosis.
[2017-11-16] MEDS ORDERED: Levalbuterol 0.63 MG/3 ML Inhal Soln UD IH SCH (09:00)
[2017-11-16] MEDS: MethylPREDNISolone 40 mg Vial IVP SCH ×2 (09:11→21:16)
[2017-11-16 09:57] LABS: ARTERIAL BLOOD GAS HCO3 41.1 mmol/L (21-28); ARTERIAL BLOOD GAS HEMOGLOBIN 11.1 g/dL (11.7-17.4); ARTERIAL BLOOD GAS O2 CAPACITY 15.5 mL/dl (16-24); ARTERIAL BLOOD GAS O2 SAT 90.3 % (95-98); ARTERIAL BLOOD GAS PCO2 96 mm/Hg (35-45); ARTERIAL BLOOD GAS PH 7.24 (7.35-7.45)
[2017-11-16] MEDS: Lidocaine 5% Patch TD SCH (10:37)
--- NOTE | 2017-11-16 12:15 | CARD ---
APPROVED REPORT Date of service: 11/15/2017 EKG Measurement Heart [id number] <Conclusion> Normal sinus rhythm Possible Left atrial enlargement ST elevation, consider early repolarization, pericarditis, or injury Abnormal ECG
--- NOTE | 2017-11-16 12:15 | CARD ---
APPROVED REPORT Date of service: 11/15/2017 EKG Measurement Heart [id number] <Conclusion> Normal sinus rhythm Possible Left atrial enlargement ST elevation, consider early repolarization, pericarditis, or injury Abnormal ECG
--- NOTE | 2017-11-16 12:16 | CT ---
Date of service: 11/16/2017 PROCEDURE: CT Abdomen and Pelvis with contrast HISTORY: abdominal pain COMPARISON: None. TECHNIQUE: CT scan of the abdomen and pelvis was performed without administration of intravenous contrast. Oral contrast was not administered. Coronal and sagittal reformatted images were obtained. Contrast dose: 100 mL Omnipaque 350 Radiation dose: Total exam DLP = 1446.77 mGy-cm. This CT exam was performed using one or more of the following dose reduction techniques: Automated exposure control, adjustment of the mA and/or kV according to patient size, and/or use of iterative reconstruction technique. FINDINGS: LOWER THORAX: Subsegmental atelectasis in the visualized lungs. Bronchiectasis in the left lower lobe. Mild cardiomegaly atherosclerotic vascular calcifications. Incompletely imaged right breast implant. LIVER: The liver is normal in size. No gross lesion or ductal dilatation. GALLBLADDER AND BILE DUCTS: No calcified gallstones. PANCREAS: Normal in size. No gross lesion or ductal dilatation. SPLEEN: Normal in size. ADRENALS: No discrete nodule. KIDNEYS AND URETERS: Normal in size without nephrolithiasis. No hydronephrosis. VASCULATURE: No aortic aneurysm. BOWEL: Unremarkable. No obstruction. No gross mural thickening. APPENDIX: Normal appendix. PERITONEUM: No free fluid. No free air. LYMPH NODES: No enlarged lymph nodes. BLADDER: Grossly normal in appearance. REPRODUCTIVE: Age appropriate atrophy of the uterus. BONES: No acute fracture. Diffuse bone demineralization. OTHER FINDINGS: There is a large sliding hiatal hernia. IMPRESSION: No acute abdominal or pelvic abnormality. Large sliding hiatal hernia. A preliminary report was provided by [email or web address].
[2017-11-16] MEDS: cefTRIAXone 1 gm 1 GM/100 ML BAG IVPB SCH (13:46)
[2017-11-16] MEDS: Milrinone 20mg/100ml D5W 100 ML IV PRN (13:58)
[2017-11-16] MEDS: Enoxaparin 40 mg Syringe SC SCH (13:58)
[2017-11-16 14:03] LABS: ARTERIAL BLOOD GAS HEMOGLOBIN 11.4 g/dL (11.7-17.4); ARTERIAL BLOOD GAS O2 CONTENT 15.3 ML/dl (15-23); ARTERIAL BLOOD GAS O2 SAT 95.8 % (95-98); ARTERIAL BLOOD GAS PCO2 106 mm/Hg (35-45); ARTERIAL BLOOD GAS PH 7.22 (7.35-7.45); ARTERIAL BLOOD GAS TCO2 46.7 mmol.L (22-28)
[2017-11-16 14:05] LABS: ARTERIAL BLOOD GAS HCO3 43.4 mmol/L (21-28)
[2017-11-16] MEDS ORDERED: Sodium Chloride 0.9% 1,000 ML IV SCH (14:05)
[2017-11-16] MEDS: Budesonide 0.25 mg/2 ml Inhal Susp UD IH SCH (18:33)
[2017-11-16] MEDS: Albuterol-Ipratrop 3 mg / 0.5 (3 ml) UD IH SCH (18:33)
--- NOTE | 2017-11-16 22:44 | CON ---
DATE: 11/16/2017 [facility] MANAGER CONSULTATION LOCATION: [facility]. REQUESTING PHYSICIAN: Stacey Del Rosario MD CHIEF COMPLAINT: The patient presented initially with malaise as well as abdominal pain in the right upper quadrant region. HISTORY OF PRESENT ILLNESS: The patient was on the medical floor, she say, after admission and developed respiratory distress requiring BiPAP and aggressive respiratory treatment. Note that the patient is oxygen dependent at home and does have BiPAP at home as well. She has history of COPD, pulmonary hypertension, pulmonary fibrosis, obstructive sleep apnea and presented to the hospital and noted to have a STEMI. The patient during evaluation this morning had hypercapnia, altered mental status, was being somnolent, and was put on BiPAP and given aggressive treatment of Lasix, Solu-Medrol, DuoNeb and was transferred to the Intensive Care Unit. At this time, she is awake and alert, on BiPAP, hemodynamically stable, but continues to be severely hypercapnic. PAST MEDICAL HISTORY: As above as well as noted respiratory failure, hypercapnia as well as anemia and she has a history of breast CA with a right-sided mastectomy. ALLERGIES: THE PATIENT HAS NO KNOWN ALLERGIES. MEDICATIONS: Her current medications can be evaluated as per the nurse's intake form. SOCIAL HISTORY: No history of alcohol, no history of substance abuse, and never smoked. REVIEW OF SYSTEMS: CONSTITUTIONAL: All negative. HEENT: All negative. RESPIRATORY: The patient has shortness of breath. CARDIOVASCULAR: All negative. GASTROINTESTINAL: Did have the abdominal pain. : All negative. MUSCULOSKELETAL: All negative. : Did have some episodes of somnolent and episodes of severe hypercapnia. ENDOCRINE: All negative. HEMATOLOGIC: All negative. IMMUNOLOGIC: All negative. PSYCHIATRIC: All negative. NEUROLOGIC: All negative. PHYSICAL EXAMINATION: VITAL SIGNS: Note that her temperature is 97.6, pulse is 77, respirations are 17 and her BP is 118/51, O2 saturation is 95%. HEENT: Head is atraumatic, normocephalic. Eyes reactive to light. Ears, nose and throat seemed to be within normal limits. NECK: Supple. No JVD. No thyroid enlargement. No lymph nodes. HEART: Has regular rate and rhythm. Normal S1 and S2. LUNGS: Reveal bilateral rhonchi. ABDOMEN: Soft. Decreased bowel sounds. Mild discomfort to palpation in the right upper quadrant region. GENITALIA AND RECTAL: Deferred. MUSCULOSKELETAL: No joint deformities. EXTREMITIES: Reveal 1+ lower extremity edema. NEUROLOGICALLY: She seemed to be grossly intact. LABORATORY DATA: As far as her laboratories are concerned, her white count is 13.2, hemoglobin is 11.4, hematocrit 38.7 with platelets of 177,000. The patient's arterial blood gas reveals a pH of 7.24 with a pCO2 of 96, pO2 of 56. This is on a FiO2 of 40%. Sodium is 145, potassium 4.8, chloride 104 with a CO2 of 33, BUN of 24, creatinine of 0.8 and a glucose of 93. As far as chest x-ray is concerned, the patient has patchy airspace disease in the right mid lung as well as the right lower lobe regions, could represent either atelectasis or pneumonia. Persistent diffuse interstitial thickening most compatible with interstitial fibrosis. IMPRESSION: This patient has respiratory failure with possible right lower lobe pneumonia. She has a history of pulmonary hypertension, pulmonary fibrosis, obstructive sleep apnea, chronic obstructive pulmonary disease and noted to have [id number] myocardial infarction with stents placed. The patient also has noted hypoxia as well as hypercapnia and anemia. She has a history of breast cancer with a right-sided mastectomy. PLAN: As far as our plan, we will continue with BiPAP and O2 support and follow her chest x-ray and arterial blood gas closely. We will give her DuoNeb every 6 hours. The patient is on Lasix as well as Protonix and is getting Pulmicort via nebulizer. She has been started on Rocephin antibiotics and getting Solu-Medrol 40 mg every 12 hours and we will continue to treat aggressively along with the other consultants and the primary care doctor. Woody Rodriguez MD
[2017-11-17] MEDS: Albuterol-Ipratrop 3 mg / 0.5 (3 ml) UD IH SCH ×2 (01:55→07:09)
--- NOTE | 2017-11-17 03:23 | CON ---
DATE: 11/16/2017 REFERRING PHYSICIAN: Dr. Stacey Del Rosario. REASON FOR CONSULT: Respiratory failure, chronic lung disease, pulmonary hypertension, pulmonary fibrosis. HISTORY OF PRESENT ILLNESS: This is a 71-year-old female known to me from previous admission and office and multiple medical issues including chronic obstructive lung disease, pulmonary fibrosis, oxygen dependent, steroids dependent, history of coronary disease and coronary stent, recently lost her son to an accident who was 35 years old, brought into emergency room with shortness of breath, abdominal discomfort, has a CT of the abdomen done which was nondiagnostic. Has a respiratory failure requiring noninvasive ventilation. She was seen by broadband engineer early this morning, also seen by home assessment nurse. ABG was done which shows non-compensated severe respiratory acidosis with pCO2 almost 90. She was placed on noninvasive ventilation and repeat ABG did not change much blood gases. Finally, the patient was transferred to Intensive Care Unit. The patient was seen by broadband engineer, Dr. Woody Rodriguez. Family is at bed side and on my arrival in the Intensive Care Unit, she is on noninvasive ventilation, lethargic, sleepy, but arousable. Follows simple command. There is no hemoptysis or hematemesis. No hematuria. No leg swelling or leg pain reported. PAST MEDICAL HISTORY: As per history of present illness and also has a history of breast cancer with mastectomy, been on chemo and radiation therapy. FAMILY HISTORY: No significant cardiopulmonary disease reported. SOCIAL HISTORY: Never smoked. Denies any alcohol use. ALLERGIES: NONE KNOWN. MEDICATIONS: She is placed on DuoNeb every 6 hours, Imdur 30 mg daily. Also on lidocaine patch at affected area, Protonix 40 mg daily, Pulmicort inhaled twice a day, Rocephin 1 g daily, IV fluid normal saline 50 mL per hour, Solu-Medrol 40 mg every 12 hours. REVIEW OF SYSTEMS: Lethargic, arousable. No headache, no rhinitis, get short of breath though. No chest pain. No nausea, no vomiting, diarrhea, leg pain or leg swelling. PHYSICAL EXAMINATION: VITAL SIGNS: On noninvasive ventilation, temperature is 98, heart rate is 86, respiratory rate is 24, blood pressure 90/60, pulse ox 100% on noninvasive ventilation. HEENT: Moist mucous membrane. Crowded airway. NECK: Supple. No JVD. LUNGS: Has fair airflow with few rhonchi. HEART: S1, S2. ABDOMEN: Soft, nontender, no organomegaly. EXTREMITIES: No edema. NEUROLOGIC: Lethargic, arousable. LABORATORY DATA: Shows hemoglobin 11.4, hematocrit 38.7, WBC 13.2, platelet count is 177. INR 0.96. PTT is 30. Last blood gases done on BiPap shows pH of 7.22, pCO2 is 106, pO2 is 88, this is on BiPap. IPAP of 16, EPAP of 6, backup rate of 12 with 60% oxygen. Sodium 145, potassium 4.8, chloride 104, bicarbonate 33, BUN 24, creatinine 0.8, glucose 93, lactic acid 1.3, calcium is 8.5, phosphorus 4.1, magnesium 2.1, AST 17, ALT 19, alk phos is 85. Albumin is 3.1. Stool for occult blood is negative. Chest x-ray done on admission in ER, which shows patchy airspace disease in the right middle lung and lower lobe could represent atelectasis or pneumonia, persistent diffuse interstitial thickening most compatible with interstitial fibrosis. Also had a CT of the abdomen and pelvis done because of some vague abdominal pain which showed no acute abdominal, pelvic abnormality, large sliding hiatal hernia. Preliminary report was provided by virtual radiologist. IMPRESSION AND PLAN: Respiratory failure, history of chronic obstructive lung disease, pulmonary fibrosis, cardiac diastolic dysfunction, pulmonary hypertension, steroids and oxygen dependent, recently lost son. Case discussed with broadband engineer. I also spoke to nursing staff. After long discussion with the family, decision was made for the patient DNR. The patient never wanted to be intubated and resuscitated in the case of cardiopulmonary arrest. We will write DNR, but she want aggressive medical care. So for now,I will continue present BiPap settings, ordered venous Doppler of lower extremity that showed there was no thromboembolic phenomena. Also, stat D dimer was done which is about 443 which is high. Echocardiogram is being done unofficially. I saw the ultrasound with the help of mortuary technician, seems like good LV function, but has almost 90 mm of right ventricular pressure. The patient was placed on Primacor by me. We will continue close cardiopulmonary monitoring. Hopefully, heart rate will not go up. Family agree with the plan. Also, venous Doppler of lower extremity ordered. I will also order a CTA to assure there is no pulmonary embolism. For now, add Lovenox 40 mg daily. We will continue steroids. We will add antibiotics. Discontinue IV fluid, high risk of . Critical care time of more than 35 minutes. Thank you and we will follow with you. Joaquin Rosales MD
[2017-11-17] MEDS: Pantoprazole 40 mg EC Tab PO SCH ×2 (05:10→06:07)
[2017-11-17 05:55] LABS: ARTERIAL BLOOD GAS HCO3 35.9 mmol/L (21-28); ARTERIAL BLOOD GAS O2 CONTENT 12.5 ML/dl (15-23); ARTERIAL BLOOD GAS O2 SAT 89.4 % (95-98); ARTERIAL BLOOD GAS PCO2 65 mm/Hg (35-45); ARTERIAL BLOOD GAS PH 7.35 (7.35-7.45); ARTERIAL BLOOD GAS TCO2 37.9 mmol.L (22-28)
[2017-11-17 06:19] LABS: HEMOGLOBIN 10.2 g/dL (12.0-16.0); MEAN CELL VOLUME 90.9 fl (80.0-105.0); MEAN CORPUSCULAR HEMOGLOBIN 27.2 pg (25.0-35.0); MEAN CORPUSCULAR HGB CONC 29.9 g/dl (31.0-37.0); MEAN PLATELET VOLUME 10.4 fl (7.0-11.0); RBC 3.75 10^6/uL (3.5-6.1); RED CELL DISTRIBUTION WIDTH 13.3 % (11.5-14.5)
[2017-11-17 06:38] LABS: ALBUMIN 3.4 g/dL (3.0-4.8); ALT/SGPT 17 U/L (7-56); AST/SGOT 22 U/L (14-36); BLOOD UREA NITROGEN 26 mg/dL (7-21); CALCIUM 8.3 mg/dL (8.4-10.5); GFR AFRICAN-AMERICAN > 60; GFR NON-AFRICAN AMERICAN > 60
[2017-11-17] MEDS: Budesonide 0.25 mg/2 ml Inhal Susp UD IH SCH ×2 (07:09→19:50)
--- NOTE | 2017-11-17 08:45 | PN ---
DATE: 11/17/2017 FELLED SEAM OPERATOR NOTE SUBJECTIVE The patient is resting in bed with her BiPAP on 45% FiO2. Note that she is very comfortable this morning. Did have an episode of chest discomfort, but felt as though it was her esophageal reflux. The patient is on Protonix. The patient has no significant cough. No fever, chills. No nausea or vomiting. No abdominal pain. Family is at bedside. No obvious respiratory distress with the BiPAP. PHYSICAL EXAMINATION: VITAL SIGNS: Note that her temperature is 97.9, her pulse is 102, respirations are 21 and BP is 115/62. SKIN: Warm and dry. HEENT: Head atraumatic, normocephalic. Eyes reactive to light. Ears, nose and throat seemed to be within normal limits. NECK: Supple. No JVD. No thyroid enlargement. No lymph nodes. HEART: Has regular rate and rhythm. Normal S1, S2, but mildly tachycardic. LUNGS: Reveal rare rhonchi at the bases. ABDOMEN: Soft. Decreased bowel sounds. GENITALIA: Deferred. RECTAL: Deferred. MUSCULOSKELETAL: No joint deformities. EXTREMITIES: Reveal trace lower extremity edema. NEUROLOGIC: She seemed to be grossly intact. DATA: As far as her laboratories are concerned, her white count is 12, hemoglobin is 10.2, hematocrit 34.1 with platelets of 181,000. Arterial blood gas reveals a pH of 7.35, pCO2 of 65, pO2 of 50. Sodium is 142, potassium 4.2, chloride 95, CO2 of 37 with a BUN of 26, creatinine of 0.8 and a glucose of 200. As far as CT scan of the chest, results are pending. IMPRESSION: The patient has respiratory failure with possible lower lobe pneumonia. She has a history of pulmonary hypertension, pulmonary fibrosis, obstructive sleep apnea, chronic obstructive pulmonary disease and myocardial infarction with stents. The patient is noted to have hypercapnia as well as hypoxia and has a history of breast carcinoma and right-sided mastectomy. PLAN: As far as our plan, we will continue with BiPAP and O2 support. We will follow her chest x-ray and arterial blood gas closely. She is on nebulizers every 6 hours as well as Lasix and Protonix as well as Pulmicort. The patient was started on antibiotics and is on Solu-Medrol. She is being followed by Cardiology as well as Pulmonary and is getting Lovenox prophylactically and at this time, is on milrinone drip. We will continue to treat aggressively and follow closely along with the other consultants and the primary care doctor. Woody Rodriguez MD
[2017-11-17] MEDS: cefTRIAXone 1 gm 1 GM/100 ML BAG IVPB SCH (09:09)
[2017-11-17] MEDS: Enoxaparin 40 mg Syringe SC SCH (09:09)
[2017-11-17] MEDS: MethylPREDNISolone 40 mg Vial IVP SCH ×2 (09:09→21:03)
[2017-11-17] MEDS: Lidocaine 5% Patch TD SCH ×3 (09:10→23:37)
--- NOTE | 2017-11-17 09:16 | CT ---
Date of service: 11/16/2017 PROCEDURE: CT Chest with contrast (Pulmonary Angiogram) HISTORY: r/o evaluate for pulmonary embolism COMPARISON: None available. TECHNIQUE: Axial computed tomography images were obtained of the chest in the pulmonary arterial phase of enhancement. Coronal and sagittal reformatted images were created and reviewed. Intravenous contrast dose: 100 mL Omnipaque 350 Radiation dose: Total exam DLP = 411.67 mGy-cm. This CT exam was performed using one or more of the following dose reduction techniques: Automated exposure control, adjustment of the mA and/or kV according to patient size, and/or use of iterative reconstruction technique. FINDINGS: PULMONARY ARTERIES: No filling defects in the pulmonary arteries to suggest pulmonary embolism. AORTA: No acute findings. No thoracic aortic aneurysm. LUNGS: There is architectural distortion, peripheral reticular opacities and mild subpleural honeycombing and bronchiectasis compatible with pulmonary fibrosis. There is airspace disease in both upper lobes with bronchiectasis. PLEURAL SPACES: Small pleural effusions, larger on the right. No pneumothorax. HEART: Unremarkable. No cardiomegaly. No significant pericardial effusion. LYMPH NODES: Prominent mediastinal lymph nodes are likely reactive in etiology BONES, CHEST WALL: Within normal limits for the patient's age. . No fracture or destructive lesion OTHER FINDINGS: Right breast saline implant. There is a moderate sliding hiatal hernia. IMPRESSION: No CT evidence for acute pulmonary embolism. Pulmonary fibrosis with bronchiectasis. Airspace disease in the upper lobes could represent superimposed pneumonia. Small pleural effusions, larger on the right. Moderate sliding hiatal hernia. A preliminary report was provided by algrano.
--- NOTE | 2017-11-17 10:20 | CP.PCM.PN ---
Subjective - Date & Time of Evaluation Date of Evaluation: 11/17/17 Time of Evaluation: 09:45 - Subjective Subjective: resting comfortably, some mild chest discomfort earlier this am, NAD at present , no SOB Objective - Vital Signs/Intake and Output Vital Signs (last 24 hours): Temp Pulse Resp BP Pulse Ox 97.9 F 117 H 26 H 115/67 97 11/17/17 04:00 11/17/17 09:26 11/17/17 05:00 11/17/17 09:26 11/17/17 05:00 Intake and Output: 11/17/17 11/17/17 06:59 18:59 Intake Total 596 Output Total 400 Balance 196 - Medications Medications: Current Medications Acetaminophen (Tylenol 325mg Tab) 650 mg PO Q6H PRN PRN Reason: Pain, Mild (1-3) Last Admin: 11/17/17 09:26 Dose: 650 mg Budesonide (Pulmicort Respules) 0.5 mg IH [id number] [facility] Last Admin: 11/17/17 07:09 Dose: 0.5 mg Enoxaparin Sodium (Lovenox) 40 mg SC DAILY [facility] PRN Reason: Protocol Last Admin: 11/17/17 09:09 Dose: 40 mg Ceftriaxone Sodium (Rocephin 1 Gram Ivpb) 1 gm in 100 mls @ 100 mls/hr IVPB DAILY [facility] PRN Reason: Protocol Last Admin: 11/17/17 09:09 Dose: 100 mls/hr Milrinone Lactate/Dextrose (Primacor 20mg/100ml D5w) 100 mls @ 8.318 mls/hr IV .Q12H2M PRN; Protocol; 0.375 MCG/KG/MIN PRN Reason: TITRATE PER MD ORDER Last Admin: 11/16/17 13:58 Dose: 0.375 mcg/kg/min, 8.318 mls/hr Isosorbide Mononitrate (Imdur Er) 30 mg PO DAILY [facility] Last Admin: 11/17/17 09:09 Dose: 30 mg Levalbuterol HCl (Xopenex) 0.63 mg IH TIDRESP [facility] Lidocaine (Lidoderm) 1 ea TD DAILY [facility] Last Admin: 11/17/17 09:10 Dose: 1 ea Lidocaine (Lidoderm) 1 ea TD DAILY [facility] Last Admin: 11/17/17 09:10 Dose: 1 ea Methylprednisolone (Solu-Medrol) 40 mg IVP Q12 [facility] Last Admin: 11/17/17 09:09 Dose: 40 mg Metoprolol Tartrate (Lopressor) 25 mg PO BID [facility] Last Admin: 11/17/17 09:26 Dose: 25 mg Pantoprazole Sodium (Protonix Ec Tab) 40 mg PO 0600 [facility] Last Admin: 11/17/17 06:07 Dose: 40 mg - Labs Labs: 11/17/17 06:00 11/17/17 06:00 PT 10.9 SECONDS (9.4-12.5) 11/15/17 21:45 INR 0.96 (0.93-1.08) 11/15/17 21:45 APTT 29.6 Seconds (25.1-36.5) 11/15/17 21:45 - Respiratory Exam Respiratory Exam: Decreased Breath Sounds, Prolonged Expiratory Phase - Cardiovascular Exam Cardiovascular Exam: REGULAR RHYTHM - GI/Abdominal Exam GI & Abdominal Exam: Soft, Normal Bowel Sounds - Back Exam Back Exam: NORMAL INSPECTION - Neurological Exam Neurological Exam: Alert, Awake - Skin Skin Exam: Dry, Warm Assessment and Plan (1) Hypercarbia Status: Acute (2) COPD exacerbation Status: Acute (3) Pulmonary fibrosis Status: Acute (4) Pulmonary hypertension Status: Acute (5) Coronary artery disease Status: Chronic (6) Pneumonia Status: Suspected - Assessment and Plan (Free Text) Plan: continue ICU monitoring, pt DNR/DNI, empiric IV Abx, pulmonary follow-up, Dr. Del Rosario to resume care of patient in am
--- NOTE | 2017-11-17 10:27 | RAD ---
Date of service: 11/16/2017 HISTORY: Bipap/hypoxic COMPARISON: 11/16/2017 FINDINGS: LUNGS: There is interval development of diffuse haziness in the right lung. There is persistent airspace disease in the left lower lobe. There is a background of interstitial fibrosis. PLEURA: Small pleural effusions, no pneumothorax apparent. There is biapical pleural thickening. CARDIOVASCULAR: Normal. OSSEOUS STRUCTURES: No significant abnormalities. VISUALIZED UPPER ABDOMEN: Normal. OTHER FINDINGS: None. IMPRESSION: Findings are concerning for interval development of pulmonary edema versus worsening consolidation in the right lung. Persistent small pleural effusions. Background of pulmonary fibrosis.
--- NOTE | 2017-11-17 12:09 | CP.PCM.PN ---
Subjective - Date & Time of Evaluation Date of Evaluation: 11/17/17 Time of Evaluation: 07:00 - Subjective Subjective: GENERAL SURGERY PROGRESS NOTE FOR DR. SCHRADER Patient seen and examined at bedside in ICU. She reports some left flank/rib pain, improved from yesterday. Denies nausea or vomiting. Tolerating diet, passing flatus. Now off BIPAP. Objective - Vital Signs/Intake and Output Vital Signs (last 24 hours): Temp Pulse Resp BP Pulse Ox 98.3 F 108 H 25 H 130/56 L 98 11/17/17 08:00 11/17/17 11:00 11/17/17 11:00 11/17/17 11:00 11/17/17 11:00 Intake and Output: 11/17/17 11/17/17 06:59 18:59 Intake Total 596 Output Total 400 Balance 196 - Medications Medications: Current Medications Acetaminophen (Tylenol 325mg Tab) 650 mg PO Q6H PRN PRN Reason: Pain, Mild (1-3) Last Admin: 11/17/17 09:26 Dose: 650 mg Aspirin (Aspirin Chewable) 81 mg PO DAILY [facility] Atorvastatin Calcium (Lipitor) 20 mg PO DIALW [facility] Budesonide (Pulmicort Respules) 0.5 mg IH [id number] [facility] Last Admin: 11/17/17 07:09 Dose: 0.5 mg Clopidogrel Bisulfate (Plavix) 75 mg PO DAILY [facility] Enoxaparin Sodium (Lovenox) 40 mg SC DAILY [facility] PRN Reason: Protocol Last Admin: 11/17/17 09:09 Dose: 40 mg Furosemide (Lasix) 40 mg PO DAILY [facility] Ceftriaxone Sodium (Rocephin 1 Gram Ivpb) 1 gm in 100 mls @ 100 mls/hr IVPB DAILY [facility] PRN Reason: Protocol Last Admin: 11/17/17 09:09 Dose: 100 mls/hr Milrinone Lactate/Dextrose (Primacor 20mg/100ml D5w) 100 mls @ 8.318 mls/hr IV .Q12H2M PRN; Protocol; 0.375 MCG/KG/MIN PRN Reason: TITRATE PER MD ORDER Last Admin: 11/16/17 13:58 Dose: 0.375 mcg/kg/min, 8.318 mls/hr Isosorbide Mononitrate (Imdur Er) 30 mg PO DAILY [facility] Last Admin: 11/17/17 09:09 Dose: 30 mg Levalbuterol HCl (Xopenex) 0.63 mg IH TIDRESP [facility] Lidocaine (Lidoderm) 1 ea TD DAILY [facility] Last Admin: 11/17/17 09:10 Dose: 1 ea Lidocaine (Lidoderm) 1 ea TD DAILY [facility] Last Admin: 11/17/17 09:10 Dose: 1 ea Methylprednisolone (Solu-Medrol) 40 mg IVP Q12 [facility] Last Admin: 11/17/17 09:09 Dose: 40 mg Metoprolol Tartrate (Lopressor) 25 mg PO TID [facility] Pantoprazole Sodium (Protonix Ec Tab) 40 mg PO 0600 [facility] Last Admin: 11/17/17 06:07 Dose: 40 mg - Labs Labs: 11/17/17 06:00 11/17/17 06:00 PT 10.9 SECONDS (9.4-12.5) 11/15/17 21:45 INR 0.96 (0.93-1.08) 11/15/17 21:45 APTT 29.6 Seconds (25.1-36.5) 11/15/17 21:45 - Constitutional Appears: Non-toxic, No Acute Distress - Head Exam Head Exam: NORMAL INSPECTION - Respiratory Exam Respiratory Exam: NORMAL BREATHING PATTERN (on NC). absent: Respiratory Distress - Cardiovascular Exam Cardiovascular Exam: Tachycardia - GI/Abdominal Exam GI & Abdominal Exam: Soft, Tenderness (tender LUQ over rib/Left flank ). absent : Distended, Firm, Guarding, Rigid, Rebound - Neurological Exam Neurological Exam: Alert, Awake, Oriented x3 - Psychiatric Exam Psychiatric exam: Normal Affect, Normal Mood - Skin Skin Exam: Normal Color Assessment and Plan - Assessment and Plan (Free Text) Assessment: 71F with left lower rib pain, likely musculoskeletal in nature Plan: - No surgical intervention indicated-patient not having abdominal pain but rather reproducible rib pain - Stool occult blood negative - PRN pain medication--lidoderm patch over area - Tolerating Heart healthy diet - Discussed plan with Dr. Cruz Arellano PGY-4
--- NOTE | 2017-11-17 12:16 | US ---
HISTORY: Leg pain and swelling. Evaluate for DVT PHYSICIAN(S): Santi Foster MD. TECHNIQUE: Duplex sonography and color-flow Doppler with graded compression were used to evaluate the deep venous systems of both lower extremities. FINDINGS: The visualized deep venous systems of both lower extremities are sonographically normal and compressible. Normal wave forms and augmentation are seen. There is no sonographic evidence for deep venous thrombosis in the visualized segments of both lower extremities. IMPRESSION: No sonographic evidence for deep venous thrombosis in the visualized segments of both lower extremities.
--- NOTE | 2017-11-17 12:50 | CARD ---
APPROVED REPORT Date of service: 11/16/2017 EXAM: Two-dimensional and M-mode echocardiogram with Doppler and color Doppler. INDICATION 2D DIMENSIONS IVSd1.6 (0.7-1.1cm)LVDd3.7 (3.9-5.9cm) PWd1.4 (0.7-1.1cm)LVDs2.5 (2.5-4.0cm) FS (%) 33.0 %LVEF (%)62.4 (>50%) M-Mode DIMENSIONS Left Atrium (MM)3.00 (2.5-4.0cm)Aortic Root3.00 (2.2-3.7cm) Aortic Cusp Exc.1.60 (1.5-2.0cm) Aortic Valve AoV Peak Idfxtipj134.0cm/sAoV VTI41.5cmAO Peak GR.19mmHg LVOT Peak Ukbzrijw836.0cm/sLVOT VTI28.70cmAO Mean GR.8mmHg Mitral Valve MV E Fhnonkfi93.2cm/sMV A Arhemtds948.0cm/sE/A ratio0.8 TDI Lateral E' Peak V7.99cm/sMedial E' Peak V6.43cm/sE/Lateral E'11.7 E/Medial E'14.5 Tricuspid Valve TR Peak Lmdihymo233el/sRAP [id number] Peak Gr.88mmHg [id number] LEFT VENTRICLE The left ventricle is normal size. There is mild to moderate concentric left ventricular hypertrophy. The left ventricular function is normal.EF-60-65% There is normal LV segmental wall motion. Transmitral Doppler flow pattern is Grade III-reversible restrictive diastolic dysfunction. No left ventricle thrombus noted on this study. There is no ventricular septal defect visualized. There is no left ventricular aneurysm. There is no mass noted in the left ventricle. RIGHT VENTRICLE The right ventricle is mildly to moderately dilated. There is normal right ventricular wall thickness. Systolic function of RV is mildly to moderately reduced. ATRIA The left atrium is mildly dilated. The right atrium is mildly dilated. The interatrial septum is intact with no evidence for an atrial septal defect. AORTIC VALVE The aortic valve is thickened but opens well. Trivial AR Aortic sclerosis vs Very mild There is no aortic valvular vegetation. MITRAL VALVE The mitral valve is thickened but opens well. Mitral regurgitation is trace to mild. There is no mitral valve stenosis. There is no evidence of mitral valve prolapse. TRICUSPID VALVE The tricuspid valve leaflets are thickened , but open well. There is moderate to severe tricuspid regurgitation.RVSP-98 mmofHg There is severe pulmonary hypertension. There is no tricuspid valve stenosis. There is no tricuspid valve prolapse or vegetation. PULMONIC VALVE The pulmonic valve is mildly thickened. There is trace to mild pulmonic valvular regurgitation. There is no pulmonic valvular stenosis. GREAT VESSELS The aortic root is normal in size. The ascending aorta is normal in size. The pulmonary artery is normal. The IVC is normal in size and collapses >50% with inspiration. PERICARDIAL EFFUSION There is no pleural effusion. There is no pericardial effusion. <Conclusion> The left ventricle is normal size. There is mild to moderate concentric left ventricular hypertrophy. The left ventricular function is normal.EF-60-65% The right ventricle is mildly to moderately dilated. Systolic function of RV is mildly to moderately reduced. Trivial AR There is no aortic valvular vegetation. Mitral regurgitation is trace to mild. There is moderate to severe tricuspid regurgitation.RVSP-98 mmofHg There is severe pulmonary hypertension. The IVC is normal in size and collapses >50% with inspiration. There is no pericardial effusion. No vegetation or thrombus noted.
[2017-11-17] MEDS: Levalbuterol 0.63 MG/3 ML Inhal Soln UD IH SCH ×2 (13:00→19:50)
--- NOTE | 2017-11-17 14:11 | PN ---
DATE: 11/17/2017 PULMONARY CRITICAL CARE PROGRESS NOTE REFERRING PHYSICIAN: Stacey Del Rosario MD. SUBJECTIVE: She is lying in the bed, head at 45 degrees. Night was unremarkable. Much more awake and alert, on nasal cannula, shortness of breath is much better. No chest pain at present. No nausea. No vomiting, diarrhea, leg pain, leg swelling. OBJECTIVE: GENERAL: No acute distress. VITAL SIGNS: Temperature is 98, heart rate is 97, respiratory rate is 24, blood pressure 130/56, pulse ox 98% on nasal cannula. HEENT: Moist mucous membranes. Small oral cavity. Crowded airway. NECK: Supple. No JVD. LUNGS: Have bilateral crackles up to the apices. HEART: S1 and S2. ABDOMEN: Soft, nontender. No organomegaly. EXTREMITIES: There is no edema. NEUROLOGICAL: Awake, alert. Follows simple command. MEDICATIONS: She is on aspirin 81 mg daily, Imdur 30 mg daily, Lasix 40 mg daily, lidocaine patch to the affected area, Lipitor 20 mg daily, metoprolol tartrate 25 mg three times a day, Lovenox 40 mg daily, Plavix 75 mg daily, on IV Primacor, Protonix 40 mg daily, Pulmicort inhaled twice a day, Rocephin 1 g daily, Solu-Medrol 40 mg every 12 hours, Tylenol p.r.n., Xopenex every 8 hours [id number]. LABORATORY DATA: Shows hemoglobin 10.2, hematocrit 34.1, WBC 12, platelet is 181. D-dimer was 443. This morning, blood gases show pH 7.35, pCO2 of 65, O2 is 50. Sodium 142, potassium 4.2, chloride 95, bicarbonate 37, BUN 26, creatinine 0.8, glucose is 200, calcium is 8.3, AST 22, ALT 17, alk phos is 75. Albumin is 3.4. Microbiology: Blood culture has been negative. CTA of the chest done last night shows no evidence of pulmonary embolism, but there is a pulmonary fibrosis with bronchiectasis, also airspace disease in the upper lobe, could represent superimposed pneumonia, small pleural effusion, moderate hiatal hernia. Echocardiogram done, report is still pending. Venous Doppler of lower extremity shows no DVT. IMPRESSION AND PLAN: Respiratory failure requiring noninvasive ventilation, severe pulmonary hypertension, cardiomyopathy, history of pulmonary fibrosis, steroids dependent, oxygen dependent. The patient recently lost her son to an accident, has been depressed, anxious and had a lot of family members have been visiting her. At one point, she used extra supplemental oxygen. We will continue Primacor for now. Agree with the beta arun use. Continue steroids. Continue antibiotics. Gastric prophylaxis. Deep venous thrombosis prophylaxis. Next day or so, need to think about adding pulmonary vasodilator once the official echocardiogram report is back. Follow up ABG, chest x-ray, CBC, CMP in the morning. Critical care time more than 35 minutes. Thank you and we will follow with you. Joaquin Rosales MD
[2017-11-17] MEDS: Milrinone 20mg/100ml D5W 100 ML IV PRN (15:00)
--- NOTE | 2017-11-17 15:56 | PN ---
DATE: 11/17/2017 REASON FOR CONSULTATION AND FOLLOWUP: Coronary artery disease, acute decompensated congestive heart failure, severe COPD, CO2 narcosis, moved to ICU. SUBJECTIVE: Patient is much awake, alert, much significantly improved from yesterday. Denies any chest pain, all over the chest, head and neck, but denies any chest pain. According to all over the chest, headache and neck pain. OBJECTIVE: GENERAL: Not in apparent distress, lying flat. Family is at the bedside. VITAL SIGNS: Temperature afebrile, heart rate 107, blood pressure 115/63. HEENT: PERRLA, intact. NECK: Supple. No carotid bruit. No thyromegaly. CHEST: Clear to auscultation. HEART: S1 and S2, regular. ABDOMEN: Soft. EXTREMITIES: Clubbing and cyanosis negative. LABORATORY DATA: Blood workup: WBC 12, hemoglobin 10.2, hematocrit 34.1, and platelet count 181. Chemistry showed sodium 140, potassium 4.2, chloride 95, carbon dioxide 37, anion gap of 15. BUN 26, creatinine 0.1. Troponin 0.01. IMPRESSION: Acute exacerbation of chronic obstructive pulmonary disease, carbon dioxide narcosis. Yesterday, pCO2 went up to 96 twice and 106 at 2 p.m., moved to intensive care unit, now 66 on CPAP. History of coronary artery disease, history of multiple stent. She has diabetes, hypertension, hyperlipidemia, advanced chronic obstructive pulmonary disease on home oxygen, sinus tachycardia. RECOMMENDATION: Patient had echo yesterday, we will review. Start metoprolol 25 p.o. b.i.d. Continue gentle diuretics. Keep fluid negative balance. Continue DVT prophylaxis. We will follow. Overall, patient's condition is critical. Long-term prognosis is guarded. Discussed with daughter. Discussed with the nursing staff taking care of the patient. We will resume back aspirin, we will resume back Plavix, we will resume back metoprolol, and we will resume back atorvastatin. We will follow with you. We will increase metoprolol to three times a day and see the blood pressure response. If it stabilize, we will increase to 50 b.i.d. from tomorrow. We will get gentle diuretics. Keep negative fluid balance to improve oxygenation. Patient has significant history of pulmonary fibrosis and bronchiectasis in the past. We will give one dose of Lasix IV today. Joaquin Frankel MD
[2017-11-18 06:08] LABS: GRAN # 15.35 (1.4-6.5); GRAN % 91.9 % (50.0-68.0); HEMOGLOBIN 9.8 g/dL (12.0-16.0); LYMPH # 0.8 (1.2-3.4); MEAN CORPUSCULAR HEMOGLOBIN 27.7 pg (25.0-35.0); MEAN CORPUSCULAR HGB CONC 31.1 g/dl (31.0-37.0); MEAN PLATELET VOLUME 10.4 fl (7.0-11.0); MONO # 0.5 (0.1-0.6); MONO % 3.1 % (1.0-6.0); PLATELET COUNT 182 10^3/uL (120.0-450.0); RBC 3.54 10^6/uL (3.5-6.1); RED CELL DISTRIBUTION WIDTH 13.5 % (11.5-14.5); WHITE BLOOD COUNT 16.7 10^3/ul (4.5-11.0)
[2017-11-18] MEDS: Pantoprazole 40 mg EC Tab PO SCH (06:38)
[2017-11-18 06:51] LABS: BAND 8 % (0-2); LYMPHOCYTE 7 % (22.0-35.0); MONOCYTE 5 % (1.0-6.0); NEUTROPHIL 80 % (50.0-70.0); PLATELET ESTIMATE NORMAL (NORMAL)
[2017-11-18 07:18] LABS: ALBUMIN 3.4 g/dL (3.0-4.8); ALT/SGPT 24 U/L (7-56); AST/SGOT 19 U/L (14-36); BLOOD UREA NITROGEN 32 mg/dL (7-21); GFR AFRICAN-AMERICAN > 60; GFR NON-AFRICAN AMERICAN > 60
[2017-11-18] MEDS: Budesonide 0.25 mg/2 ml Inhal Susp UD IH SCH ×3 (07:20→20:30)
[2017-11-18] MEDS: Levalbuterol 0.63 MG/3 ML Inhal Soln UD IH SCH ×3 (07:21→20:30)
--- NOTE | 2017-11-18 08:56 | HP ---
ADMISSION HISTORY AND PHYSICAL HISTORY OF PRESENT ILLNESS The patient is a 71-year-old female with a history of COPD, pulmonary fibrosis and pulmonary hypertension. Admitted to the telemetry unit through the Emergency Department with complaints of chest and abdominal pain and shortness of breath. The patient was noted to have a markedly elevated pCO2. Was seen in consultation by Pulmonary. Started on intravenous steroids, nebulizer treatment and a BiPAP mask. PAST MEDICAL HISTORY: The patient's past medical history includes coronary artery disease, status post stent placements; hypertension; GERD. PAST SURGICAL HISTORY: Includes breast cancer, status post right mastectomy. CURRENT MEDICATIONS: The patient's current medications include Ranexa 500 mg twice daily, Zantac 150 mg twice daily and Imdur 30 mg daily. ALLERGIES: THE PATIENT HAS NO KNOWN DRUG ALLERGIES. SOCIAL HISTORY: The patient has no history of tobacco or alcohol use. REVIEW OF SYSTEMS: Negative other than above. FAMILY HISTORY: Noncontributory. PHYSICAL EXAMINATION: GENERAL: The patient is a well-developed female, in mild respiratory distress. VITAL SIGNS: Blood pressure 118/51, temperature 97.6, pulse 77, respiratory rate 17. HEENT: Head is normocephalic, atraumatic. Pupils equal, round, reactive to light. Extraocular movements intact. NECK: Supple. A BiPAP mask is applied to the face is intact. LUNGS: Show good air entry bilaterally with decreased breath sounds at the bases. HEART: Regular rate and rhythm. ABDOMEN: Soft, nontender. Bowel sounds are hypoactive. EXTREMITIES: Without cyanosis, clubbing or edema. NEUROLOGIC: The patient is awake and responsive without focal sensory or motor deficits. SKIN: Warm and dry. LABORATORY DATA: WBC is 13.2, hemoglobin 11.4, hematocrit 38.7. Sodium 145, potassium 4.8, chloride 104, CO2 33, BUN 24, creatinine 0.8. CPK is less than 20. Troponin is less than 0.01. BNP is 336, lipase is 68. Arterial blood gas shows pH 7.24, pCO2 of 96, pO2 of 57, on 40% oxygen and BiPAP mask. IMPRESSION: 1. Ventilatory failure/carbon dioxide narcosis. 2. Chronic obstructive pulmonary disease. 3. Pulmonary fibrosis. 4. Pulmonary hypertension. 5. Coronary artery disease, status post stent placement. 6. History of cancer of the breast, status post right mastectomy. PLAN: Continue IV steroids, nebulizer treatment, BiPAP mask. Pulmonary consultation, Dr. Rosales. Prognosis is guarded. Family is requesting advance directive. FARZANA Boateng MD
--- NOTE | 2017-11-18 09:03 | PN ---
DATE: 11/16/2017 REASON FOR THE DICTATION: Addendum to the initial consult dictated by the nurse practitioner. The patient was reevaluated two to three times because of acuity of the symptoms and critical condition. Repeat ABG was done on CPAP that shows a pCO2 of 96, pO2 of 57, bicarb 41, and pH 7.24. Updated Dr. Rosales, manager construction, of the patient's condition. I will speak again to Dr. Woody Rodriguez, abattoir manager, covering to transfer the patient to ICU for further management. A stat chest x-ray ordered. Lasix was given. Continue aggressive treatment for COPD including steroid, beta 2 agonist. We will follow. Overall, the patient's condition is critical. Also, I discussed with Dr. Harden, covering Dr. Del Rosario. Prognosis is extremely guarded. Acute exacerbation of COPD, history of multiple stents and CAD, but active problem at this time is COPD, CO2 narcosis, and retention of CO2. Joaquin Frankel MD
[2017-11-18] MEDS: Enoxaparin 40 mg Syringe SC SCH (09:11)
[2017-11-18] MEDS: MethylPREDNISolone 40 mg Vial IVP SCH ×2 (09:12→21:10)
[2017-11-18] MEDS: Lidocaine 5% Patch TD SCH ×2 (09:19→14:53)
[2017-11-18] MEDS: cefTRIAXone 1 gm 1 GM/100 ML BAG IVPB SCH (09:20)
[2017-11-18 10:23] LABS: ARTERIAL BLOOD GAS HCO3 36.8 mmol/L (21-28); ARTERIAL BLOOD GAS HEMOGLOBIN 9.4 g/dL (11.7-17.4); ARTERIAL BLOOD GAS O2 CAPACITY 13.3 mL/dl (16-24); ARTERIAL BLOOD GAS O2 CONTENT 12.7 ML/dl (15-23); ARTERIAL BLOOD GAS O2 SAT 95.7 % (95-98); ARTERIAL BLOOD GAS PCO2 58 mm/Hg (35-45); ARTERIAL BLOOD GAS PH 7.41 (7.35-7.45); ARTERIAL BLOOD GAS TCO2 38.6 mmol.L (22-28)
--- NOTE | 2017-11-18 10:28 | RAD ---
Date of service: 11/18/2017 HISTORY: eval hypercapnioa COMPARISON: 07/09/2017 FINDINGS: LUNGS: There is no change the pattern of severe pulmonary fibrosis. PLEURA: No significant pleural effusion identified, no pneumothorax apparent. CARDIOVASCULAR: Normal. OSSEOUS STRUCTURES: No significant abnormalities. VISUALIZED UPPER ABDOMEN: Normal. OTHER FINDINGS: None. IMPRESSION: Pulmonary fibrosis unchanged
[2017-11-18] MEDS: Vancomycin 1gm in NS 250ml 1 GM/250 ML BAG IVPB SCH ×2 (11:55→22:51)
--- NOTE | 2017-11-18 13:34 | CP.CCUPN ---
<ObdulioRaffi - Last Filed: 11/18/17 14:48> CCU Subjective - Physician Review Subjective (Free Text): Raffi Mak DO PGY-1, ICU progress note for Dr. Espinoza Pt seen and examined at bedside. Pt is in no acute distress. No acute events overnight. Pt endorses some shortness of breath while moving around in bed. t became emotional and visibly short of breath on interview, due to conversation about her son who 2 days ago. Pt is on Milrinone gtt at 0.375 mcg/kg /min. Pt denies fever, headache, lightheadedness, weakness, chest pain, palpitations, abdominal pain, n/v/d, paresthesias. A 12-point ROS was reviewed and is unremarkable except as above. CCU Objective - Vital Signs / Intake & Output Vital Signs (Last 4 hours): Vital Signs Pulse BP 11/18/17 11:54 83 150/72 Intake and Output (Last 8hrs): Intake & Output 11/17/17 11/18/17 11/18/17 22:59 06:59 14:59 Intake Total 1290 500 Output Total 1200 1200 Balance 90 -700 Intake: IV 320 100 Left Forearm 120 Left Hand 100 100 Oral 970 400 Output: Urine 1200 1200 Urine, Voided 1200 1200 Other: # Voids Urine, Voided 5 # Bowel Movements 0 0 - Physical Exam Head: Positive for: Atraumatic, Normocephalic Pupils: Positive for: PERRL Extroacular Muscles: Positive for: EOMI Conjunctiva: Positive for: Normal Mouth: Positive for: Moist Mucous Membranes Neck: Positive for: Normal Range of Motion Respiratory/Chest: Positive for: Clear to Auscultation, Good Air Exchange, Other ((+) bowel sounds on ausculatation of lungs due to pt's moderate sliding hiatal hernia). Negative for: Respiratory Distress, Accessory Muscle Use, Wheezes Cardiovascular: Positive for: Regular Rate and Rhythm, Normal S1, S2. Negative for: Murmurs Abdomen: Positive for: Normal Bowel Sounds (heard in all four quadrants). Negative for: Tenderness ((+) lidoderm patch on left flank), Distention, Peritoneal Signs Back: Positive for: Normal Inspection Upper Extremity: Positive for: Normal Inspection. Negative for: Cyanosis, Edema Lower Extremity: Positive for: Normal Inspection. Negative for: Edema Neurological: Positive for: GCS=15, CN II-XII Intact, Speech Normal Skin: Positive for: Warm, Dry, Normal Color. Negative for: Rashes Psychiatric: Positive for: Alert, Oriented x 3, Normal Insight, Normal Concentration, Depressed Mood - Medications Active Medications: Active Medications Generic Name Dose Route Start Last Admin Trade Name Freq PRN Reason Stop Dose Admin Acetaminophen 650 mg 11/17/17 09:17 11/17/17 09:26 Tylenol 325mg Tab PO 650 mg Q6H PRN Administration Pain, Mild (1-3) Aspirin 81 mg 11/18/17 10:00 11/18/17 09:11 Aspirin Chewable PO 81 mg DAILY GUY Administration Atorvastatin Calcium 20 mg 11/17/17 11:00 Lipitor PO DIALW GUY Azithromycin 500 mg 11/18/17 10:00 11/18/17 12:06 Zithromax PO 500 mg DAILY GUY Administration Protocol Budesonide 0.5 mg 11/16/17 20:00 11/18/17 07:20 Pulmicort Respules IH 0.5 mg [id number] Administration Clopidogrel Bisulfate 75 mg 11/18/17 10:00 11/18/17 09:13 Plavix PO 75 mg DAILY GUY Administration Enoxaparin Sodium 40 mg 11/16/17 14:00 11/18/17 09:11 Lovenox SC 40 mg DAILY GUY Administration Protocol Furosemide 40 mg 11/18/17 10:00 11/18/17 09:14 Lasix PO 40 mg DAILY GUY Administration Milrinone Lactate/Dextrose 100 mls @ 8.318 mls/hr 11/16/17 13:48 11/17/17 15: 00 Primacor 20mg/100ml D5w IV 0.375 mcg/kg/min .Q12H2M PRN 8.318 mls/hr TITRATE PER MD ORDER Administration Protocol 0.375 MCG/KG/MIN Meropenem 50 mls @ 100 mls/hr 11/18/17 14:00 Merrem Iv 1 Gm Premix IVPB Q8 GUY Protocol Vancomycin HCl 1 gm in 250 mls @ 167 mls/hr 11/18/17 11:30 11/18/17 11:55 Vancomycin 1gm IVPB 167 mls/hr Q12H GUY Administration Protocol Isosorbide Mononitrate 60 mg 11/19/17 10:00 Imdur PO DAILY GUY Levalbuterol HCl 0.63 mg 11/17/17 14:00 11/18/17 07:21 Xopenex IH 0.63 mg TIDRESP GUY Administration Lidocaine 1 ea 11/16/17 10:00 11/17/17 23:37 Lidoderm TD 1 ea DAILY GUY Administration Lidocaine 1 ea 11/17/17 10:00 11/18/17 09:19 Lidoderm TD 1 ea DAILY GUY Administration Methylprednisolone 40 mg 11/16/17 10:00 11/18/17 09:12 Solu-Medrol IVP 40 mg Q12 GUY Administration Metoprolol Tartrate 50 mg 11/18/17 18:00 Lopressor PO BID GUY Pantoprazole Sodium 40 mg 11/17/17 06:00 11/18/17 06:38 Protonix Ec Tab PO 40 mg 0600 GUY Administration - Patient Studies Lab Studies: Microbiology Studies 11/16/17 12:45 Blood Culture - Preliminary Blood NO GROWTH AFTER 48 HOURS 11/16/17 12:30 Blood Culture - Preliminary Blood NO GROWTH AFTER 48 HOURS 11/16/17 11:00 MRSA Culture (Admit) - Final Naris MRSA NOT DETECTED Lab Studies 11/18/17 11/18/17 11/18/17 Range/Units 10:15 05:45 05:45 WBC 16.7 H D (4.5-11.0) 10^3/ul RBC 3.54 (3.5-6.1) 10^6/uL Hgb 9.8 L (12.0-16.0) g/dL Hct 31.5 L (36.0-48.0) % MCV 89.0 (80.0-105.0) fl MCH 27.7 (25.0-35.0) pg MCHC 31.1 (31.0-37.0) g/dl RDW 13.5 (11.5-14.5) % Plt Count 182 (120.0-450.0) 10^3/uL MPV 10.4 (7.0-11.0) fl Gran % 91.9 H (50.0-68.0) % Lymph % (Auto) 5.0 L (22.0-35.0) % Pickett % (Auto) 3.1 (1.0-6.0) % Eos % (Auto) 0.0 L (1.5-5.0) % Baso % (Auto) 0.0 (0.0-3.0) % Gran # 15.35 H (1.4-6.5) Lymph # (Auto) 0.8 L (1.2-3.4) Pickett # (Auto) 0.5 (0.1-0.6) Eos # (Auto) 0.0 (0.0-0.7) Baso # (Auto) 0.00 (0.0-2.0) K/mm3 Neutrophils % (Manual) 80 H (50.0-70.0) % Band Neutrophils % 8 H (0-2) % Lymphocytes % (Manual) 7 L (22.0-35.0) % Monocytes % (Manual) 5 (1.0-6.0) % Platelet Evaluation Normal (NORMAL) pCO2 58 H (35-45) mm/Hg pO2 81.0 (80-100) mm/Hg HCO3 36.8 H (21-28) mmol/L ABG pH 7.41 (7.35-7.45) ABG Total CO2 38.6 H (22-28) mmol.L ABG O2 Saturation 95.7 (95-98) % ABG O2 Content 12.7 L (15-23) ML/dl ABG Base Excess 10.6 H (-2.0-3.0) mmol/L ABG Hemoglobin 9.4 L (11.7-17.4) g/dL ABG Carboxyhemoglobin 0.3 L (0.5-1.5) % POC ABG HHb (Measured) 4.3 (0-5) % ABG Methemoglobin 0.5 (0.0-3.0) % ABG O2 Capacity 13.3 L (16-24) mL/dl Hgb O2 Saturation 95.0 (95.0-98.0) % FiO2 36.0 % Sodium 144 (132-148) mmol/L Potassium 4.2 (3.6-5.0) mmol/L Chloride 96 L (98-107) mmol/L Carbon Dioxide 40 H (21-33) mmol/L Anion Gap 12 (10-20) BUN 32 H (7-21) mg/dL Creatinine 0.8 (0.7-1.2) mg/dl Est GFR ( Amer) > 60 Est GFR (Non-Af Amer) > 60 Random Glucose 162 H (70-110) mg/dL Calcium 9.0 (8.4-10.5) mg/dL Phosphorus 2.5 (2.5-4.5) mg/dL Magnesium 2.4 H (1.7-2.2) mg/dL Total Bilirubin 0.3 (0.2-1.3) mg/dL AST 19 (14-36) U/L ALT 24 (7-56) U/L Alkaline Phosphatase 67 (38-126) U/L Total Protein 6.7 (5.8-8.3) g/dL Albumin 3.4 (3.0-4.8) g/dL Globulin 3.3 gm/dL Albumin/Globulin Ratio 1.0 L (1.1-1.8) Laboratory Results - last 24 hr 11/18/17 11/18/17 11/18/17 05:45 05:45 10:15 WBC 16.7 H D RBC 3.54 Hgb 9.8 L Hct 31.5 L MCV 89.0 MCH 27.7 MCHC 31.1 RDW 13.5 Plt Count 182 MPV 10.4 Gran % 91.9 H Lymph % (Auto) 5.0 L Pickett % (Auto) 3.1 Eos % (Auto) 0.0 L Baso % (Auto) 0.0 Gran # 15.35 H Lymph # (Auto) 0.8 L Pickett # (Auto) 0.5 Eos # (Auto) 0.0 Baso # (Auto) 0.00 Neutrophils % (Manual) 80 H Band Neutrophils % 8 H Lymphocytes % (Manual) 7 L Monocytes % (Manual) 5 Platelet Evaluation Normal pCO2 58 H pO2 81.0 HCO3 36.8 H ABG pH 7.41 ABG Total CO2 38.6 H ABG O2 Saturation 95.7 ABG O2 Content 12.7 L ABG Base Excess 10.6 H ABG Hemoglobin 9.4 L ABG Carboxyhemoglobin 0.3 L POC ABG HHb (Measured) 4.3 ABG Methemoglobin 0.5 ABG O2 Capacity 13.3 L Hgb O2 Saturation 95.0 FiO2 36.0 Sodium 144 Potassium 4.2 Chloride 96 L Carbon Dioxide 40 H Anion Gap 12 BUN 32 H Creatinine 0.8 Est GFR ( Amer) > 60 Est GFR (Non-Af Amer) > 60 Random Glucose 162 H Calcium 9.0 Phosphorus 2.5 Magnesium 2.4 H Total Bilirubin 0.3 AST 19 ALT 24 Alkaline Phosphatase 67 Total Protein 6.7 Albumin 3.4 Globulin 3.3 Albumin/Globulin Ratio 1.0 L Review of Systems - Review of Systems All systems: reviewed and no additional remarkable complaints except (as per HPI ) Critical Care Progress Note - Prophylaxis GI Prophylaxis GI: PPI - Nutrition Nutrition: Nutrition Category Date Time Status Heart Healthy Diet [DIET] Diets 11/18/17 Breakfast Active Assessment/Plan - Assessment and Plan (Free Text) Assessment: This is a 71 year old female with PMHx of COPD on home o2, NSTEMI, CAD with stents, pulmonary fibrosis, pulmonary hypertension, right breast ca, GERD, HTN who presented to the ED on 11/15/17 for complaints of left abdominal pain with chest pain for the past 2 days. Pt was medically treated on the med/surg floor for COPD exacerbation. ICU consult (11/17) due to AMS described as lethargy, with respiratory distress on BPAP. Transferred to ICU for management of hypercapneic hypoxic respiratory failure (PCO2 96, pH 7.20). Pt has tolerated BPAP well, recent ABG shows resolution of acidemia, and compensated chronic respiratory acidosis. Plan: Neuro: - continue to monitor for mental status changes - pt is AAOx3 at baseline Cardio: - pt is hemodynamically stable - continue milrinone - continue ASA, Lipitor, Plavix, lovenox, lasix, imdur, metoprolol as per cardio - f/u cardiology recs Pulm: - maintain spo2 between 88-92% - CXR (11/16): Interval development of pulmonary edema versus worsening consolidation of the right lung. Persistent small plueral effusions. - CXR (11/18) shows unchanged pulmonary fibrosis - ABG shows compensated chronic respiratory acidosis - will start azithromycin for atypical coverage - continue budesonide - BPAP prn - xopenex prn - HoB >30 degrees - f/u pulmonology recs GI: - protonix for GI ppx - HHD Renal: - maintain euvolemia - continue to replete electrolytes as needed Heme: -H/H is stable ID: - leukocytosis is uptrending; secondary to pneumonia - continue vancomycin, with newly added azithromycin - case discussed with PMD, who requests ID consult - BCx x2 prelim shows no growth x 48 hours - MRSA (nares) shows no growth - ID consulted, will f/u ID recs Psych: - Psych consulted due to pt's son passing away two days ago, and depressed mood - As per psych, pt has capacity to make medical decisions - pt would like to be informed about an advanced directive - social and political studies professor eval ordered MSK: - PT eval and treatment PPX: Protonix for GI; pt is on dual antiplatelet therapy as well as lovenox Dispo: Pt is stable and safe for transfer to telemetry; PMD is aware and agrees with transfer and management Case reviewed and discussed with attending physician, Dr. Espinoza <Forest Espinoza - Last Filed: 11/18/17 15:36> CCU Objective - Vital Signs / Intake & Output Vital Signs (Last 4 hours): Vital Signs Temp Pulse Resp BP Pulse Ox 11/18/17 13:00 86 16 122/51 L 97 11/18/17 12:00 98.1 F 83 140/72 95 11/18/17 11:54 83 150/72 Intake and Output (Last 8hrs): Intake & Output 11/18/17 11/18/17 11/18/17 06:59 14:59 22:59 Intake Total 500 Output Total 1200 Balance -700 Intake: IV 100 Left Hand 100 Oral 400 Output: Urine 1200 Urine, Voided 1200 Other: # Bowel Movements 0 - Medications Active Medications: Active Medications Generic Name Dose Route Start Last Admin Trade Name Freq PRN Reason Stop Dose Admin Acetaminophen 650 mg 11/17/17 09:17 11/17/17 09:26 Tylenol 325mg Tab PO 650 mg Q6H PRN Administration Pain, Mild (1-3) Aspirin 81 mg 11/18/17 10:00 11/18/17 09:11 Aspirin Chewable PO 81 mg DAILY GUY Administration Atorvastatin Calcium 20 mg 11/17/17 11:00 Lipitor PO DIALW GUY Azithromycin 500 mg 11/18/17 10:00 11/18/17 12:06 Zithromax PO 500 mg DAILY GUY Administration Protocol Budesonide 0.5 mg 11/16/17 20:00 11/18/17 07:20 Pulmicort Respules IH 0.5 mg [id number] GUY Administration Clopidogrel Bisulfate 75 mg 11/18/17 10:00 11/18/17 09:13 Plavix PO 75 mg DAILY GUY Administration Enoxaparin Sodium 40 mg 11/16/17 14:00 11/18/17 09:11 Lovenox SC 40 mg DAILY GUY Administration Protocol Furosemide 40 mg 11/18/17 10:00 11/18/17 09:14 Lasix PO 40 mg DAILY GUY Administration Milrinone Lactate/Dextrose 100 mls @ 8.318 mls/hr 11/16/17 13:48 11/17/17 15: 00 Primacor 20mg/100ml D5w IV 0.375 mcg/kg/min .Q12H2M PRN 8.318 mls/hr TITRATE PER MD ORDER Administration Protocol 0.375 MCG/KG/MIN Meropenem 50 mls @ 100 mls/hr 11/18/17 14:00 11/18/17 14:55 Merrem Iv 1 Gm Premix IVPB 100 mls/hr Q8 GUY Administration Protocol Vancomycin HCl 1 gm in 250 mls @ 167 mls/hr 11/18/17 11:30 11/18/17 11:55 Vancomycin 1gm IVPB 167 mls/hr Q12H GUY Administration Protocol Isosorbide Mononitrate 60 mg 11/19/17 10:00 Imdur PO DAILY GUY Levalbuterol HCl 0.63 mg 11/17/17 14:00 11/18/17 15:27 Xopenex IH Not Given TIDRESP GUY Lidocaine 1 ea 11/16/17 10:00 11/18/17 14:53 Lidoderm TD 1 ea DAILY GUY Administration Lidocaine 1 ea 11/17/17 10:00 11/18/17 09:19 Lidoderm TD 1 ea DAILY GUY Administration Methylprednisolone 40 mg 11/16/17 10:00 11/18/17 09:12 Solu-Medrol IVP 11/18/17 23:55 40 mg Q12 GUY Administration Methylprednisolone 40 mg 11/19/17 10:00 Solu-Medrol IVP DAILY GUY Metoprolol Tartrate 50 mg 11/18/17 18:00 Lopressor PO BID GUY Pantoprazole Sodium 40 mg 11/17/17 06:00 11/18/17 06:38 Protonix Ec Tab PO 40 mg 0600 GUY Administration - Patient Studies Lab Studies: Microbiology Studies 11/16/17 12:45 Blood Culture - Preliminary Blood NO GROWTH AFTER 48 HOURS 11/16/17 12:30 Blood Culture - Preliminary Blood NO GROWTH AFTER 48 HOURS 11/16/17 11:00 MRSA Culture (Admit) - Final Naris MRSA NOT DETECTED Lab Studies 11/18/17 11/18/17 11/18/17 Range/Units 10:15 05:45 05:45 WBC 16.7 H D (4.5-11.0) 10^3/ul RBC 3.54 (3.5-6.1) 10^6/uL Hgb 9.8 L (12.0-16.0) g/dL Hct 31.5 L (36.0-48.0) % MCV 89.0 (80.0-105.0) fl MCH 27.7 (25.0-35.0) pg MCHC 31.1 (31.0-37.0) g/dl RDW 13.5 (11.5-14.5) % Plt Count 182 (120.0-450.0) 10^3/uL MPV 10.4 (7.0-11.0) fl Gran % 91.9 H (50.0-68.0) % Lymph % (Auto) 5.0 L (22.0-35.0) % Pickett % (Auto) 3.1 (1.0-6.0) % Eos % (Auto) 0.0 L (1.5-5.0) % Baso % (Auto) 0.0 (0.0-3.0) % Gran # 15.35 H (1.4-6.5) Lymph # (Auto) 0.8 L (1.2-3.4) Pickett # (Auto) 0.5 (0.1-0.6) Eos # (Auto) 0.0 (0.0-0.7) Baso # (Auto) 0.00 (0.0-2.0) K/mm3 Neutrophils % (Manual) 80 H (50.0-70.0) % Band Neutrophils % 8 H (0-2) % Lymphocytes % (Manual) 7 L (22.0-35.0) % Monocytes % (Manual) 5 (1.0-6.0) % Platelet Evaluation Normal (NORMAL) pCO2 58 H (35-45) mm/Hg pO2 81.0 (80-100) mm/Hg HCO3 36.8 H (21-28) mmol/L ABG pH 7.41 (7.35-7.45) ABG Total CO2 38.6 H (22-28) mmol.L ABG O2 Saturation 95.7 (95-98) % ABG O2 Content 12.7 L (15-23) ML/dl ABG Base Excess 10.6 H (-2.0-3.0) mmol/L ABG Hemoglobin 9.4 L (11.7-17.4) g/dL ABG Carboxyhemoglobin 0.3 L (0.5-1.5) % POC ABG HHb (Measured) 4.3 (0-5) % ABG Methemoglobin 0.5 (0.0-3.0) % ABG O2 Capacity 13.3 L (16-24) mL/dl Hgb O2 Saturation 95.0 (95.0-98.0) % FiO2 36.0 % Sodium 144 (132-148) mmol/L Potassium 4.2 (3.6-5.0) mmol/L Chloride 96 L (98-107) mmol/L Carbon Dioxide 40 H (21-33) mmol/L Anion Gap 12 (10-20) BUN 32 H (7-21) mg/dL Creatinine 0.8 (0.7-1.2) mg/dl Est GFR ( Amer) > 60 Est GFR (Non-Af Amer) > 60 Random Glucose 162 H (70-110) mg/dL Calcium 9.0 (8.4-10.5) mg/dL Phosphorus 2.5 (2.5-4.5) mg/dL Magnesium 2.4 H (1.7-2.2) mg/dL Total Bilirubin 0.3 (0.2-1.3) mg/dL AST 19 (14-36) U/L ALT 24 (7-56) U/L Alkaline Phosphatase 67 (38-126) U/L Total Protein 6.7 (5.8-8.3) g/dL Albumin 3.4 (3.0-4.8) g/dL Globulin 3.3 gm/dL Albumin/Globulin Ratio 1.0 L (1.1-1.8) Laboratory Results - last 24 hr 11/18/17 11/18/17 11/18/17 05:45 05:45 10:15 WBC 16.7 H D RBC 3.54 Hgb 9.8 L Hct 31.5 L MCV 89.0 MCH 27.7 MCHC 31.1 RDW 13.5 Plt Count 182 MPV 10.4 Gran % 91.9 H Lymph % (Auto) 5.0 L Pickett % (Auto) 3.1 Eos % (Auto) 0.0 L Baso % (Auto) 0.0 Gran # 15.35 H Lymph # (Auto) 0.8 L Pickett # (Auto) 0.5 Eos # (Auto) 0.0 Baso # (Auto) 0.00 Neutrophils % (Manual) 80 H Band Neutrophils % 8 H Lymphocytes % (Manual) 7 L Monocytes % (Manual) 5 Platelet Evaluation Normal pCO2 58 H pO2 81.0 HCO3 36.8 H ABG pH 7.41 ABG Total CO2 38.6 H ABG O2 Saturation 95.7 ABG O2 Content 12.7 L ABG Base Excess 10.6 H ABG Hemoglobin 9.4 L ABG Carboxyhemoglobin 0.3 L POC ABG HHb (Measured) 4.3 ABG Methemoglobin 0.5 ABG O2 Capacity 13.3 L Hgb O2 Saturation 95.0 FiO2 36.0 Sodium 144 Potassium 4.2 Chloride 96 L Carbon Dioxide 40 H Anion Gap 12 BUN 32 H Creatinine 0.8 Est GFR ( Amer) > 60 Est GFR (Non-Af Amer) > 60 Random Glucose 162 H Calcium 9.0 Phosphorus 2.5 Magnesium 2.4 H Total Bilirubin 0.3 AST 19 ALT 24 Alkaline Phosphatase 67 Total Protein 6.7 Albumin 3.4 Globulin 3.3 Albumin/Globulin Ratio 1.0 L Critical Care Progress Note - Nutrition Nutrition: Nutrition Category Date Time Status Heart Healthy Diet [DIET] Diets 11/18/17 Breakfast Active Attending/Attestation - Attestation I have personally seen and examined this patient.: Yes I have fully participated in the care of the patient.: Yes I have reviewed all pertinent clinical information: Yes Notes (Text): 11/18/17 15:32 The patient was seen and examined at the bedside. Patient care was discussed with resident Medical records, lab studies were reviewed and management issues were discussed and formulated. Last 24H events reviewed. Agree with above treatment plans as outlined in ' note with addition of the following: Respiratory Failure \ Hypoxemia \ Hypercapnea \ COPD \ PNA \ Depression -hemodynamic monitoring to maintain MAP>65; -continue milrinone as per Pulmonary team () -o2 supplementation to maintain Spo2 90-92 Pao2>60; continue Bipap PRN and HS -Abg reviewed; compensated respiratory acidosis noted -continue nebs and steroids -continue Abx (ceftriaxone \ Azithro) and f\u cultures -f\u Bun\Cr and U\o -PO diet and aspiration precautions -PT\OT eval -psychiatry team eval for severe depression -DVT \ PUD prophylaxis CCM f\u time 28min
--- NOTE | 2017-11-18 13:55 | CP.PCM.CON ---
History of Present Illness - History of Present Illness History of Present Illness: 71 year old female with PMH of sepsis due to community-acquired pneumonia, along with UTI with E. coli, clinically improving, history of bronchiectasis, oxygen-dependent COPD, pulmonary fibrosis, HTN, history of breast cancer, coronary artery disease, dyslipidemia, history of DVT was brought in to [facility] because of worsening shortness of breath and lethargy for the past 2 days associated with chest pain and vague abdominal pain. She was found to have bronchiectasis on CT scan and possible superimposed upper lobe pneumonia and was started on antibiotics, steroids and oxygen therapy. The patient is feeling better but her WBC count is increasing and Infectious Diseases consult is requested to further evaluate and manage. She denies having fever or chills, her cough is dry, she denies sore throat, no rhinorrhea, no headache or dizziness, no more abdominal pain, no dysuria, no diarrhea, no more chest pain. She is more awake and eating a little better. She denies nausea or vomiting as well. Review of Systems - Review of Systems All systems: reviewed and no additional remarkable complaints except (as per HPI ) Past Patient History - Infectious Disease Hx of Infectious Diseases: None - Tetanus Immunizations Tetanus Immunization: Unknown - Past Medical History & Family History Past Medical History?: Yes Past Family History: Reviewed and not pertinent - Past Social History Smoking Status: Never Smoked Alcohol: None Drugs: Denies - CARDIAC Hx Congestive Heart Failure: Yes Hx Hypertension: Yes - PULMONARY Hx Chronic Obstructive Pulmonary Disease (COPD): Yes - NEUROLOGICAL Hx Neurological Disorder: No - HEENT Hx HEENT Problems: Yes Hx Cataracts: Yes (b/l sx) - RENAL Hx Chronic Kidney Disease: No - ENDOCRINE/METABOLIC Hx Endocrine Disorders: No - HEMATOLOGICAL/ONCOLOGICAL Hx Blood Disorders: Yes Hx Cancer: Yes (BREAST CA 2009, r mastectomy) Hx Chemotherapy: Yes (chemo and radiation) - INTEGUMENTARY Hx Dermatological Problems: No - MUSCULOSKELETAL/RHEUMATOLOGICAL Hx Musculoskeletal Disorders: Yes Hx Falls: Yes - GASTROINTESTINAL Hx Gastrointestinal Disorders: Yes Hx Gastroesophageal Reflux: Yes - GENITOURINARY/GYNECOLOGICAL Hx Genitourinary Disorders: No - PSYCHIATRIC Hx Psychophysiologic Disorder: No Hx Substance Use: No - SURGICAL HISTORY Hx Appendectomy: Yes Hx Cardiac Catheterization: Yes Hx Cholecystectomy: Yes Hx Coronary Stent: Yes (3 STENTS) Hx Mastectomy: Yes (Right) Other/Comment: umbilical hernia repair - ANESTHESIA Hx Anesthesia: Yes Hx Anesthesia Reactions: No Hx Malignant Hyperthermia: No Meds Allergies/Adverse Reactions: Allergies Allergy/AdvReac Type Severity Reaction Status Date / Time No Known Allergies Allergy Verified 11/15/17 22:27 - Medications Medications: Current Medications Acetaminophen (Tylenol 325mg Tab) 650 mg PO Q6H PRN PRN Reason: Pain, Mild (1-3) Last Admin: 11/17/17 09:26 Dose: 650 mg Aspirin (Aspirin Chewable) 81 mg PO DAILY PENDING SALE TO [facility] Last Admin: 11/18/17 09:11 Dose: 81 mg Atorvastatin Calcium (Lipitor) 20 mg PO DIALW GUY Azithromycin (Zithromax) 500 mg PO DAILY PENDING SALE TO [facility] PRN Reason: Protocol Budesonide (Pulmicort Respules) 0.5 mg IH [id number] PENDING SALE TO [facility] Last Admin: 11/18/17 07:20 Dose: 0.5 mg Clopidogrel Bisulfate (Plavix) 75 mg PO DAILY PENDING SALE TO [facility] Last Admin: 11/18/17 09:13 Dose: 75 mg Enoxaparin Sodium (Lovenox) 40 mg SC DAILY PENDING SALE TO [facility] PRN Reason: Protocol Last Admin: 11/18/17 09:11 Dose: 40 mg Furosemide (Lasix) 40 mg PO DAILY PENDING SALE TO [facility] Last Admin: 11/18/17 09:14 Dose: 40 mg Ceftriaxone Sodium (Rocephin 1 Gram Ivpb) 1 gm in 100 mls @ 100 mls/hr IVPB DAILY PENDING SALE TO [facility] PRN Reason: Protocol Last Admin: 11/18/17 09:20 Dose: 100 mls/hr Milrinone Lactate/Dextrose (Primacor 20mg/100ml D5w) 100 mls @ 8.318 mls/hr IV .Q12H2M PRN; Protocol; 0.375 MCG/KG/MIN PRN Reason: TITRATE PER MD ORDER Last Admin: 11/17/17 15:00 Dose: 0.375 mcg/kg/min, 8.318 mls/hr Isosorbide Mononitrate (Imdur) 60 mg PO DAILY PENDING SALE TO [facility] Levalbuterol HCl (Xopenex) 0.63 mg IH TIDRESP PENDING SALE TO [facility] Last Admin: 11/18/17 07:21 Dose: 0.63 mg Lidocaine (Lidoderm) 1 ea TD DAILY PENDING SALE TO [facility] Last Admin: 11/17/17 23:37 Dose: 1 ea Lidocaine (Lidoderm) 1 ea TD DAILY PENDING SALE TO [facility] Last Admin: 11/18/17 09:19 Dose: 1 ea Methylprednisolone (Solu-Medrol) 40 mg IVP Q12 PENDING SALE TO [facility] Last Admin: 11/18/17 09:12 Dose: 40 mg Metoprolol Tartrate (Lopressor) 50 mg PO BID PENDING SALE TO [facility] Metoprolol Tartrate (Lopressor) 25 mg PO ONCE ONE Stop: 11/18/17 12:01 Pantoprazole Sodium (Protonix Ec Tab) 40 mg PO 0600 PENDING SALE TO [facility] Last Admin: 11/18/17 06:38 Dose: 40 mg Physical Exam - Constitutional Appears: Non-toxic (but in mild respiratory distress but speaking in full sentences), Chronically Ill - Head Exam Head Exam: NORMAL INSPECTION - Neck Exam Neck exam: Negative for: Meningismus - Respiratory Exam Respiratory Exam: Decreased Breath Sounds - Cardiovascular Exam Cardiovascular Exam: +S1, +S2 - GI/Abdominal Exam GI & Abdominal Exam: Soft. absent: Tenderness Results - Vital Signs Recent Vital Signs: Last Vital Signs Temp 98.2 F 11/17/17 20:00 Pulse 101 H 11/18/17 09:14 Resp 30 H 11/18/17 05:00 BP 160/81 H 11/18/17 09:14 Pulse Ox 93 L 11/18/17 05:00 - Labs Result Diagrams: 11/18/17 05:45 11/18/17 05:45 Labs: Laboratory Results - last 24 hr 11/18/17 11/18/17 11/18/17 05:45 05:45 10:15 WBC 16.7 H D RBC 3.54 Hgb 9.8 L Hct 31.5 L MCV 89.0 MCH 27.7 MCHC 31.1 RDW 13.5 Plt Count 182 MPV 10.4 Gran % 91.9 H Lymph % (Auto) 5.0 L [facility] % (Auto) 3.1 Eos % (Auto) 0.0 L Baso % (Auto) 0.0 Gran # 15.35 H Lymph # (Auto) 0.8 L [facility] # (Auto) 0.5 Eos # (Auto) 0.0 Baso # (Auto) 0.00 Neutrophils % (Manual) 80 H Band Neutrophils % 8 H Lymphocytes % (Manual) 7 L Monocytes % (Manual) 5 Platelet Evaluation Normal pCO2 58 H pO2 81.0 HCO3 36.8 H ABG pH 7.41 ABG Total CO2 38.6 H ABG O2 Saturation 95.7 ABG O2 Content 12.7 L ABG Base Excess 10.6 H ABG Hemoglobin 9.4 L ABG Carboxyhemoglobin 0.3 L POC ABG HHb (Measured) 4.3 ABG Methemoglobin 0.5 ABG O2 Capacity 13.3 L Hgb O2 Saturation 95.0 FiO2 36.0 Sodium 144 Potassium 4.2 Chloride 96 L Carbon Dioxide 40 H Anion Gap 12 BUN 32 H Creatinine 0.8 Est GFR ( Amer) > 60 Est GFR (Non-Af Amer) > 60 Random Glucose 162 H Calcium 9.0 Phosphorus 2.5 Magnesium 2.4 H Total Bilirubin 0.3 AST 19 ALT 24 Alkaline Phosphatase 67 Total Protein 6.7 Albumin 3.4 Globulin 3.3 Albumin/Globulin Ratio 1.0 L Assessment & Plan - Assessment and Plan (Free Text) Plan: Assessment Severe sepsis with acute hypoxic respiratory failure due to healthcare- associated community-acquired pneumonia with possible gram positive cocci and/ or gram negative bacilli and/or atypical organisms in this patient with history of bronchiectasis and pulmonary fibrosis oxygen-dependent COPD HTN history of breast cancer coronary artery disease dyslipidemia history of DVT Plan started Vancomycin, Merrem and Zithromax pending blood cx, PCT and will trend WBC count and monitor clinically
[2017-11-18] MEDS: Meropenem IV 1 gm in NS 50 ML IVPB SCH ×2 (14:55→21:10)
--- NOTE | 2017-11-18 16:31 | PN ---
DATE: 11/18/2017 REASON FOR CONSULTATION AND FOLLOWUP: Coronary artery disease, acute exacerbation of COPD, CO2 narcosis, moved to ICU, rule out CHF. SUBJECTIVE: The patient is much awake, alert. Denies any chest pain, shortness of breath, or any palpitation. PHYSICAL EXAMINATION: GENERAL: Not in any apparent distress, lying flat on the bed. VITAL SIGNS: Temperature afebrile, heart rate 101, blood pressure 160/82. HEENT: PERRLA. Extraocular muscles intact. NECK: Supple. No carotid bruit or thyromegaly. CHEST: Clear to auscultation. HEART: S1 and S2 regular. ABDOMEN: Soft. EXTREMITIES: Clubbing and cyanosis negative. LABORATORY DATA: Blood workup: WBC 16.3, hemoglobin 9.8, hematocrit 31.5, platelet count 182. Chemistry shows sodium 144, potassium 4.2, chloride 96, carbon dioxide 40, anion gap of 12, BUN 32, creatinine 0.8. ABG shows pCO2 of 58, pO2 of 81, pH 7.41, FiO2 of 36%. IMPRESSION: Status post impending respiratory failure, CO2 narcosis, and altered mental status, improved. CO2 narcosis improved. History of advanced chronic obstructive pulmonary disease, pulmonary fibrosis, on home oxygen and CPAP as well as steroid-dependent exacerbation of chronic obstructive pulmonary disease; history of coronary artery disease, history of multiple stents. No evidence of congestive heart failure. Echo done yesterday revealed left ventricular systolic function, ejection fraction 60%-65%, dilated right ventricle moderately, systolic function of right ventricle is moderately reduced, trivial aortic regurgitation. No aortic valve vegetation noted. Mitral valve, trace to mild mitral, moderate to severe tricuspid regurgitation. Right ventricular systolic pressure 98 consistent with severe pulmonary hypertension. RECOMMENDATIONS: Continue gentle diuretic. Keep negative fluid balance. Sinus tachycardia, improved on metoprolol. We will increase metoprolol to 50 b.i.d. Continue DVT prophylaxis. Continue aspirin, Plavix. Aggressive treatment for COPD. History of recent catheterization done on last admission. Patent stent. Continue gentle diuretic, negative fluid balance as mentioned above. Increase metoprolol to 50 b.i.d. We will follow with you. We will give extra dose now at 2:00 p.m. and then we will increase. We will give extra dose of 25 now and then we will increase to 50 b.i.d. of the Lopressor. I will put nitro paste also. The patient was at home on Ranexa, which is nonformulary, so currently we will continue Imdur increased to 60 mg daily from today and continue p.o. Lasix. We will give another 25 metoprolol once and then put 50 b.i.d. We will increase the Imdur to 60. Once the patient goes home, we will put back on Ranexa, which is nonformulary here. We will give another 30 of Imdur now and extra given in the morning, total 60 today and 60 tomorrow. Continue DVT prophylaxis. Thank you, Dr. Del Rosario, for providing us the opportunity in taking care of the patient, Merna Mora. Joaquin Frankel MD
[2017-11-18] MEDS: Milrinone 20mg/100ml D5W 100 ML IV PRN (17:20)
--- NOTE | 2017-11-18 20:24 | PN ---
DATE: 11/18/2017 PULMONARY PROGRESS NOTE REFERRING PHYSICIAN: Stacey Del Rosario MD SUBJECTIVE: She is lying in the bed, head at 45 degrees. Night was unremarkable. Tolerated BiPAP well. Daughter is at bedside. Not much cough, but short of breath. No nausea. No vomiting. No diarrhea. No leg pain or leg swelling. OBJECTIVE: GENERAL: In no acute distress. VITAL SIGNS: Temperature is 98, heart rate 81, respiratory rate is 20, blood pressure 124/73, pulse ox 97% on nasal cannula. HEENT: Moist mucous membrane. Crowded airway. NECK: Supple. No JVD. LUNGS: Have much better airflow. Decreased crackles. HEART: S1 and S2. ABDOMEN: Soft, nontender. No organomegaly. EXTREMITIES: There is no edema. NEUROLOGICAL: Awake and alert. Follows simple command. MEDICATIONS: She is on aspirin 81 mg daily, Imdur 60 mg daily, Lasix 40 mg daily, lidocaine patch to affected area, Lipitor 20 mg daily, metoprolol tartrate 50 mg twice a day, Lovenox 40 mg daily, meropenem 1 g every 8 hours, Plavix 75 mg daily, Primacor IV drip, Protonix 40 mg daily, Pulmicort inhaled twice a day, Solu-Medrol 40 mg every 12 hours. LABORATORY DATA: Shows hemoglobin 9.8, hematocrit 31.5, WBC 16.7, platelet is 182. Blood gases show pH 7.41, pCO2 58, O2 is 81 that is on nasal cannula. Sodium 144, potassium 4.2, chloride 96, bicarbonate is 40, BUN 32, creatinine 0.8, glucose is 162, calcium is 9, magnesium 2.4, AST 19, ALT 24, alkaline phosphatase is 67, albumin is 3.4. Microbiology, blood culture, urine culture, there is no growth. Chest x-ray show pulmonary fibrosis. IMPRESSION AND PLAN: Status post respiratory failure requiring noninvasive ventilation, CO2 narcosis, which is improved after noninvasive ventilation, severe pulmonary hypertension, cardiomyopathy, pulmonary fibrosis, steroids dependent, oxygen dependent. Pulmonary point of view, doing great especially while on Primacor. Need to discuss with Cardiology. The patient is on nitrates. Should restart her on sildenafil (?). Further nitrates has to be received or other option is try Letairis as outpatient. We will adjust pressure for the CPAP. Spoke to the patient's family at bedside. All the questions answered. Also, spoke to nursing staff. Follow up labs in the morning. Thank you and we will follow with you. Joaquin Rosales MD
--- NOTE | 2017-11-19 00:43 | CON ---
DATE: 11/18/2017 HISTORY OF PRESENT ILLNESS: In short, the patient is 71-year-old Filipino female with not known previous psychiatric history. The patient was admitted on the CCU unit for evaluation of sepsis due to community-acquired pneumonia along with urinary tract infection with E. coli. Psych consult was called for evaluation of possible adjustment disorder, possible depression, possible grieve because the patient's son less than 1 week ago. The patient was seen and examined with medical student and sports broadcasting internship. As per sports broadcasting internship's collateral information, the patient never verbalized thoughts of harming herself or others. The patient has never been admitted to Psychiatric Inpatient Unit, never been depressed in her life. The patient is adjusting to the of her son relatively well. There is no aggression. There is no agitation. There is no feeling of hopelessness. The patient presented well during the interview, was able to smile to this copy writer. The patient appears dealing with the loss relatively well. The patient expressed no feeling of hopelessness or depression. Denied thoughts of harming herself or others. Denied intents or plan. Collateral information obtained from the patient's daughter who is next to her. The patient's daughter said that she is willing to accept the patient to her house because the patient used to live with the son and arrange home health services as well as apply for senior housing for the patient. PHYSICAL EXAMINATION: VITAL SIGNS: Stable. The patient's pulse is 86, blood pressure 122/51, respirations 16, and oxygen saturation is 97%. MEDICATIONS: Reviewed. The patient is on Tylenol, aspirin, Lipitor, Zithromax, Pulmicort, Plavix, Lovenox, Lasix, Imdur, Zenapax, lidocaine, meropenem, Solu-Medrol, Lopressor, Primacor, Protonix, and vancomycin. LABORATORY DATA: Reviewed. Most recent was from today. WBC trending down, 16.7 today. Hemoglobin is 9.8, hematocrit 31.5. Coagulations reviewed. D-dimer is 443. Chemistry reviewed. is negative. Microbiology is reviewed. MENTAL STATUS EXAMINATION: The patient appears to be alert, oriented, pleasant, and cooperative. Fair eye contact. The patient appears much younger than her chronological age. Mood described "I did not feel right I am not well-connected," but at the same time, the patient does not appear to be confused, does not appear to be psychotic. Thought process: Coherent and goal directed. Thought content: The patient denied feeling hopelessness or helplessness. Denied hearing things. Denied seeing things. Denied paranoid ideation. Insight and judgment seem to be improving. Impulses are well controlled. IMPRESSION: Most likely, the patient is grieve which is expected. The patient has multiple medical issues including sepsis due to community-acquired pneumonia; urinary tract infection; history of broncholithiasis, oxygen-dependent; pulmonary fibrosis; hypertension; history of breast cancer; coronary artery disease; dyslipidemia; history of deep venous thrombosis. Please see medical team notes for more detailed information. PLAN: The patient's presentation is absolutely expected from condition what the patient is currently in. The patient lost her son who was primary caregiver for her and it happened less than a week ago. The patient has multiple medical issues which could give the patient current presentation, but overall the patient presented very well. The patient needs to be seen by advanced directives person and discuss DNI and DNR because the patient does not have basic understanding what is this and also the patient needs to be explained what advanced directives mean. Meanwhile, we will sign off. Should you have any questions, give me a call back. The patient has supportive family, not in any imminent danger to self or others. Emotional support and empathic listening was provided. Thank you very much for letting me participate in care of your patient. Seble Hicks MD
--- NOTE | 2017-11-19 03:33 | PN ---
DATE: 11/18/2017 SUBJECTIVE: Patient was seen and examined at the bedside on 11/18/2017, looking comfortable. No nausea, vomiting, or diarrhea. No hematemesis or hematochezia. Family was sitting around. Tolerating BiPAP very well. According to patient and family, she is not sleeping very well at night and feeling anxious. Psychiatrist is on the case, but he started on Xanax 0.25 half tablet p.o. at bedtime p.r.n. for the sleep and anxiety. No fevers, no chills. PHYSICAL EXAMINATION: VITAL SIGNS: Temperature 98, heart rate is 81, respiratory rate is 20, blood pressure 125/73, pulse ox 97% on room air. HEENT: Head normocephalic, atraumatic. Eyes PERRLA. Extraocular muscles intact. Conjunctivae clear. Nose patent. Mucous membranes moist. NECK: Supple. No carotid bruits, JVD or thyromegaly. LUNGS: Have much better airflow, decreased crackles. HEART: S1 and S2 positive. ABDOMEN: Soft, nontender, no organomegaly. EXTREMITIES: No edema, no cyanosis. NEUROLOGICAL: Patient is awake, alert. Follows simple commands. MEDICATIONS: Aspirin, Imdur, Lasix, lidocaine, Lipitor, metoprolol, Lovenox, Meropenem, Plavix, Primacor drip, Protonix, Pulmicort, Solu-Medrol tapering doses. LABORATORY DATA: Hemoglobin 9.8, hematocrit 31.5, white blood cells 16.7, platelets 182. Sodium 145, potassium 4.2, BUN 32, creatinine 0.8, glucose 162. ASSESSMENT PLAN: Ms. Merna Mora is a 71 years old lady with anxiety and insomnia. Xanax is given on p.r.n. basis. Anemia. She is post respiratory failure requiring non-invasive ventilation, carbon dioxide narcosis which improved after noninvasive ventilation, severe pulmonary hypertension, cardiomyopathy, pulmonary fibrosis, steroid dependency, oxygen dependent. Patient is on Primacor. Cardiology and Pulmonary is on the case. History of breast cancer. Length of time discussion done with patient's family, especially daughter and son-in-law. Xanax started. Education done, and gastrointestinal and deep venous thrombosis prophylaxis. Repeat labs. Will follow up. Stacey Del Rosario MD [facility] # [id number]
[2017-11-19] MEDS: Milrinone 20mg/100ml D5W 100 ML IV PRN ×2 (03:45→18:31)
[2017-11-19] MEDS: Meropenem IV 1 gm in NS 50 ML IVPB SCH ×3 (06:10→21:28)
[2017-11-19] MEDS: Pantoprazole 40 mg EC Tab PO SCH (06:10)
[2017-11-19 06:53] LABS: GRAN # 10.46 (1.4-6.5); GRAN % 88.5 % (50.0-68.0); HEMOGLOBIN 10.1 g/dL (12.0-16.0); LYMPH # 0.9 (1.2-3.4); LYMPH % 7.5 % (22.0-35.0); MEAN CELL VOLUME 88.6 fl (80.0-105.0); MEAN CORPUSCULAR HEMOGLOBIN 27.4 pg (25.0-35.0); MEAN CORPUSCULAR HGB CONC 30.9 g/dl (31.0-37.0); MEAN PLATELET VOLUME 10.8 fl (7.0-11.0); MONO # 0.5 (0.1-0.6); RBC 3.69 10^6/uL (3.5-6.1); RED CELL DISTRIBUTION WIDTH 13.6 % (11.5-14.5); WHITE BLOOD COUNT 11.8 10^3/ul (4.5-11.0)
[2017-11-19 07:10] LABS: BLOOD UREA NITROGEN 36 mg/dL (7-21); CALCIUM 8.9 mg/dL (8.4-10.5); GFR AFRICAN-AMERICAN > 60; GFR NON-AFRICAN AMERICAN > 60
--- NOTE | 2017-11-19 07:28 | CP.PCM.PN ---
Subjective - Date & Time of Evaluation Date of Evaluation: 11/19/17 Time of Evaluation: 06:30 - Subjective Subjective: Awake,alert,no distress, denies shortness of breath Reason for consultation: Cardiac evaluation for chest pain. History of coronary artery disease with cardiac stents, COPD, pulmonary fibrosis,GERD, hypertension, Seen and examined by me and Dr. Frankel Objective - Vital Signs/Intake and Output Vital Signs (last 24 hours): Temp Pulse Resp BP Pulse Ox 97.8 F 77 20 171/82 H 95 11/19/17 06:00 11/19/17 06:00 11/19/17 06:00 11/19/17 06:00 11/19/17 06:00 Intake and Output: 11/19/17 11/19/17 06:59 18:59 Intake Total 481 Output Total 400 Balance 81 - Medications Medications: Current Medications Acetaminophen (Tylenol 325mg Tab) 650 mg PO Q6H PRN PRN Reason: Pain, Mild (1-3) Last Admin: 11/18/17 21:10 Dose: 650 mg Alprazolam (Xanax) 0.125 mg PO HS PRN; Protocol PRN Reason: Insomnia Stop: 11/25/17 22:01 Last Admin: 11/18/17 22:50 Dose: 0.125 mg Anastrozole (Arimidex 1 Mg Tab) 1 mg PO DAILY [facility] Aspirin (Aspirin Chewable) 81 mg PO DAILY [facility] Last Admin: 11/18/17 09:11 Dose: 81 mg Atorvastatin Calcium (Lipitor) 20 mg PO DIALW GUY Azithromycin (Zithromax) 500 mg PO DAILY [facility] PRN Reason: Protocol Last Admin: 11/18/17 12:06 Dose: 500 mg Budesonide (Pulmicort Respules) 0.5 mg IH [id number] [facility] Last Admin: 11/18/17 20:30 Dose: 0.5 mg Clopidogrel Bisulfate (Plavix) 75 mg PO DAILY [facility] Last Admin: 11/18/17 09:13 Dose: 75 mg Enoxaparin Sodium (Lovenox) 40 mg SC DAILY [facility] PRN Reason: Protocol Last Admin: 11/18/17 09:11 Dose: 40 mg Furosemide (Lasix) 40 mg PO DAILY [facility] Last Admin: 11/18/17 09:14 Dose: 40 mg Milrinone Lactate/Dextrose (Primacor 20mg/100ml D5w) 100 mls @ 8.318 mls/hr IV .Q12H2M PRN; Protocol; 0.375 MCG/KG/MIN PRN Reason: TITRATE PER MD ORDER Last Admin: 11/19/17 03:45 Dose: 0.375 mcg/kg/min, 8.318 mls/hr Meropenem (Merrem Iv 1 Gm Premix) 50 mls @ 100 mls/hr IVPB Q8 GUY PRN Reason: Protocol Last Admin: 11/19/17 06:10 Dose: 100 mls/hr Vancomycin HCl (Vancomycin 1gm) 1 gm in 250 mls @ 167 mls/hr IVPB Q12H GUY PRN Reason: Protocol Last Admin: 11/18/17 22:51 Dose: 167 mls/hr Isosorbide Mononitrate (Imdur) 60 mg PO DAILY [facility] Levalbuterol HCl (Xopenex) 0.63 mg IH TIDRESP [facility] Last Admin: 11/18/17 20:30 Dose: 0.63 mg Lidocaine (Lidoderm) 1 ea TD DAILY [facility] Last Admin: 11/18/17 14:53 Dose: 1 ea Lidocaine (Lidoderm) 1 ea TD DAILY [facility] Last Admin: 11/18/17 09:19 Dose: 1 ea Methylprednisolone (Solu-Medrol) 40 mg IVP DAILY [facility] Metoprolol Tartrate (Lopressor) 50 mg PO BID [facility] Last Admin: 11/18/17 17:22 Dose: 50 mg Pantoprazole Sodium (Protonix Ec Tab) 40 mg PO 0600 [facility] Last Admin: 11/19/17 06:10 Dose: 40 mg - Labs Labs: 11/18/17 05:45 11/19/17 06:00 PT 10.9 SECONDS (9.4-12.5) 11/15/17 21:45 INR 0.96 (0.93-1.08) 11/15/17 21:45 APTT 29.6 Seconds (25.1-36.5) 11/15/17 21:45 - Constitutional Appears: No Acute Distress - Eye Exam Eye Exam: Normal appearance - ENT Exam ENT Exam: Mucous Membranes Moist - Respiratory Exam Respiratory Exam: Decreased Breath Sounds, Clear to Ausculation Bilateral, NORMAL BREATHING PATTERN - Cardiovascular Exam Cardiovascular Exam: REGULAR RHYTHM, +S1, +S2 - GI/Abdominal Exam GI & Abdominal Exam: Soft, Normal Bowel Sounds - Extremities Exam Additional comments: 1-2+ edema - Neurological Exam Neurological Exam: Alert, Awake, Oriented x3 - Psychiatric Exam Psychiatric exam: Normal Affect - Skin Skin Exam: Dry, Warm Assessment and Plan - Assessment and Plan (Free Text) Assessment: A 71 year old female who came in to the ER due to complaints of abdominal pain, chest pain and jaw pain in the ER. Spoken to the daughter and claimed that patient has abdominal pain on the left side below the ribs. Pain has been going on for the past 2 days but comes and goes.Pain radiated to chest and jaw. Chest pain free now but still with abdominal pain left side below ribs upon palpation. History of coronary artery disease with cardiac stents, COPD, pulmonary fibrosis,GERD, hypertension, right breast cancer,right mastectomy 2008 with radiation and chemotherapy, umbilical hernia repair, Family at bedside claimed that son (35 year old) recently due to fall/head trauma and probably contributing to symptoms. CO2 narcosis. Placed on BIPAP/CPAP after ABG. ABG result on nasal cannula, PH-7.20, PCO2-96,PO2- 62, HCO3- 37.5 After 2 hours of BIPAP lethargic but open eyes and able to talk and responds to questions. Repeat ABG remained the same on BIPAP/CPAP. for transfer to ICU/ CCU.History of stents 12/06/2007 and 08/02/2011,Recent cardiac cath 12/25/16 due to NSTEMI- PTCA with KATIE of RPDA and Mid RCA ECHO 12/22/16- LVEF 62%, moderate pulmonary hypertension. Stabilized in ICU with BIPAP/CPAP ( no intubation).On primacor drip. Now transferred to telemetry. Plan: Denies chest pain,denies shortness of breath Pulmonary status stable, on nasal cannula, BIPAP/CPAP at night On Primacor Drip Clinically improved from baseline Continue current treatment Continue current medications Plan and treatment Will follow up Plan and treatment discussed with Dr. Frankel
[2017-11-19] MEDS: Budesonide 0.25 mg/2 ml Inhal Susp UD IH SCH ×2 (07:34→19:09)
[2017-11-19] MEDS: Levalbuterol 0.63 MG/3 ML Inhal Soln UD IH SCH ×3 (07:34→19:09)
[2017-11-19] MEDS: Enoxaparin 40 mg Syringe SC SCH (09:21)
[2017-11-19] MEDS: MethylPREDNISolone 40 mg Vial IVP SCH (09:21)
[2017-11-19] MEDS: Lidocaine 5% Patch TD SCH ×2 (09:35→09:36)
[2017-11-19] MEDS: Vancomycin 1gm in NS 250ml 1 GM/250 ML BAG IVPB SCH (11:00)
--- NOTE | 2017-11-19 12:47 | PN ---
DATE: 11/19/2017 PULMONARY PROGRESS NOTE REFERRING PHYSICIAN: Stacey Del Rosario MD SUBJECTIVE: The patient is out of bed to chair, feels much better, tolerated noninvasive ventilation last night. Mild epigastric discomfort. No nausea. No vomiting or diarrhea. No leg pain or leg swelling. OBJECTIVE: GENERAL: In no acute distress. VITAL SIGNS: Temperature is 98, heart rate 87, respiratory rate is 20, blood pressure 110/50, pulse ox 95% on nasal cannula. HEENT: Moist mucous membrane. Crowded airway. NECK: Supple. No JVD. LUNGS: Have a few basilar crackles. HEART: S1 and S2. ABDOMEN: Soft, nontender. No organomegaly. EXTREMITIES: No edema. NEUROLOGICAL: Awake and alert. Follows simple command. MEDICATIONS: She is on Arimidex 1 mg daily, aspirin 81 mg daily, Imdur 60 mg daily, Lasix 40 mg daily, lidocaine patch at affected area, Lipitor 20 mg daily, metoprolol tartrate 50 mg twice a day, Lovenox 40 mg subcu daily, meropenem is 1 g IV every 8 hours, Plavix 75 mg daily, Primacor IV drips, Protonix 40 mg daily, Pulmicort inhaled twice a day, Solu-Medrol 40 mg daily, Tylenol p.r.n. basis, vancomycin 1 g IV daily, Xanax 0.125 mg at bedtime p.r.n., Xopenex inhaled every 8 hours, Zithromax 500 mg daily. LABORATORY DATA: Shows hemoglobin is 10.1, hematocrit 32.7, WBC 11.8, platelet count is 198. Sodium 143, potassium 4.4, chloride 97, bicarbonate 39, BUN 36, creatinine 0.8, glucose 121, calcium is 8.9, phosphorus 3.9, magnesium is 2.5. IMPRESSION AND PLAN: Status post respiratory failure requiring noninvasive ventilation, CO2 narcosis, has a severe pulmonary hypertension, some diastolic cardiac dysfunction, pulmonary fibrosis, steroids dependent, oxygen dependent. Spoke to the patient and family at bedside. All the questions answered. Still has a question for Cardiology, if there is no significant coronary artery disease, probably nitrate should be discontinued and then we can add sildenafil, pulmonary vasodilator if okay with the Cardiology. We will add Carafate 1 g before meals and at bedtime. Continue noninvasive ventilation at nighttime. Deep vein thrombosis prophylaxis. Physical therapy. Thank you and we will follow with you. Joaquin Rosales MD
[2017-11-19] MEDS: Sucralfate 1 gm/10 ml Oral Susp UD PO SCH ×2 (16:28→21:28)
--- NOTE | 2017-11-20 00:44 | PN ---
DATE: 11/19/2017 SUBJECTIVE: The patient is a 71-year-old female. Patient was seen and examined at the bedside on 11/19/2017. Looking comfortable. No nausea, vomiting or diarrhea. No hematuria or hematochezia. No swelling of the legs. No chest pain. No palpitation. No headache. No dizziness. PHYSICAL EXAMINATION: VITAL SIGNS: Temperature 98, heart rate 87, respiratory rate 20, blood pressure 110/50, pulse oximetry 95% on nasal cannula. HEENT: Head: Normocephalic, atraumatic. Eyes: PERRLA. Extraocular movements are intact. Conjunctivae clear. Nose patent. Mucous membrane moist. NECK: Supple. No carotid bruit, JVD or thyromegaly. CHEST: Bilaterally symmetrical. HEART: S1 and S2 positive. LUNGS: Clear to auscultation. ABDOMEN: Soft. Bowel sounds are present. No organomegaly. EXTREMITIES: No edema. No cyanosis. NEUROLOGIC: Patient is awake and alert. Follows simple commands. MEDICATIONS: Arimidex, Imdur, Lasix, lidocaine, Lipitor, metoprolol, Lovenox, meropenem, Plavix, Primacor drip, Protonix, Pulmicort inhaler, Solu-Medrol 40, tapering doses, Xanax, Xopenex, Zithromax. LABORATORY DATA: Hemoglobin 10.1, hematocrit 32.7, white blood cell 11.8, platelets 198. Sodium 143, potassium 4.4, BUN 36, creatinine 0.8. ASSESSMENT AND PLAN: Ms. Merna Mora is a 71-year-old, my private patient, status post respiratory failure requiring noninvasive ventilation, carbon dioxide narcosis, has severe pulmonary hypertension, depression after losing 35 years old young son couple of days ago, anxiety, insomnia. I started patient on Xanax. Has diastolic cardiac dysfunction, pulmonary fibrosis, steroid dependency, oxygen dependency. I reviewed Dr. Rosales's notes. He spoke to the family. Today, I spoke to the patient. Dr. Rosales will talk to Dr. Frankel about stopping nitrates and starting sildenafil, pulmonary vasodilator, if okay with the charge master analyst. Dr. Rosales added Carafate 1 g before meals and at bedtime and continue noninvasive ventilation at nighttime. Deep vein thrombosis. Physical therapy. Out of bed. Psychiatry is on the case. Pulmonary, charge master analyst is on the case. Gastrointestinal and deep venous thrombosis prophylaxis. Repeat labs. We will follow up. Stacey Del Rosario MD
[2017-11-20] MEDS: Meropenem IV 1 gm in NS 50 ML IVPB SCH ×3 (05:39→22:23)
[2017-11-20] MEDS: Pantoprazole 40 mg EC Tab PO SCH (05:40)
[2017-11-20] MEDS: Sucralfate 1 gm/10 ml Oral Susp UD PO SCH ×4 (05:40→22:22)
--- NOTE | 2017-11-20 07:26 | CP.PCM.PN ---
Subjective - Date & Time of Evaluation Date of Evaluation: 11/20/17 Time of Evaluation: 06:30 - Subjective Subjective: Awake,alert,watching TV,no distress, denies shortness of breath Reason for consultation: Cardiac evaluation for chest pain. History of coronary artery disease with cardiac stents, COPD, pulmonary fibrosis,GERD, hypertension, Seen and examined by me and Dr. Frankel Objective - Vital Signs/Intake and Output Vital Signs (last 24 hours): Temp Pulse Resp BP Pulse Ox 98.0 F 71 20 152/67 H 100 11/20/17 00:01 11/20/17 02:00 11/20/17 00:01 11/20/17 00:01 11/20/17 00:01 Intake and Output: 11/20/17 11/20/17 06:59 18:59 Intake Total 240 Balance 240 - Medications Medications: Current Medications Acetaminophen (Tylenol 325mg Tab) 650 mg PO Q6H PRN PRN Reason: Pain, Mild (1-3) Last Admin: 11/18/17 21:10 Dose: 650 mg Alprazolam (Xanax) 0.125 mg PO HS PRN; Protocol PRN Reason: Insomnia Stop: 11/25/17 22:01 Last Admin: 11/19/17 23:24 Dose: 0.125 mg Anastrozole (Arimidex 1 Mg Tab) 1 mg PO DAILY [facility] Last Admin: 11/19/17 09:38 Dose: 1 mg Aspirin (Aspirin Chewable) 81 mg PO DAILY [facility] Last Admin: 11/19/17 09:21 Dose: 81 mg Atorvastatin Calcium (Lipitor) 20 mg PO DIALW GUY Azithromycin (Zithromax) 500 mg PO DAILY [facility] PRN Reason: Protocol Last Admin: 11/19/17 09:21 Dose: 500 mg Budesonide (Pulmicort Respules) 0.5 mg IH [id number] [facility] Last Admin: 11/19/17 19:09 Dose: 0.5 mg Clopidogrel Bisulfate (Plavix) 75 mg PO DAILY [facility] Last Admin: 11/19/17 09:21 Dose: 75 mg Enoxaparin Sodium (Lovenox) 40 mg SC DAILY [facility] PRN Reason: Protocol Last Admin: 11/19/17 09:21 Dose: 40 mg Furosemide (Lasix) 40 mg PO DAILY [facility] Last Admin: 11/19/17 09:21 Dose: 40 mg Milrinone Lactate/Dextrose (Primacor 20mg/100ml D5w) 100 mls @ 8.318 mls/hr IV .Q12H2M PRN; Protocol; 0.375 MCG/KG/MIN PRN Reason: TITRATE PER MD ORDER Last Admin: 11/19/17 18:31 Dose: 0.375 mcg/kg/min, 8.318 mls/hr Meropenem (Merrem Iv 1 Gm Premix) 50 mls @ 100 mls/hr IVPB Q8 GUY PRN Reason: Protocol Last Admin: 11/20/17 05:39 Dose: 100 mls/hr Isosorbide Mononitrate (Imdur) 60 mg PO DAILY [facility] Last Admin: 11/19/17 09:21 Dose: 60 mg Levalbuterol HCl (Xopenex) 0.63 mg IH TIDRESP [facility] Last Admin: 11/19/17 19:09 Dose: 0.63 mg Lidocaine (Lidoderm) 1 ea TD DAILY [facility] Last Admin: 11/19/17 09:35 Dose: 1 ea Lidocaine (Lidoderm) 1 ea TD DAILY [facility] Last Admin: 11/19/17 09:36 Dose: 1 ea Methylprednisolone (Solu-Medrol) 40 mg IVP DAILY [facility] Last Admin: 11/19/17 09:21 Dose: 40 mg Metoprolol Tartrate (Lopressor) 50 mg PO BID [facility] Last Admin: 11/19/17 18:28 Dose: 50 mg Pantoprazole Sodium (Protonix Ec Tab) 40 mg PO 0600 [facility] Last Admin: 11/20/17 05:40 Dose: 40 mg Sucralfate (Carafate Oral Susp) 1 gm PO 0630,1130,1630,2200 [facility] Last Admin: 11/20/17 05:40 Dose: 1 gm - Labs Labs: 11/19/17 06:00 11/19/17 06:00 PT 10.9 SECONDS (9.4-12.5) 11/15/17 21:45 INR 0.96 (0.93-1.08) 11/15/17 21:45 APTT 29.6 Seconds (25.1-36.5) 11/15/17 21:45 - Constitutional Appears: No Acute Distress - Eye Exam Eye Exam: Normal appearance - ENT Exam ENT Exam: Mucous Membranes Moist - Respiratory Exam Respiratory Exam: Decreased Breath Sounds, Rhonchi, NORMAL BREATHING PATTERN Additional comments: nasal cannula - Cardiovascular Exam Cardiovascular Exam: REGULAR RHYTHM, +S1, +S2 Additional comments: NSR telemetry - GI/Abdominal Exam GI & Abdominal Exam: Soft, Normal Bowel Sounds - Extremities Exam Extremities Exam: Normal Capillary Refill Additional comments: 1-2+ edema - Neurological Exam Neurological Exam: Alert, Awake, Oriented x3 - Psychiatric Exam Psychiatric exam: Normal Affect - Skin Skin Exam: Intact, Warm Assessment and Plan - Assessment and Plan (Free Text) Assessment: A 71 year old female who came in to the ER due to complaints of abdominal pain, chest pain and jaw pain in the ER. Spoken to the daughter and claimed that patient has abdominal pain on the left side below the ribs. Pain has been going on for the past 2 days but comes and goes.Pain radiated to chest and jaw. Chest pain free now but still with abdominal pain left side below ribs upon palpation. History of coronary artery disease with cardiac stents, COPD, pulmonary fibrosis,GERD, hypertension, right breast cancer,right mastectomy 2008 with radiation and chemotherapy, umbilical hernia repair, Family at bedside claimed that son (35 year old) recently due to fall/head trauma and probably contributing to symptoms. CO2 narcosis. Placed on BIPAP/CPAP after ABG. ABG result on nasal cannula, PH-7.20, PCO2-96,PO2- 62, HCO3- 37.5 After 2 hours of BIPAP lethargic but open eyes and able to talk and responds to questions. Repeat ABG remained the same on BIPAP/CPAP. for transfer to ICU/ CCU.History of stents 12/06/2007 and 08/02/2011,Recent cardiac cath 12/25/16 due to NSTEMI- PTCA with KATIE of RPDA and Mid RCA ECHO 12/22/16- LVEF 62%, moderate pulmonary hypertension. Stabilized in ICU with BIPAP/CPAP ( no intubation).On primacor drip. Now transferred to telemetry. Plan: Agree to replace nitrates with Sildenafil Sildenafil 20 mg BID Discontinue Imdur Denies ,denies shortness of breath Pulmonary status stable, On nasal cannula, BIPAP/CPAP at night On Primacor Drip, will discontinue Clinically improved from baseline Continue current treatment Continue current medications Plan and treatment Will follow up Plan and treatment discussed with Dr. Frankel
[2017-11-20] MEDS: Budesonide 0.25 mg/2 ml Inhal Susp UD IH SCH ×2 (07:36→20:38)
[2017-11-20] MEDS: Levalbuterol 0.63 MG/3 ML Inhal Soln UD IH SCH ×3 (07:37→20:38)
[2017-11-20] MEDS: Enoxaparin 40 mg Syringe SC SCH (09:44)
[2017-11-20] MEDS: MethylPREDNISolone 40 mg Vial IVP SCH (09:44)
[2017-11-20] MEDS: Lidocaine 5% Patch TD SCH ×2 (09:51→09:52)
[2017-11-20] MEDS ORDERED: Sildenafil 20 MG TAB PO SCH (10:00)
[2017-11-20] MEDS: Sildenafil 20 MG TAB PO SCH ×2 (15:31→22:23)
--- NOTE | 2017-11-20 15:53 | PN ---
DATE: 11/20/2017 PULMONARY PROGRESS NOTE REFERRING PHYSICIAN: Stacey Del Rosario MD SUBJECTIVE: She is out of bed to chair, on supplemental oxygen. Tolerated BiPAP well. Feels better. Decreased shortness of breath. No nausea. No vomiting or diarrhea. No leg pain or leg swelling. OBJECTIVE: GENERAL: In no acute distress. VITAL SIGNS: Temperature is 98, heart rate 63, respiratory rate is 20, blood pressure 122/70, pulse ox 93% on nasal cannula. HEENT: Moist mucous membrane. Crowded airway. NECK: Supple. No JVD. LUNGS: A few crackles at the bases. HEART: S1 and S2. ABDOMEN: Soft, nontender. No organomegaly. EXTREMITIES: No edema. NEUROLOGIC: Awake and alert. Follows simple command. MEDICATIONS: She is on Arimidex 1 mg daily, aspirin 81 mg daily, Carafate 1 g four times a day, Lasix 40 mg daily, lidocaine patch at affected area, Lipitor 20 mg daily, metoprolol tartrate 50 mg twice a day, Lovenox 40 mg daily, Merrem 1 g IV every 8 hours, Plavix 75 mg daily, Protonix 40 mg daily, Pulmicort inhaled twice a day, Revatio 20 mg twice a day, Solu-Medrol 40 mg daily, Tylenol p.r.n., Xanax 0.125 mg at bedtime p.r.n., Zithromax 500 mg daily. LABORATORY DATA: Reviewed and noted. Procalcitonin is less than 0.05. Microbiology: Blood culture and urine culture, there is no growth. IMPRESSION AND PLAN: Status post respiratory failure requiring noninvasive ventilation with carbon dioxide narcosis, hypoxemia, severe pulmonary hypertension, cardiac diastolic dysfunction, pulmonary fibrosis, steroid dependent, oxygen dependent. Cardiology note reviewed. Agreed discontinuing Primacor. Started on Revatio, we will increase to 20 every 8 hours. Avoid nitrates. May benefit from TRCU type services. Start physical therapy. Thank you and we will follow with you. Joaquin Rosales MD
--- NOTE | 2017-11-20 22:14 | PN ---
DATE: 11/19/2017 SUBJECTIVE: I am asked to repeat my progress note. The patient was seen yesterday, 11/19/2017, in room 261, bed 2. No fevers and no chills. No nausea. PHYSICAL EXAMINATION: VITAL SIGNS: On exam, temperature is 98, blood pressure is 150/90, respiratory rate of 18. HEENT: Examination of HEENT is unremarkable. NECK: Supple. LUNGS: Have decreased breath sounds. HEART: Normal S1, S2. ABDOMEN: Soft, nontender. LABORATORY DATA: Laboratory examination reveals the patient's white count yesterday was 11,800, hemoglobin of 10. Chemistries are noted and microbiology is noted and stool occult is negative. ASSESSMENT AND PLAN: A 71-year-old female who was seen earlier yesterday morning, on 11/19/2017, this is a repeat progress note dictation,with severe sepsis, acute hypoxic respiratory failure due to healthcare-associated pneumonia with hypertension, breast cancer, oxygen-dependent chronic obstructive pulmonary disease, bronchiectasis and pulmonary fibrosis and pulmonary hypertension. Continue present course, meropenem, Zithromax and Solu-Medrol. Tej Jones MD
--- NOTE | 2017-11-20 22:23 | PN ---
DATE: 11/20/2017 SUBJECTIVE: I was requested to repeat my progress note from today. The patient was seen earlier today in 261, bed 2. The patient with no fevers, no chills. Overall, greatly improved. PHYSICAL EXAMINATION: VITAL SIGNS: On exam, temperature is 98, blood pressure 157/90, respiratory of 18. HEENT: Examination of HEENT is unremarkable. NECK: Supple. LUNGS: Have decreased breath sounds. HEART: Normal S1, S2. ABDOMEN: Soft, nontender. LABORATORY DATA: Laboratory examination is noted. The patient's white count is 11,000 and chemistries are noted. The patient's procalcitonin is less than 0.05 and microbiology is negative and Dr. Rosales's progress note is reviewed. ASSESSMENT AND PLAN: A 71-year-old female with acute hypoxic respiratory failure and history of bronchiectasis and pulmonary fibrosis and severe pulmonary hypertension, oxygen-dependent chronic obstructive pulmonary disease, hypertension and breast cancer. Currently on meropenem day #3 and Solu-Medrol. Normal procalcitonin. The patient is also on Zithromax with negative blood cultures and negative MRSA screen and Dr. Rosales's note from today is reviewed. Dr. Del Rosario's note is reviewed. Maybe able to discontinue the meropenem in next 24-48 hours. Tej Jones MD
[2017-11-20 23:32] LABS: IRON 78 ug/dL (45-180)
[2017-11-20 23:41] LABS: % IRON SATURATION 25 % (20-55); TOTAL IRON BINDING CAPACITY 313 ug/dL (265-497)
[2017-11-21 01:56] VITALS: O2SAT 97
--- NOTE | 2017-11-21 01:56 | PN ---
DATE: 11/20/2017 SUBJECTIVE: Patient is a 71-year-old female. Patient was seen and examined on the bedside on 11/20/2017. Family was sitting on the bedside. Tolerated BiPAP very well. Feels better. Decreased shortness of breath. No nausea, vomiting, or diarrhea. No hematuria or hematochezia. No headache. No chest pain. No swelling of the legs. PHYSICAL EXAMINATION: VITAL SIGNS: Temperature 98, heart rate 63, respiratory rate 20, blood pressure 120/70, pulse oximetry 93% on nasal cannula. HEENT: Head: Normocephalic, atraumatic. Eyes: PERRLA. Extraocular muscles are intact. Conjunctivae clear. Nose patent. Mucous membrane moist. NECK: Supple. No carotid bruit. No JVD or thyromegaly. CHEST: Bilaterally symmetrical. HEART: S1 and S2 positive. LUNGS: Clear to auscultation. ABDOMEN: Soft. Bowel sounds present. No organomegaly. EXTREMITIES: No edema. No cyanosis, NEUROLOGIC: Patient is awake and alert. Moving all 4 extremities. No focal deficit. MEDICATIONS: Arimidex, Carafate, lidocaine, Lipitor, metoprolol, Merrem, Plavix, Protonix, Pulmicort, Revatio, Solu-Medrol, Tylenol, Xanax at bedtime, azithromycin. LABORATORY DATA: We do not have recent lab today, but reviewed old labs. Prolactin is less than 0.25. ASSESSMENT AND PLAN: Ms. Merna Mora is a 71-year-old lady, status post respiratory failure, requiring noninvasive ventilation with carbon dioxide narcosis, hypoxemia, severe pulmonary hypertension, history of breast cancer, cardiac diastolic dysfunction, pulmonary fibrosis, steroid dependency, oxygen dependency. Dr. Rosales started Revatio. Cardiology and Pulmonary notes reviewed. Discontinued Primacor, started on Revatio. We will increase to 20 mg every 8 hours. Avoid nitrates as per Dr. Rosales. We will try to get Transitional Care Unit evaluation. We will follow up. Stacey Del Rosario MD
[2017-11-21 07:03] LABS: HEMOGLOBIN 11.6 g/dL (12.0-16.0); MEAN CELL VOLUME 90.8 fl (80.0-105.0); MEAN CORPUSCULAR HEMOGLOBIN 27.4 pg (25.0-35.0); MEAN CORPUSCULAR HGB CONC 30.2 g/dl (31.0-37.0); MEAN PLATELET VOLUME 10.5 fl (7.0-11.0); RBC 4.23 10^6/uL (3.5-6.1); RED CELL DISTRIBUTION WIDTH 13.7 % (11.5-14.5); WHITE BLOOD COUNT 11.8 10^3/ul (4.5-11.0)
[2017-11-21] MEDS: Meropenem IV 1 gm in NS 50 ML IVPB SCH ×3 (07:09→22:12)
[2017-11-21] MEDS: Sucralfate 1 gm/10 ml Oral Susp UD PO SCH ×4 (07:10→22:12)
[2017-11-21] MEDS: Sildenafil 20 MG TAB PO SCH ×3 (07:10→22:12)
[2017-11-21] MEDS: Pantoprazole 40 mg EC Tab PO SCH (07:10)
[2017-11-21 07:33] LABS: LDL CHOLESTEROL 99 mg/dL (0-129)
[2017-11-21] MEDS: Levalbuterol 0.63 MG/3 ML Inhal Soln UD IH SCH ×3 (07:34→19:55)
[2017-11-21] MEDS: Budesonide 0.25 mg/2 ml Inhal Susp UD IH SCH ×2 (07:34→19:55)
[2017-11-21 07:37] LABS: BLOOD UREA NITROGEN 36 mg/dL (7-21); CALCIUM 9.2 mg/dL (8.4-10.5); GFR AFRICAN-AMERICAN > 60; GFR NON-AFRICAN AMERICAN > 60; HDL CHOLESTEROL 51 mg/dL (29-60)
--- NOTE | 2017-11-21 08:39 | CP.PCM.PN ---
Subjective - Date & Time of Evaluation Date of Evaluation: 11/21/17 Time of Evaluation: 06:15 - Subjective Subjective: Sleeping on bipap, awaken,no distress, denies shortness of breath Reason for consultation: Cardiac evaluation for chest pain. History of coronary artery disease with cardiac stents, COPD, pulmonary fibrosis,GERD, hypertension, Seen and examined by me and Dr. Frankel Objective - Vital Signs/Intake and Output Vital Signs (last 24 hours): Temp Pulse Resp BP Pulse Ox 98.1 F 71 20 149/87 97 11/21/17 00:01 11/21/17 02:00 11/21/17 00:01 11/21/17 00:01 11/21/17 00:01 Intake and Output: 11/21/17 11/21/17 06:59 18:59 Intake Total 480 Output Total 400 Balance 80 - Medications Medications: Current Medications Acetaminophen (Tylenol 325mg Tab) 650 mg PO Q6H PRN PRN Reason: Pain, Mild (1-3) Last Admin: 11/18/17 21:10 Dose: 650 mg Alprazolam (Xanax) 0.125 mg PO HS PRN; Protocol PRN Reason: Insomnia Stop: 11/25/17 22:01 Last Admin: 11/20/17 23:47 Dose: 0.125 mg Anastrozole (Arimidex 1 Mg Tab) 1 mg PO DAILY [facility] Last Admin: 11/20/17 12:39 Dose: 1 mg Aspirin (Aspirin Chewable) 81 mg PO DAILY [facility] Last Admin: 11/20/17 09:45 Dose: 81 mg Atorvastatin Calcium (Lipitor) 20 mg PO DIALW GUY Azithromycin (Zithromax) 500 mg PO DAILY [facility] PRN Reason: Protocol Last Admin: 11/20/17 09:44 Dose: 500 mg Budesonide (Pulmicort Respules) 0.5 mg IH [id number] [facility] Last Admin: 11/21/17 07:34 Dose: 0.5 mg Clopidogrel Bisulfate (Plavix) 75 mg PO DAILY [facility] Last Admin: 11/20/17 09:44 Dose: 75 mg Enoxaparin Sodium (Lovenox) 40 mg SC DAILY [facility] PRN Reason: Protocol Last Admin: 11/20/17 09:44 Dose: 40 mg Furosemide (Lasix) 40 mg PO DAILY [facility] Last Admin: 11/20/17 09:45 Dose: 40 mg Meropenem (Merrem Iv 1 Gm Premix) 50 mls @ 100 mls/hr IVPB Q8 [facility] PRN Reason: Protocol Last Admin: 11/21/17 07:09 Dose: 100 mls/hr Levalbuterol HCl (Xopenex) 0.63 mg IH TIDRESP [facility] Last Admin: 11/21/17 07:34 Dose: 0.63 mg Lidocaine (Lidoderm) 1 ea TD DAILY [facility] Last Admin: 11/20/17 09:51 Dose: 1 ea Lidocaine (Lidoderm) 1 ea TD DAILY [facility] Last Admin: 11/20/17 09:52 Dose: 1 ea Methylprednisolone (Solu-Medrol) 40 mg IVP DAILY [facility] Last Admin: 11/20/17 09:44 Dose: 40 mg Metoprolol Tartrate (Lopressor) 50 mg PO BID [facility] Last Admin: 11/20/17 17:49 Dose: 50 mg Pantoprazole Sodium (Protonix Ec Tab) 40 mg PO 0600 [facility] Last Admin: 11/21/17 07:10 Dose: 40 mg Sildenafil Citrate (Revatio) 20 mg PO Q8 [facility] Last Admin: 11/21/17 07:10 Dose: 20 mg Sucralfate (Carafate Oral Susp) 1 gm PO 0630,1130,1630,2200 [facility] Last Admin: 11/21/17 07:10 Dose: 1 gm - Labs Labs: 11/21/17 06:00 11/21/17 06:00 PT 10.9 SECONDS (9.4-12.5) 11/15/17 21:45 INR 0.96 (0.93-1.08) 11/15/17 21:45 APTT 29.6 Seconds (25.1-36.5) 11/15/17 21:45 - Constitutional Appears: No Acute Distress - Head Exam Head Exam: NORMOCEPHALIC - Eye Exam Eye Exam: Normal appearance - ENT Exam ENT Exam: Mucous Membranes Moist - Respiratory Exam Respiratory Exam: Decreased Breath Sounds, Clear to Ausculation Bilateral, NORMAL BREATHING PATTERN - Cardiovascular Exam Cardiovascular Exam: REGULAR RHYTHM, +S1, +S2 - GI/Abdominal Exam GI & Abdominal Exam: Soft, Normal Bowel Sounds - Extremities Exam Additional comments: 1+edema - Neurological Exam Neurological Exam: Alert, Awake, Oriented x3 - Psychiatric Exam Psychiatric exam: Normal Affect, Normal Mood - Skin Skin Exam: Dry, Intact, Warm Assessment and Plan - Assessment and Plan (Free Text) Assessment: A 71 year old female who came in to the ER due to complaints of abdominal pain, chest pain and jaw pain in the ER. Spoken to the daughter and claimed that patient has abdominal pain on the left side below the ribs. Pain has been going on for the past 2 days but comes and goes.Pain radiated to chest and jaw. Chest pain free now but still with abdominal pain left side below ribs upon palpation. History of coronary artery disease with cardiac stents, COPD, pulmonary fibrosis,GERD, hypertension, right breast cancer,right mastectomy 2008 with radiation and chemotherapy, umbilical hernia repair, Family at bedside claimed that son (35 year old) recently due to fall/head trauma and probably contributing to symptoms. CO2 narcosis. Placed on BIPAP/CPAP after ABG. ABG result on nasal cannula, PH-7.20, PCO2-96,PO2- 62, HCO3- 37.5 After 2 hours of BIPAP lethargic but open eyes and able to talk and responds to questions. Repeat ABG remained the same on BIPAP/CPAP. for transfer to ICU/ CCU.History of stents 12/06/2007 and 08/02/2011,Recent cardiac cath 12/25/16 due to NSTEMI- PTCA with KATIE of RPDA and Mid RCA ECHO 12/22/16- LVEF 62%, moderate pulmonary hypertension. Stabilized in ICU with BIPAP/CPAP ( no intubation).On primacor drip. Now transferred to telemetry. Plan: On BIPAP this morning, awake Denies ,denies shortness of breath Pulmonary status stable, Cardiac status stable Heart rate and blood pressure controlled Clinically improved from baseline On ASA 81 mg daily,Plavix 75 mg daily,Lasix 40 mg daily, Solu-Medrol 40 mg daily, Lopressor 50 mg BID, Revatio 20 mg every 8 hours Continue current treatment Continue current medications Physical therapy Will follow up Plan and treatment discussed with Dr. Frankel
[2017-11-21 08:42] VITALS: RESP 18
[2017-11-21] MEDS: MethylPREDNISolone 40 mg Vial IVP SCH ×2 (09:51→09:58)
[2017-11-21] MEDS: Enoxaparin 40 mg Syringe SC SCH (09:51)
[2017-11-21] MEDS: Lidocaine 5% Patch TD SCH ×2 (10:33)
--- NOTE | 2017-11-21 11:34 | CP.PCM.PN ---
Subjective - Date & Time of Evaluation Date of Evaluation: 11/21/17 Time of Evaluation: 09:25 - Subjective Subjective: Patient is breathing better, no fevers, no cough, no diarrhea, no nausea. Objective - Vital Signs/Intake and Output Vital Signs (last 24 hours): Temp Pulse Resp BP Pulse Ox 98.1 F 71 20 149/87 97 11/21/17 00:01 11/21/17 02:00 11/21/17 00:01 11/21/17 00:01 11/21/17 00:01 Intake and Output: 11/21/17 11/21/17 06:59 18:59 Intake Total 480 Output Total 400 Balance 80 - Medications Medications: Current Medications Acetaminophen (Tylenol 325mg Tab) 650 mg PO Q6H PRN PRN Reason: Pain, Mild (1-3) Last Admin: 11/18/17 21:10 Dose: 650 mg Alprazolam (Xanax) 0.125 mg PO HS PRN; Protocol PRN Reason: Insomnia Stop: 11/25/17 22:01 Last Admin: 11/20/17 23:47 Dose: 0.125 mg Anastrozole (Arimidex 1 Mg Tab) 1 mg PO DAILY [facility] Last Admin: 11/20/17 12:39 Dose: 1 mg Aspirin (Aspirin Chewable) 81 mg PO DAILY [facility] Last Admin: 11/20/17 09:45 Dose: 81 mg Atorvastatin Calcium (Lipitor) 20 mg PO DIALW GUY Azithromycin (Zithromax) 500 mg PO DAILY [facility] PRN Reason: Protocol Last Admin: 11/20/17 09:44 Dose: 500 mg Budesonide (Pulmicort Respules) 0.5 mg IH [id number] [facility] Last Admin: 11/20/17 20:38 Dose: 0.5 mg Clopidogrel Bisulfate (Plavix) 75 mg PO DAILY [facility] Last Admin: 11/20/17 09:44 Dose: 75 mg Enoxaparin Sodium (Lovenox) 40 mg SC DAILY [facility] PRN Reason: Protocol Last Admin: 11/20/17 09:44 Dose: 40 mg Furosemide (Lasix) 40 mg PO DAILY [facility] Last Admin: 11/20/17 09:45 Dose: 40 mg Meropenem (Merrem Iv 1 Gm Premix) 50 mls @ 100 mls/hr IVPB Q8 [facility] PRN Reason: Protocol Last Admin: 11/20/17 22:23 Dose: 100 mls/hr Levalbuterol HCl (Xopenex) 0.63 mg IH TIDRESP [facility] Last Admin: 11/20/17 20:38 Dose: 0.63 mg Lidocaine (Lidoderm) 1 ea TD DAILY [facility] Last Admin: 11/20/17 09:51 Dose: 1 ea Lidocaine (Lidoderm) 1 ea TD DAILY [facility] Last Admin: 11/20/17 09:52 Dose: 1 ea Methylprednisolone (Solu-Medrol) 40 mg IVP DAILY [facility] Last Admin: 11/20/17 09:44 Dose: 40 mg Metoprolol Tartrate (Lopressor) 50 mg PO BID [facility] Last Admin: 11/20/17 17:49 Dose: 50 mg Pantoprazole Sodium (Protonix Ec Tab) 40 mg PO 0600 [facility] Last Admin: 11/20/17 05:40 Dose: 40 mg Sildenafil Citrate (Revatio) 20 mg PO Q8 [facility] Last Admin: 11/20/17 22:23 Dose: 20 mg Sucralfate (Carafate Oral Susp) 1 gm PO 0630,1130,1630,2200 [facility] Last Admin: 11/20/17 22:22 Dose: 1 gm - Labs Labs: 11/21/17 06:00 11/19/17 06:00 PT 10.9 SECONDS (9.4-12.5) 11/15/17 21:45 INR 0.96 (0.93-1.08) 11/15/17 21:45 APTT 29.6 Seconds (25.1-36.5) 11/15/17 21:45 - Constitutional Appears: Non-toxic, Chronically Ill - Head Exam Head Exam: NORMAL INSPECTION - Neck Exam Neck Exam: absent: Meningismus - Respiratory Exam Respiratory Exam: Decreased Breath Sounds - Cardiovascular Exam Cardiovascular Exam: +S1, +S2 - GI/Abdominal Exam GI & Abdominal Exam: Soft. absent: Tenderness Assessment and Plan - Assessment and Plan (Free Text) Plan: Assessment Severe sepsis with acute hypoxic respiratory failure due to healthcare- associated community-acquired pneumonia with possible gram negative bacilli and/ or atypical organisms in this patient with history of bronchiectasis and pulmonary fibrosis, clinically improved oxygen-dependent COPD HTN history of breast cancer coronary artery disease dyslipidemia history of DVT Plan continue Merrem and Zithromax day 4 - since patient has clinically improved, may be able to d/c antibiotics in the next 24 hours
[2017-11-21 13:05] LABS: FOLATE > 20.0 ng/mL
--- NOTE | 2017-11-21 20:04 | PN ---
DATE: 11/21/2017 PULMONARY PROGRESS NOTE REFERRING PHYSICIAN: Stacey Del Rosario MD SUBJECTIVE: The patient is out of bed to chair. Night was unremarkable, tolerated BiPAP well. No headache, no rhinitis. No nausea. No vomiting or diarrhea. No leg pain or leg swelling. Breathing is improved. OBJECTIVE: GENERAL: In the no acute distress. VITAL SIGNS: Temperature is 98, heart rate 62, respiratory rate is 18, blood pressure 115/51, and pulse ox 97% on nasal cannula. HEENT: Moist mucous membrane. No ulcer or oral thrush noted. NECK: Supple. No JVD. LUNGS: Basilar crackles. HEART: S1 and S2. ABDOMEN: Soft, nontender. No organomegaly. EXTREMITIES: There is no edema. NEUROLOGIC: Awake, alert, and follows simple command. MEDICATIONS: She is on Arimidex 1 mg daily, aspirin 81 mg daily, Carafate 1 g four times a day, Lasix 40 mg daily, lidocaine patch daily, Lipitor 20 mg with meals, metoprolol tartrate 50 mg twice a day, Lovenox 40 mg daily, meropenem 1 g every 8 hours, Plavix 75 mg daily, Protonix 40 mg daily, Pulmicort inhaled twice a day, Revatio 20 mg every 8 hours, Solu-Medrol 20 mg daily, Tylenol p.r.n., Xanax 0.125 mg at bedtime, Xopenex inhaled three times a day, Zithromax 500 mg daily. LABORATORY DATA: Shows hemoglobin 11.6, hematocrit 38.4, WBC 11.8, and platelet count is 209. Sodium 144, potassium 4.3, chloride 94, and bicarbonate 39. BUN 36, creatinine 0.9. Glucose 81. Calcium is 9.2. Triglyceride 192, cholesterol 190, procalcitonin 0.05. Vitamin B12 of 705. Folate more than 20. Microbiology: Blood culture and nares culture negative. IMPRESSION AND PLAN: Status post respiratory failure requiring noninvasive ventilation, status post carbon dioxide narcosis, hypoxemia, severe pulmonary hypertension, cardiac diastolic dysfunction, pulmonary fibrosis, steroids dependent, oxygen dependent. Pulmonary point of view, doing well. We will discontinue Solu-Medrol and put on prednisone 10 mg daily. Continue Revatio and p.r.n. Lasix. Repeat CT scan of the chest to assure the stability of infiltrate. Discharge planning. The patient refused rehab. Thank you and we will follow with you. Joaquin Rosales MD
--- NOTE | 2017-11-22 01:00 | PN ---
DATE: 11/21/2017 SUBJECTIVE: Looking comfortable. Daughter was sitting on the bedside also. Shortness of breath is better. No headache. No dizziness. No chest pain. No palpitation. No swelling of the leg. Breathing is improved. PHYSICAL EXAMINATION: VITAL SIGNS: Temperature 98, heart rate 62, respiratory rate 18, blood pressure 115/51, pulse oximetry 97% on nasal cannula. HEENT: Head normocephalic, atraumatic. Eyes PERRLA. Extraocular muscles intact. Conjunctivae clear. Nose patent. Mucous membrane moist. NECK: Supple. No carotid bruit. No JVD or thyromegaly. CHEST: Bilaterally symmetrical. HEART: S1 and S2 positive. LUNGS: bibasilar crackles. ABDOMEN: Soft, nontender. No organomegaly. EXTREMITIES: No edema. No cyanosis. NEUROLOGICAL: The patient is awake and alert. Follow simple commands. MEDICATIONS: Arimidex, Carafate, Lasix, lidocaine, metoprolol, Lovenox, meropenem, Plavix, Protonix, Pulmicort, Revatio, Solu-Medrol tapering doses, Tylenol, Xanax, Zithromax. LABORATORY DATA: Hemoglobin 11.6, hematocrit 38.4, white blood cells 11.8, platelets 209. Sodium 144, potassium 4.3, BUN 36, creatinine 0.9, triglyceride 192, calcium 9.2. ASSESSMENT AND PLAN: Ms. Merna Kaminski, a 71-year-old lady, status post respiratory failure requiring noninvasive ventilation, status post carbon dioxide narcosis, hypoxia, history of pulmonary fibrosis, pulmonary hypertension, cardiac diastolic dysfunction, steroid dependency, oxygen dependency, noncompliant, history of breast cancer, is on tapering dose of Solu-Medrol. Continue Revatio started by Dr. Rosales. Repeat CAT scan of the chest to assure the stability of infiltrates. Plan is to discharge the patient to TCU, but the patient do not agree with that. Repeat labs. Out of bed, physical therapy. Discussion done with the family on the bedside. We will follow up. Stacey Del Rosario MD [facility] # [id number]
[2017-11-22] MEDS: Sucralfate 1 gm/10 ml Oral Susp UD PO SCH ×2 (05:43→11:57)
[2017-11-22] MEDS: Pantoprazole 40 mg EC Tab PO SCH (05:43)
[2017-11-22] MEDS: Sildenafil 20 MG TAB PO SCH ×2 (05:44→13:10)
[2017-11-22] MEDS: Meropenem IV 1 gm in NS 50 ML IVPB SCH ×2 (05:44→13:10)
[2017-11-22] MEDS: Levalbuterol 0.63 MG/3 ML Inhal Soln UD IH SCH ×2 (07:34→13:47)
[2017-11-22] MEDS: Budesonide 0.25 mg/2 ml Inhal Susp UD IH SCH (07:34)
--- NOTE | 2017-11-22 10:00 | CT ---
Date of service: 11/22/2017 PROCEDURE: HISTORY: infiltrate COMPARISON: 11/16/2017 TECHNIQUE: FINDINGS: Re- demonstration of extensive pulmonary fibrosis and areas of cylindrical and varicose bronchiectasis particularly in the left lower lobe. Minimal left basilar infiltrate and pleural thickening. No confluent consolidation. No significant mediastinal lymphadenopathy. Prominent pulmonary artery; correlate clinically for pulmonary hypertension. Large hiatal hernia. No pericardial effusion. Mild cardiomegaly. Upper abdomen within normal limits. IMPRESSION: Essentially no significant change.
[2017-11-22] MEDS: Enoxaparin 40 mg Syringe SC SCH (11:01)
[2017-11-22] MEDS: MethylPREDNISolone 40 mg Vial IVP SCH (11:01)
[2017-11-22] MEDS: Lidocaine 5% Patch TD SCH ×2 (11:01→11:02)
[2017-11-22 11:55] VITALS: BP 134/49; PULSE 70; TEMP 98
--- NOTE | 2017-11-22 12:14 | PN ---
DATE: 11/22/2017 REASON FOR CONSULTATION AND FOLLOWUP: Coronary artery disease; acute renal insufficiency; COPD, CO2 narcosis, on noninvasive, now the patient is fairly stable. Now, the patient is in Telemetry. SUBJECTIVE: The patient denies any chest pain, shortness of breath, or any palpitations. OBJECTIVE: GENERAL: Not in apparent distress, much awake and alert. VITAL SIGNS: Temperature afebrile, heart rate 61, blood pressure 112/40. HEENT: PERRLA. Extraocular muscles intact. NECK: Supple. No carotid bruit or thyromegaly. CHEST: Clear to auscultation. HEART: S1 and S2 regular. ABDOMEN: Soft. EXTREMITIES: Clubbing and cyanosis negative. LABORATORY DATA: Blood workup as follows: WBC 11.8, hemoglobin 11.6, hematocrit 38.4, platelet count 209. Chemistry shows sodium 141, potassium 4, chloride 94, carbon dioxide 39, anion gap of 15, BUN 36, creatinine 0.9. IMPRESSION: This is a 71-year-old female with past medical history significant for coronary artery disease, status post multiple stents; history of pulmonary fibrosis, on home oxygen, admitted with acute decompensated chronic obstructive pulmonary disease, hypoxemia, hypercapnia, requiring noninvasive ventilator. The patient do not resuscitate. Now, the patient is fairly stable and improved. History of pulmonary hypertension, started on Revatio. RECOMMENDATIONS: Continue BiPAP, CVS status is stable, no evidence of acute DC. Continue aspirin. Continue Plavix. Continue steroid as per pharmacogeneticist, off Primacor, off nitrates because the patient is on Revatio. Continue DVT prophylaxis and discharge planning. We will discontinue Telemetry. Thank you Dr. Del Rosario for providing me the opportunity in taking care of the patient, Merna Mora. Joaquin Frankel MD
--- NOTE | 2017-11-22 14:13 | CP.PCM.PN ---
Subjective - Date & Time of Evaluation Date of Evaluation: 11/22/17 Time of Evaluation: 11:00 - Subjective Subjective: Patient is feeling much better, no fevers, not in distress, no cough, no SOB at rest. Objective - Vital Signs/Intake and Output Vital Signs (last 24 hours): Temp Pulse Resp BP Pulse Ox 97.8 F 63 18 112/40 L 97 11/22/17 06:00 11/22/17 06:00 11/22/17 06:00 11/22/17 06:00 11/21/17 06:00 Intake and Output: 11/22/17 11/22/17 06:59 18:59 Intake Total 720 Output Total 400 Balance 320 - Medications Medications: Current Medications Acetaminophen (Tylenol 325mg Tab) 650 mg PO Q6H PRN PRN Reason: Pain, Mild (1-3) Last Admin: 11/21/17 17:17 Dose: 650 mg Alprazolam (Xanax) 0.125 mg PO HS PRN; Protocol PRN Reason: Insomnia Stop: 11/25/17 22:01 Last Admin: 11/21/17 22:13 Dose: 0.125 mg Anastrozole (Arimidex 1 Mg Tab) 1 mg PO DAILY [facility] Last Admin: 11/21/17 10:32 Dose: 1 mg Aspirin (Aspirin Chewable) 81 mg PO DAILY [facility] Last Admin: 11/21/17 09:51 Dose: 81 mg Atorvastatin Calcium (Lipitor) 20 mg PO DIALW GUY Azithromycin (Zithromax) 500 mg PO DAILY [facility] PRN Reason: Protocol Last Admin: 11/21/17 09:51 Dose: 500 mg Budesonide (Pulmicort Respules) 0.5 mg IH [id number] [facility] Last Admin: 11/22/17 07:34 Dose: 0.25 mg Clopidogrel Bisulfate (Plavix) 75 mg PO DAILY [facility] Last Admin: 11/21/17 09:51 Dose: 75 mg Enoxaparin Sodium (Lovenox) 40 mg SC DAILY [facility] PRN Reason: Protocol Last Admin: 11/21/17 09:51 Dose: 40 mg Furosemide (Lasix) 40 mg PO DAILY [facility] Last Admin: 11/21/17 09:53 Dose: 40 mg Meropenem (Merrem Iv 1 Gm Premix) 50 mls @ 100 mls/hr IVPB Q8 [facility] PRN Reason: Protocol Last Admin: 11/22/17 05:44 Dose: 100 mls/hr Levalbuterol HCl (Xopenex) 0.63 mg IH TIDRESP [facility] Last Admin: 11/22/17 07:34 Dose: 0.63 mg Lidocaine (Lidoderm) 1 ea TD DAILY [facility] Last Admin: 11/21/17 10:33 Dose: 1 ea Lidocaine (Lidoderm) 1 ea TD DAILY [facility] Last Admin: 11/21/17 10:33 Dose: 1 ea Methylprednisolone (Solu-Medrol) 20 mg IVP DAILY [facility] Last Admin: 11/21/17 09:58 Dose: 20 mg Metoprolol Tartrate (Lopressor) 50 mg PO BID [facility] Last Admin: 11/21/17 17:18 Dose: 50 mg Pantoprazole Sodium (Protonix Ec Tab) 40 mg PO 0600 [facility] Last Admin: 11/22/17 05:43 Dose: 40 mg Prednisone (Prednisone Tab) 10 mg PO DAILY [facility] Sildenafil Citrate (Revatio) 20 mg PO Q8 [facility] Last Admin: 11/22/17 05:44 Dose: 20 mg Sucralfate (Carafate Oral Susp) 1 gm PO 0630,1130,1630,2200 [facility] Last Admin: 11/22/17 05:43 Dose: 1 gm - Labs Labs: 11/21/17 06:00 11/21/17 06:00 PT 10.9 SECONDS (9.4-12.5) 11/15/17 21:45 INR 0.96 (0.93-1.08) 11/15/17 21:45 APTT 29.6 Seconds (25.1-36.5) 11/15/17 21:45 - Constitutional Appears: Non-toxic, Chronically Ill - Head Exam Head Exam: NORMAL INSPECTION - Respiratory Exam Respiratory Exam: Decreased Breath Sounds - Cardiovascular Exam Cardiovascular Exam: +S1, +S2 - GI/Abdominal Exam GI & Abdominal Exam: Soft. absent: Tenderness Assessment and Plan - Assessment and Plan (Free Text) Plan: Assessment Severe sepsis with acute hypoxic respiratory failure due to healthcare- associated community-acquired pneumonia with possible gram negative bacilli and/ or atypical organisms in this patient with history of bronchiectasis and pulmonary fibrosis, clinically improved oxygen-dependent COPD HTN history of breast cancer coronary artery disease dyslipidemia history of DVT Plan completed 4 days of Merrem and Zithromax - can d/c antibiotics and observe off antibiotics, with outpatient follow up with PMD and [employer]
--- NOTE | 2017-11-22 14:42 | CP.PCM.PN ---
Subjective - Date & Time of Evaluation Date of Evaluation: 11/22/17 Time of Evaluation: 14:39 - Subjective Subjective: pt seen at bedside for removal of Midline prior to dc home Removed Midline from patient's left upper arm - no bleeding, no hematoma, pt noted with prior ecchomysis at site applied pressure x 10 mins and applied occlusive dressing to site. Site with no bleeding or hematoma noted. Advised pt to leave dsg intact x 24 hrs buffy with asa and plavix regimen in place pt verbalize understanding of info provided. Pt left resting in bed with no complaints, awaiting pickup from chelly Maloney withn reach Holly Crockett, DNP, [employer] Objective - Vital Signs/Intake and Output Vital Signs (last 24 hours): Temp Pulse Resp BP Pulse Ox 98 F 70 18 134/49 L 97 11/22/17 11:54 11/22/17 11:54 11/22/17 11:54 11/22/17 11:54 11/21/17 06:00 Intake and Output: 11/22/17 11/22/17 06:59 18:59 Intake Total 720 Output Total 400 Balance 320 - Medications Medications: Current Medications Acetaminophen (Tylenol 325mg Tab) 650 mg PO Q6H PRN PRN Reason: Pain, Mild (1-3) Last Admin: 11/21/17 17:17 Dose: 650 mg Alprazolam (Xanax) 0.125 mg PO HS PRN; Protocol PRN Reason: Insomnia Stop: 11/25/17 22:01 Last Admin: 11/21/17 22:13 Dose: 0.125 mg Anastrozole (Arimidex 1 Mg Tab) 1 mg PO DAILY [facility] Last Admin: 11/22/17 11:17 Dose: 1 mg Aspirin (Aspirin Chewable) 81 mg PO DAILY [facility] Last Admin: 11/22/17 11:00 Dose: 81 mg Atorvastatin Calcium (Lipitor) 20 mg PO DIALW GU[facility] Azithromycin (Zithromax) 500 mg PO DAILY [facility] PRN Reason: Protocol Last Admin: 11/22/17 11:00 Dose: 500 mg Budesonide (Pulmicort Respules) 0.5 mg IH [id number] [facility] Last Admin: 11/22/17 07:34 Dose: 0.25 mg Clopidogrel Bisulfate (Plavix) 75 mg PO DAILY [facility] Last Admin: 11/22/17 11:00 Dose: 75 mg Enoxaparin Sodium (Lovenox) 40 mg SC DAILY [facility] PRN Reason: Protocol Last Admin: 11/22/17 11:01 Dose: 40 mg Furosemide (Lasix) 40 mg PO DAILY [facility] Last Admin: 11/22/17 11:07 Dose: Not Given Meropenem (Merrem Iv 1 Gm Premix) 50 mls @ 100 mls/hr IVPB Q8 [facility] PRN Reason: Protocol Last Admin: 11/22/17 13:10 Dose: 100 mls/hr Levalbuterol HCl (Xopenex) 0.63 mg IH TIDRESP [facility] Last Admin: 11/22/17 13:47 Dose: 0.63 mg Lidocaine (Lidoderm) 1 ea TD DAILY [facility] Last Admin: 11/22/17 11:01 Dose: 1 ea Lidocaine (Lidoderm) 1 ea TD DAILY [facility] Last Admin: 11/22/17 11:02 Dose: 1 ea Methylprednisolone (Solu-Medrol) 20 mg IVP DAILY [facility] Last Admin: 11/22/17 11:01 Dose: 20 mg Metoprolol Tartrate (Lopressor) 50 mg PO BID [facility] Last Admin: 11/22/17 11:05 Dose: Not Given Pantoprazole Sodium (Protonix Ec Tab) 40 mg PO 0600 [facility] Last Admin: 11/22/17 05:43 Dose: 40 mg Prednisone (Prednisone Tab) 10 mg PO DAILY [facility] Last Admin: 11/22/17 11:01 Dose: 10 mg Sildenafil Citrate (Revatio) 20 mg PO Q8 [facility] Last Admin: 11/22/17 13:10 Dose: 20 mg Sucralfate (Carafate Oral Susp) 1 gm PO 0630,1130,1630,2200 [facility] Last Admin: 11/22/17 11:57 Dose: 1 gm - Labs Labs: 11/21/17 06:00 11/21/17 06:00 PT 10.9 SECONDS (9.4-12.5) 11/15/17 21:45 INR 0.96 (0.93-1.08) 11/15/17 21:45 APTT 29.6 Seconds (25.1-36.5) 11/15/17 21:45
--- NOTE | 2017-11-22 20:59 | PN ---
DATE: 11/22/2017 PULMONARY PROGRESS NOTE REFERRING PHYSICIAN: Stacey Del Rosario MD SUBJECTIVE: The patient is sitting up at side of the bed, able to ambulate. He gets short of breath with exertion, but much better. No cough. No sputum production. No nausea, vomiting, or diarrhea. No leg pain or leg swelling. OBJECTIVE: GENERAL: In no acute distress. VITAL SIGNS: Temperature is 98, heart rate 70, respiratory rate is 18, blood pressure 134/49, and pulse ox is 96% on 4 L nasal cannula. HEENT: Moist mucous membranes. Small oral cavity. Crowded airway. NECK: Supple. No JVD. LUNGS: Basilar crackles. HEART: S1 and S2. ABDOMEN: Soft, nontender. No organomegaly. EXTREMITIES: There is no edema. NEUROLOGIC: Awake, alert, and follows simple command. MEDICATIONS: Reviewed. No new changes since yesterday reported. LABORATORY DATA: Shows no new lab is available since yesterday. Microbiology: Blood culture and nares culture, there is no growth. CAT scan of the chest done, which consistent of bronchiectasis, particularly in the left lower lobe, also minimal left basilar infiltrate and pleural thickening. There is a large hiatal hernia, mild cardiomegaly. IMPRESSION: Status post respiratory failure requiring noninvasive ventilation with CO2 retention and hypoxemia, presently on nasal cannula; severe pulmonary hypertension; cardiac diastolic dysfunction; bronchiectasis with chronic interstitial infiltrate. Pulmonary point of view, doing well. Spoke to nursing staff. The patient will be going home on sildenafil 20 mg three times a day. Avoid all nitrates vasodilators. Taper down prednisone to 5 mg. Continue inhaled bronchodilator. Encourage CPAP use at nighttime. May need to repeat her sleep study. Will benefit from separate study to reevaluate the pressures. Slowly, we will decrease p.o., prednisone. Thank you and we will follow with you. Joaquin Rosales MD
== END 2017-11-22 15:16 | disposition home or self-care (01) | DRG 190 ==
LOC: ED 22:08 → ERH 11-16 02:19 → 2RSO 11-16 03:41 → CCU 11-16 11:15 → OBSVTOIN 11-17 02:19 → 2RNO 11-18 15:45
PROVIDERS: ADMIT Internal Medicine; ATTEND Internal Medicine
PROC: 5A09457 Assistance with Respiratory Ventilation, 24-96 Consecutive Hours, Continuous Positive Airway Pressure (ICD-10-PCS; principal; 2017-11-17)
DX: J44.1 Chronic obstructive pulmonary disease with (acute) exacerbation (principal); J18.9 Pneumonia, unspecified organism; J96.01 Acute respiratory failure with hypoxia; J96.02 Acute respiratory failure with hypercapnia; A41.9 Sepsis, unspecified organism; R65.20 Severe sepsis without septic shock; I42.9 Cardiomyopathy, unspecified; N39.0 Urinary tract infection, site not specified; E87.2 Acidosis; J47.0 Bronchiectasis with acute lower respiratory infection; J44.0 Chronic obstructive pulmonary disease with (acute) lower respiratory infection; Y95 Nosocomial condition; I25.2 Old myocardial infarction; I25.10 Atherosclerotic heart disease of native coronary artery without angina pectoris; I11.0 Hypertensive heart disease with heart failure; I50.9 Heart failure, unspecified; I27.20 Pulmonary hypertension, unspecified; D64.9 Anemia, unspecified; E11.9 Type 2 diabetes mellitus without complications; E78.5 Hyperlipidemia, unspecified; F41.9 Anxiety disorder, unspecified; G47.33 Obstructive sleep apnea (adult) (pediatric); J84.10 Pulmonary fibrosis, unspecified; K21.9 Gastro-esophageal reflux disease without esophagitis; N28.9 Disorder of kidney and ureter, unspecified; Z66 Do not resuscitate; Z79.52 Long term (current) use of systemic steroids; Z85.3 Personal history of malignant neoplasm of breast; Z86.718 Personal history of other venous thrombosis and embolism; Z90.11 Acquired absence of right breast and nipple; Z90.49 Acquired absence of other specified parts of digestive tract; Z91.19 Patient's noncompliance with other medical treatment and regimen; Z95.5 Presence of coronary angioplasty implant and graft; Z99.81 Dependence on supplemental oxygen; F32.9 Major depressive disorder, single episode, unspecified; F43.20 Adjustment disorder, unspecified; Z98.42 Cataract extraction status, left eye; Z98.41 Cataract extraction status, right eye; Z92.21 Personal history of antineoplastic chemotherapy; Z92.3 Personal history of irradiation

== ENCOUNTER 2018-02-06 21:01 | Inpatient (IN) | payer MEDICARE, OTHER ==
--- NOTE | 2018-02-06 21:15 | ED PDOC ---
Arrival/HPI - General Time Seen by Provider: 02/06/18 21:05 Historian: Family - History of Present Illness Narrative History of Present Illness (Text): 02/06/18 21:11 72 year old female, whose past medical history includes asthma, bronchitis, pneumonia, COPD, and emphysema, presents to the emergency department accompanied by daughter, with shortness of breath since today. Daughter states patient has been unable to breath well all day. Daughter states she was recently released from the hospital. Daughter states she has been seeing Dr. Rosales and Dr. Del Rosario regularly. Patient denies any fevers, chills, headache, dizziness, abdominal pain, nausea, vomiting, diarrhea, back pain, neck pain, urinary/bowel changes, or any other complaint. Time/Duration: 24 hours Context: Home Past Medical History - Provider Review Nursing Documentation Reviewed: Yes - Infectious Disease Hx of Infectious Diseases: None - Tetanus Immunization Tetanus Immunization: Unknown - Cardiac Hx Pacemaker: No - Pulmonary Hx Chronic Obstructive Pulmonary Disease (COPD): Yes - Neurological Hx Neurological Disorder: No - HEENT Hx HEENT Disorder: Yes Hx Cataracts: Yes (b/l sx) - Renal Hx Renal Disorder: No - Endocrine/Metabolic Hx Endocrine Disorders: No - Hematological/Oncological Hx Cancer: Yes (right breast CA) - Integumentary Hx Dermatological Disorder: No - Musculoskeletal/Rheumatological Hx Musculoskeletal Disorders: Yes Hx Falls: Yes - Gastrointestinal Hx Gastrointestinal Disorders: Yes Hx Gastroesophageal Reflux: Yes - Genitourinary/Gynecological Hx Genitourinary Disorders: No - Psychiatric Hx Psychophysiologic Disorder: No Hx Substance Use: No - Past Surgical History Past Surgical History: Unable to Obtain - Surgical History Hx Mastectomy: Yes (right) - Anesthesia Hx Anesthesia: Yes Hx Anesthesia Reactions: No Hx Malignant Hyperthermia: No - Suicidal Assessment Feels Threatened In Home Enviroment: No Family/Social History - Physician Review Nursing Documentation Reviewed: Yes Family/Social History: No Known Family HX Smoking Status: Never Smoked Hx Alcohol Use: No Hx Substance Use: No Hx Substance Use Treatment: No Allergies/Home Meds Allergies/Adverse Reactions: Allergies No Known Allergies Allergy (Verified 11/15/17 22:27) Home Medications: Home Meds Medication Instructions Recorded Confirmed RX: Cetirizine HCl [Zyrtec] 10 mg PO DAILY PRN 06/22/16 02/07/18 RX: Docusate Sodium [Stool 50 mg PO DAILY PRN 06/22/16 02/07/18 Softener] RX: Ranitidine HCl [Zantac] 150 mg PO BID 11/02/17 02/07/18 Review of Systems - Physician Review All systems were reviewed & negative as marked: Yes - Review of Systems Constitutional: absent: Fevers, Night Sweats Gastrointestinal: absent: Abdominal Pain, Diarrhea, Nausea, Vomiting Musculoskeletal: absent: Back Pain, Neck Pain Neurological: absent: Headache, Dizziness Physical Exam Pulse: Tachycardic Respiratory Rate: Normal Pain Distress: None - Systems Exam Head: Present: Atraumatic, Normocephalic Pupils: Present: PERRL Extroacular Muscles: Present: EOMI Conjunctiva: Present: Normal Mouth: Present: Moist Mucous Membranes Neck: Present: Normal Range of Motion Respiratory/Chest: Present: Respiratory Distress, Wheezes (Diffuse wheezing), Rhonchi Cardiovascular: Present: Regular Rate and Rhythm, Normal S1, S2. No: Murmurs Abdomen: No: Tenderness, Distention, Peritoneal Signs Back: Present: Normal Inspection Upper Extremity: Present: Normal Inspection. No: Cyanosis, Edema Lower Extremity: Present: Normal Inspection. No: Edema Neurological: Present: GCS=15, CN II-XII Intact, Speech Normal Skin: Present: Warm, Dry, Normal Color. No: Rashes Psychiatric: Present: Alert, Oriented x 3, Normal Insight, Normal Concentration Medical Decision Making ED Course and Treatment: 02/06/18 21:17 Impression: 72 year old female presents with shortness of breath. Plan: -- Labs -- EKG -- Chest X-ray -- Duoneb -- Solumedrol -- Urinalysis -- Reassess and disposition Prior Visits: Notes and results from previous visits were reviewed. Progress Notes: 02/06/18 21:58 Daughter, who is patient's healthcare proxy, states patient is DNR and DNI. 02/07/18 01:14 Patient does not require 30cc bolus because she is hemodynamically stable. 02/07/18 03:10 bipap settings increased 2/2 repeat gas accepted icu dr ortiz - JOHN Interpretation Radiology Orders: 02/06/18 21:10 CHEST PORTABLE [RAD] Stat - Scribe Statement The provider has reviewed the documentation as recorded by the Jonathan Griggs Provider Scribe Attestation: All medical record entries made by the Scribe were at my direction and personally dictated by me. I have reviewed the chart and agree that the record accurately reflects my personal performance of the history, physical exam, medical decision making, and the department course for this patient. I have also personally directed, reviewed, and agree with the discharge instructions and disposition. Disposition/Present on Arrival - Present on Arrival Any Indicators Present on Arrival: No History of DVT/PE: No History of Uncontrolled Diabetes: No Urinary Catheter: No History Surgical Site Infection Following: None - Disposition Have Diagnosis and Disposition been Completed?: Yes Diagnosis: COPD exacerbation, Pulmonary fibrosis, CHF (congestive heart failure) Disposition: HOSPITALIZED Disposition Time: 02:00 Condition: CRITICAL
[2018-02-06] MEDS ORDERED: Albuterol-Ipratrop 3 mg / 0.5 (3 ml) UD ONE (21:16)
[2018-02-06] MEDS: Albuterol-Ipratrop 3 mg / 0.5 (3 ml) UD IH SCH ×3 (21:22→21:45)
[2018-02-06 22:03] LABS: VENOUS BLOOD GAS BASE EXCESS 21.1 mmol/L (0.0-2.0); VENOUS BLOOD GAS PO2 90 mm/Hg (30-55); VENOUS BLOOD PH 7.26 (7.32-7.43)
[2018-02-06 22:08] LABS: BASO # 0.02 K/mm3 (0.0-2.0); BASO % 0.1 % (0.0-3.0); GRAN # 18.49 (1.4-6.5); GRAN % 89.5 % (50.0-68.0); HEMOGLOBIN 11.7 g/dL (12.0-16.0); LYMPH % 4.6 % (22.0-35.0); MEAN CELL VOLUME 92.3 fl (80.0-105.0); MEAN CORPUSCULAR HEMOGLOBIN 27.3 pg (25.0-35.0); MEAN CORPUSCULAR HGB CONC 29.6 g/dl (31.0-37.0); MEAN PLATELET VOLUME 11.1 fl (7.0-11.0); MONO # 1.2 (0.1-0.6); MONO % 5.8 % (1.0-6.0); PLATELET COUNT 268 10^3/uL (120.0-450.0); RBC 4.28 10^6/uL (3.5-6.1); RED CELL DISTRIBUTION WIDTH 13.5 % (11.5-14.5); WHITE BLOOD COUNT 20.7 10^3/ul (4.5-11.0)
[2018-02-06 22:11] LABS: INR 1.1; PARTIAL THROMBOPLASTIN TIME 26.3 Seconds (25.1-36.5); PROTHROMBIN TIME 12.6 SECONDS (9.4-12.5)
[2018-02-06] MEDS ORDERED: Vancomycin 1gm in NS 250ml 1 GM/250 ML BAG IVPB STA (22:14)
[2018-02-06] MEDS ORDERED: Piperacillin/Tazobact 3.375 gm 100 ML IVPB STA (22:14)
[2018-02-06 23:07] LABS: NEUTROPHIL 79 % (50.0-70.0)
[2018-02-06 23:23] LABS: BAND 10 % (0-2); LYMPHOCYTE 4 % (22.0-35.0); METAMYELOCYTE 1 %; MONOCYTE 6 % (1.0-6.0); PLATELET ESTIMATE NORMAL (NORMAL)
[2018-02-06] MEDS ORDERED: Albuterol-Ipratrop 3 mg / 0.5 (3 ml) UD IH PRN (23:30)
[2018-02-06 23:52] LABS: PH,URINE 6.5 (4.7-8.0); URINE BILIRUBIN NEGATIVE (NEGATIVE); URINE BLOOD NEGATIVE (NEGATIVE); URINE GLUCOSE (UA) NEGATIVE (NEGATIVE); URINE LEUKOCYTE ESTERASE NEGATIVE Leu/uL (NEGATIVE); URINE PROTEIN 100 mg/dL (<30 mg/dL)
[2018-02-06 23:54] LABS: URINE APPEARANCE SL CLOUDY (CLEAR); URINE COLOR YELLOW (YELLOW)
[2018-02-06 23:55] LABS: ARTERIAL BLOOD GAS O2 CAPACITY 15.6 mL/dl (16-24); ARTERIAL BLOOD GAS O2 CONTENT 15.1 ML/dl (15-23); ARTERIAL BLOOD GAS O2 SAT 96.9 % (95-98); ARTERIAL BLOOD GAS TCO2 55.7 mmol.L (22-28)
[2018-02-07 00:01] LABS: ARTERIAL BLOOD GAS PH 7.19 (7.35-7.45)
[2018-02-07 00:02] LABS: ARTERIAL BLOOD GAS HCO3 51.6 mmol/L (21-28); ARTERIAL BLOOD GAS PCO2 135 mm/Hg (35-45)
[2018-02-07 00:07] LABS: URINE RBC 0 - 2 /hpf (0-2); URINE WBC 0 - 2 /hpf (0-6)
[2018-02-07 00:08] LABS: URINE AMORPHOUS SEDIMENT FEW; URINE BACTERIA RARE (NEG)
[2018-02-07] MEDS: Albuterol-Ipratrop 3 mg / 0.5 (3 ml) UD IH SCH ×6 (00:14→20:00)
[2018-02-07 01:01] LABS: ALB/GLOB RATIO 0.7 (1.1-1.8); ALBUMIN 3.1 g/dL (3.0-4.8); ALT/SGPT 16 U/L (7-56); AST/SGOT 34 U/L (14-36); BLOOD UREA NITROGEN 37 mg/dL (7-21); CALCIUM 8.8 mg/dL (8.4-10.5); GFR NON-AFRICAN AMERICAN 44
[2018-02-07 01:11] LABS: B-TYPE NATRIURETIC PEPTIDE 2260 pg/mL (0-450); TROPONIN I 0.01 ng/mL
[2018-02-07] MEDS ORDERED: Sodium Chloride 0.9% 1,000 ML IV SCH ×2 (01:15→08:50)
--- NOTE | 2018-02-07 01:22 | CP.PCM.CON ---
History of Present Illness - History of Present Illness History of Present Illness: ICU Consultation (Dr. Lakhani): Kimberly, PGY2 CC: SOB/Sepsis HPI: Ms. 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 Patient is unable to verbalize any complaints secondary to medical history. HPI limited secondary to patient's medical state. Daughter at bedside assisted with HPI. She reports that the patient was recently discharged from [facility] for similar complaints. She reports that she had been improving clinically at home since that time but three days ago began to slowly decrease her PO intake. Patient then became SOB while at rest earlier today and this was not relieved with home oxygen or breathing treatments. Further ROS limited due to patients condition. Of note, patient was found to have sepsis without a determined source while in the ED and was started on empiric antibiotics. PMH: As stated above PSH: Ventral hernia repair, multiple cardiac caths, right mastectomy Family History: Sister-Breast Cancer; Father-DM2 Social History: Denies any tobacco, alcohol or illicit drug use Allergies: NKDA Home Medications: As per MAR Review of Systems - Review of Systems Review of Systems: Limited ROS due to patients medical state Past Patient History - Infectious Disease Hx of Infectious Diseases: None - Tetanus Immunizations Tetanus Immunization: Unknown - Past Medical History & Family History Past Medical History?: Yes - Past Social History Smoking Status: Never Smoked - CARDIAC Hx Pacemaker: No - PULMONARY Hx Chronic Obstructive Pulmonary Disease (COPD): Yes - NEUROLOGICAL Hx Neurological Disorder: No - HEENT Hx HEENT Problems: Yes Hx Cataracts: Yes (b/l sx) - RENAL Hx Chronic Kidney Disease: No - ENDOCRINE/METABOLIC Hx Endocrine Disorders: No - HEMATOLOGICAL/ONCOLOGICAL Hx Cancer: Yes (right breast CA) - INTEGUMENTARY Hx Dermatological Problems: No - MUSCULOSKELETAL/RHEUMATOLOGICAL Hx Musculoskeletal Disorders: Yes Hx Falls: Yes - GASTROINTESTINAL Hx Gastrointestinal Disorders: Yes Hx Gastroesophageal Reflux: Yes - GENITOURINARY/GYNECOLOGICAL Hx Genitourinary Disorders: No - PSYCHIATRIC Hx Psychophysiologic Disorder: No Hx Substance Use: No - SURGICAL HISTORY Hx Mastectomy: Yes (right) - ANESTHESIA Hx Anesthesia: Yes Hx Anesthesia Reactions: No Hx Malignant Hyperthermia: No Meds Allergies/Adverse Reactions: Allergies Allergy/AdvReac Type Severity Reaction Status Date / Time No Known Allergies Allergy Verified 11/15/17 22:27 - Medications Medications: Current Medications Albuterol/Ipratropium (Duoneb 3 Mg/0.5 Mg (3 Ml) Ud) 3 ml IH Q2H PRN PRN Reason: Shortness of Breath Albuterol/Ipratropium (Duoneb 3 Mg/0.5 Mg (3 Ml) Ud) 3 ml IH [id number] GUY Last Admin: 02/07/18 00:14 Dose: 3 ml Aspirin (Aspirin Chewable) 81 mg PO DAILY GUY Clopidogrel Bisulfate (Plavix) 75 mg PO DAILY GUY Furosemide (Lasix) 40 mg IVP STAT STA Stop: 02/07/18 01:14 Heparin Sodium (Porcine) (Heparin) 5,000 units SC Q12 GUY; Protocol Vancomycin HCl (Vancomycin 1gm) 1 gm in 250 mls @ 167 mls/hr IVPB Q12H GUY; Protocol Piperacillin Sod/Tazobactam Sod (Zosyn 3.375 In Ns 100ml) 100 mls @ 25 mls/hr IVPB Q8 GUY; Protocol Stop: 02/07/18 17:59 Sodium Chloride (Sodium Chloride 0.9%) 1,000 mls @ 75 mls/hr IV .[id number] GUY Methylprednisolone (Solu-Medrol) 40 mg IVP Q12 GUY Pantoprazole Sodium (Protonix Ec Tab) 40 mg PO 0600 GUY Physical Exam - Constitutional Appears: No Acute Distress - Head Exam Head Exam: ATRAUMATIC, NORMOCEPHALIC - Eye Exam Eye Exam: EOMI, Normal appearance, PERRL - Neck Exam Neck exam: Positive for: Full Rom - Respiratory Exam Respiratory Exam: Accessory Muscle Use, Wheezes (Diffuse; Inspiratory and expiratory). absent: Chest Wall Tenderness, Decreased Breath Sounds, Clear to Auscultation Bilateral, Prolonged Expiratory Phase, Rales, Rhonchi, Respiratory Distress, Stridor, NORMAL BREATHING PATTERN - Cardiovascular Exam Cardiovascular Exam: Tachycardia, REGULAR RHYTHM, +S1, +S2. absent: RRR - GI/Abdominal Exam GI & Abdominal Exam: Normal Bowel Sounds, Soft. absent: Tenderness - Extremities Exam Extremities exam: Positive for: full ROM, normal capillary refill, normal inspection, pedal pulses present. Negative for: calf tenderness, joint swelling, pedal edema, tenderness - Skin Skin Exam: Dry, Intact, Normal Color, Warm Results - Vital Signs Recent Vital Signs: Last Vital Signs Temp 97.4 F L 02/06/18 23:01 Pulse 105 H 02/06/18 23:01 Resp 16 02/06/18 23:01 BP 126/57 L 02/06/18 23:01 Pulse Ox 95 02/06/18 23:01 - Labs Result Diagrams: 02/06/18 21:57 02/07/18 00:30 Labs: Laboratory Results - last 24 hr 02/06/18 02/06/18 02/06/18 21:57 21:57 21:57 WBC 20.7 H D RBC 4.28 Hgb 11.7 L Hct 39.5 MCV 92.3 MCH 27.3 MCHC 29.6 L RDW 13.5 Plt Count 268 MPV 11.1 H Gran % 89.5 H Lymph % (Auto) 4.6 L Bee % (Auto) 5.8 Eos % (Auto) 0.0 L Baso % (Auto) 0.1 Gran # 18.49 H Lymph # (Auto) 1.0 L Bee # (Auto) 1.2 H Eos # (Auto) 0.0 Baso # (Auto) 0.02 Neutrophils % (Manual) 79 H Band Neutrophils % 10 H Lymphocytes % (Manual) 4 L Monocytes % (Manual) 6 Metamyelocytes % 1 Platelet Evaluation Normal PT 12.6 H INR 1.10 APTT 26.3 pCO2 pO2 90 H HCO3 ABG pH ABG Total CO2 ABG O2 Saturation ABG O2 Content ABG Base Excess ABG Hemoglobin ABG Carboxyhemoglobin POC ABG HHb (Measured) ABG Methemoglobin ABG O2 Capacity VBG pH 7.26 L VBG pCO2 122.0 H* VBG HCO3 54.7 H VBG Total CO2 58.4 H VBG O2 Sat (Calc) 96.0 H VBG Base Excess 21.1 H VBG Potassium 7.0 H* Hgb O2 Saturation Sodium 133.0 Chloride 91.0 L Glucose 97 Lactate 2.3 H FiO2 21.0 Potassium Carbon Dioxide Anion Gap BUN Creatinine Est GFR ( Amer) Est GFR (Non-Af Amer) Random Glucose Calcium Magnesium Total Bilirubin AST ALT Alkaline Phosphatase Lactate Dehydrogenase Total Creatine Kinase Troponin I NT-Pro-B Natriuret Pep Total Protein Albumin Globulin Albumin/Globulin Ratio Venous Blood Potassium 7.0 H* Urine Color Urine Appearance Urine pH Ur Specific Cushing Urine Protein Urine Glucose (UA) Urine Ketones Urine Blood Urine Nitrate Urine Bilirubin Urine Urobilinogen Ur Leukocyte Esterase Urine RBC Urine WBC Ur Epithelial Cells Amorphous Sediment Urine Bacteria 02/06/18 02/06/18 02/07/18 23:12 23:45 00:30 WBC RBC Hgb Hct MCV MCH MCHC RDW Plt Count MPV Gran % Lymph % (Auto) Bee % (Auto) Eos % (Auto) Baso % (Auto) Gran # Lymph # (Auto) Bee # (Auto) Eos # (Auto) Baso # (Auto) Neutrophils % (Manual) Band Neutrophils % Lymphocytes % (Manual) Monocytes % (Manual) Metamyelocytes % Platelet Evaluation PT INR APTT pCO2 135 H* pO2 124.0 H HCO3 51.6 H* ABG pH 7.19 L* ABG Total CO2 55.7 H ABG O2 Saturation 96.9 ABG O2 Content 15.1 ABG Base Excess 18.5 H ABG Hemoglobin 11.0 L ABG Carboxyhemoglobin 0.4 L POC ABG HHb (Measured) 3.1 ABG Methemoglobin 0.4 ABG O2 Capacity 15.6 L VBG pH VBG pCO2 VBG HCO3 VBG Total CO2 VBG O2 Sat (Calc) VBG Base Excess VBG Potassium Hgb O2 Saturation 96.1 Sodium 136 Chloride 86 L Glucose Lactate FiO2 100.0 Potassium 5.1 H Carbon Dioxide 43 H Anion Gap 12 BUN 37 H Creatinine 1.2 Est GFR ( Amer) 54 Est GFR (Non-Af Amer) 44 Random Glucose 115 H Calcium 8.8 Magnesium 2.2 Total Bilirubin 0.6 AST 34 ALT 16 Alkaline Phosphatase 108 Lactate Dehydrogenase 547 Total Creatine Kinase < 20 L Troponin I 0.01 NT-Pro-B Natriuret Pep 2260 H Total Protein 7.5 Albumin 3.1 Globulin 4.4 Albumin/Globulin Ratio 0.7 L Venous Blood Potassium Urine Color Yellow Urine Appearance Sl cloudy Urine pH 6.5 Ur Specific Cushing 1.020 Urine Protein 100 H Urine Glucose (UA) Negative Urine Ketones Negative Urine Blood Negative Urine Nitrate Negative Urine Bilirubin Negative Urine Urobilinogen 1.0 H Ur Leukocyte Esterase Negative Urine RBC 0 - 2 Urine WBC 0 - 2 Ur Epithelial Cells 3 - 4 Amorphous Sediment Few Urine Bacteria Rare Assessment & Plan - Assessment and Plan (Free Text) Assessment: 72 year old female with a past medical history significant for COPD, RAUL, IPF (on home oxygen), bronchiectasis, 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 Of note, patient was found to have sepsis without a determined source while in the ED and was started on empiric antibiotics. Plan: 1. Sepsis -Likely secondary to respiratory tract infection given chief complaint; UA without signs of UTI -Chest X-Ray pending official radiologist interpretation -Started IVPB Vancomycin 1gm Q12H and Zosyn 3.375gm Q8H for empiric coverage -IV Solumedrol 40mg Q12H -Duonebs Q4H GUY and Q2H PRN -Normal Saline 100ml bolus and then Normal Saline at 75mls/hr -Blood, Urine, and Sputum culture pending -Pulmonology and ID consulted, all recommendations appreciated 2. Hypercapnic Respiratory Failure -DNR/DNI status noted -ABG showed PaCO2 at 135 -BiPAP as ordered at 20/6 with 70% FiO2 3. History of CAD -Two Q6H serial troponins and EKG's pending -Continue home ASA and Plavix GI Prophylaxis: Protonix DVT Prophylaxis: Heparin Diet: Clear Liquid Diet; ADAT to Heart Healthy Diet Patient seen and case discussed with attending, Dr. Lakhani. - Date & Time Date: 02/07/18 Time: 01:31
[2018-02-07] MEDS ORDERED: Sodium Chloride 0.9% 100 ML IV STA (01:55)
[2018-02-07 02:01] LABS: VENOUS BLOOD GAS BASE EXCESS 15.3 mmol/L (0.0-2.0); VENOUS BLOOD GAS PO2 64 mm/Hg (30-55)
[2018-02-07 02:14] LABS: VENOUS BLOOD PH 7.14 (7.32-7.43)
--- NOTE | 2018-02-07 02:28 | CP.PCM.PCO ---
Physician Communication Note - Physician Communication Note Physician Communication Note: Chart reviewed. Empiric Zosyn and IV Vancomycin started. Pt in ICU
[2018-02-07 02:43] VITALS: BMI 22.6
[2018-02-07 05:57] LABS: ARTERIAL BLOOD GAS O2 SAT 94.7 % (95-98); ARTERIAL BLOOD GAS TCO2 50.9 mmol.L (22-28)
[2018-02-07] MEDS ORDERED: Pantoprazole 40 mg EC Tab PO SCH (06:00)
[2018-02-07] MEDS ORDERED: Piperacillin/Tazobact 3.375 gm 100 ML IVPB SCH ×2 (06:00)
[2018-02-07 06:04] LABS: ARTERIAL BLOOD GAS PH 7.13 (7.35-7.45)
[2018-02-07 06:05] LABS: ARTERIAL BLOOD GAS HCO3 46.6 mmol/L (21-28); ARTERIAL BLOOD GAS PCO2 140 mm/Hg (35-45)
[2018-02-07 06:10] LABS: BASO # 0.03 K/mm3 (0.0-2.0); BASO % 0.1 % (0.0-3.0); GRAN # 24.51 (1.4-6.5); GRAN % 96.3 % (50.0-68.0); HEMOGLOBIN 10.5 g/dL (12.0-16.0); LYMPH # 0.8 (1.2-3.4); LYMPH % 3.1 % (22.0-35.0); MEAN CORPUSCULAR HEMOGLOBIN 26.9 pg (25.0-35.0); MEAN CORPUSCULAR HGB CONC 28.1 g/dl (31.0-37.0); MEAN PLATELET VOLUME 10.3 fl (7.0-11.0); MONO # 0.1 (0.1-0.6); MONO % 0.5 % (1.0-6.0); PLATELET COUNT 214 10^3/uL (120.0-450.0); RBC 3.91 10^6/uL (3.5-6.1); RED CELL DISTRIBUTION WIDTH 13.5 % (11.5-14.5)
[2018-02-07 06:36] LABS: MEAN CELL VOLUME 95.7 fl (80.0-105.0); WHITE BLOOD COUNT 25.5 10^3/ul (4.5-11.0)
[2018-02-07 06:43] LABS: TROPONIN I < 0.01 ng/mL
--- NOTE | 2018-02-07 06:55 | PCM.SEPTIC ---
<Devyn Luis - Last Filed: 02/07/18 06:52> Sepsis Progress Note - Reassessment Type Date of Evaluation: 02/07/18 Time of Evaluation: 01:30 Reassessment Type: Non-invasive reassessment - Non Invasive Reassessment Were the most recent vital sign reviewed: Yes Vital Sign (Latest): Temp Pulse Resp BP Pulse Ox 98.2 F 98 H 79 H 104/59 L 94 L 02/07/18 01:39 02/07/18 06:40 02/07/18 06:40 02/07/18 06:30 02/07/18 06:40 Cardiovascular: Yes: Chest Non Tender, Tachycardia Respiratory: Yes: Accessory Muscle Use, Wheezing Capillary Refill: Normal (Less than 2 sec) Skin: Normal Color, Warm, Dry <Daria Lakhani - Last Filed: 02/09/18 06:18> Sepsis Progress Note - Non Invasive Reassessment Vital Sign (Latest): Temp Pulse Resp BP Pulse Ox 97.5 F L 89 17 61/34 L 72 L 02/08/18 08:00 02/08/18 12:00 02/08/18 12:00 02/08/18 11:31 02/08/18 12:00 Attending/Attestation - Attestation I have personally seen and examined this patient.: Yes I have fully participated in the care of the patient.: Yes I have reviewed all pertinent clinical information, including history, physical exam and plan: Yes
[2018-02-07 07:06] LABS: ALB/GLOB RATIO 0.7 (1.1-1.8); ALT/SGPT 15 U/L (7-56); AST/SGOT 36 U/L (14-36); BLOOD UREA NITROGEN 41 mg/dL (7-21); CALCIUM 8.4 mg/dL (8.4-10.5); GFR NON-AFRICAN AMERICAN 34
--- NOTE | 2018-02-07 09:43 | CP.CCUPN ---
<Joseluis Liriano - Last Filed: 02/07/18 12:24> CCU Subjective - Physician Review Subjective (Free Text): Joseluis Liriano DO, PGY-1 ICU Progress Note for Dr. Shukri Wayne Ms. Mora is a 72 yo F with PMH of IPF (on home O2), breast cancer s/p right mastectomy/[employer], GERD, CAD (s/p 4 KATIE), diastolic CHF (last EF 65%) and pHTN presented to ED overnight with worsening dyspnea that was not relieved by home O2 alone. Her daughter was by bedside and provided most of the history. She is currently on bipap and states that her SOB has improved but that she still feels ill. WBC > 20K with tachycardia were noted in ED and code sepsis was called. She was subsequently started on empiric vanc and zosyn per Dr. Guzman. Currently, her SpO2 is > 94% on bipap and is still tachypneic but improving. She is noted to have diffuse b/l infiltrates on CXR. CCU Objective - Vital Signs / Intake & Output Vital Signs (Last 4 hours): Vital Signs Pulse Resp BP Pulse Ox 02/07/18 07:35 105 H 02/07/18 06:40 98 H 79 H 94 L 02/07/18 06:30 102 H 64 H 104/59 L 96 02/07/18 06:20 101 H 58 H 93 L 02/07/18 06:10 102 H 46 H 94 L 02/07/18 06:00 104 H 41 H 118/56 L 94 L 02/07/18 05:50 105 H 48 H 94 L Intake and Output (Last 8hrs): Intake & Output 02/06/18 02/07/18 02/07/18 22:59 06:59 14:59 Intake Total 900 Output Total 100 Balance 800 Weight 176 lb 5.917 oz 149 lb 2 oz Intake: IV 900 Right Upper arm 900 Output: Urine 100 Urine, Voided 100 - Physical Exam Head: Positive for: Atraumatic, Normocephalic Pupils: Positive for: PERRL Extroacular Muscles: Positive for: EOMI Conjunctiva: Positive for: Normal Mouth: Positive for: Moist Mucous Membranes Neck: Positive for: Normal Range of Motion Respiratory/Chest: Positive for: Respiratory Distress, Accessory Muscle Use, Wheezes (diffuse end expiratory wheezes b/l), Rales, Rhonchi (diffuse rhonchi auscultated b/l c/w pulmonary edema), Tachypneic Cardiovascular: Positive for: Regular Rate and Rhythm, Normal S1, S2. Negative for: Murmurs Abdomen: Negative for: Tenderness, Distention, Rebound, Guarding Upper Extremity: Positive for: Normal Inspection. Negative for: Cyanosis, Edema Lower Extremity: Positive for: Normal Inspection. Negative for: Edema Neurological: Positive for: Speech Normal, Motor Func Grossly Intact Skin: Positive for: Warm, Dry, Normal Color. Negative for: Rashes Psychiatric: Positive for: Alert, Oriented x 3 - Medications Active Medications: Active Medications Generic Name Dose Route Start Last Admin Trade Name Freq PRN Reason Stop Dose Admin Acetaminophen 650 mg 02/07/18 08:46 Tylenol 325mg Tab PO Q6H PRN Pain, Mild (1-3) Albuterol/Ipratropium 3 ml 02/06/18 23:30 Duoneb 3 Mg/0.5 Mg (3 Ml) Ud IH Q2H PRN Shortness of Breath Albuterol/Ipratropium 3 ml 02/06/18 23:30 02/07/18 07:37 Duoneb 3 Mg/0.5 Mg (3 Ml) Ud IH 3 ml [id number] Administration Anastrozole 1 mg 02/07/18 10:00 Arimidex 1 Mg Tab PO DAILY [facility] Arformoterol Tartrate 15 mcg 02/07/18 20:00 Brovana IH [id number] [facility] Aspirin 81 mg 02/07/18 10:00 Aspirin Chewable PO DAILY [facility] Atorvastatin Calcium 20 mg 02/07/18 17:00 Lipitor PO DIN [facility] Budesonide 0.5 mg 02/07/18 20:00 Pulmicort Respules IH [id number] [facility] Clopidogrel Bisulfate 75 mg 02/07/18 10:00 Plavix PO DAILY [facility] Cyanocobalamin 1,000 mcg 02/07/18 10:00 Vitamin B12 1000 Mcg Tab PO DAILY [facility] Docusate Sodium 50 mg 02/07/18 08:46 Colace Liquid PO DAILY PRN Constipation Heparin Sodium (Porcine) 5,000 units 02/07/18 10:00 Heparin SC Q12 [facility] Protocol Vancomycin HCl 1 gm in 250 mls @ 167 mls/hr 02/07/18 11:00 Vancomycin 1gm IVPB Q12H [facility] Protocol Piperacillin Sod/Tazobactam Sod 100 mls @ 25 mls/hr 02/07/18 06:00 02/07/18 05:30 Zosyn 3.375 In Ns 100ml IVPB 25 mls/hr Q8 GUY Administration Protocol Sodium Chloride 1,000 mls @ 50 mls/hr 02/07/18 08:50 Sodium Chloride 0.9% IV .Q20H [facility] NOREPINEPHRINE BIT/0.9 % NACL 4 mg in 250 mls @ 15 mls/hr 02/07/18 08:51 Levophed 4 Mg/ 250 Ml Ns Premixed IV .[id number] PRN TITRATE PER MD ORDER Protocol 4 MCG/MIN Loratadine 10 mg 02/07/18 10:00 Claritin PO DAILY PRN Allergy symptoms Methylprednisolone 40 mg 02/07/18 10:00 Solu-Medrol IVP Q12 GUY Montelukast Sodium 10 mg 02/07/18 10:00 Singulair PO DAILY [facility] Celecoxib [Celebrex] 200 mg 02/07/18 10:00 200 Mg (Home Med) PO DAILY [facility] Pantoprazole Sodium 40 mg 02/07/18 10:00 Protonix Inj IVP DAILY [facility] - Patient Studies Lab Studies: Lab Studies 02/07/18 02/07/18 02/07/18 Range/Units 05:48 05:26 05:26 WBC 25.5 H* D (4.5-11.0) 10^3/ul RBC 3.91 (3.5-6.1) 10^6/uL Hgb 10.5 L (12.0-16.0) g/dL Hct 37.4 (36.0-48.0) % MCV 95.7 D (80.0-105.0) fl MCH 26.9 (25.0-35.0) pg MCHC 28.1 L (31.0-37.0) g/dl RDW 13.5 (11.5-14.5) % Plt Count 214 (120.0-450.0) 10^3/uL MPV 10.3 (7.0-11.0) fl Gran % 96.3 H (50.0-68.0) % Lymph % (Auto) 3.1 L (22.0-35.0) % Leon % (Auto) 0.5 L (1.0-6.0) % Eos % (Auto) 0.0 L (1.5-5.0) % Baso % (Auto) 0.1 (0.0-3.0) % Gran # 24.51 H (1.4-6.5) Lymph # (Auto) 0.8 L (1.2-3.4) Leon # (Auto) 0.1 (0.1-0.6) Eos # (Auto) 0.0 (0.0-0.7) Baso # (Auto) 0.03 (0.0-2.0) K/mm3 Neutrophils % (Manual) (50.0-70.0) % Band Neutrophils % (0-2) % Lymphocytes % (Manual) (22.0-35.0) % Monocytes % (Manual) (1.0-6.0) % Metamyelocytes % % Platelet Evaluation (NORMAL) PT (9.4-12.5) SECONDS INR APTT (25.1-36.5) Seconds pCO2 140 H* (35-45) mm/Hg pO2 80.0 (30-55) mm/Hg HCO3 46.6 H* (21-28) mmol/L ABG pH 7.13 L* (7.35-7.45) ABG Total CO2 50.9 H (22-28) mmol.L ABG O2 Saturation 94.7 L (95-98) % ABG O2 Content (15-23) ML/dl ABG Base Excess 11.7 H (-2.0-3.0) mmol/L ABG Hemoglobin (11.7-17.4) g/dL ABG Carboxyhemoglobin (0.5-1.5) % POC ABG HHb (Measured) (0-5) % ABG Methemoglobin (0.0-3.0) % ABG O2 Capacity (16-24) mL/dl ABG Potassium 4.9 (3.6-5.2) mmol/L VBG pH (7.32-7.43) VBG pCO2 (40-60) VBG HCO3 (21-28) mmol/l VBG Total CO2 (22-28) mmol.L VBG O2 Sat (Calc) (40-65) % VBG Base Excess (0.0-2.0) mmol/L VBG Potassium (3.6-5.2) mmol/L Hgb O2 Saturation (95.0-98.0) % Sodium 136.0 139 (132-148) mmol/L Chloride 95.0 L 89 L (98-107) mmol/L Glucose 136 H (65-105) mg/dl Lactate 1.4 (0.7-2.1) mmol/L FiO2 90.0 % Inspiratory BiPAP 20 Potassium 5.2 H (3.6-5.0) mmol/L Carbon Dioxide 40 H (21-33) mmol/L Anion Gap 15 (10-20) BUN 41 H (7-21) mg/dL Creatinine 1.5 H (0.7-1.2) mg/dl Est GFR ( Amer) 41 Est GFR (Non-Af Amer) 34 Random Glucose 147 H (70-110) mg/dL Calcium 8.4 (8.4-10.5) mg/dL Phosphorus 7.7 H (2.5-4.5) mg/dL Magnesium 2.3 H (1.7-2.2) mg/dL Total Bilirubin 0.5 (0.2-1.3) mg/dL AST 36 (14-36) U/L ALT 15 (7-56) U/L Alkaline Phosphatase 101 (38-126) U/L Lactate Dehydrogenase (333-699) U/L Total Creatine Kinase (35-230) U/L Troponin I < 0.01 ng/mL NT-Pro-B Natriuret Pep (0-450) pg/mL Total Protein 7.1 (5.8-8.3) g/dL Albumin 3.0 (3.0-4.8) g/dL Globulin 4.2 gm/dL Albumin/Globulin Ratio 0.7 L (1.1-1.8) Arterial Blood Potassium 4.9 (3.6-5.2) mmol/L Venous Blood Potassium (3.6-5.2) mmol/L Urine Color (YELLOW) Urine Appearance (CLEAR) Urine pH (4.7-8.0) Ur Specific [place] (1.005-1.035) Urine Protein (<30 mg/dL) mg/dL Urine Glucose (UA) (NEGATIVE) mg/dL Urine Ketones (NEGATIVE) mg/dL Urine Blood (NEGATIVE) Urine Nitrate (NEGATIVE) Urine Bilirubin (NEGATIVE) Urine Urobilinogen (<1 E.U./dL) E.U./dL Ur Leukocyte Esterase (NEGATIVE) Humberto/uL Urine RBC (0-2) /hpf Urine WBC (0-6) /hpf Ur Epithelial Cells (0-5) /hpf Amorphous Sediment Urine Bacteria (NEG) 02/07/18 02/07/18 02/06/18 Range/Units 01:50 00:30 23:45 WBC (4.5-11.0) 10^3/ul RBC (3.5-6.1) 10^6/uL Hgb (12.0-16.0) g/dL Hct (36.0-48.0) % MCV (80.0-105.0) fl MCH (25.0-35.0) pg MCHC (31.0-37.0) g/dl RDW (11.5-14.5) % Plt Count (120.0-450.0) 10^3/uL MPV (7.0-11.0) fl Gran % (50.0-68.0) % Lymph % (Auto) (22.0-35.0) % Leon % (Auto) (1.0-6.0) % Eos % (Auto) (1.5-5.0) % Baso % (Auto) (0.0-3.0) % Gran # (1.4-6.5) Lymph # (Auto) (1.2-3.4) Leon # (Auto) (0.1-0.6) Eos # (Auto) (0.0-0.7) Baso # (Auto) (0.0-2.0) K/mm3 Neutrophils % (Manual) (50.0-70.0) % Band Neutrophils % (0-2) % Lymphocytes % (Manual) (22.0-35.0) % Monocytes % (Manual) (1.0-6.0) % Metamyelocytes % % Platelet Evaluation (NORMAL) PT (9.4-12.5) SECONDS INR APTT (25.1-36.5) Seconds pCO2 135 H* (35-45) mm/Hg pO2 64 H 124.0 H (30-55) mm/Hg HCO3 51.6 H* (21-28) mmol/L ABG pH 7.19 L* (7.35-7.45) ABG Total CO2 55.7 H (22-28) mmol.L ABG O2 Saturation 96.9 (95-98) % ABG O2 Content 15.1 (15-23) ML/dl ABG Base Excess 18.5 H (-2.0-3.0) mmol/L ABG Hemoglobin 11.0 L (11.7-17.4) g/dL ABG Carboxyhemoglobin 0.4 L (0.5-1.5) % POC ABG HHb (Measured) 3.1 (0-5) % ABG Methemoglobin 0.4 (0.0-3.0) % ABG O2 Capacity 15.6 L (16-24) mL/dl ABG Potassium (3.6-5.2) mmol/L VBG pH 7.14 L* (7.32-7.43) VBG pCO2 149.0 H* (40-60) VBG HCO3 50.7 H (21-28) mmol/l VBG Total CO2 55.3 H (22-28) mmol.L VBG O2 Sat (Calc) 90.3 H (40-65) % VBG Base Excess 15.3 H (0.0-2.0) mmol/L VBG Potassium 5.1 (3.6-5.2) mmol/L Hgb O2 Saturation 96.1 (95.0-98.0) % Sodium 136.0 136 (132-148) mmol/L Chloride 93.0 L 86 L (98-107) mmol/L Glucose 115 H (65-105) mg/dl Lactate 1.4 (0.7-2.1) mmol/L FiO2 21.0 100.0 % Inspiratory BiPAP Potassium 5.1 H (3.6-5.0) mmol/L Carbon Dioxide 43 H (21-33) mmol/L Anion Gap 12 (10-20) BUN 37 H (7-21) mg/dL Creatinine 1.2 (0.7-1.2) mg/dl Est GFR ( Amer) 54 Est GFR (Non-Af Amer) 44 Random Glucose 115 H (70-110) mg/dL Calcium 8.8 (8.4-10.5) mg/dL Phosphorus (2.5-4.5) mg/dL Magnesium 2.2 (1.7-2.2) mg/dL Total Bilirubin 0.6 (0.2-1.3) mg/dL AST 34 (14-36) U/L ALT 16 (7-56) U/L Alkaline Phosphatase 108 (38-126) U/L Lactate Dehydrogenase 547 (333-699) U/L Total Creatine Kinase < 20 L (35-230) U/L Troponin I 0.01 ng/mL NT-Pro-B Natriuret Pep 2260 H (0-450) pg/mL Total Protein 7.5 (5.8-8.3) g/dL Albumin 3.1 (3.0-4.8) g/dL Globulin 4.4 gm/dL Albumin/Globulin Ratio 0.7 L (1.1-1.8) Arterial Blood Potassium (3.6-5.2) mmol/L Venous Blood Potassium 5.1 (3.6-5.2) mmol/L Urine Color (YELLOW) Urine Appearance (CLEAR) Urine pH (4.7-8.0) Ur Specific [place] (1.005-1.035) Urine Protein (<30 mg/dL) mg/dL Urine Glucose (UA) (NEGATIVE) mg/dL Urine Ketones (NEGATIVE) mg/dL Urine Blood (NEGATIVE) Urine Nitrate (NEGATIVE) Urine Bilirubin (NEGATIVE) Urine Urobilinogen (<1 E.U./dL) E.U./dL Ur Leukocyte Esterase (NEGATIVE) Humberto/uL Urine RBC (0-2) /hpf Urine WBC (0-6) /hpf Ur Epithelial Cells (0-5) /hpf Amorphous Sediment Urine Bacteria (NEG) 02/06/18 02/06/18 02/06/18 Range/Units 23:12 21:57 21:57 WBC 20.7 H D (4.5-11.0) 10^3/ul RBC 4.28 (3.5-6.1) 10^6/uL Hgb 11.7 L (12.0-16.0) g/dL Hct 39.5 (36.0-48.0) % MCV 92.3 (80.0-105.0) fl MCH 27.3 (25.0-35.0) pg MCHC 29.6 L (31.0-37.0) g/dl RDW 13.5 (11.5-14.5) % Plt Count 268 (120.0-450.0) 10^3/uL MPV 11.1 H (7.0-11.0) fl Gran % 89.5 H (50.0-68.0) % Lymph % (Auto) 4.6 L (22.0-35.0) % Leon % (Auto) 5.8 (1.0-6.0) % Eos % (Auto) 0.0 L (1.5-5.0) % Baso % (Auto) 0.1 (0.0-3.0) % Gran # 18.49 H (1.4-6.5) Lymph # (Auto) 1.0 L (1.2-3.4) Leon # (Auto) 1.2 H (0.1-0.6) Eos # (Auto) 0.0 (0.0-0.7) Baso # (Auto) 0.02 (0.0-2.0) K/mm3 Neutrophils % (Manual) 79 H (50.0-70.0) % Band Neutrophils % 10 H (0-2) % Lymphocytes % (Manual) 4 L (22.0-35.0) % Monocytes % (Manual) 6 (1.0-6.0) % Metamyelocytes % 1 % Platelet Evaluation Normal (NORMAL) PT 12.6 H (9.4-12.5) SECONDS INR 1.10 APTT 26.3 (25.1-36.5) Seconds pCO2 (35-45) mm/Hg pO2 (30-55) mm/Hg HCO3 (21-28) mmol/L ABG pH (7.35-7.45) ABG Total CO2 (22-28) mmol.L ABG O2 Saturation (95-98) % ABG O2 Content (15-23) ML/dl ABG Base Excess (-2.0-3.0) mmol/L ABG Hemoglobin (11.7-17.4) g/dL ABG Carboxyhemoglobin (0.5-1.5) % POC ABG HHb (Measured) (0-5) % ABG Methemoglobin (0.0-3.0) % ABG O2 Capacity (16-24) mL/dl ABG Potassium (3.6-5.2) mmol/L VBG pH (7.32-7.43) VBG pCO2 (40-60) VBG HCO3 (21-28) mmol/l VBG Total CO2 (22-28) mmol.L VBG O2 Sat (Calc) (40-65) % VBG Base Excess (0.0-2.0) mmol/L VBG Potassium (3.6-5.2) mmol/L Hgb O2 Saturation (95.0-98.0) % Sodium (132-148) mmol/L Chloride (98-107) mmol/L Glucose (65-105) mg/dl Lactate (0.7-2.1) mmol/L FiO2 % Inspiratory BiPAP Potassium (3.6-5.0) mmol/L Carbon Dioxide (21-33) mmol/L Anion Gap (10-20) BUN (7-21) mg/dL Creatinine (0.7-1.2) mg/dl Est GFR ( Amer) Est GFR (Non-Af Amer) Random Glucose (70-110) mg/dL Calcium (8.4-10.5) mg/dL Phosphorus (2.5-4.5) mg/dL Magnesium (1.7-2.2) mg/dL Total Bilirubin (0.2-1.3) mg/dL AST (14-36) U/L ALT (7-56) U/L Alkaline Phosphatase (38-126) U/L Lactate Dehydrogenase (333-699) U/L Total Creatine Kinase (35-230) U/L Troponin I ng/mL NT-Pro-B Natriuret Pep (0-450) pg/mL Total Protein (5.8-8.3) g/dL Albumin (3.0-4.8) g/dL Globulin gm/dL Albumin/Globulin Ratio (1.1-1.8) Arterial Blood Potassium (3.6-5.2) mmol/L Venous Blood Potassium (3.6-5.2) mmol/L Urine Color Yellow (YELLOW) Urine Appearance Sl cloudy (CLEAR) Urine pH 6.5 (4.7-8.0) Ur Specific [place] 1.020 (1.005-1.035) Urine Protein 100 H (<30 mg/dL) mg/dL Urine Glucose (UA) Negative (NEGATIVE) mg/dL Urine Ketones Negative (NEGATIVE) mg/dL Urine Blood Negative (NEGATIVE) Urine Nitrate Negative (NEGATIVE) Urine Bilirubin Negative (NEGATIVE) Urine Urobilinogen 1.0 H (<1 E.U./dL) E.U./dL Ur Leukocyte Esterase Negative (NEGATIVE) Humberto/uL Urine RBC 0 - 2 (0-2) /hpf Urine WBC 0 - 2 (0-6) /hpf Ur Epithelial Cells 3 - 4 (0-5) /hpf Amorphous Sediment Few Urine Bacteria Rare (NEG) 02/06/18 Range/Units 21:57 WBC (4.5-11.0) 10^3/ul RBC (3.5-6.1) 10^6/uL Hgb (12.0-16.0) g/dL Hct (36.0-48.0) % MCV (80.0-105.0) fl MCH (25.0-35.0) pg MCHC (31.0-37.0) g/dl RDW (11.5-14.5) % Plt Count (120.0-450.0) 10^3/uL MPV (7.0-11.0) fl Gran % (50.0-68.0) % Lymph % (Auto) (22.0-35.0) % Leon % (Auto) (1.0-6.0) % Eos % (Auto) (1.5-5.0) % Baso % (Auto) (0.0-3.0) % Gran # (1.4-6.5) Lymph # (Auto) (1.2-3.4) Leon # (Auto) (0.1-0.6) Eos # (Auto) (0.0-0.7) Baso # (Auto) (0.0-2.0) K/mm3 Neutrophils % (Manual) (50.0-70.0) % Band Neutrophils % (0-2) % Lymphocytes % (Manual) (22.0-35.0) % Monocytes % (Manual) (1.0-6.0) % Metamyelocytes % % Platelet Evaluation (NORMAL) PT (9.4-12.5) SECONDS INR APTT (25.1-36.5) Seconds pCO2 (35-45) mm/Hg pO2 90 H (30-55) mm/Hg HCO3 (21-28) mmol/L ABG pH (7.35-7.45) ABG Total CO2 (22-28) mmol.L ABG O2 Saturation (95-98) % ABG O2 Content (15-23) ML/dl ABG Base Excess (-2.0-3.0) mmol/L ABG Hemoglobin (11.7-17.4) g/dL ABG Carboxyhemoglobin (0.5-1.5) % POC ABG HHb (Measured) (0-5) % ABG Methemoglobin (0.0-3.0) % ABG O2 Capacity (16-24) mL/dl ABG Potassium (3.6-5.2) mmol/L VBG pH 7.26 L (7.32-7.43) VBG pCO2 122.0 H* (40-60) VBG HCO3 54.7 H (21-28) mmol/l VBG Total CO2 58.4 H (22-28) mmol.L VBG O2 Sat (Calc) 96.0 H (40-65) % VBG Base Excess 21.1 H (0.0-2.0) mmol/L VBG Potassium 7.0 H* (3.6-5.2) mmol/L Hgb O2 Saturation (95.0-98.0) % Sodium 133.0 (132-148) mmol/L Chloride 91.0 L (98-107) mmol/L Glucose 97 (65-105) mg/dl Lactate 2.3 H (0.7-2.1) mmol/L FiO2 21.0 % Inspiratory BiPAP Potassium (3.6-5.0) mmol/L Carbon Dioxide (21-33) mmol/L Anion Gap (10-20) BUN (7-21) mg/dL Creatinine (0.7-1.2) mg/dl Est GFR ( Amer) Est GFR (Non-Af Amer) Random Glucose (70-110) mg/dL Calcium (8.4-10.5) mg/dL Phosphorus (2.5-4.5) mg/dL Magnesium (1.7-2.2) mg/dL Total Bilirubin (0.2-1.3) mg/dL AST (14-36) U/L ALT (7-56) U/L Alkaline Phosphatase (38-126) U/L Lactate Dehydrogenase (333-699) U/L Total Creatine Kinase (35-230) U/L Troponin I ng/mL NT-Pro-B Natriuret Pep (0-450) pg/mL Total Protein (5.8-8.3) g/dL Albumin (3.0-4.8) g/dL Globulin gm/dL Albumin/Globulin Ratio (1.1-1.8) Arterial Blood Potassium (3.6-5.2) mmol/L Venous Blood Potassium 7.0 H* (3.6-5.2) mmol/L Urine Color (YELLOW) Urine Appearance (CLEAR) Urine pH (4.7-8.0) Ur Specific [place] (1.005-1.035) Urine Protein (<30 mg/dL) mg/dL Urine Glucose (UA) (NEGATIVE) mg/dL Urine Ketones (NEGATIVE) mg/dL Urine Blood (NEGATIVE) Urine Nitrate (NEGATIVE) Urine Bilirubin (NEGATIVE) Urine Urobilinogen (<1 E.U./dL) E.U./dL Ur Leukocyte Esterase (NEGATIVE) Humberto/uL Urine RBC (0-2) /hpf Urine WBC (0-6) /hpf Ur Epithelial Cells (0-5) /hpf Amorphous Sediment Urine Bacteria (NEG) Laboratory Results - last 24 hr 02/06/18 02/06/18 02/06/18 21:57 21:57 21:57 WBC 20.7 H D RBC 4.28 Hgb 11.7 L Hct 39.5 MCV 92.3 MCH 27.3 MCHC 29.6 L RDW 13.5 Plt Count 268 MPV 11.1 H Gran % 89.5 H Lymph % (Auto) 4.6 L Leon % (Auto) 5.8 Eos % (Auto) 0.0 L Baso % (Auto) 0.1 Gran # 18.49 H Lymph # (Auto) 1.0 L Leon # (Auto) 1.2 H Eos # (Auto) 0.0 Baso # (Auto) 0.02 Neutrophils % (Manual) 79 H Band Neutrophils % 10 H Lymphocytes % (Manual) 4 L Monocytes % (Manual) 6 Metamyelocytes % 1 Platelet Evaluation Normal PT 12.6 H INR 1.10 APTT 26.3 pCO2 pO2 90 H HCO3 ABG pH ABG Total CO2 ABG O2 Saturation ABG O2 Content ABG Base Excess ABG Hemoglobin ABG Carboxyhemoglobin POC ABG HHb (Measured) ABG Methemoglobin ABG O2 Capacity ABG Potassium VBG pH 7.26 L VBG pCO2 122.0 H* VBG HCO3 54.7 H VBG Total CO2 58.4 H VBG O2 Sat (Calc) 96.0 H VBG Base Excess 21.1 H VBG Potassium 7.0 H* Hgb O2 Saturation Sodium 133.0 Chloride 91.0 L Glucose 97 Lactate 2.3 H FiO2 21.0 Inspiratory BiPAP Potassium Carbon Dioxide Anion Gap BUN Creatinine Est GFR ( Amer) Est GFR (Non-Af Amer) Random Glucose Calcium Phosphorus Magnesium Total Bilirubin AST ALT Alkaline Phosphatase Lactate Dehydrogenase Total Creatine Kinase Troponin I NT-Pro-B Natriuret Pep Total Protein Albumin Globulin Albumin/Globulin Ratio Arterial Blood Potassium Venous Blood Potassium 7.0 H* Urine Color Urine Appearance Urine pH Ur Specific [place] Urine Protein Urine Glucose (UA) Urine Ketones Urine Blood Urine Nitrate Urine Bilirubin Urine Urobilinogen Ur Leukocyte Esterase Urine RBC Urine WBC Ur Epithelial Cells Amorphous Sediment Urine Bacteria 02/06/18 02/06/18 02/07/18 23:12 23:45 00:30 WBC RBC Hgb Hct MCV MCH MCHC RDW Plt Count MPV Gran % Lymph % (Auto) Leon % (Auto) Eos % (Auto) Baso % (Auto) Gran # Lymph # (Auto) Leon # (Auto) Eos # (Auto) Baso # (Auto) Neutrophils % (Manual) Band Neutrophils % Lymphocytes % (Manual) Monocytes % (Manual) Metamyelocytes % Platelet Evaluation PT INR APTT pCO2 135 H* pO2 124.0 H HCO3 51.6 H* ABG pH 7.19 L* ABG Total CO2 55.7 H ABG O2 Saturation 96.9 ABG O2 Content 15.1 ABG Base Excess 18.5 H ABG Hemoglobin 11.0 L ABG Carboxyhemoglobin 0.4 L POC ABG HHb (Measured) 3.1 ABG Methemoglobin 0.4 ABG O2 Capacity 15.6 L ABG Potassium VBG pH VBG pCO2 VBG HCO3 VBG Total CO2 VBG O2 Sat (Calc) VBG Base Excess VBG Potassium Hgb O2 Saturation 96.1 Sodium 136 Chloride 86 L Glucose Lactate FiO2 100.0 Inspiratory BiPAP Potassium 5.1 H Carbon Dioxide 43 H Anion Gap 12 BUN 37 H Creatinine 1.2 Est GFR ( Amer) 54 Est GFR (Non-Af Amer) 44 Random Glucose 115 H Calcium 8.8 Phosphorus Magnesium 2.2 Total Bilirubin 0.6 AST 34 ALT 16 Alkaline Phosphatase 108 Lactate Dehydrogenase 547 Total Creatine Kinase < 20 L Troponin I 0.01 NT-Pro-B Natriuret Pep 2260 H Total Protein 7.5 Albumin 3.1 Globulin 4.4 Albumin/Globulin Ratio 0.7 L Arterial Blood Potassium Venous Blood Potassium Urine Color Yellow Urine Appearance Sl cloudy Urine pH 6.5 Ur Specific [place] 1.020 Urine Protein 100 H Urine Glucose (UA) Negative Urine Ketones Negative Urine Blood Negative Urine Nitrate Negative Urine Bilirubin Negative Urine Urobilinogen 1.0 H Ur Leukocyte Esterase Negative Urine RBC 0 - 2 Urine WBC 0 - 2 Ur Epithelial Cells 3 - 4 Amorphous Sediment Few Urine Bacteria Rare 02/07/18 02/07/18 02/07/18 01:50 05:26 05:26 WBC 25.5 H* D RBC 3.91 Hgb 10.5 L Hct 37.4 MCV 95.7 D MCH 26.9 MCHC 28.1 L RDW 13.5 Plt Count 214 MPV 10.3 Gran % 96.3 H Lymph % (Auto) 3.1 L Leon % (Auto) 0.5 L Eos % (Auto) 0.0 L Baso % (Auto) 0.1 Gran # 24.51 H Lymph # (Auto) 0.8 L Leon # (Auto) 0.1 Eos # (Auto) 0.0 Baso # (Auto) 0.03 Neutrophils % (Manual) Band Neutrophils % Lymphocytes % (Manual) Monocytes % (Manual) Metamyelocytes % Platelet Evaluation PT INR APTT pCO2 pO2 64 H HCO3 ABG pH ABG Total CO2 ABG O2 Saturation ABG O2 Content ABG Base Excess ABG Hemoglobin ABG Carboxyhemoglobin POC ABG HHb (Measured) ABG Methemoglobin ABG O2 Capacity ABG Potassium VBG pH 7.14 L* VBG pCO2 149.0 H* VBG HCO3 50.7 H VBG Total CO2 55.3 H VBG O2 Sat (Calc) 90.3 H VBG Base Excess 15.3 H VBG Potassium 5.1 Hgb O2 Saturation Sodium 136.0 139 Chloride 93.0 L 89 L Glucose 115 H Lactate 1.4 FiO2 21.0 Inspiratory BiPAP Potassium 5.2 H Carbon Dioxide 40 H Anion Gap 15 BUN 41 H Creatinine 1.5 H Est GFR ( Amer) 41 Est GFR (Non-Af Amer) 34 Random Glucose 147 H Calcium 8.4 Phosphorus 7.7 H Magnesium 2.3 H Total Bilirubin 0.5 AST 36 ALT 15 Alkaline Phosphatase 101 Lactate Dehydrogenase Total Creatine Kinase Troponin I < 0.01 NT-Pro-B Natriuret Pep Total Protein 7.1 Albumin 3.0 Globulin 4.2 Albumin/Globulin Ratio 0.7 L Arterial Blood Potassium Venous Blood Potassium 5.1 Urine Color Urine Appearance Urine pH Ur Specific [place] Urine Protein Urine Glucose (UA) Urine Ketones Urine Blood Urine Nitrate Urine Bilirubin Urine Urobilinogen Ur Leukocyte Esterase Urine RBC Urine WBC Ur Epithelial Cells Amorphous Sediment Urine Bacteria 02/07/18 05:48 WBC RBC Hgb Hct MCV MCH MCHC RDW Plt Count MPV Gran % Lymph % (Auto) Leon % (Auto) Eos % (Auto) Baso % (Auto) Gran # Lymph # (Auto) Leon # (Auto) Eos # (Auto) Baso # (Auto) Neutrophils % (Manual) Band Neutrophils % Lymphocytes % (Manual) Monocytes % (Manual) Metamyelocytes % Platelet Evaluation PT INR APTT pCO2 140 H* pO2 80.0 HCO3 46.6 H* ABG pH 7.13 L* ABG Total CO2 50.9 H ABG O2 Saturation 94.7 L ABG O2 Content ABG Base Excess 11.7 H ABG Hemoglobin ABG Carboxyhemoglobin POC ABG HHb (Measured) ABG Methemoglobin ABG O2 Capacity ABG Potassium 4.9 VBG pH VBG pCO2 VBG HCO3 VBG Total CO2 VBG O2 Sat (Calc) VBG Base Excess VBG Potassium Hgb O2 Saturation Sodium 136.0 Chloride 95.0 L Glucose 136 H Lactate 1.4 FiO2 90.0 Inspiratory BiPAP 20 Potassium Carbon Dioxide Anion Gap BUN Creatinine Est GFR ( Amer) Est GFR (Non-Af Amer) Random Glucose Calcium Phosphorus Magnesium Total Bilirubin AST ALT Alkaline Phosphatase Lactate Dehydrogenase Total Creatine Kinase Troponin I NT-Pro-B Natriuret Pep Total Protein Albumin Globulin Albumin/Globulin Ratio Arterial Blood Potassium 4.9 Venous Blood Potassium Urine Color Urine Appearance Urine pH Ur Specific [place] Urine Protein Urine Glucose (UA) Urine Ketones Urine Blood Urine Nitrate Urine Bilirubin Urine Urobilinogen Ur Leukocyte Esterase Urine RBC Urine WBC Ur Epithelial Cells Amorphous Sediment Urine Bacteria EKG/Cardiology Studies: Cardiology / EKG Studies 02/06/18 21:10 ELECTROCARDIOGRAM Stat Comment: Reason For Exam: sob 02/07/18 01:50 EKG [ELECTROCARDIOGRAM] Stat Comment: Reason For Exam: Chest pain 02/07/18 08:00 EKG [ELECTROCARDIOGRAM] Q6H Comment: Reason For Exam: Chest pain 02/07/18 14:00 EKG [ELECTROCARDIOGRAM] Q6H Comment: Reason For Exam: Chest pain Critical Care Progress Note - Nutrition Nutrition: Nutrition Category Date Time Status Liquid Diet [DIET] Diets 02/07/18 Breakfast Ordered Assessment/Plan - Assessment and Plan (Free Text) Assessment: 72 yo F with PMH of IPF (on home oxygen), breast cancer s/p right mastectomy/[employer]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 Plan: Neuro: A/o x 3, no FND, moving all extremities spontaneously Continue to monitor neuro status Re-orient as necessary Cardio: Tachycardic at 105 Likely 2/2 sepsis BP overnight dropped to 84/49 Increased IVF rate at first to increase BP but was stopped because of worsening pulmonary edema Now BP has remained stable Maintain MAP > 65, levophed as needed Continue IVF at low rate of 50 cc/hr Pulm: Admitted for acute on chronic hypercapnic respiratory failure Currently SpO2 > 93% on bipap Diffuse rhonchi and expiratory wheezes b/l C/w CXR which shows diffuse infiltrates b/l ABG pCO2 of 140, pO2 80, HCO3 46.6, pH 7.13 Change bipap settings to 26/8, O2 90%, RR 20 Patient is DNI Continue duo-neb, solumedrol Palliative care consult GI: Continue liquid diet on continuous bipap May give zofran PRN for nausea/vomiting /Nephro: BUN/Cr increased to 41/1.5 consistent with CRISTIANA Likely 2/2 low volume Continue NS @ 50 cc/hr Take care to not fluid overload as patient has significant bilateral pulmonary infiltrates Replete electrolytes as needed ID: Presented with SIRS criteria of tachycardia, leukocytosis, hypotension (overnight) Empiric vanc and zosyn started per Dr. Go recs F/u blood, urine, sputum cx F/u ID recs Heme/Onc: Patient has history of breast CA s/p R mastectomy on arimidex H/H stable at 10.5/37.4 Mild normocytic anemia noted Continue to monitor Consider anemia w/u if not improving GI/DVT PPX: Protonix and SC heparin DNR/DNI Monitor in MICU Case and plan reviewed and discussed with my attending Dr. Shukri Liriano DO IM Resident PGY-1 <Lisa Wayne - Last Filed: 02/07/18 15:49> CCU Objective - Vital Signs / Intake & Output Vital Signs (Last 4 hours): Vital Signs Temp Pulse 02/07/18 14:00 109 H 02/07/18 12:00 100.2 F H Intake and Output (Last 8hrs): Intake & Output 02/07/18 02/07/18 02/07/18 06:59 14:59 22:59 Intake Total 900 Output Total 100 Balance 800 Weight 67.642 kg Intake: IV 900 Right Upper arm 900 Output: Urine 100 Urine, Voided 100 - Medications Active Medications: Active Medications Generic Name Dose Route Start Last Admin Trade Name Freq PRN Reason Stop Dose Admin Acetaminophen 650 mg 02/07/18 08:46 Tylenol 325mg Tab PO Q6H PRN Pain, Mild (1-3) Albuterol/Ipratropium 3 ml 02/06/18 23:30 Duoneb 3 Mg/0.5 Mg (3 Ml) Ud IH Q2H PRN Shortness of Breath Albuterol/Ipratropium 3 ml 02/06/18 23:30 02/07/18 15:18 Duoneb 3 Mg/0.5 Mg (3 Ml) Ud IH 3 ml [id number] GUY Administration Anastrozole 1 mg 02/07/18 10:00 02/07/18 09:40 Arimidex 1 Mg Tab PO Not Given DAILY GUY Arformoterol Tartrate 15 mcg 02/07/18 20:00 Brovana IH [id number] GUY Aspirin 81 mg 02/07/18 10:00 02/07/18 09:40 Aspirin Chewable PO Not Given DAILY GUY Atorvastatin Calcium 20 mg 02/07/18 17:00 Lipitor PO DIN GUY Budesonide 0.5 mg 02/07/18 20:00 Pulmicort Respules IH [id number] GUY Clopidogrel Bisulfate 75 mg 02/07/18 10:00 10 09:41 Plavix PO Not Given DAILY GUY Cyanocobalamin 1,000 mcg 02/07/18 10:00 10 09:43 Vitamin B12 1000 Mcg Tab PO Not Given DAILY GUY Docusate Sodium 50 mg 02/07/18 08:46 Colace Liquid PO DAILY PRN Constipation Heparin Sodium (Porcine) 5,000 units 02/07/18 10:00 02/07/18 09:46 Heparin SC 5,000 units Q12 GUY Administration Protocol Sodium Chloride 1,000 mls @ 50 mls/hr 02/07/18 08:50 02/07/18 08:30 Sodium Chloride 0.9% IV 50 mls/hr .Q20H GUY Administration NOREPINEPHRINE BIT/0.9 % NACL 4 mg in 250 mls @ 15 mls/hr 02/07/18 08:51 Levophed 4 Mg/ 250 Ml Ns Premixed IV .[id number] PRN TITRATE PER MD ORDER Protocol 4 MCG/MIN Meropenem/Sodium Chloride 500 mg in 50 mls @ 100 mls/hr 02/07/18 11:45 02/07/18 12:24 Merrem Iv 500 Mg/Ns 50 Ml IVPB 100 mls/hr Q12 GUY Administration Protocol Levofloxacin/Dextrose 750 mg in 150 mls @ 100 mls/hr 02/07/18 11:45 02/07/18 12:27 Levaquin 750mg IVPB 100 mls/hr Q48H GUY Administration Protocol Loratadine 10 mg 02/07/18 10:00 Claritin PO DAILY PRN Allergy symptoms Methylprednisolone 40 mg 02/07/18 10:00 02/07/18 09:46 Solu-Medrol IVP 40 mg Q12 GUY Administration Montelukast Sodium 10 mg 02/07/18 10:00 02/07/18 09:42 Singulair PO Not Given DAILY GUY Celecoxib [Celebrex] 200 mg 02/07/18 10:00 02/07/18 09:40 200 Mg (Home Med) PO Not Given DAILY [facility] Oseltamivir Phosphate 30 mg 02/07/18 18:00 Tamiflu PO BID [facility] Protocol Pantoprazole Sodium 40 mg 02/07/18 10:00 02/07/18 09:45 Protonix Inj IVP 40 mg DAILY GUY Administration - Patient Studies Lab Studies: Lab Studies 02/07/18 02/07/18 02/07/18 Range/Units 12:10 05:48 05:26 WBC (4.5-11.0) 10^3/ul RBC (3.5-6.1) 10^6/uL Hgb (12.0-16.0) g/dL Hct (36.0-48.0) % MCV (80.0-105.0) fl MCH (25.0-35.0) pg MCHC (31.0-37.0) g/dl RDW (11.5-14.5) % Plt Count (120.0-450.0) 10^3/uL MPV (7.0-11.0) fl Gran % (50.0-68.0) % Lymph % (Auto) (22.0-35.0) % Leon % (Auto) (1.0-6.0) % Eos % (Auto) (1.5-5.0) % Baso % (Auto) (0.0-3.0) % Gran # (1.4-6.5) Lymph # (Auto) (1.2-3.4) Leon # (Auto) (0.1-0.6) Eos # (Auto) (0.0-0.7) Baso # (Auto) (0.0-2.0) K/mm3 Neutrophils % (Manual) (50.0-70.0) % Band Neutrophils % (0-2) % Lymphocytes % (Manual) (22.0-35.0) % Monocytes % (Manual) (1.0-6.0) % Metamyelocytes % % Platelet Evaluation (NORMAL) PT (9.4-12.5) SECONDS INR APTT (25.1-36.5) Seconds pCO2 140 H* (35-45) mm/Hg pO2 80.0 (30-55) mm/Hg HCO3 46.6 H* (21-28) mmol/L ABG pH 7.13 L* (7.35-7.45) ABG Total CO2 50.9 H (22-28) mmol.L ABG O2 Saturation 94.7 L (95-98) % ABG O2 Content (15-23) ML/dl ABG Base Excess 11.7 H (-2.0-3.0) mmol/L ABG Hemoglobin (11.7-17.4) g/dL ABG Carboxyhemoglobin (0.5-1.5) % POC ABG HHb (Measured) (0-5) % ABG Methemoglobin (0.0-3.0) % ABG O2 Capacity (16-24) mL/dl ABG Potassium 4.9 (3.6-5.2) mmol/L VBG pH (7.32-7.43) VBG pCO2 (40-60) VBG HCO3 (21-28) mmol/l VBG Total CO2 (22-28) mmol.L VBG O2 Sat (Calc) (40-65) % VBG Base Excess (0.0-2.0) mmol/L VBG Potassium (3.6-5.2) mmol/L Hgb O2 Saturation (95.0-98.0) % Sodium 136.0 139 (132-148) mmol/L Chloride 95.0 L 89 L (98-107) mmol/L Glucose 136 H (65-105) mg/dl Lactate 1.4 (0.7-2.1) mmol/L FiO2 90.0 % Inspiratory BiPAP 20 Potassium 5.2 H (3.6-5.0) mmol/L Carbon Dioxide 40 H (21-33) mmol/L Anion Gap 15 (10-20) BUN 41 H (7-21) mg/dL Creatinine 1.5 H (0.7-1.2) mg/dl Est GFR ( Amer) 41 Est GFR (Non-Af Amer) 34 Random Glucose 147 H (70-110) mg/dL Calcium 8.4 (8.4-10.5) mg/dL Phosphorus 7.7 H (2.5-4.5) mg/dL Magnesium 2.3 H (1.7-2.2) mg/dL Total Bilirubin 0.5 (0.2-1.3) mg/dL AST 36 (14-36) U/L ALT 15 (7-56) U/L Alkaline Phosphatase 101 (38-126) U/L Lactate Dehydrogenase (333-699) U/L Total Creatine Kinase (35-230) U/L Troponin I < 0.01 < 0.01 ng/mL NT-Pro-B Natriuret Pep (0-450) pg/mL Total Protein 7.1 (5.8-8.3) g/dL Albumin 3.0 (3.0-4.8) g/dL Globulin 4.2 gm/dL Albumin/Globulin Ratio 0.7 L (1.1-1.8) Arterial Blood Potassium 4.9 (3.6-5.2) mmol/L Venous Blood Potassium (3.6-5.2) mmol/L Urine Color (YELLOW) Urine Appearance (CLEAR) Urine pH (4.7-8.0) Ur Specific [place] (1.005-1.035) Urine Protein (<30 mg/dL) mg/dL Urine Glucose (UA) (NEGATIVE) mg/dL Urine Ketones (NEGATIVE) mg/dL Urine Blood (NEGATIVE) Urine Nitrate (NEGATIVE) Urine Bilirubin (NEGATIVE) Urine Urobilinogen (<1 E.U./dL) E.U./dL Ur Leukocyte Esterase (NEGATIVE) Humberto/uL Urine RBC (0-2) /hpf Urine WBC (0-6) /hpf Ur Epithelial Cells (0-5) /hpf Amorphous Sediment Urine Bacteria (NEG) 02/07/18 02/07/18 02/07/18 Range/Units 05:26 01:50 00:30 WBC 25.5 H* D (4.5-11.0) 10^3/ul RBC 3.91 (3.5-6.1) 10^6/uL Hgb 10.5 L (12.0-16.0) g/dL Hct 37.4 (36.0-48.0) % MCV 95.7 D (80.0-105.0) fl MCH 26.9 (25.0-35.0) pg MCHC 28.1 L (31.0-37.0) g/dl RDW 13.5 (11.5-14.5) % Plt Count 214 (120.0-450.0) 10^3/uL MPV 10.3 (7.0-11.0) fl Gran % 96.3 H (50.0-68.0) % Lymph % (Auto) 3.1 L (22.0-35.0) % Leon % (Auto) 0.5 L (1.0-6.0) % Eos % (Auto) 0.0 L (1.5-5.0) % Baso % (Auto) 0.1 (0.0-3.0) % Gran # 24.51 H (1.4-6.5) Lymph # (Auto) 0.8 L (1.2-3.4) Leon # (Auto) 0.1 (0.1-0.6) Eos # (Auto) 0.0 (0.0-0.7) Baso # (Auto) 0.03 (0.0-2.0) K/mm3 Neutrophils % (Manual) 77 H (50.0-70.0) % Band Neutrophils % 18 H* (0-2) % Lymphocytes % (Manual) 1 L (22.0-35.0) % Monocytes % (Manual) 4 (1.0-6.0) % Metamyelocytes % % Platelet Evaluation Normal (NORMAL) PT (9.4-12.5) SECONDS INR APTT (25.1-36.5) Seconds pCO2 (35-45) mm/Hg pO2 64 H (30-55) mm/Hg HCO3 (21-28) mmol/L ABG pH (7.35-7.45) ABG Total CO2 (22-28) mmol.L ABG O2 Saturation (95-98) % ABG O2 Content (15-23) ML/dl ABG Base Excess (-2.0-3.0) mmol/L ABG Hemoglobin (11.7-17.4) g/dL ABG Carboxyhemoglobin (0.5-1.5) % POC ABG HHb (Measured) (0-5) % ABG Methemoglobin (0.0-3.0) % ABG O2 Capacity (16-24) mL/dl ABG Potassium (3.6-5.2) mmol/L VBG pH 7.14 L* (7.32-7.43) VBG pCO2 149.0 H* (40-60) VBG HCO3 50.7 H (21-28) mmol/l VBG Total CO2 55.3 H (22-28) mmol.L VBG O2 Sat (Calc) 90.3 H (40-65) % VBG Base Excess 15.3 H (0.0-2.0) mmol/L VBG Potassium 5.1 (3.6-5.2) mmol/L Hgb O2 Saturation (95.0-98.0) % Sodium 136.0 136 (132-148) mmol/L Chloride 93.0 L 86 L (98-107) mmol/L Glucose 115 H (65-105) mg/dl Lactate 1.4 (0.7-2.1) mmol/L FiO2 21.0 % Inspiratory BiPAP Potassium 5.1 H (3.6-5.0) mmol/L Carbon Dioxide 43 H (21-33) mmol/L Anion Gap 12 (10-20) BUN 37 H (7-21) mg/dL Creatinine 1.2 (0.7-1.2) mg/dl Est GFR ( Amer) 54 Est GFR (Non-Af Amer) 44 Random Glucose 115 H (70-110) mg/dL Calcium 8.8 (8.4-10.5) mg/dL Phosphorus (2.5-4.5) mg/dL Magnesium 2.2 (1.7-2.2) mg/dL Total Bilirubin 0.6 (0.2-1.3) mg/dL AST 34 (14-36) U/L ALT 16 (7-56) U/L Alkaline Phosphatase 108 (38-126) U/L Lactate Dehydrogenase 547 (333-699) U/L Total Creatine Kinase < 20 L (35-230) U/L Troponin I 0.01 ng/mL NT-Pro-B Natriuret Pep 2260 H (0-450) pg/mL Total Protein 7.5 (5.8-8.3) g/dL Albumin 3.1 (3.0-4.8) g/dL Globulin 4.4 gm/dL Albumin/Globulin Ratio 0.7 L (1.1-1.8) Arterial Blood Potassium (3.6-5.2) mmol/L Venous Blood Potassium 5.1 (3.6-5.2) mmol/L Urine Color (YELLOW) Urine Appearance (CLEAR) Urine pH (4.7-8.0) Ur Specific [place] (1.005-1.035) Urine Protein (<30 mg/dL) mg/dL Urine Glucose (UA) (NEGATIVE) mg/dL Urine Ketones (NEGATIVE) mg/dL Urine Blood (NEGATIVE) Urine Nitrate (NEGATIVE) Urine Bilirubin (NEGATIVE) Urine Urobilinogen (<1 E.U./dL) E.U./dL Ur Leukocyte Esterase (NEGATIVE) Humberto/uL Urine RBC (0-2) /hpf Urine WBC (0-6) /hpf Ur Epithelial Cells (0-5) /hpf Amorphous Sediment Urine Bacteria (NEG) 02/06/18 02/06/18 02/06/18 Range/Units 23:45 23:12 21:57 WBC (4.5-11.0) 10^3/ul RBC (3.5-6.1) 10^6/uL Hgb (12.0-16.0) g/dL Hct (36.0-48.0) % MCV (80.0-105.0) fl MCH (25.0-35.0) pg MCHC (31.0-37.0) g/dl RDW (11.5-14.5) % Plt Count (120.0-450.0) 10^3/uL MPV (7.0-11.0) fl Gran % (50.0-68.0) % Lymph % (Auto) (22.0-35.0) % Leon % (Auto) (1.0-6.0) % Eos % (Auto) (1.5-5.0) % Baso % (Auto) (0.0-3.0) % Gran # (1.4-6.5) Lymph # (Auto) (1.2-3.4) Leon # (Auto) (0.1-0.6) Eos # (Auto) (0.0-0.7) Baso # (Auto) (0.0-2.0) K/mm3 Neutrophils % (Manual) (50.0-70.0) % Band Neutrophils % (0-2) % Lymphocytes % (Manual) (22.0-35.0) % Monocytes % (Manual) (1.0-6.0) % Metamyelocytes % % Platelet Evaluation (NORMAL) PT 12.6 H (9.4-12.5) SECONDS INR 1.10 APTT 26.3 (25.1-36.5) Seconds pCO2 135 H* (35-45) mm/Hg pO2 124.0 H (30-55) mm/Hg HCO3 51.6 H* (21-28) mmol/L ABG pH 7.19 L* (7.35-7.45) ABG Total CO2 55.7 H (22-28) mmol.L ABG O2 Saturation 96.9 (95-98) % ABG O2 Content 15.1 (15-23) ML/dl ABG Base Excess 18.5 H (-2.0-3.0) mmol/L ABG Hemoglobin 11.0 L (11.7-17.4) g/dL ABG Carboxyhemoglobin 0.4 L (0.5-1.5) % POC ABG HHb (Measured) 3.1 (0-5) % ABG Methemoglobin 0.4 (0.0-3.0) % ABG O2 Capacity 15.6 L (16-24) mL/dl ABG Potassium (3.6-5.2) mmol/L VBG pH (7.32-7.43) VBG pCO2 (40-60) VBG HCO3 (21-28) mmol/l VBG Total CO2 (22-28) mmol.L VBG O2 Sat (Calc) (40-65) % VBG Base Excess (0.0-2.0) mmol/L VBG Potassium (3.6-5.2) mmol/L Hgb O2 Saturation 96.1 (95.0-98.0) % Sodium (132-148) mmol/L Chloride (98-107) mmol/L Glucose (65-105) mg/dl Lactate (0.7-2.1) mmol/L FiO2 100.0 % Inspiratory BiPAP Potassium (3.6-5.0) mmol/L Carbon Dioxide (21-33) mmol/L Anion Gap (10-20) BUN (7-21) mg/dL Creatinine (0.7-1.2) mg/dl Est GFR ( Amer) Est GFR (Non-Af Amer) Random Glucose (70-110) mg/dL Calcium (8.4-10.5) mg/dL Phosphorus (2.5-4.5) mg/dL Magnesium (1.7-2.2) mg/dL Total Bilirubin (0.2-1.3) mg/dL AST (14-36) U/L ALT (7-56) U/L Alkaline Phosphatase (38-126) U/L Lactate Dehydrogenase (333-699) U/L Total Creatine Kinase (35-230) U/L Troponin I ng/mL NT-Pro-B Natriuret Pep (0-450) pg/mL Total Protein (5.8-8.3) g/dL Albumin (3.0-4.8) g/dL Globulin gm/dL Albumin/Globulin Ratio (1.1-1.8) Arterial Blood Potassium (3.6-5.2) mmol/L Venous Blood Potassium (3.6-5.2) mmol/L Urine Color Yellow (YELLOW) Urine Appearance Sl cloudy (CLEAR) Urine pH 6.5 (4.7-8.0) Ur Specific [place] 1.020 (1.005-1.035) Urine Protein 100 H (<30 mg/dL) mg/dL Urine Glucose (UA) Negative (NEGATIVE) mg/dL Urine Ketones Negative (NEGATIVE) mg/dL Urine Blood Negative (NEGATIVE) Urine Nitrate Negative (NEGATIVE) Urine Bilirubin Negative (NEGATIVE) Urine Urobilinogen 1.0 H (<1 E.U./dL) E.U./dL Ur Leukocyte Esterase Negative (NEGATIVE) Humberto/uL Urine RBC 0 - 2 (0-2) /hpf Urine WBC 0 - 2 (0-6) /hpf Ur Epithelial Cells 3 - 4 (0-5) /hpf Amorphous Sediment Few Urine Bacteria Rare (NEG) 02/06/18 02/06/18 Range/Units 21:57 21:57 WBC 20.7 H D (4.5-11.0) 10^3/ul RBC 4.28 (3.5-6.1) 10^6/uL Hgb 11.7 L (12.0-16.0) g/dL Hct 39.5 (36.0-48.0) % MCV 92.3 (80.0-105.0) fl MCH 27.3 (25.0-35.0) pg MCHC 29.6 L (31.0-37.0) g/dl RDW 13.5 (11.5-14.5) % Plt Count 268 (120.0-450.0) 10^3/uL MPV 11.1 H (7.0-11.0) fl Gran % 89.5 H (50.0-68.0) % Lymph % (Auto) 4.6 L (22.0-35.0) % Leon % (Auto) 5.8 (1.0-6.0) % Eos % (Auto) 0.0 L (1.5-5.0) % Baso % (Auto) 0.1 (0.0-3.0) % Gran # 18.49 H (1.4-6.5) Lymph # (Auto) 1.0 L (1.2-3.4) Leon # (Auto) 1.2 H (0.1-0.6) Eos # (Auto) 0.0 (0.0-0.7) Baso # (Auto) 0.02 (0.0-2.0) K/mm3 Neutrophils % (Manual) 79 H (50.0-70.0) % Band Neutrophils % 10 H (0-2) % Lymphocytes % (Manual) 4 L (22.0-35.0) % Monocytes % (Manual) 6 (1.0-6.0) % Metamyelocytes % 1 % Platelet Evaluation Normal (NORMAL) PT (9.4-12.5) SECONDS INR APTT (25.1-36.5) Seconds pCO2 (35-45) mm/Hg pO2 90 H (30-55) mm/Hg HCO3 (21-28) mmol/L ABG pH (7.35-7.45) ABG Total CO2 (22-28) mmol.L ABG O2 Saturation (95-98) % ABG O2 Content (15-23) ML/dl ABG Base Excess (-2.0-3.0) mmol/L ABG Hemoglobin (11.7-17.4) g/dL ABG Carboxyhemoglobin (0.5-1.5) % POC ABG HHb (Measured) (0-5) % ABG Methemoglobin (0.0-3.0) % ABG O2 Capacity (16-24) mL/dl ABG Potassium (3.6-5.2) mmol/L VBG pH 7.26 L (7.32-7.43) VBG pCO2 122.0 H* (40-60) VBG HCO3 54.7 H (21-28) mmol/l VBG Total CO2 58.4 H (22-28) mmol.L VBG O2 Sat (Calc) 96.0 H (40-65) % VBG Base Excess 21.1 H (0.0-2.0) mmol/L VBG Potassium 7.0 H* (3.6-5.2) mmol/L Hgb O2 Saturation (95.0-98.0) % Sodium 133.0 (132-148) mmol/L Chloride 91.0 L (98-107) mmol/L Glucose 97 (65-105) mg/dl Lactate 2.3 H (0.7-2.1) mmol/L FiO2 21.0 % Inspiratory BiPAP Potassium (3.6-5.0) mmol/L Carbon Dioxide (21-33) mmol/L Anion Gap (10-20) BUN (7-21) mg/dL Creatinine (0.7-1.2) mg/dl Est GFR ( Amer) Est GFR (Non-Af Amer) Random Glucose (70-110) mg/dL Calcium (8.4-10.5) mg/dL Phosphorus (2.5-4.5) mg/dL Magnesium (1.7-2.2) mg/dL Total Bilirubin (0.2-1.3) mg/dL AST (14-36) U/L ALT (7-56) U/L Alkaline Phosphatase (38-126) U/L Lactate Dehydrogenase (333-699) U/L Total Creatine Kinase (35-230) U/L Troponin I ng/mL NT-Pro-B Natriuret Pep (0-450) pg/mL Total Protein (5.8-8.3) g/dL Albumin (3.0-4.8) g/dL Globulin gm/dL Albumin/Globulin Ratio (1.1-1.8) Arterial Blood Potassium (3.6-5.2) mmol/L Venous Blood Potassium 7.0 H* (3.6-5.2) mmol/L Urine Color (YELLOW) Urine Appearance (CLEAR) Urine pH (4.7-8.0) Ur Specific [place] (1.005-1.035) Urine Protein (<30 mg/dL) mg/dL Urine Glucose (UA) (NEGATIVE) mg/dL Urine Ketones (NEGATIVE) mg/dL Urine Blood (NEGATIVE) Urine Nitrate (NEGATIVE) Urine Bilirubin (NEGATIVE) Urine Urobilinogen (<1 E.U./dL) E.U./dL Ur Leukocyte Esterase (NEGATIVE) Humberto/uL Urine RBC (0-2) /hpf Urine WBC (0-6) /hpf Ur Epithelial Cells (0-5) /hpf Amorphous Sediment Urine Bacteria (NEG) Laboratory Results - last 24 hr 02/06/18 02/06/18 02/06/18 21:57 21:57 21:57 WBC 20.7 H D RBC 4.28 Hgb 11.7 L Hct 39.5 MCV 92.3 MCH 27.3 MCHC 29.6 L RDW 13.5 Plt Count 268 MPV 11.1 H Gran % 89.5 H Lymph % (Auto) 4.6 L Leon % (Auto) 5.8 Eos % (Auto) 0.0 L Baso % (Auto) 0.1 Gran # 18.49 H Lymph # (Auto) 1.0 L Leon # (Auto) 1.2 H Eos # (Auto) 0.0 Baso # (Auto) 0.02 Neutrophils % (Manual) 79 H Band Neutrophils % 10 H Lymphocytes % (Manual) 4 L Monocytes % (Manual) 6 Metamyelocytes % 1 Platelet Evaluation Normal PT 12.6 H INR 1.10 APTT 26.3 pCO2 pO2 90 H HCO3 ABG pH ABG Total CO2 ABG O2 Saturation ABG O2 Content ABG Base Excess ABG Hemoglobin ABG Carboxyhemoglobin POC ABG HHb (Measured) ABG Methemoglobin ABG O2 Capacity ABG Potassium VBG pH 7.26 L VBG pCO2 122.0 H* VBG HCO3 54.7 H VBG Total CO2 58.4 H VBG O2 Sat (Calc) 96.0 H VBG Base Excess 21.1 H VBG Potassium 7.0 H* Hgb O2 Saturation Sodium 133.0 Chloride 91.0 L Glucose 97 Lactate 2.3 H FiO2 21.0 Inspiratory BiPAP Potassium Carbon Dioxide Anion Gap BUN Creatinine Est GFR ( Amer) Est GFR (Non-Af Amer) Random Glucose Calcium Phosphorus Magnesium Total Bilirubin AST ALT Alkaline Phosphatase Lactate Dehydrogenase Total Creatine Kinase Troponin I NT-Pro-B Natriuret Pep Total Protein Albumin Globulin Albumin/Globulin Ratio Arterial Blood Potassium Venous Blood Potassium 7.0 H* Urine Color Urine Appearance Urine pH Ur Specific [place] Urine Protein Urine Glucose (UA) Urine Ketones Urine Blood Urine Nitrate Urine Bilirubin Urine Urobilinogen Ur Leukocyte Esterase Urine RBC Urine WBC Ur Epithelial Cells Amorphous Sediment Urine Bacteria 02/06/18 02/06/18 02/07/18 23:12 23:45 00:30 WBC RBC Hgb Hct MCV MCH MCHC RDW Plt Count MPV Gran % Lymph % (Auto) Leon % (Auto) Eos % (Auto) Baso % (Auto) Gran # Lymph # (Auto) Leon # (Auto) Eos # (Auto) Baso # (Auto) Neutrophils % (Manual) Band Neutrophils % Lymphocytes % (Manual) Monocytes % (Manual) Metamyelocytes % Platelet Evaluation PT INR APTT pCO2 135 H* pO2 124.0 H HCO3 51.6 H* ABG pH 7.19 L* ABG Total CO2 55.7 H ABG O2 Saturation 96.9 ABG O2 Content 15.1 ABG Base Excess 18.5 H ABG Hemoglobin 11.0 L ABG Carboxyhemoglobin 0.4 L POC ABG HHb (Measured) 3.1 ABG Methemoglobin 0.4 ABG O2 Capacity 15.6 L ABG Potassium VBG pH VBG pCO2 VBG HCO3 VBG Total CO2 VBG O2 Sat (Calc) VBG Base Excess VBG Potassium Hgb O2 Saturation 96.1 Sodium 136 Chloride 86 L Glucose Lactate FiO2 100.0 Inspiratory BiPAP Potassium 5.1 H Carbon Dioxide 43 H Anion Gap 12 BUN 37 H Creatinine 1.2 Est GFR ( Amer) 54 Est GFR (Non-Af Amer) 44 Random Glucose 115 H Calcium 8.8 Phosphorus Magnesium 2.2 Total Bilirubin 0.6 AST 34 ALT 16 Alkaline Phosphatase 108 Lactate Dehydrogenase 547 Total Creatine Kinase < 20 L Troponin I 0.01 NT-Pro-B Natriuret Pep 2260 H Total Protein 7.5 Albumin 3.1 Globulin 4.4 Albumin/Globulin Ratio 0.7 L Arterial Blood Potassium Venous Blood Potassium Urine Color Yellow Urine Appearance Sl cloudy Urine pH 6.5 Ur Specific [place] 1.020 Urine Protein 100 H Urine Glucose (UA) Negative Urine Ketones Negative Urine Blood Negative Urine Nitrate Negative Urine Bilirubin Negative Urine Urobilinogen 1.0 H Ur Leukocyte Esterase Negative Urine RBC 0 - 2 Urine WBC 0 - 2 Ur Epithelial Cells 3 - 4 Amorphous Sediment Few Urine Bacteria Rare 02/07/18 02/07/18 02/07/18 01:50 05:26 05:26 WBC 25.5 H* D RBC 3.91 Hgb 10.5 L Hct 37.4 MCV 95.7 D MCH 26.9 MCHC 28.1 L RDW 13.5 Plt Count 214 MPV 10.3 Gran % 96.3 H Lymph % (Auto) 3.1 L Leon % (Auto) 0.5 L Eos % (Auto) 0.0 L Baso % (Auto) 0.1 Gran # 24.51 H Lymph # (Auto) 0.8 L Leon # (Auto) 0.1 Eos # (Auto) 0.0 Baso # (Auto) 0.03 Neutrophils % (Manual) 77 H Band Neutrophils % 18 H* Lymphocytes % (Manual) 1 L Monocytes % (Manual) 4 Metamyelocytes % Platelet Evaluation Normal PT INR APTT pCO2 pO2 64 H HCO3 ABG pH ABG Total CO2 ABG O2 Saturation ABG O2 Content ABG Base Excess ABG Hemoglobin ABG Carboxyhemoglobin POC ABG HHb (Measured) ABG Methemoglobin ABG O2 Capacity ABG Potassium VBG pH 7.14 L* VBG pCO2 149.0 H* VBG HCO3 50.7 H VBG Total CO2 55.3 H VBG O2 Sat (Calc) 90.3 H VBG Base Excess 15.3 H VBG Potassium 5.1 Hgb O2 Saturation Sodium 136.0 139 Chloride 93.0 L 89 L Glucose 115 H Lactate 1.4 FiO2 21.0 Inspiratory BiPAP Potassium 5.2 H Carbon Dioxide 40 H Anion Gap 15 BUN 41 H Creatinine 1.5 H Est GFR ( Amer) 41 Est GFR (Non-Af Amer) 34 Random Glucose 147 H Calcium 8.4 Phosphorus 7.7 H Magnesium 2.3 H Total Bilirubin 0.5 AST 36 ALT 15 Alkaline Phosphatase 101 Lactate Dehydrogenase Total Creatine Kinase Troponin I < 0.01 NT-Pro-B Natriuret Pep Total Protein 7.1 Albumin 3.0 Globulin 4.2 Albumin/Globulin Ratio 0.7 L Arterial Blood Potassium Venous Blood Potassium 5.1 Urine Color Urine Appearance Urine pH Ur Specific [place] Urine Protein Urine Glucose (UA) Urine Ketones Urine Blood Urine Nitrate Urine Bilirubin Urine Urobilinogen Ur Leukocyte Esterase Urine RBC Urine WBC Ur Epithelial Cells Amorphous Sediment Urine Bacteria 02/07/18 02/07/18 05:48 12:10 WBC RBC Hgb Hct MCV MCH MCHC RDW Plt Count MPV Gran % Lymph % (Auto) Leon % (Auto) Eos % (Auto) Baso % (Auto) Gran # Lymph # (Auto) Leon # (Auto) Eos # (Auto) Baso # (Auto) Neutrophils % (Manual) Band Neutrophils % Lymphocytes % (Manual) Monocytes % (Manual) Metamyelocytes % Platelet Evaluation PT INR APTT pCO2 140 H* pO2 80.0 HCO3 46.6 H* ABG pH 7.13 L* ABG Total CO2 50.9 H ABG O2 Saturation 94.7 L ABG O2 Content ABG Base Excess 11.7 H ABG Hemoglobin ABG Carboxyhemoglobin POC ABG HHb (Measured) ABG Methemoglobin ABG O2 Capacity ABG Potassium 4.9 VBG pH VBG pCO2 VBG HCO3 VBG Total CO2 VBG O2 Sat (Calc) VBG Base Excess VBG Potassium Hgb O2 Saturation Sodium 136.0 Chloride 95.0 L Glucose 136 H Lactate 1.4 FiO2 90.0 Inspiratory BiPAP 20 Potassium Carbon Dioxide Anion Gap BUN Creatinine Est GFR ( Amer) Est GFR (Non-Af Amer) Random Glucose Calcium Phosphorus Magnesium Total Bilirubin AST ALT Alkaline Phosphatase Lactate Dehydrogenase Total Creatine Kinase Troponin I < 0.01 NT-Pro-B Natriuret Pep Total Protein Albumin Globulin Albumin/Globulin Ratio Arterial Blood Potassium 4.9 Venous Blood Potassium Urine Color Urine Appearance Urine pH Ur Specific [place] Urine Protein Urine Glucose (UA) Urine Ketones Urine Blood Urine Nitrate Urine Bilirubin Urine Urobilinogen Ur Leukocyte Esterase Urine RBC Urine WBC Ur Epithelial Cells Amorphous Sediment Urine Bacteria EKG/Cardiology Studies: Cardiology / EKG Studies 02/06/18 21:10 ELECTROCARDIOGRAM Stat Comment: Reason For Exam: sob 02/07/18 01:50 EKG [ELECTROCARDIOGRAM] Stat Comment: Reason For Exam: Chest pain 02/07/18 08:00 EKG [ELECTROCARDIOGRAM] Q6H Comment: Reason For Exam: Chest pain 02/07/18 14:00 EKG [ELECTROCARDIOGRAM] Q6H Comment: Reason For Exam: Chest pain Critical Care Progress Note - Nutrition Nutrition: Nutrition Category Date Time Status Liquid Diet [DIET] Diets 02/07/18 Breakfast Ordered Addendum Addendum: 02/07/18 15:49 ICU Attending Addendum Patient seen and examined. Case reviewed on round with housestaff. Agree with resident note above with the following additions/exceptions: 72 yo F with PMH of IPF (on home oxygen), breast cancer s/p right mastectomy/[employer]AT[employer]IST, GERD, CAD s/p four KATIE, diastolic CHF and pHTN admitted with HCRF She was recently at [facility] for an RSV PNA. She was placed on hospice and sent home yesterday. Within a few hours, daughter was concerned for her and did want more medical attention. She never felt truly comfortable with the idea of hospice. She is in [facility], I spoke with daughter who re-enforces she is DNR and DNI. I increased the delta of her bipap and we will repeat ABG. I made it clear prognosis is poor however will try and imrpove her ventilation and see if she get better. Empiric abx as per ID DNR/DNI rest of care above Lisa Wayne MD [employer] Adviser Critical Care TIme: 30 mins
--- NOTE | 2018-02-07 09:51 | CARD ---
APPROVED REPORT Date of service: 02/07/2018 EKG Measurement Heart [id number] [place] [id number] <Conclusion> Sinus tachycardia with fusion complexes Possible Left atrial enlargement Nonspecific ST abnormality Tall P in 2,3,AVF Suggestive of Ch.Lung Disease.
--- NOTE | 2018-02-07 09:54 | CARD ---
APPROVED REPORT Date of service: 02/07/2018 EKG Measurement Heart [id number] [place] [id number] <Conclusion> Sinus tachycardia. P Pulmonale. Possible Left atrial enlargement Nonspecific ST abnormality Abnormal ECG
[2018-02-07] MEDS ORDERED: MethylPREDNISolone 40 mg Vial IVP SCH (10:00)
--- NOTE | 2018-02-07 10:00 | CARD ---
APPROVED REPORT Date of service: 02/07/2018 EKG Measurement Heart [id number] [place] [id number] <Conclusion> Sinus tachycardia Possible Left atrial enlargement Borderline ECG
[2018-02-07 10:07] LABS: NEUTROPHIL 77 % (50.0-70.0)
[2018-02-07 10:08] LABS: BAND 18 % (0-2); LYMPHOCYTE 1 % (22.0-35.0); MONOCYTE 4 % (1.0-6.0); PLATELET ESTIMATE NORMAL (NORMAL)
[2018-02-07] MEDS ORDERED: Vancomycin 1gm in NS 250ml 1 GM/250 ML BAG IVPB SCH (11:00)
--- NOTE | 2018-02-07 11:24 | RAD ---
Date of service: 02/06/2018 HISTORY: sob COMPARISON: 11/18/2017 FINDINGS: LUNGS: There is no change in the pattern of severe pulmonary fibrosis. PLEURA: No significant pleural effusion identified, no pneumothorax apparent. CARDIOVASCULAR: Normal. OSSEOUS STRUCTURES: No significant abnormalities. VISUALIZED UPPER ABDOMEN: Normal. OTHER FINDINGS: None. IMPRESSION: There is no change in the pattern of severe pulmonary fibrosis
[2018-02-07] MEDS ORDERED: levoFLOXacin 750 mg in D5W 750 MG/150 ML BAG IVPB SCH (11:45)
[2018-02-07] MEDS: MEROPENEM 500 MG in NS 500 MG/50 ML BAG IVPB SCH ×2 (12:24→22:36)
--- NOTE | 2018-02-07 12:24 | CP.PCM.CON ---
History of Present Illness - History of Present Illness History of Present Illness: 72 year old female with PMH of sepsis due to community-acquired pneumonia, along with UTI with E. coli, clinically improving, history of bronchiectasis, oxygen- dependent COPD, pulmonary fibrosis, HTN, history of breast cancer, coronary artery disease, dyslipidemia, history of DVT was admitted in another hospital for respiratory symptoms last week. She was hypoxic and was being treated with steroids, antibiotics but was getting worse. Prior to being admitted, she was having rhinorrhea. According to the daughter who was giving me the history at bedside, she continued to deteriorate and she was made hospice and was discharged home, but she brought her here to [facility] because of continued deterioration in breathing. She continued coughing and was having yellowish phlegm. She was also noted to be lethargic. There was no note of loss of consciousness, no fevers , no vomiting, no diarrhea. CBC done is showing bandemia with high WBC count, and she is currently in the ICU on a BiPAP, although as per the daughter is looking better. Infectious diseases consult is requested to further evaluate and manage. Review of Systems - Review of Systems All systems: reviewed and no additional remarkable complaints except (as per HPI) Past Patient History - Infectious Disease Hx of Infectious Diseases: None - Tetanus Immunizations Tetanus Immunization: Unknown - Past Medical History & Family History Past Medical History?: Yes - Past Social History Smoking Status: Never Smoked - CARDIAC Hx Pacemaker: No - PULMONARY Hx Chronic Obstructive Pulmonary Disease (COPD): Yes - NEUROLOGICAL Hx Neurological Disorder: No - HEENT Hx HEENT Problems: Yes Hx Cataracts: Yes (b/l sx) - RENAL Hx Chronic Kidney Disease: No - ENDOCRINE/METABOLIC Hx Endocrine Disorders: No - HEMATOLOGICAL/ONCOLOGICAL Hx Cancer: Yes (right breast CA) - INTEGUMENTARY Hx Dermatological Problems: No - MUSCULOSKELETAL/RHEUMATOLOGICAL Hx Musculoskeletal Disorders: Yes Hx Falls: Yes - GASTROINTESTINAL Hx Gastrointestinal Disorders: Yes Hx Gastroesophageal Reflux: Yes - GENITOURINARY/GYNECOLOGICAL Hx Genitourinary Disorders: No - PSYCHIATRIC Hx Psychophysiologic Disorder: No Hx Substance Use: No - SURGICAL HISTORY Hx Mastectomy: Yes (right) - ANESTHESIA Hx Anesthesia: Yes Hx Anesthesia Reactions: No Hx Malignant Hyperthermia: No Meds Allergies/Adverse Reactions: Allergies Allergy/AdvReac Type Severity Reaction Status Date / Time No Known Allergies Allergy Verified 11/15/17 22:27 - Medications Medications: Current Medications Acetaminophen (Tylenol 325mg Tab) 650 mg PO Q6H PRN PRN Reason: Pain, Mild (1-3) Albuterol/Ipratropium (Duoneb 3 Mg/0.5 Mg (3 Ml) Ud) 3 ml IH Q2H PRN PRN Reason: Shortness of Breath Albuterol/Ipratropium (Duoneb 3 Mg/0.5 Mg (3 Ml) Ud) 3 ml IH [id number] [facility] Last Admin: 02/07/18 11:14 Dose: 3 ml Anastrozole (Arimidex 1 Mg Tab) 1 mg PO DAILY [facility] Last Admin: 02/07/18 09:40 Dose: Not Given Arformoterol Tartrate (Brovana) 15 mcg IH [id number] [facility] Aspirin (Aspirin Chewable) 81 mg PO DAILY [facility] Last Admin: 02/07/18 09:40 Dose: Not Given Atorvastatin Calcium (Lipitor) 20 mg PO DIN [facility] Budesonide (Pulmicort Respules) 0.5 mg IH [id number] [facility] Clopidogrel Bisulfate (Plavix) 75 mg PO DAILY [facility] Last Admin: 02/07/18 09:41 Dose: Not Given Cyanocobalamin (Vitamin B12 1000 Mcg Tab) 1,000 mcg PO DAILY [facility] Last Admin: 02/07/18 09:43 Dose: Not Given Docusate Sodium (Colace Liquid) 50 mg PO DAILY PRN PRN Reason: Constipation Heparin Sodium (Porcine) (Heparin) 5,000 units SC Q12 [facility]; Protocol Last Admin: 02/07/18 09:46 Dose: 5,000 units Sodium Chloride (Sodium Chloride 0.9%) 1,000 mls @ 50 mls/hr IV .Q20H [facility] Last Admin: 02/07/18 08:30 Dose: 50 mls/hr NOREPINEPHRINE BIT/0.9 % NACL (Levophed 4 Mg/ 250 Ml Ns Premixed) 4 mg in 250 mls @ 15 mls/hr IV .[id number] PRN; Protocol PRN Reason: TITRATE PER MD ORDER Meropenem/Sodium Chloride (Merrem Iv 500 Mg/Ns 50 Ml) 500 mg in 50 mls @ 100 mls/hr IVPB Q12 [facility]; Protocol Loratadine (Claritin) 10 mg PO DAILY PRN PRN Reason: Allergy symptoms Methylprednisolone (Solu-Medrol) 40 mg IVP Q12 [facility] Last Admin: 02/07/18 09:46 Dose: 40 mg Montelukast Sodium (Singulair) 10 mg PO DAILY [facility] Last Admin: 02/07/18 09:42 Dose: Not Given Celecoxib [Celebrex] (200 Mg (Home Med)) 200 mg PO DAILY [facility] Last Admin: 02/07/18 09:40 Dose: Not Given Pantoprazole Sodium (Protonix Inj) 40 mg IVP DAILY [facility] Last Admin: 02/07/18 09:45 Dose: 40 mg Physical Exam - Constitutional Appears: Chronically Ill, Other (lethargic but easily arousable) - Head Exam Head Exam: NORMAL INSPECTION - Neck Exam Neck exam: Negative for: Meningismus - Respiratory Exam Respiratory Exam: Decreased Breath Sounds - Cardiovascular Exam Cardiovascular Exam: +S1, +S2 - GI/Abdominal Exam GI & Abdominal Exam: Soft. absent: Tenderness Results - Vital Signs Recent Vital Signs: Last Vital Signs Temp 98.2 F 02/07/18 01:39 Pulse 105 H 02/07/18 07:35 Resp 79 H 02/07/18 06:40 BP 107/54 L 02/07/18 09:45 Pulse Ox 94 L 02/07/18 06:40 - Labs Result Diagrams: 02/07/18 05:26 02/07/18 05:26 Labs: Laboratory Results - last 24 hr 02/06/18 02/06/18 02/06/18 21:57 21:57 21:57 WBC 20.7 H D RBC 4.28 Hgb 11.7 L Hct 39.5 MCV 92.3 MCH 27.3 MCHC 29.6 L RDW 13.5 Plt Count 268 MPV 11.1 H Gran % 89.5 H Lymph % (Auto) 4.6 L [place] % (Auto) 5.8 Eos % (Auto) 0.0 L Baso % (Auto) 0.1 Gran # 18.49 H Lymph # (Auto) 1.0 L [place] # (Auto) 1.2 H Eos # (Auto) 0.0 Baso # (Auto) 0.02 Neutrophils % (Manual) 79 H Band Neutrophils % 10 H Lymphocytes % (Manual) 4 L Monocytes % (Manual) 6 Metamyelocytes % 1 Platelet Evaluation Normal PT 12.6 H INR 1.10 APTT 26.3 pCO2 pO2 90 H HCO3 ABG pH ABG Total CO2 ABG O2 Saturation ABG O2 Content ABG Base Excess ABG Hemoglobin ABG Carboxyhemoglobin POC ABG HHb (Measured) ABG Methemoglobin ABG O2 Capacity ABG Potassium VBG pH 7.26 L VBG pCO2 122.0 H* VBG HCO3 54.7 H VBG Total CO2 58.4 H VBG O2 Sat (Calc) 96.0 H VBG Base Excess 21.1 H VBG Potassium 7.0 H* Hgb O2 Saturation Sodium 133.0 Chloride 91.0 L Glucose 97 Lactate 2.3 H FiO2 21.0 Inspiratory BiPAP Potassium Carbon Dioxide Anion Gap BUN Creatinine Est GFR ( Amer) Est GFR (Non-Af Amer) Random Glucose Calcium Phosphorus Magnesium Total Bilirubin AST ALT Alkaline Phosphatase Lactate Dehydrogenase Total Creatine Kinase Troponin I NT-Pro-B Natriuret Pep Total Protein Albumin Globulin Albumin/Globulin Ratio Arterial Blood Potassium Venous Blood Potassium 7.0 H* Urine Color Urine Appearance Urine pH Ur Specific [place] Urine Protein Urine Glucose (UA) Urine Ketones Urine Blood Urine Nitrate Urine Bilirubin Urine Urobilinogen Ur Leukocyte Esterase Urine RBC Urine WBC Ur Epithelial Cells Amorphous Sediment Urine Bacteria 02/06/18 02/06/18 02/07/18 23:12 23:45 00:30 WBC RBC Hgb Hct MCV MCH MCHC RDW Plt Count MPV Gran % Lymph % (Auto) [place] % (Auto) Eos % (Auto) Baso % (Auto) Gran # Lymph # (Auto) [place] # (Auto) Eos # (Auto) Baso # (Auto) Neutrophils % (Manual) Band Neutrophils % Lymphocytes % (Manual) Monocytes % (Manual) Metamyelocytes % Platelet Evaluation PT INR APTT pCO2 135 H* pO2 124.0 H HCO3 51.6 H* ABG pH 7.19 L* ABG Total CO2 55.7 H ABG O2 Saturation 96.9 ABG O2 Content 15.1 ABG Base Excess 18.5 H ABG Hemoglobin 11.0 L ABG Carboxyhemoglobin 0.4 L POC ABG HHb (Measured) 3.1 ABG Methemoglobin 0.4 ABG O2 Capacity 15.6 L ABG Potassium VBG pH VBG pCO2 VBG HCO3 VBG Total CO2 VBG O2 Sat (Calc) VBG Base Excess VBG Potassium Hgb O2 Saturation 96.1 Sodium 136 Chloride 86 L Glucose Lactate FiO2 100.0 Inspiratory BiPAP Potassium 5.1 H Carbon Dioxide 43 H Anion Gap 12 BUN 37 H Creatinine 1.2 Est GFR ( Amer) 54 Est GFR (Non-Af Amer) 44 Random Glucose 115 H Calcium 8.8 Phosphorus Magnesium 2.2 Total Bilirubin 0.6 AST 34 ALT 16 Alkaline Phosphatase 108 Lactate Dehydrogenase 547 Total Creatine Kinase < 20 L Troponin I 0.01 NT-Pro-B Natriuret Pep 2260 H Total Protein 7.5 Albumin 3.1 Globulin 4.4 Albumin/Globulin Ratio 0.7 L Arterial Blood Potassium Venous Blood Potassium Urine Color Yellow Urine Appearance Sl cloudy Urine pH 6.5 Ur Specific [place] 1.020 Urine Protein 100 H Urine Glucose (UA) Negative Urine Ketones Negative Urine Blood Negative Urine Nitrate Negative Urine Bilirubin Negative Urine Urobilinogen 1.0 H Ur Leukocyte Esterase Negative Urine RBC 0 - 2 Urine WBC 0 - 2 Ur Epithelial Cells 3 - 4 Amorphous Sediment Few Urine Bacteria Rare 02/07/18 02/07/18 02/07/18 01:50 05:26 05:26 WBC 25.5 H* D RBC 3.91 Hgb 10.5 L Hct 37.4 MCV 95.7 D MCH 26.9 MCHC 28.1 L RDW 13.5 Plt Count 214 MPV 10.3 Gran % 96.3 H Lymph % (Auto) 3.1 L [place] % (Auto) 0.5 L Eos % (Auto) 0.0 L Baso % (Auto) 0.1 Gran # 24.51 H Lymph # (Auto) 0.8 L [place] # (Auto) 0.1 Eos # (Auto) 0.0 Baso # (Auto) 0.03 Neutrophils % (Manual) 77 H Band Neutrophils % 18 H* Lymphocytes % (Manual) 1 L Monocytes % (Manual) 4 Metamyelocytes % Platelet Evaluation Normal PT INR APTT pCO2 pO2 64 H HCO3 ABG pH ABG Total CO2 ABG O2 Saturation ABG O2 Content ABG Base Excess ABG Hemoglobin ABG Carboxyhemoglobin POC ABG HHb (Measured) ABG Methemoglobin ABG O2 Capacity ABG Potassium VBG pH 7.14 L* VBG pCO2 149.0 H* VBG HCO3 50.7 H VBG Total CO2 55.3 H VBG O2 Sat (Calc) 90.3 H VBG Base Excess 15.3 H VBG Potassium 5.1 Hgb O2 Saturation Sodium 136.0 139 Chloride 93.0 L 89 L Glucose 115 H Lactate 1.4 FiO2 21.0 Inspiratory BiPAP Potassium 5.2 H Carbon Dioxide 40 H Anion Gap 15 BUN 41 H Creatinine 1.5 H Est GFR ( Amer) 41 Est GFR (Non-Af Amer) 34 Random Glucose 147 H Calcium 8.4 Phosphorus 7.7 H Magnesium 2.3 H Total Bilirubin 0.5 AST 36 ALT 15 Alkaline Phosphatase 101 Lactate Dehydrogenase Total Creatine Kinase Troponin I < 0.01 NT-Pro-B Natriuret Pep Total Protein 7.1 Albumin 3.0 Globulin 4.2 Albumin/Globulin Ratio 0.7 L Arterial Blood Potassium Venous Blood Potassium 5.1 Urine Color Urine Appearance Urine pH Ur Specific [place] Urine Protein Urine Glucose (UA) Urine Ketones Urine Blood Urine Nitrate Urine Bilirubin Urine Urobilinogen Ur Leukocyte Esterase Urine RBC Urine WBC Ur Epithelial Cells Amorphous Sediment Urine Bacteria 02/07/18 05:48 WBC RBC Hgb Hct MCV MCH MCHC RDW Plt Count MPV Gran % Lymph % (Auto) [place] % (Auto) Eos % (Auto) Baso % (Auto) Gran # Lymph # (Auto) [place] # (Auto) Eos # (Auto) Baso # (Auto) Neutrophils % (Manual) Band Neutrophils % Lymphocytes % (Manual) Monocytes % (Manual) Metamyelocytes % Platelet Evaluation PT INR APTT pCO2 140 H* pO2 80.0 HCO3 46.6 H* ABG pH 7.13 L* ABG Total CO2 50.9 H ABG O2 Saturation 94.7 L ABG O2 Content ABG Base Excess 11.7 H ABG Hemoglobin ABG Carboxyhemoglobin POC ABG HHb (Measured) ABG Methemoglobin ABG O2 Capacity ABG Potassium 4.9 VBG pH VBG pCO2 VBG HCO3 VBG Total CO2 VBG O2 Sat (Calc) VBG Base Excess VBG Potassium Hgb O2 Saturation Sodium 136.0 Chloride 95.0 L Glucose 136 H Lactate 1.4 FiO2 90.0 Inspiratory BiPAP 20 Potassium Carbon Dioxide Anion Gap BUN Creatinine Est GFR ( Amer) Est GFR (Non-Af Amer) Random Glucose Calcium Phosphorus Magnesium Total Bilirubin AST ALT Alkaline Phosphatase Lactate Dehydrogenase Total Creatine Kinase Troponin I NT-Pro-B Natriuret Pep Total Protein Albumin Globulin Albumin/Globulin Ratio Arterial Blood Potassium 4.9 Venous Blood Potassium Urine Color Urine Appearance Urine pH Ur Specific [place] Urine Protein Urine Glucose (UA) Urine Ketones Urine Blood Urine Nitrate Urine Bilirubin Urine Urobilinogen Ur Leukocyte Esterase Urine RBC Urine WBC Ur Epithelial Cells Amorphous Sediment Urine Bacteria Assessment & Plan - Assessment and Plan (Free Text) Plan: Assessment Severe sepsis with acute hypoxic respiratory failure and acute renal failure with bandemia, R/O healthcare-associated community-acquired pneumonia with possible gram negative bacilli and/or atypical organisms in this patient with history of bronchiectasis and pulmonary fibrosis oxygen-dependent COPD HTN history of breast cancer coronary artery disease dyslipidemia history of DVT Plan started patient on a loading dose of IV Vancomycin and started Merrem, Levaquin pending blood, sputum cx, PCT, urine Legionella Ag; will get MRSA nares, check rapid Influenza test and will start Tamiflu for now overall prognosis is poor will monitor clinically discussed with daughter at bedside extensively - she was concerned about C. diff. but as discussed, the benefits of antibiotic therapy outweighs the risks
[2018-02-07] MEDS ORDERED: Sildenafil 20 MG TAB PO SCH (14:00)
--- NOTE | 2018-02-07 14:54 | CARD ---
APPROVED REPORT Date of service: 02/06/2018 EKG Measurement Heart [id number] <Conclusion> Sinus tachycardia. Biatrial enlargement. P [place]monale. Abnormal ECG
[2018-02-07] MEDS ORDERED: Morphine 4 mg/ml ISec IVP PRN ×2 (16:08→16:34)
[2018-02-07] MEDS ORDERED: Metoprolol 1 mg/ml Inj IVP ONE (16:09)
[2018-02-07 16:45] LABS: ARTERIAL BLOOD GAS HEMOGLOBIN 9.5 g/dL (11.7-17.4); ARTERIAL BLOOD GAS O2 CAPACITY 13.4 mL/dl (16-24); ARTERIAL BLOOD GAS O2 CONTENT 12.5 ML/dl (15-23); ARTERIAL BLOOD GAS O2 SAT 93.3 % (95-98); ARTERIAL BLOOD GAS PCO2 124 mm/Hg (35-45)
[2018-02-07 17:03] LABS: ARTERIAL BLOOD GAS HCO3 42.2 mmol/L (21-28); ARTERIAL BLOOD GAS PH 7.14 (7.35-7.45)
[2018-02-07] MEDS ORDERED: Morphine 2 mg/ml ISec IVP PRN (17:41)
[2018-02-07] MEDS ORDERED: Sodium Chloride 0.9% 500 ML IV STA (17:58)
--- NOTE | 2018-02-07 19:24 | CON ---
DATE: 02/07/2018 CONSULT SERVICE: Cardiology. REASON FOR ADMISSION: Hypotension, exacerbation of COPD, moved to ICU. BRIEF CLINICAL HISTORY: This 72-year-old female with past medical history significant for pulmonary fibrosis, on home oxygen, COPD, obstructive sleep apnea, bronchiectasis, breast CA status post right mastectomy, chemo and radiation therapy, coronary artery disease status post multiple stent, brought by the daughter because of difficulty breathing. The patient was in the floor and then the patient got hypotension, moved to ICU. Responded to 100 mL of bolus saline, blood pressure 104 at 2 a.m., I got a call from house physician that the patient is hypotensive, gave another bolus and the blood pressure is stable. Now currently, the patient is on noninvasive ventilator, obtunded, DNR/DNI. The patient is also code sepsis and empiric antibody was started. PAST MEDICAL HISTORY: Significant for COPD, history of non-STEMI in the past, history of pulmonary fibrosis, history of pulmonary hypertension; COPD, on home oxygen; bronchiectasis, anemia, and CPAP at home. PAST SURGICAL HISTORY: Significant for breast CA, right mastectomy; coronary artery disease; history of stent in 2007, 2008, 2011 and most recently on 12/25/2016, two stent in RPDA and RCA most recently. SOCIAL HISTORY: Denies smoking. Denies any history of alcohol abuse. RECENT CARDIAC WORKUP: As follows: The patient had a cardiac catheterization on 12/25/2016 when the patient presented with non-STEMI. At that time, the cardiac catheterization revealed right-sided dominant artery, left main 20% stenosis LAD, patent stent noted to circumflex, diffuse coronary, but non-flow limiting stenosis noted. Right coronary artery is a moderate caliber vessel, 70-80% stenosis noted to the mid segment and RPDA has high-grade stenosis of 80%, ejection fraction of 65%, EDV in the range of 20-25. Ramus intermedius medium-sized vessels 30-40% stenosis where the patient had successfully stenting of mid RCA as well as RPDA was done with a drug-eluting stent dated 12/25/2016. The patient had a last echo, ejection fraction of 65% dated 12/22/2016. The patient had a repeat echocardiography done on 11/16/2017, that revealed ejection fraction 60-65%, RV systolic pressure mild to moderately reduced, trivial aortic regurgitation, trace to mild mitral regurgitation, [id number] tricuspid regurgitation, RV systolic pressure is 98, consistent with pulmonary hypertension dated 11/17/2017. REVIEW OF SYSTEMS: As per HPI. OBJECTIVE VITAL SIGNS: Height of the patient 5 feet 8 inches, weight of the patient 149 pounds, body mass index 22.7 kg/m2. Rest of the vitals, temperature afebrile, heart rate 102, and blood pressure 104/59. HEENT: PERRLA intact. NECK: Supple. No carotid bruit or thyromegaly. CHEST: Clear to auscultation. HEART: S1 and S2, regular. ABDOMEN: Soft. EXTREMITIES: Clubbing and cyanosis negative. LABORATORY DATA: Blood workup as follows: WBC 25.5, hemoglobin 10.5, hematocrit 37.4, platelet count 214. Chemistry shows sodium 137, potassium 5.2, chloride 89, carbon dioxide 40, anion gap of 15. BUN 41, creatinine 1.5. Troponin 0.01 x2 negative. Chest x-ray on admission that is yesterday at 9 p.m. shows consistent with the pulmonary congestion and pulmonary edema, also on listening scattered rhonchi and rales noted. IMPRESSION: A 72-year-old female with past medical history significant for pulmonary fibrosis, hypertension, hyperlipidemia, coronary artery disease status post multiple stent, most recent stent in 2017 with the patient's right posterior descending artery stent and right coronary artery stent, previously a stent patent in left anterior descending and circumflex, preserved left ventricular function, most recent echo in 2018 this year shows severe pulmonary hypertension, right ventricular systolic pressure of 98 consistent with pulmonary hypertension, preserved left ventricular function. RECOMMENDATION: We will discontinue IV fluid. The patient is taking 150 mL of IV fluid; we will cut down flow to 50 mL an hour and start Levophed as needed. We will give gentle Lasix, one dose of Lasix. Keep negative fluid balance. Continue broad-spectrum antibiotic. Overall, the patient's condition is critical, long-term prognosis is extremely guarded. We will hold Revatio in view of severe hypotension. We will start Levophed and give gentle Lasix. Overall, the patient's condition is critical, and prognosis is extremely poor and guarded. No evidence of acute KS at this time so far. We will monitor closely. We will start Levophed for hypotension as well as sepsis. Continue DVT prophylaxis and we will cut down the saline to 50 mL an hour from 150. Thank you, Dr. Del Rosario, for providing us the opportunity in taking care of Abby Bauman. Joaquin Frankel MD
[2018-02-07] MEDS: Arformoterol 15 mcg/2 ml Inh Sol IH SCH (20:00)
[2018-02-07] MEDS ORDERED: Budesonide 0.5 mg/2 ml Inhal Susp UD IH SCH (20:00)
[2018-02-07] MEDS: NOREPINEPHRINE BIT/0.9 % NACL 4 MG/250 ML BAG IV PRN (20:40)
[2018-02-08] MEDS: Albuterol-Ipratrop 3 mg / 0.5 (3 ml) UD IH SCH ×3 (00:34→07:08)
[2018-02-08] MEDS ORDERED: Morphine 2 mg/ml ISec IVP STA (03:54)
[2018-02-08] MEDS: NOREPINEPHRINE BIT/0.9 % NACL 4 MG/250 ML BAG IV PRN (06:12)
[2018-02-08 06:18] LABS: ARTERIAL BLOOD GAS HCO3 38.5 mmol/L (21-28); ARTERIAL BLOOD GAS HEMOGLOBIN 9.9 g/dL (11.7-17.4); ARTERIAL BLOOD GAS O2 SAT 93.1 % (95-98); ARTERIAL BLOOD GAS PCO2 133 mm/Hg (35-45); ARTERIAL BLOOD GAS TCO2 42.6 mmol.L (22-28)
[2018-02-08 06:39] LABS: ARTERIAL BLOOD GAS PH 7.07 (7.35-7.45)
[2018-02-08 06:52] LABS: BASO # 0.03 K/mm3 (0.0-2.0); BASO % 0.1 % (0.0-3.0); GRAN # 20.38 (1.4-6.5); GRAN % 92.5 % (50.0-68.0); HEMOGLOBIN 9.8 g/dL (12.0-16.0); LYMPH # 0.7 (1.2-3.4); LYMPH % 3.4 % (22.0-35.0); MEAN CELL VOLUME 99.2 fl (80.0-105.0); MEAN CORPUSCULAR HEMOGLOBIN 26.8 pg (25.0-35.0); MEAN PLATELET VOLUME 10.6 fl (7.0-11.0); MONO # 0.9 (0.1-0.6); RBC 3.66 10^6/uL (3.5-6.1); RED CELL DISTRIBUTION WIDTH 13.6 % (11.5-14.5)
[2018-02-08] MEDS: Arformoterol 15 mcg/2 ml Inh Sol IH SCH (07:08)
[2018-02-08 07:14] LABS: ALB/GLOB RATIO 0.7 (1.1-1.8)
[2018-02-08] MEDS: MEROPENEM 500 MG in NS 500 MG/50 ML BAG IVPB SCH (09:38)
[2018-02-08] MEDS ORDERED: Morphine PCA 1 mg/ml (30ml) 30 ML IV PRN (10:30)
--- NOTE | 2018-02-08 11:29 | RAD ---
Date of service: 02/08/2018 HISTORY: bilateral infiltrates COMPARISON: 02/06/2018 FINDINGS: LUNGS: Coarse interstitial infiltrate bilaterally likely interstitial fibrosis, grossly unchanged. There is focal opacity adjacent to the left hilum unchanged from previous. No other focal opacity identified. PLEURA: Possible small left pleural effusion, unchanged. No right pleural effusion. No pneumothorax. Bilateral apical pleural thickening, right greater than left. Unchanged. CARDIOVASCULAR: Normal heart size. No definite congestive change OSSEOUS STRUCTURES: No significant abnormalities. VISUALIZED UPPER ABDOMEN: Normal. OTHER FINDINGS: None. IMPRESSION: Diffuse interstitial fibrosis with focal left parahilar opacity. Small left pleural effusion. Bilateral apical pleural thickening, nonspecific.
[2018-02-08 12:34] VITALS: BP 61/34; PULSE 89; RESP 17; O2SAT 72
--- NOTE | 2018-02-08 13:03 | PN ---
DATE: 02/08/2018 SUBJECTIVE: The patient was seen earlier today in 129, bed 6. The patient overall has no acute changes. Nursing staff is know of overnight events. The patient is on BiPAP. Has had no fevers. PHYSICAL EXAMINATION: VITAL SIGNS: On exam, temperature is 98, T-max was 100.2 yesterday, respiratory rate of 36, blood pressure is 87/46, heart rate of 108. HEENT: Examination of HEENT is unremarkable. NECK: Supple. LUNGS: Have decreased breath sounds. HEART: Normal S1, S2. ABDOMEN: Soft, nontender. LABORATORY DATA: Laboratory examination reveals a white count of 22,000, hemoglobin of 9, platelets of 249. Chemistries reveals a BUN of 64. Creatinine is up to 2.6. Procalcitonin of 5.8. LFTs are noted with AST of 41 and creatinine of 2.6. Urinalysis is unremarkable except for proteinuria. Urine for Legionella antigen is negative. Microbiology reveals the blood cultures are no growth. The patient had a chest x-ray this morning, reveals interstitial infiltrates, interstitial fibrosis, unchanged. Focal left perihilar opacity, small left pleural effusion. Review of orders reveals the patient to be on Levaquin. ASSESSMENT AND PLAN: A 72-year-old female, seen earlier in room 129, bed 6 with past medical history of sepsis, community-acquired pneumonia along with urinary tract infection with Escherichia coli, history of bronchiectasis, oxygen-dependent chronic obstructive pulmonary disease, chronic obstructive lung disease, pulmonary fibrosis, hypertension, history of breast cancer, coronary artery disease, dyslipidemia, history of deep venous thrombosis and admitted from another hospital, respiratory symptoms, last week hypoxic and is being treated with steroids with severe sepsis, acute hypoxic respiratory failure, acute renal failure with bandemia with healthcare-associated pneumonia, possibly gram-positive versus possible gram-negative versus atypical. On vancomycin and meropenem day #2 with negative blood cultures, negative urine Legionella antigen, elevated procalcitonin of 5.81 with a creatinine of 1.5, now creatinine is up to 2.6, acute kidney injury. Awaiting for methicillin-resistant Staphylococcus aureus nasal screen, urine cultures. Currently on Levaquin and meropenem, Solu-Medrol. We will follow with you. Tej Jones MD [facility] # [id number]
--- NOTE | 2018-02-08 13:36 | CON ---
DATE: 02/07/2018 REFERRING PHYSICIAN: Dr. Del Rosario. REASON FOR CONSULTATION: Respiratory failure, pulmonary fibrosis, pulmonary hypertension, sleep apnea syndrome. HISTORY OF PRESENT ILLNESS: This is a 72-year-old female known to me from our office and previous admission, has a severe lung disease with pulmonary fibrosis, also has an obstructive component to it, steroids dependent, oxygen dependent, has a sleep apnea syndrome, history of breast cancer, coronary artery disease, hyperlipidemia, history of DVT. Apparently, the patient moved out of [place], living with daughter in the [facility], where she got sick, had some respiratory virus trigger her lung disease, ended up with admission in [facility]. I personally spoke to protective signal installer there one time. Patient's history, prognosis, and past experience discussed with them, especially with severe pulmonary hypertension. In short story, apparently, the patient was made DNR and hospice and was let go home. As soon as the patient comes home, she requested to come to [facility]3]. She came to ER yesterday with respiratory failure, fever, leukocytosis, was admitted to Intensive Care Unit, seen by technical maintenance technician, placed on noninvasive ventilation, IV steroids, antibiotics, , presently getting p.r.n. morphine, on noninvasive ventilation. Daughter is at bedside. She is arousable, follows simple commands. No hemoptysis, emesis, hematuria, diarrhea reported. PAST MEDICAL HISTORY: Cardiomyopathy; pulmonary hypertension; asthma; pulmonary fibrosis, steroid dependent, oxygen dependent; history of breast cancer; coronary artery disease; DVT; she has history of GERD. ALLERGIES: NONE KNOWN. SOCIAL HISTORY: Nonsmoker, nondrinker. FAMILY HISTORY: No significant cardiopulmonary disease reported. MEDICATIONS: She is on Arimidex 1 mg daily, aspirin 81 mg daily, Brovana inhaled twice a day, Celebrex 200 mg daily, Claritin 10 mg daily, Colace 50 mg daily, DuoNeb q.2 h. p.r.n. and q.4 h. [id number], heparin 5000 units subcu q.12 h, Levaquin 750 mg daily, also getting Levophed, Lipitor 20 mg daily, meropenem is 500 mg q.12 h., morphine 2 mg q.4 h. p.r.n., Plavix 75 mg daily, Protonix 40 mg daily, Pulmicort inhaled twice a day, Singulair 10 mg daily, IV fluid normal saline 50 mL/hour, Solu-Medrol 60 mg q.8 h., Tamiflu 30 mg twice a day, Tylenol p.r.n., vitamin B12 1000 mcg daily. REVIEW OF SYSTEMS: She is lethargic, arousable, on noninvasive ventilation, has cough, shortness of breath. No chest pain, no vomiting, no hematuria, no diarrhea. Has trace leg swelling. PHYSICAL EXAMINATION: GENERA: Lying in the bed, very lethargic. VITAL SIGNS: Temperature is 100, heart rate is 130, respiratory rate is 33, blood pressure 100/59, pulse ox 90% on noninvasive ventilation. HEENT: Moist mucous membrane. NECK: Supple. No JVD. LUNGS: Bilateral crackles and rhonchi. HEART: S1 and S2. ABDOMEN: Soft, nontender. No organomegaly. EXTREMITIES: No edema. NEUROLOGIC: Lethargic, arousable. LABORATORY DATA: Shows hemoglobin 10.5, hematocrit 37.4, WBC 25,000, platelet is 214. INR 1.10, PTT is 26. Blood gases show pH 7.14, pCO2 is 124, O2 is 70 which is on 90% oxygen on noninvasive ventilation. Sodium 139, potassium 5.2, chloride 89, bicarbonate 40, BUN 41, creatinine 1.5, glucose 147, phosphorus 7.7, magnesium 2.3, AST 36, ALT 15, alk phos is 101. Albumin is 3.0, procalcitonin 5.81. EKG shows sinus tachycardia. Had a chest x-ray done yesterday through ER, which shows severe pulmonary fibrosis, not much change than previous x-rays. IMPRESSION AND PLAN: Respiratory failure with severe obstructive lung disease, also with pulmonary fibrosis, cardiomyopathy, coronary artery disease, pulmonary hypertension, history of breast cancer. I had a long discussion with the patient's daughter at bedside. All the questions answered. Presently, the patient is DNR and DNI with aggressive medical care. Spoke to nursing staff. Lopressor 5 mg IV is given for persistent tachycardia. Morphine is being given to keep her comfortable, present on noninvasive ventilation. Daughter is waiting for rest of the family to come tonight. They may go ahead and start hospice and withdrawal of care if family agrees. I increased Solu-Medrol to 40 q.6 h., continue morphine, continue BiPAP for now, gastric prophylaxis. May discontinue some of the unnecessary medications. Thank you and we will follow with you. Joaquin Rosales MD
[2018-02-08] MEDS ORDERED: Albuterol-Ipratrop 3 mg / 0.5 (3 ml) UD IH SCH (14:00)
[2018-02-08 14:14] VITALS: TEMP 97.5
--- NOTE | 2018-02-09 06:49 | PQF ---
PROVIDER RESPONSE TEXT: Provider was unable to determine a response for this query. REVIEWER QUERY TEXT: Respiratory Failure Acuity and Type Respiratory Failure is documented in the Medical Record. Please specify the type and acuity (includes suspected or probable) Such as: -- Acute respiratory failure - With hypoxia - With hypercapnia -- Chronic respiratory failure - With hypoxia - With hypercapnia -- Acute on chronic respiratory failure , due to pul fibrosis , yes - With hypoxia - With hypercapnia -- Other, please specify The patient's Clinical Indicators include: Please note that your PN of 02/06 listed hypercapnic respiratory failure as a diagnosis. Acuity is required. Please document. Query created by: Tammie Moses on 02/07/2018 8:35 AM Electronically signed by: Geraldo Escobedo 02/09/2018 6:46 AM [facility]
--- NOTE | 2018-02-10 09:27 | PN ---
DATE: 02/08/2018 ROLLING ATTENDANT NOTE LOCATION: At [facility]. SUBJECTIVE: The patient is resting on a BiPAP and O2 support. She is noted to have a Levophed to support her blood pressure. Note that the patient is a DNR/DNI. 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 The patient has respiratory failure with hypercapnia. PHYSICAL EXAMINATION: VITAL SIGNS: As far as physical exam note that her temperature is 98, her pulse is 119, respirations are 28 and BP is 92/46. SKIN: Warm and dry. HEENT: Head atraumatic, normocephalic. Eyes reactive to light. Ears, nose and throat seemed to be within normal limits. NECK: Supple. No JVD. No thyroid enlargement. No lymph nodes. HEART: Has regular rate and rhythm. Normal S1, S2, but tachycardic. LUNGS: Her lungs reveal bilateral rhonchi. ABDOMEN: Soft. Decreased bowel sounds. GENITALIA AND RECTAL: Deferred. MUSCULOSKELETAL: No joint deformities. EXTREMITIES: Reveal positive lower extremity edema. NEUROLOGICAL: The patient is somewhat responsive on the BiPAP mask. LABORATORY DATA: As far as her laboratories are concerned, white count is 22, hemoglobin is 9.8, hematocrit 36.3 with platelets of 249,000. The patient's arterial blood gas reveals a pH of 7.07, pCO2 of 133 and pO2 of 69. This is on high BiPAP support with oxygen being delivered at the background as well. Note that the patient is a DNR/DNI. Her sodium is 141, potassium 5.4, chloride 97 with a CO2 of 36 and a BUN of 64, creatinine of 2.6. The patient's glucose is 132. As far as her chest x-ray, it reveals diffuse bilateral interstitial changes of possible infiltrates. IMPRESSION: As far as my impression, this patient has severe chronic obstructive pulmonary disease, has possible pneumonia and pulmonary fibrosis, which is severe secondary to interstitial pulmonary fibrosis. The patient has hypercapnia and hypoxia with respiratory failure. She has tachycardia, renal insufficiency, anemia and is hypotensive requiring Levophed to support the blood pressure. The patient has a history of breast carcinoma and mastectomy. She has coronary artery disease as well as gastroesophageal reflux disease. PLAN: As far as our plan, we will continue the high BiPAP and O2 support and note that the patient is DNR/DNI. She is on Levophed for blood pressure support and is getting Brovana as well as p.r.n. DuoNeb and the patient is also getting heparin subcu. She is on Lovenox as well as Lipitor and meropenem. She is getting Levophed as stated above as well as Plavix, Protonix, Pulmicort and Singulair. The patient is getting some IV fluids and is on Solu-Medrol as well as Tamiflu and Tylenol for fever p.r.n. We will continue to treat aggressively along with the other consultants and the primary care doctor. Woody Rodriguez MD
--- NOTE | 2018-02-10 10:00 | HP ---
date 02/07/18 HISTORY OF PRESENT ILLNESS: Ms. Merna Mora is a 72-year-old female with past medical history of asthma, bronchitis, pneumonia, pulmonary fibrosis, COPD, emphysema, came to the Emergency Department accompanied with daughter with shortness of breath since one day. Daughter states that the patient has been unable to breathe well all day. Daughter states that she was essentially from the [facility]. According to daughter, the patient had been seen by Dr. Rosales and Dr. Del Rosario regularly in the past but now because the patient moves with the daughter and daughter's nearby hospital was [facility] .[id number], took the patient to [facility]. He patient denies any fever, chills, headache, dizziness, abdominal pain, nausea, vomiting, diarrhea, back pain, chest pain, hematuria, or hematochezia. PAST MEDICAL HISTORY: COPD, cataract, falls, gastroesophageal reflux disease, mastectomy, history of breast cancer, pulmonary fibrosis. FAMILY HISTORY: Father and mother, noncontributory. HABITS: Never smoked. No drug. No ethanol. ALLERGIES: THE PATIENT IS NOT ALLERGIC WITH ANY MEDICATIONS. HOME MEDICATIONS: Cetirizine, stool softener, the ranitidine. REVIEW OF SYSTEMS: The patient is seen and examined at the bedside in the unit. Daughter and family member were around. The patient was having BiPAP. No fever. No chills. No abdominal pain, diarrhea. No nausea or vomiting. No back pain, neck pain. No headache. No dizziness. PHYSICAL EXAMINATION: VITAL SIGNS: Pulse 105, respiratory rate 48, blood pressure 118/56, pulse oximetry 94. HEENT: Head: Normocephalic, atraumatic. Eyes: PERRLA. Extraocular muscles intact. Conjunctivae clear. Nose patent. Mucous membranes moist. NECK: Supple. No carotid bruit. No JVD or thyromegaly. CHEST: Bilaterally symmetrical. LUNGS: Looks like in respiratory distress, using accessory muscles, wheezing diffuse and expiratory wheezing bilaterally. Has diffuse rhonchi auscultated bilaterally. The patient is tachypneic. HEART: S1, S2 positive. ABDOMEN: Soft, no organomegaly. EXTREMITIES: No edema, no cyanosis. NEUROLOGICAL: The patient is awake and alert. Obeying simple commands. SKIN: Warm and dry. MEDICATIONS: Tylenol, DuoNeb, Arimidex, Brovana, aspirin, Lipitor, Pulmicort, Plavix, Colace, heparin, vancomycin, and Zofran. LABORATORY DATA: White blood cells 25.5, hemoglobin 10.5, hematocrit 37.4, platelets 214. Sodium 139, chloride 89, glucose 136. AST 34, ALT 16. Hemoglobin 11.7. ASSESSMENT AND PLAN: Ms. Merna Mora is a 72-year-old my private patient, has pulmonary fibrosis. She is on home oxygen; breast cancer, status post right mastectomy; gastroesophageal reflux disease; dyspepsia; coronary artery disease, status post cardiac stenting; diastolic congestive heart failure; hypertension; was seen in [facility] for respiratory insufficiency. The patient was placed on hospice and sent home yesterday. Within a few hours, daughter was concerned for her and did not want her medically unattended, she never felt truly comfortable with the idea of the hospice, but the patient is do not resuscitate and do not intubate. Family knows that the patient's prognosis is poor. Empiric antibiotics started as per ID. Appreciate Dr. Lisa Wayne, snow technician's input, Dr. Villafuerte's input, and Dr. Frankel's input. ID is on the case. Gastric and deep vein thrombosis prophylaxes. We will follow up. Stacey Del Rosario MD [facility]
== END 2018-02-08 12:07 | DRG 871 ==
LOC: ED 21:01 → ERH 22:27 → CCU 02-07 01:37
PROVIDERS: ADMIT Internal Medicine; ATTEND Internal Medicine
PROC: 5A09457 Assistance with Respiratory Ventilation, 24-96 Consecutive Hours, Continuous Positive Airway Pressure (ICD-10-PCS; principal; 2018-02-07)
DX: A41.9 Sepsis, unspecified organism (principal); J96.02 Acute respiratory failure with hypercapnia; J96.01 Acute respiratory failure with hypoxia; J44.1 Chronic obstructive pulmonary disease with (acute) exacerbation; I50.30 Unspecified diastolic (congestive) heart failure; N17.9 Acute kidney failure, unspecified; I42.9 Cardiomyopathy, unspecified; J84.10 Pulmonary fibrosis, unspecified; R65.20 Severe sepsis without septic shock; I25.10 Atherosclerotic heart disease of native coronary artery without angina pectoris; G47.33 Obstructive sleep apnea (adult) (pediatric); I11.0 Hypertensive heart disease with heart failure; K21.9 Gastro-esophageal reflux disease without esophagitis; Z66 Do not resuscitate; I27.20 Pulmonary hypertension, unspecified; E78.5 Hyperlipidemia, unspecified; Z85.3 Personal history of malignant neoplasm of breast; Z99.81 Dependence on supplemental oxygen; Z90.11 Acquired absence of right breast and nipple; I25.2 Old myocardial infarction; Z86.718 Personal history of other venous thrombosis and embolism